=== PATIENT | male | born 1955 | race Caucasian/White ===

== ENCOUNTER 2023-03-01 01:20 | Inpatient (IN) ==
[2023-03-01 01:50] LABS: Basophils # (auto) 0.04 K/uL (0-0.2); Basophils % (auto) 0.3 %; Eosinophils % (auto) 0.9 %; Hematocrit (blood only) 50.7 % (42.0-52.0); Hemoglobin 16.6 g/dl (14.0-18.0); Immature Granulocytes # (auto) 0.08 K/uL (0.01-0.20); Immature Granulocytes % (auto) 0.7 %; Lymphocytes # (auto) 0.86 K/uL (1.2-3.4); Lymphocytes % (auto) 7.4 %; Mean Corpuscular Hemoglobin 29.9 pg (25.0-34.0); Mean Corpuscular Hgb Conc 32.7 g/dL (32.0-36.0); Mean Corpuscular Volume 91.2 fL (80.0-100.0); Monocytes # (auto) 0.73 K/uL (0.11-0.59); Monocytes % (auto) 6.3 %; Neutrophils % (auto) 84.4 %; Platelet Count 236 K/uL (130-400); RDW Coefficient of Variation 14.5 % (11.5-14.5); RDW Standard Deviation 49.1 fL (36.4-46.3); Red Blood Count 5.56 M/uL (4.70-6.10); White Blood Count 11.61 K/ul (4.8-10.8)
--- NOTE | 2023-03-01 01:54 | Emergency Department Note ---
History of Present Illness General Chief complaint: Shortness of Breath/Dyspnea Stated complaint: SHORT OF BREATH History of Present Illness 67-year-old male presents from [facility] reportedly was transferred there after a stroke. Patient has dysarthria and a right-sided facial droop. According to the nursing staff this evening the patient had increased work of breathing and reportedly a low pulse ox in the upper 80s. Patient has had a cough with some congestion. Patient denies any current complaints of chest pain or shortness of breath. Patient denies smoking. Patient has no specific complaints. The [facility] transfer note states that he was short of breath with a low pulse ox he was placed on oxygen and had a pulse oximetry greater than 94% on 2 L of oxygen. Home Medications Medication Instructions Recorded Confirmed Type acetaminophen 325 mg tablet 650 mg PO Q4 PRN Pain 03/01/23 03/01/23 History (Tylenol) albuterol sulfate 90 mcg/actuation 1 inh inhalation Q4 PRN Wheezing 03/01/23 03/01/23 History aerosol inhaler amlodipine 10 mg tablet 10 mg PO DAILY 03/01/23 03/01/23 History apixaban 5 mg tablet 5 mg PO BID 03/01/23 03/01/23 History carbidopa 25 mg-levodopa 100 mg 1 tab PO Q8 03/01/23 03/01/23 History tablet diazepam 5 mg tablet 10 mg PO Q4 PRN .spasm 03/01/23 03/01/23 History docusate sodium 100 mg capsule 100 mg PO BID 03/01/23 03/01/23 History folic acid 1 mg tablet 1 mg PO DAILY 03/01/23 03/01/23 History guaifenesin 600 mg tablet, 600 mg PO BID 03/01/23 03/01/23 History extended release 12 hr (Mucinex) insulin regular human 100 unit/mL 0 unit subcut ACHS 03/01/23 03/01/23 History injection solution (Humulin R Regular U-100 Insulin) melatonin 3 mg tablet 3 mg PO HS PRN Sleep 03/01/23 03/01/23 History metoprolol tartrate 50 mg tablet 50 mg PO Q12H 03/01/23 03/01/23 History ondansetron HCl 4 mg tablet 4 mg PO Q4 PRN Nausea 03/01/23 03/01/23 History polyethylene glycol 3350 17 gram 17 g PO DAILY 03/01/23 03/01/23 History oral powder packet (Miralax) risperidone 0.25 mg tablet 0.5 mg PO Q12 03/01/23 03/01/23 History sennosides 8.6 mg-docusate sodium 1 tab-cap PO .QLUNCH PRN 03/01/23 03/01/23 History 50 mg tablet (Senokot-S) Constipation thiamine HCl (vitamin B1) 100 mg 100 mg PO DAILY 03/01/23 03/01/23 History tablet Allergies Allergy/AdvReac Type Severity Reaction Status Date / Time No Known Allergies Allergy Unverified 03/01/23 03:14 Past Med/Surg History Social History Smoking Status: Current some day smoker Tobacco Type: Cigarettes Feels Safe at Home: Yes Immunizations: Past medical history is CVA Review of Systems A total of 10 systems reviewed and were otherwise negative Cardiovascular: + dyspnea Physical Exam Vital Signs Vital Signs - 24 hr 03/01/23 01:25 03/01/23 01:25 03/01/23 01:25 Temperature 37.0 C Temperature Source Oral Pulse Rate 79 Pulse Rate from SpO2 Sensor Pulse Rhythm Regular Pulse Strength Normal Respiratory Rate 16 Respiratory Effort / Characteristics Non-Labored Spontaneous Non-Labored Respiratory Depth Normal Respiratory Pattern Regular Blood Pressure 169/89 H Blood Pressure Mean 115 Blood Pressure Position Lying Pulse Oximetry 92 Oxygen Delivery Method Room Air Room Air Room Air Sepsis Recent Fever Within 48 Hours Yes Sepsis New/Unexplained Change in Mental Status No Sepsis Action Taken by Nursing No Action Required 03/01/23 02:26 03/01/23 02:27 03/01/23 02:30 Temperature Temperature Source Pulse Rate 92 H 89 90 Pulse Rate from SpO2 Sensor 88 76 Pulse Rhythm Pulse Strength Respiratory Rate 18 18 Respiratory Effort / Characteristics Respiratory Depth Respiratory Pattern Blood Pressure 170/102 H Blood Pressure Mean 124 Blood Pressure Position Pulse Oximetry 92 92 Oxygen Delivery Method Room Air Room Air Sepsis Recent Fever Within 48 Hours Sepsis New/Unexplained Change in Mental Status Sepsis Action Taken by Nursing GENERAL: Patient is awake alert in no acute distress patient is resting comforta florin and showing no signs of anxiety EYES: The conjunctivae are clear. The pupils are round and reactive. EARS, NOSE, MOUTH AND THROAT: The nose is without any evidence of any deformity. Mucous membranes are moist. Tongue is midline. Right sided facial droop NECK: The neck is nontender and supple. RESPIRATORY: Crackles bilaterally CARDIOVASCULAR: Regular rate and rhythm noted there no murmurs rubs or gallops normal S1 normal S2. GASTROINTESTINAL: The abdomen is soft. Abdomen is nontender. PELVIS: The Pelvis is stable. No tenderness to palpation is noted. BACK: No midline tenderness or or step-off noted range of motion in flexion extension as well as rotation no signs of muscle spasm noted MUSCULOSKELETAL/EXTREMITIES: There is no evidence of gross deformity full range of motion is noted in the hips and shoulders. SKIN: There is no obvious evidence of any rash. There are no petechiae, pallor or cyanosis noted. NEUROLOGIC: Patient is awake alert and oriented; dysarthric speech right-sided facial droop Course Reevaluation(s) Reevaluation #1: Patient was started on oxygen, given empiric IV Zosyn, Lasix 40 mg IV. Patient's oxygen improved after 2 L of oxygen. Time: 02:52 Consultations Consultation #1: Case was discussed with the [facility] for admission Time: 04:00 Administered Medications Discontinued Medications Furosemide (Furosemide 40 Mg/4 Ml Vial) 40 mg IV ONE ONE Stop: 03/01/23 02:48 Last Admin: 03/01/23 03:15 Dose: 40 mg Documented By: RAINE Piperacillin Sod/Tazobactam Sod (Zosyn) 4.5 gm in 120 mls @ 240 mls/hr IV NOW ONE Stop: 03/01/23 02:46 Last Infusion: 03/01/23 03:53 Dose: 0 mls/hr Documented By: Admin: 03/01/23 02:24 Dose: 240 mls/hr Documented By: RAINE Critical Care Time Critical Care Time: Yes Total Critical Care Time: 35 I have personally spent greater than 35 minutes of critical care time in the direct management of this patient. This includes bedside care, interpretation of diagnostic studies, and testing, discussion with consultants, patient, and family members, and other required patient management activities. These minutes are in excess of all separately billable procedures. Medical Decision Making Medical Records Attestation: I reviewed the patient's medical records. Home Medications Current Medication List: was personally reviewed by ut Laboratory Data Attestation: I reviewed the patient's lab results. 03/01/23 01:35 03/01/23 01:35 Lab Results 03/01/23 03/01/23 03/01/23 Range/Units 01:35 01:35 01:35 WBC 11.61 H (4.8-10.8) K/ul RBC 5.56 (4.70-6.10) M/uL Hgb 16.6 (14.0-18.0) g/dl Hct 50.7 (42.0-52.0) % MCV 91.2 (80.0-100.0) fL MCH 29.9 (25.0-34.0) pg MCHC 32.7 (32.0-36.0) g/dL RDW Std Deviation 49.1 H (36.4-46.3) fL RDW Coeff of Eduardo 14.5 (11.5-14.5) % Plt Count 236 (130-400) K/uL MPV 10.0 (9.4-12.4) fL Immature Gran % (Auto) 0.7 % Neut % (Auto) 84.4 % Lymph % (Auto) 7.4 % [place] % (Auto) 6.3 % Eos % (Auto) 0.9 % Baso % (Auto) 0.3 % Neut # (Auto) 9.80 H (1.40-6.50) K/uL Lymph # (Auto) 0.86 L (1.2-3.4) K/uL [place] # (Auto) 0.73 H (0.11-0.59) K/uL Eos # (Auto) 0.10 (0-0.50) K/uL Baso # (Auto) 0.04 (0-0.2) K/uL Immature Gran # (Auto) 0.08 (0.01-0.20) K/uL PT 13.3 H (9.0-12.0) Seconds INR 1.2 H (0.9-1.1) Sodium 141 (136-145) mmol/L Potassium 3.8 (3.5-5.1) mmol/L Chloride 104 (98-107) mmol/L Carbon Dioxide 28 (21-32) mmol/L Anion Gap 9 (3-11) BUN 37 H (6-23) mg/dl Creatinine 1.44 H (0.6-1.4) mg/dl Est Cr Clr Drug Dosing 61.6 ml/min Est GFR ( Amer) 57.0 ml/min Est GFR (Non-Af Amer) 49.2 ml/min BUN/Creatinine Ratio 25.7 H (10-20) Glucose 124 H (70-99(Fasting)) mg/dl Calcium 8.5 L (8.6-10.3) mg/dl Total Bilirubin 1.1 H (0.2-1.0) mg/dl AST 46 H (13-39) U/L ALT 60 H (7-52) U/L Alkaline Phosphatase 179 H (34-104) U/L Troponin I High Sens 49.2 H (0-20) pg/ml B-Natriuretic Peptide (0-100) pg/ml Total Protein 5.9 L (6.0-8.3) gm/dl Albumin 2.8 L (3.4-5.0) gm/dl Globulin 3.1 (2.5-4.0) gm/dl Albumin/Globulin Ratio 0.9 (0.9-2) Urine Color Urine Appearance (Clear) Urine pH (4.5-7.5) Ur Specific Chardon (1.000-1.030) Urine Protein (Negative) Urine Glucose (UA) (Negative) Urine Ketones (Negative) Urine Blood (Negative) Urine Nitrite (Negative) Urine Bilirubin (Negative) Urine Urobilinogen (Negative) Ur Leukocyte Esterase (Negative) SARS-CoV-2, RNA, NAAT (NEGATIVE) 03/01/23 03/01/23 03/01/23 Range/Units 01:35 01:53 01:54 WBC (4.8-10.8) K/ul RBC (4.70-6.10) M/uL Hgb (14.0-18.0) g/dl Hct (42.0-52.0) % MCV (80.0-100.0) fL MCH (25.0-34.0) pg MCHC (32.0-36.0) g/dL RDW Std Deviation (36.4-46.3) fL RDW Coeff of Eduardo (11.5-14.5) % Plt Count (130-400) K/uL MPV (9.4-12.4) fL Immature Gran % (Auto) % Neut % (Auto) % Lymph % (Auto) % [place] % (Auto) % Eos % (Auto) % Baso % (Auto) % Neut # (Auto) (1.40-6.50) K/uL Lymph # (Auto) (1.2-3.4) K/uL [place] # (Auto) (0.11-0.59) K/uL Eos # (Auto) (0-0.50) K/uL Baso # (Auto) (0-0.2) K/uL Immature Gran # (Auto) (0.01-0.20) K/uL PT (9.0-12.0) Seconds INR (0.9-1.1) Sodium (136-145) mmol/L Potassium (3.5-5.1) mmol/L Chloride (98-107) mmol/L Carbon Dioxide (21-32) mmol/L Anion Gap (3-11) BUN (6-23) mg/dl Creatinine (0.6-1.4) mg/dl Est Cr Clr Drug Dosing ml/min Est GFR ( Amer) ml/min Est GFR (Non-Af Amer) ml/min BUN/Creatinine Ratio (10-20) Glucose (70-99(Fasting)) mg/dl Calcium (8.6-10.3) mg/dl Total Bilirubin (0.2-1.0) mg/dl AST (13-39) U/L ALT (7-52) U/L Alkaline Phosphatase (34-104) U/L Troponin I High Sens (0-20) pg/ml B-Natriuretic Peptide 500 H (0-100) pg/ml Total Protein (6.0-8.3) gm/dl Albumin (3.4-5.0) gm/dl Globulin (2.5-4.0) gm/dl Albumin/Globulin Ratio (0.9-2) Urine Color Yellow Urine Appearance Clear (Clear) Urine pH 6.0 (4.5-7.5) Ur Specific Chardon 1.012 (1.000-1.030) Urine Protein Negative (Negative) Urine Glucose (UA) Negative (Negative) Urine Ketones Negative (Negative) Urine Blood Negative (Negative) Urine Nitrite Negative (Negative) Urine Bilirubin Negative (Negative) Urine Urobilinogen Negative (Negative) Ur Leukocyte Esterase Negative (Negative) SARS-CoV-2, RNA, NAAT NEGATIVE (NEGATIVE) Imaging Data Attestation: I personally reviewed and interpreted this imaging study as fo llows: My Impression: Chest x-ray interpreted by me atelectasis in the left lung and atelectasis in the right lower lobe questionable infiltrate in the right lower lobe ECG Data Attestation: I personally reviewed and interpreted this ECG as follows: Additional Comments: EKG interpreted by me atrial fibrillation rate of 75 incomplete right bundle branch block left anterior hemiblock nonspecific ST-T change no obvious ST segment elevation or depression, left axis deviation is present Telemetry was ordered by me, interpreted as atrial fibrillation rate of 72 MDM Narrative Medical decision making differential diagnosis includes CHF, bronchitis, pneumonia, anemia Plan is to check labs, EKG, chest x-ray, blood cultures External medical records were reviewed EMS medical report was reviewed by me Impression & Plan Congestive heart failure, Pneumonia, Hypoxia Discharge Plan Visit Data Chief Complaint: Shortness of Breath/Dyspnea Stated Complaint: SHORT OF BREATH ED Provider: Viet Hernandez Discharge Problem: Congestive heart failure, Pneumonia, Hypoxia Patient Disposition: Admitted As Inpatient Forms Stand Alone Forms: My [facility] Prescriptions Prescriptions: No Action acetaminophen [Tylenol] 325 mg Tablet 650 mg PO Q4 PRN (Reason: Pain) polyethylene glycol 3350 [Miralax] 17 gram Powder In Packet 17 g PO DAILY Rx Instructions: give at lunch ondansetron HCl 4 mg Tablet 4 mg PO Q4 PRN (Reason: Nausea) sennosides-docusate sodium [Senokot-S] 8.6-50 mg Tablet 1 tab-cap PO .QLUNCH PRN (Reason: Constipation) thiamine HCl (vitamin B1) 100 mg Tablet 100 mg PO DAILY risperidone [Risperdal] 0.25 mg Tablet 0.5 mg PO Q12 melatonin 3 mg Tablet 3 mg PO HS PRN (Reason: Sleep) amlodipine 10 mg Tablet 10 mg PO DAILY Humulin R Regular U-100 Insuln 100 unit/mL Solution 0 unit subcut ACHS Rx Instructions: 70-130=0units, 131-180=2units, 181-240=4 units, 241-300=6units, 301-350=8 units,351-400=10units , >400=12units metoprolol tartrate 50 mg Tablet 50 mg PO Q12H docusate sodium 100 mg Capsule 100 mg PO BID folic acid 1 mg Tablet 1 mg PO DAILY albuterol sulfate 90 mcg/actuation Hfa Aerosol Inhaler 1 inh INHALATION Q4 PRN (Reason: Wheezing) carbidopa-levodopa 25-100 mg Tablet 1 tab PO Q8 diazepam 5 mg Tablet 10 mg PO Q4 PRN (Reason: .spasm) apixaban 5 mg Tablet 5 mg PO BID guaifenesin [Mucinex] 600 mg Tablet Extended Release 12hr 600 mg PO BID Referrals Referrals: PCP,NO [Physician] -
[2023-03-01 02:14] LABS: Albumin Globulin Ratio 0.9 (0.9-2); Albumin Level 2.8 gm/dl (3.4-5.0); BUN Creatinine Ratio 25.7 (10-20); Bilirubin,Total 1.1 mg/dl (0.2-1.0); Calcium 8.5 mg/dl (8.6-10.3); Creatinine Clr Calc Pharmacy 61.6 ml/min; Est GFR (Non-African American) 49.2 ml/min; Globulin 3.1 gm/dl (2.5-4.0); Potassium 3.8 mmol/L (3.5-5.1); Total Protein 5.9 gm/dl (6.0-8.3)
[2023-03-01 02:17] LABS: INR 1.2 (0.9-1.1); Prothrombin Time 13.3 Seconds (9.0-12.0)
[2023-03-01] MEDS ORDERED: PIPERACILLIN/TAZOBACTAM 4.5 GM/120 ML BAG IV ONE (02:17)
[2023-03-01 02:19] LABS: Troponin I High Sensitivity 49.2 pg/ml (0-20)
[2023-03-01] MEDS ORDERED: FUROSEMIDE 40 MG/4 ML VIAL IV ONE (02:47)
[2023-03-01 03:48] LABS: Appearance Urine Clear (Clear); Bilirubin Urine Negative (Negative); Blood Urine Negative (Negative); Color Urine Yellow; Glucose Urine UA Negative (Negative); Ketones Urine Negative (Negative); Leukocyte Esterase Urine Negative (Negative); Nitrite Urine Negative (Negative); Protein Urine Negative (Negative); Specific Gravity Urine 1.012 (1.000-1.030); Urobilinogen Urine Negative (Negative)
[2023-03-01] MEDS ORDERED: HEPARIN SOD 5,000 UNIT/0.5 ML VIAL SQ STA (04:52)
--- NOTE | 2023-03-01 04:57 | History & Physical Report ---
Date of Service March 01, 2023 Assessment & Plan (1) Hypoxia: Plan: Patient is a 67-year-old male with a past medical history of recent acute CVA, alcohol abuse, nicotine dependence, hypertension, and atrial fibrillation who presents to the hospital for evaluation of hypoxia. Work-up in ED is suggestive of acute CHF exacerbation. He is status post IV Lasix therapy and is currently on supplemental oxygen. Patient is hemodynamically stable and being admitted for diuresis and supplemental oxygen. -Admit to [facility] with telemetry -Hypoxia likely secondary to pulmonary edema from CHF exacerbation, see plan below -Possibly a component of aspiration, see below -Do not feel chest x-ray is indicative of aspiration pneumonia -If patient were to show worsening white count or fever, consider adding broad- spectrum antibiotics for coverage -Status post IV Lasix -Supplemental oxygen as needed -Incentive spirometry, pulmonary toilet -Aspiration precautions Of note, insulin and hypoglycemia protocol is in patient's medications. This is not accurate. Patient had these ordered as part of a protocol at [facility]. His admission A1c at [facility] was 5.1 without any diabetic medications indicating that he does not have diabetes. (2) Congestive heart failure: Plan: - Likely secondary to chronic uncontrolled hypertension/atrial fibrillation -Evident on chest x-ray with cardiomegaly and pulmonary edema -Consult cardiology, appreciate recommendations and treatment -Complete echocardiogram in the morning -Low-sodium diet -Mclain catheter in for accurate I's and O's -Have patient sit upright for comfort (3) At risk for aspiration: Plan: - Secondary to recent CVA -Per rehab notes, patient was seen by speech pathology at [facility], however, we are unable to obtain the records for this at this time -For this reason, n.p.o. and will consult speech pathology for evaluation and recommendations, appreciate recs -Aspiration precautions (4) Elevated LFTs: Plan: - Likely patient has liver disease secondary to chronic alcohol abuse -Unable to find any record of abdominal imaging in transfer record -Evidence of ascites on physical exam with abdominal distention with what feels like a positive fluid wave -Ultrasound of liver ordered to evaluate for alcoholic liver disease (5) Elevated troponin: Plan: - Likely secondary to demand ischemia given acute CHF exacerbation and hypertension -Mildly elevated at 49.2, trend to peak -No chest pain (6) CKD (chronic kidney disease): Plan: -Newly diagnosed problem -Per records received from [facility], multiple measurements of creatinine above 1.4 -Suspect CKD 3 in the setting of chronic uncontrolled hypertension -Renally dose medications as needed (7) Atrial fibrillation: Plan: - Currently rate controlled, unsure if permanent or paroxysmal -On Eliquis for anticoagulation, however, unsure of last dose. -We will give DVT prophylaxis dose of heparin, I believe this should be enough to get him seen by speech evaluation to be cleared to take his Eliquis -Continue beta-blockade when NPO, if patient goes into RVR, transfer to telemetry will be required with Lopressor IV pushes (8) Hx of arterial ischemic stroke: Plan: -Noted -PT and OT consulted for continued treatment, appreciate recommendations -Otherwise as above (9) Alcohol abuse: Plan: - Per chart review from [facility], patient having multiple drinks daily for years -Assuming he has not had alcohol since his admission to [facility] on 02/22/2023. -To be sure, will put on AWSS at risk protocol - (10) Hypertension: Plan: - Chronic, uncontrolled -Continue amlodipine and metoprolol as able after speech consult -We will hold off from as needed antihypertensives for now -If consistently over 180/100, may need to add as needed hydralazine Plan Diet: N.p.o., holding off fluids given diuresis DVT prophylaxis: Typically on Eliquis, given 1 injection of heparin 5000 units subcutaneously Disposition: Admit to [facility] with telemetry for diuresis and initial cardiology consult for new onset CHF -CODE STATUS: Full code History of Present Illness Chief Complaint: Hypoxia Primary Care Provider: Bryant Trent Patient is a 67-year-old male with a past medical history of recent acute CVA, alcohol abuse, nicotine dependence, hypertension, and atrial fibrillation who presents to the hospital for evaluation of hypoxia. Patient was admitted at [facility] on 02/22/2023 after presenting to the ED with jerking in the left arm and leg that had lasted for about 2 weeks. While he was there, was found that the patient had a stroke in the subthalamic/midbrain on the right side. Neurology was consulted due to choreoathetoid movements and they felt that this was due to the stroke and recommended Risperdal twice a day. Patient was then supposed to be placed on high intensity statin. Patient then went to [facility] for inpatient rehab for which she was admitted on 02/27/2023. Apparently in the afternoon of 02/28/2023, patient was wearing a pulse oximeter and the staff had noted that the patient's oxygen saturation had been consistently going below 90% and would recover with 2 L nasal cannula but the patient was unable to go without nasal cannula without becoming hypoxic. For this reason, [facility] called EMS to take patient here for further evaluation and treatment. At the time of my evaluation, patient reports that he does not feel short of breath and feels comfortable overall. He is difficult to understand and has dysarthria. Otherwise denies chest pain, nausea, vomiting, or abdominal pain. Patient not having any complaints at this time. ED course: Patient was evaluated by one of our ED providers. Lab work was significant for a mild white blood cell count of 11.6, PT of 13.3, INR 1.2, creatinine of 1.44, glucose of 124, calcium 8.5, total bilirubin of 1.1, AST and ALT elevated at 46 and 60 respectively, alk phos of 179, high-sensitivity troponin of 49.2, BNP at 500, and negative urine analysis. Patient had chest x- ray which did show evidence of cardiomegaly and pulmonary edema. Patient was placed on oxygen supplementation and given 40 mg of Lasix via IV. A Mclain catheter was also placed. It was at this time that the hospitalist service was consulted for admission and treatment. Allergies Allergy/AdvReac Type Severity Reaction Status Date / Time No Known Allergies Allergy Unverified 03/01/23 03:14 Home Medications Medication Instructions Recorded Confirmed Type acetaminophen 325 mg tablet 650 mg PO Q4 PRN Pain 03/01/23 03/01/23 History (Tylenol) albuterol sulfate 90 mcg/actuation 1 inh inhalation Q4 PRN Wheezing 03/01/23 03/01/23 History aerosol inhaler amlodipine 10 mg tablet 10 mg PO DAILY 03/01/23 03/01/23 History apixaban 5 mg tablet 5 mg PO BID 03/01/23 03/01/23 History carbidopa 25 mg-levodopa 100 mg 1 tab PO Q8 03/01/23 03/01/23 History tablet diazepam 5 mg tablet 10 mg PO Q4 PRN .spasm 03/01/23 03/01/23 History docusate sodium 100 mg capsule 100 mg PO BID 03/01/23 03/01/23 History folic acid 1 mg tablet 1 mg PO DAILY 03/01/23 03/01/23 History guaifenesin 600 mg tablet, 600 mg PO BID 03/01/23 03/01/23 History extended release 12 hr (Mucinex) insulin regular human 100 unit/mL 0 unit subcut ACHS 03/01/23 03/01/23 History injection solution (Humulin R Regular U-100 Insulin) melatonin 3 mg tablet 3 mg PO HS PRN Sleep 03/01/23 03/01/23 History metoprolol tartrate 50 mg tablet 50 mg PO Q12H 03/01/23 03/01/23 History ondansetron HCl 4 mg tablet 4 mg PO Q4 PRN Nausea 03/01/23 03/01/23 History polyethylene glycol 3350 17 gram 17 g PO DAILY 03/01/23 03/01/23 History oral powder packet (Miralax) risperidone 0.25 mg tablet 0.5 mg PO Q12 03/01/23 03/01/23 History sennosides 8.6 mg-docusate sodium 1 tab-cap PO .QLUNCH PRN 03/01/23 03/01/23 History 50 mg tablet (Senokot-S) Constipation thiamine HCl (vitamin B1) 100 mg 100 mg PO DAILY 03/01/23 03/01/23 History tablet Past Med/Surg History Medical History (Updated 03/01/23 @ 21:14 by Jasson Foster MD) Atrial fibrillation Endotracheally intubated Perforated abdominal viscus Sepsis Stroke Ventilator dependence Surgical History (Updated 03/01/23 @ 17:00 by Lexx Anderson MD) History of colon resection (03/01/23) Exploratory Laparotomy, Desending Colon Resection, Partial omentectomy, creation of end colostomy(Not Applicable) - Avinash Dennison, Status post exploratory laparotomy Social History Smoking Status: Current some day smoker Tobacco Type: Cigarettes Do You Dip or Chew Tobacco: No; Hx Alcohol Use: Yes Alcohol type: beer Hx Substance Use: No Preferred Language: Amharic Communication Ability: Effective Turret Punch Operator Required: No Beliefs That Will Affect Care: None Current Living Situation: Spouse Current Living Situation Comment: at [facility] for rehab then dc back home Other Information That Helps Us Care for You: Yes (new stroke 7 days ago) Feels Safe at Home: Yes Safety Concerns: Feels Safe At This Time Assistive Devices: Oxygen - Continuous Review of Systems Review of Systems: All systems reviewed & are unremarkable except as noted in HPI & below Physical Exam Constitutional: WD/WN, vitals as above Eyes: + scleral abnormality and + anicteric sclerae Neck: trachea midline, no thyromegaly Respiratory: normal respiratory effort and able to speak in complete sentences; no respiratory distress Auscultation: + crackles Cardiovascular: Rate/Rhythm: regular rate and + irregularly irregular Extremities: no edema Gastrointestinal (Abdomen): Inspection/Auscultation: + abdomen distended Percussion/Palpation: abdomen soft; abdomen nontender Musculoskeletal: Head/Neck/Chest: normocephalic and head atraumatic Profound weakness in the left upper and lower extremity. Skin: no rashes, warm and dry Neurologic: awake Speech / Cognition: + abnormal speech Psychiatric: A+Ox3, euthymic affect Results & Data Results & Data Vital Signs (Past 12 Hours) Vital Signs Temp Pulse Resp BP Pulse Ox O2 Del Method O2 Flow Rate 03/01/23 04:00 98 H 20 154/95 H 93 Nasal Cannula 1 03/01/23 03:30 88 20 151/80 H 95 Nasal Cannula 1 03/01/23 03:01 90 20 166/101 H 97 Nasal Cannula 1 03/01/23 02:30 92 H 22 153/96 H 96 Nasal Cannula 1 03/01/23 02:30 90 03/01/23 02:27 89 18 170/102 H 92 Room Air 03/01/23 02:26 92 H 18 92 Room Air 03/01/23 01:25 Room Air 03/01/23 01:25 Room Air 03/01/23 01:25 37.0 C 79 16 169/89 H 92 Room Air Supervising Physician Co-Signing Physician Notes Attending addendum: I have physically seen this patient, have supervised the medical residents activities, and agree with the H&P unless as otherwise noted. Assessment and Plan: Acute on chronic respiratory failure with hypoxia- Likely combination of CHF and aspiration pneumonia Admit to monitored bed CHF exacerbation/atrial fibrillation/elevated troponin Given Lasix 40 mg IV in ED, will continue IV every morning The patient will be admitted to telemetry for serial cardiac enzymes, serial EKG's, cardiac rhythm monitoring and a 2-D echocardiogram with Dopplers. Hold amlodipine and oral metoprolol tartrate Troponin 49.2 on admission, follow serially Add Lopressor IV if needed Serial laboratories, CBC with differential, chemistry profile and magnesium l liuel Probable aspiration pneumonia- N.p.o. Speech therapy consult Symptoms reportedly noted since recent CVA Zosyn 4.5 g IV every 8 hours Abnormal LFTs- AST 46, ALT 60- Question secondary to passive congestion from CHF follow serially Remaining orders and notations as noted
[2023-03-01] MEDS ORDERED: LORazepam 2 MG/1 ML VIAL IV PRN (06:07)
[2023-03-01] MEDS ORDERED: MELATONIN 3 MG TAB PO PRN (06:07)
[2023-03-01] MEDS ORDERED: ALBUTEROL HFA 8 GM INHALER INH PRN (06:07)
[2023-03-01] MEDS ORDERED: ONDANSETRON INJ 2 MG/ML 2 ML VIAL IV PRN (06:07)
[2023-03-01] MEDS ORDERED: METOPROLOL TARTRATE 50 MG TAB PO SCH (07:00)
--- NOTE | 2023-03-01 08:05 | XRay Report ---
SINGLE VIEW CHEST CLINICAL HISTORY: Atypical chest pain. FINDINGS: An AP, portable, upright chest radiograph is compared obtained. No prior studies are availa ble for comparison at the time of dictation. The examination is degraded by portable technique and ap ical lordotic positioning. The heart is enlarged. There is pulmonary vascular congestion. There is bi basilar scarring/atelectasis. No large pleural effusion or pneumothorax is seen. The skeletal structu res are osteopenic. The bony thorax is grossly intact. Intraperitoneal free air is seen below the rig ht hemidiaphragm. IMPRESSION: 1. Intraperitoneal free air is seen below the right hemidiaphragm. Perforated abdominal viscus is the diagnosis of exclusion. 2. Cardiomegaly with pulmonary vascular congestion. ACT 112: Negative or not required by law. Electronically signed by: Alexis Regan M.D. 03/01/2023 8:02 AM
--- NOTE | 2023-03-01 08:17 | Hospitalist Progress Note ---
Date of Service March 01, 2023 Assessment & Plan (1) Diverticulitis of intestine with perforation and abscess: (2) Hypoxia: (3) Congestive heart failure: (4) At risk for aspiration: (5) Elevated LFTs: (6) Elevated troponin: (7) Atrial fibrillation: (8) Hx of arterial ischemic stroke: (9) Alcohol abuse: (10) CKD (chronic kidney disease): Radha Mejia is a 67 y/o M with PMHx of recent acute CVA, hypertension, AFIB, alcohol misuse and nicotine dependence who presents from [facility] with hypoxia secondary to suspected CHF exacerbation. #Diverticulitis of descending colon with perforation and abscess -Gen surg consult appreciated. Given Kcentra prior to exploratory laparotomy. -CT abd/pelvis: acute diverticulitis descending colon with perforation. Large pneumoperitoneum, with pericolonic abscess measuring 20cm. -CXR showed free air under hemidiaphragm -Pip/Tazo empiric tx. Antihypertensives and Eliquis held #Hypoxia -Was noted to be SOB/hypoxic at [facility] -SpO2 >90% on nasal cannula -Suspected etiology: heart failure and/or abdominal distention -Suspicion for infectious etiology lowered based on CXR, WBC #Congestive heart failure -Likely 2/2 HTN and AFIB. BNP 500. Given Lasix 40mg IV x1. -CXR showing cardiomegaly, pulmonary edema -Echocardiogram 03/01/23: LVEF 55-60%, no wall motional abnormalities, severe concentric LV hypertrophy. Small pericardial effusion along RV. -Track I/Os, weights. Low sodium diet -Cardio consult appreciated #History of arterial ischemic stroke #Aspiration risk -Admitted to [facility] on 02/22/23 with left arm/leg jerking for ~2 weeks. Per record review: left-sided choreoathetoid movements 2/2 right subthalamic infarction. Recommended d/c Sinemet, starting Eliquis, high intensity stain, BP control and Risperdal 0.25mg BID -Per rehab notes, patient was seen by speech pathology at [facility], however, we are unable to obtain the records for this at this time -Speech language pathology consult appreciated -Aspiration precautions #Alcohol misuse, chronic #Elevated LFTs -Last drink 02/22/23. Baseline is at least several beers/day every day for decades -AWSS protocol -AST 46, ALT 60, T-bili 1.1, INR1.2 -Thiamine + folic acid supplementation #CKD -Newly diagnosed with several creatinine >1.4 at [facility]. -eGFR in CKD3a range -Renally dosed medications #Atrial fibrillation -Newly diagnosed on 02/22/23 at [facility] -In AFIB on admission -On Eliquis for anticoagulation, unsure of last dose. Holding for now. -Continue beta-blockers when NPO #Elevated troponin -Mild elevation at 49.2 on admission up. Trending. -Suspect demand ischemia #Hypertension, chronic and uncontrolled -Continue amlodipine and metoprolol as able after speech consult -Consider hydralazine if consistently over 180/100 FENGI: NPO DVT ppx: holding Eliquis Dispo: PCU, will likely return to rehab upon discharge Full code Admission and Anticipated Discharge Date Admission Date: March 01, 2023 Supervising Physician Co-Signing Physician Notes I personally examined the patient and verified all lal points of history and exam, discussed case, and agree with decision making with Michelle Sutton MS4 and Dr Martinez no belly pain but free air noted on CXR abd mod distention nontender no guarding no rebound no rigidity CT ordered, case d/w surgery (both pre and post op) and d/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 otherwise as above resume anticoagulation as soon as is safe Kamran Mejia does not have acute concerns although it is a bit difficult for me to gather a history. He is passing stool, no abdominal pain. He believes his abdominal distention is stable from his baseline. No chest pain, palpitations, or shortness of breath. He is urinating with a Mclain catheter. No numbness, tingling, or weakness. His uncoordinated left-sided movements persist from his recent CVA. 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 Review of Systems Review of Systems: All systems reviewed & are unremarkable except as noted in HPI & below Physical Exam Eyes: no scleral icterus Cardiovascular: irregular rhythm Normal S1, S2, no cyanosis Extremities warm Gastrointestinal (Abdomen): abdomen is distended, but soft no pain/rebound/guarding to palpation Neurologic: Oriented to person, place, time. +Dysarthria Spontaneous movements of the left arm noted while patient lying on right side during bedding change Uncoordinated left-arm movement with outstretched hands. No asterixis. CN 2-12 intact Strength 5/5 bilaterally for handgrip, foot dorsiflexion/plantar flexion Genitourinary: +Mclain catheter with red-tinged output, with sediment Lymphatic: mucous membranes appear dry LE symmetrical without pitting edema, erythema Results & Data Results & Data Vital Signs (Past 12 Hours) Vital Signs Temp Pulse Pulse Resp BP BP Pulse Ox 03/01/23 06:07 03/01/23 05:40 37.4 C 89 18 179/93 H 94 03/01/23 05:00 100 H 22 157/104 H 94 03/01/23 04:30 92 H 20 180/111 H 94 03/01/23 04:00 98 H 20 154/95 H 93 03/01/23 03:30 88 20 151/80 H 95 03/01/23 03:01 90 20 166/101 H 97 03/01/23 02:30 92 H 22 153/96 H 96 03/01/23 02:30 90 03/01/23 02:27 89 18 170/102 H 92 03/01/23 02:26 92 H 18 92 03/01/23 01:25 03/01/23 01:25 03/01/23 01:25 37.0 C 79 16 169/89 H 92 Pulse Ox O2 Del Method O2 Flow Rate 03/01/23 06:07 95 03/01/23 05:40 Nasal Cannula 1 03/01/23 05:00 Nasal Cannula 1 03/01/23 04:30 Nasal Cannula 1 03/01/23 04:00 Nasal Cannula 1 03/01/23 03:30 Nasal Cannula 1 03/01/23 03:01 Nasal Cannula 1 03/01/23 02:30 Nasal Cannula 1 03/01/23 02:30 03/01/23 02:27 Room Air 03/01/23 02:26 Room Air 03/01/23 01:25 Room Air 03/01/23 01:25 Room Air 03/01/23 01:25 Room Air
[2023-03-01] MEDS ORDERED: risperiDONE 0.5 MG TABLET PO SCH (09:00)
[2023-03-01] MEDS ORDERED: APIXABAN 5 MG TABLET PO SCH (09:00)
[2023-03-01] MEDS ORDERED: FOLIC ACID 1 MG TAB PO SCH (09:00)
[2023-03-01] MEDS ORDERED: guaiFENesin 600 MG TABCR PO SCH (09:00)
[2023-03-01] MEDS ORDERED: amLODIPine BESYLATE 5 MG TAB PO SCH (09:00)
[2023-03-01] MEDS ORDERED: THIAMINE HCL 100 MG TAB PO SCH (09:00)
[2023-03-01] MEDS ORDERED: DOCUSATE SODIUM 100 MG CAP PO SCH (09:00)
[2023-03-01] MEDS ORDERED: POLYETHYLENE (MIRALAX) 17 GM PACK PO SCH (09:00)
--- NOTE | 2023-03-01 09:02 | Surgery Consultation ---
Date of Consultation March 01, 2023 Assessment & Plan (1) Intra-abdominal free air of unknown etiology: This is a 67y M with a PMH of recent CVA dx'd at [facility] earlier this month, alcohol abuse, afib on eliquis, CKD, HTN, elevated LFTs who presents to the [facility] ED on 03/01/[facility] with shortness of breath and concern for CHF exacerbation. A CXR was obtained in workup and read this AM as + free air seen under the R hemidiaphragm concerning for perforated abdominal viscus. On my interview he currently denies any abdominal complaints- no pain/nausea/vomiting. Vitals are currently stable outside of requiring some supplemental O2. Labs reveal WBC 11.6, Hbg 16, K 3.8, INR 1.2, albumin 2.8, BNP 500, Cr: 1.4, elevated LFTs of Tb 1.1, AST 46, ALT 60, Alkp 179. On exam patient's abdomen appears somewhat distended, but soft, and not overly tender. He denies any discomfort upon palpation throughout abdomen. Right now a CT a/p has been ordered as STAT for further workup/investigation of free air seen on CXR. We will follow up on results as soon as they return and make further recommendations at that time. Currently eliquis is being held, may need kcentra if surgical intervention is deemed warranted today. Supervising Physician Co-Signing Physician Notes I personally saw and evaluated the patient with Ania El PA-C and agree with the assessment and plan. 67-year-old male with intra-abdominal free air from likely perforated diverticulitis Physical exam: Abdomen: Soft, diffusely tender to palpation with guarding worse in the left abdomen, positive rebound His CT images and results were personally viewed by myself, consistent with a large amount of pneumoperitoneum from a likely perforated descending/sigmoid diverticulitis I discussed at length with the patient the nature of his CT findings and that surgery would be indicated and he would like to proceed We will plan on exploratory laparotomy, possible bowel resection, possible ostomy, possible wound VAC Consent was obtained, risks discussed including bleeding, infection, injury to surrounding structures, need for further surgery, CVA, We will give him Kcentra just prior to the operating room due to him being on Eliquis I did discuss with the patient that he is at high risk for vascular complications due to his recent CVA as well as surgical complications due to his EtOH use and liver disease I did ask him if there was any family or friends he would like me to discuss his case with and he declined this History of Present Illness Reason for Consultation: Intra-abdominal free air Attending Physician: Nickolas Nation DO History of Present Illness This is a 67y M with a PMH of recent CVA dx'd at [facility] earlier this month, alcohol abuse, afib on eliquis, CKD, HTN, elevated LFTs who presents to the [facility] ED on 03/01/[facility] with shortness of breath and concern for CHF exacerbation. A CXR was obtained in workup and read this AM as + free air seen under the R hemidiaphragm concerning for perforated abdominal viscus. Some HPI obtained from chart review. Upon my interview patient is groggy, but appears to accurately answer my questions. He currently denies any abdominal pain, nausea/vomiting, change in bowel habits, fevers/chills, CP/SOB. He denies any prior abdominal surgical history. He tells me he regularly drinks a few beers a day. He also tells me he lives home alone but has friends/family nearby. He is oriented to person and year and tells me he is in a hospital at [facility]. Allergies Allergy/AdvReac Type Severity Reaction Status Date / Time No Known Allergies Allergy Unverified 03/01/23 03:14 Home Medications Medication Instructions Recorded Confirmed Type acetaminophen 325 mg tablet 650 mg PO Q4 PRN Pain 03/01/23 03/01/23 History (Tylenol) albuterol sulfate 90 mcg/actuation 1 inh inhalation Q4 PRN Wheezing 03/01/23 03/01/23 History aerosol inhaler amlodipine 10 mg tablet 10 mg PO DAILY 03/01/23 03/01/23 History apixaban 5 mg tablet 5 mg PO BID 03/01/23 03/01/23 History carbidopa 25 mg-levodopa 100 mg 1 tab PO Q8 03/01/23 03/01/23 History tablet diazepam 5 mg tablet 10 mg PO Q4 PRN .spasm 03/01/23 03/01/23 History docusate sodium 100 mg capsule 100 mg PO BID 03/01/23 03/01/23 History folic acid 1 mg tablet 1 mg PO DAILY 03/01/23 03/01/23 History guaifenesin 600 mg tablet, 600 mg PO BID 03/01/23 03/01/23 History extended release 12 hr (Mucinex) insulin regular human 100 unit/mL 0 unit subcut ACHS 03/01/23 03/01/23 History injection solution (Humulin R Regular U-100 Insulin) melatonin 3 mg tablet 3 mg PO HS PRN Sleep 03/01/23 03/01/23 History metoprolol tartrate 50 mg tablet 50 mg PO Q12H 03/01/23 03/01/23 History ondansetron HCl 4 mg tablet 4 mg PO Q4 PRN Nausea 03/01/23 03/01/23 History polyethylene glycol 3350 17 gram 17 g PO DAILY 03/01/23 03/01/23 History oral powder packet (Miralax) risperidone 0.25 mg tablet 0.5 mg PO Q12 03/01/23 03/01/23 History sennosides 8.6 mg-docusate sodium 1 tab-cap PO .QLUNCH PRN 03/01/23 03/01/23 History 50 mg tablet (Senokot-S) Constipation thiamine HCl (vitamin B1) 100 mg 100 mg PO DAILY 03/01/23 03/01/23 History tablet Patient History Social History Smoking Status: Current some day smoker Tobacco Type: Cigarettes Do You Dip or Chew Tobacco: No; Hx Alcohol Use: Yes Alcohol type: beer Hx Substance Use: No Preferred Language: Mexican Communication Ability: Effective 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 Beliefs That Will Affect Care: None Current Living Situation: Spouse Current Living Situation Comment: at [facility] for rehab then dc back home Other Information That Helps Us Care for You: Yes (new stroke 7 days ago) Feels Safe at Home: Yes Safety Concerns: Feels Safe At This Time Assistive Devices: Oxygen - Continuous Review of Systems 2 Constitutional: no fever and no chills Respiratory: no dyspnea Cardiovascular: no chest pain Gastrointestinal: no abdominal pain, no nausea, no vomiting and no change in bowel habits Physical Exam Physical Exam: groggy but able to answer questions bit of slurred speech Constitutional: no acute distress Respiratory: normal respiratory effort on 2 L supplemental O2 Gastrointestinal (Abdomen): Inspection/Auscultation: + abdomen distended Percussion/Palpation: abdomen soft; abdomen nontender (not overly tender, non peritonitic ) and abdomen not rigid Results & Data Vital Signs (Past 12 Hours) Vital Signs Temp Pulse Pulse Resp BP BP Pulse Ox 03/01/23 08:09 36.7 C 85 32 H 125/86 91 03/01/23 06:07 03/01/23 05:40 37.4 C 89 18 179/93 H 94 03/01/23 05:00 100 H 22 157/104 H 94 03/01/23 04:30 92 H 20 180/111 H 94 03/01/23 04:00 98 H 20 154/95 H 93 03/01/23 03:30 88 20 151/80 H 95 03/01/23 03:01 90 20 166/101 H 97 03/01/23 02:30 92 H 22 153/96 H 96 03/01/23 02:30 90 03/01/23 02:27 89 18 170/102 H 92 03/01/23 02:26 92 H 18 92 03/01/23 01:25 03/01/23 01:25 03/01/23 01:25 37.0 C 79 16 169/89 H 92 Pulse Ox O2 Del Method O2 Flow Rate 03/01/23 08:09 Nasal Cannula 2 03/01/23 06:07 95 03/01/23 05:40 Nasal Cannula 1 03/01/23 05:00 Nasal Cannula 1 03/01/23 04:30 Nasal Cannula 1 03/01/23 04:00 Nasal Cannula 1 03/01/23 03:30 Nasal Cannula 1 03/01/23 03:01 Nasal Cannula 1 03/01/23 02:30 Nasal Cannula 1 03/01/23 02:30 03/01/23 02:27 Room Air 03/01/23 02:26 Room Air 03/01/23 01:25 Room Air 03/01/23 01:25 Room Air 03/01/23 01:25 Room Air Diagnostic Findings SINGLE VIEW CHEST CLINICAL HISTORY: Atypical chest pain. FINDINGS: An AP, portable, upright chest radiograph is compared obtained. No prior studies are available for comparison at the time of dictation. The examination is degraded by portable technique and apical lordotic positioning. The heart is enlarged. There is pulmonary vascular congestion. There is bibasilar scarring/atelectasis. No large pleural effusion or pneumothorax is seen. The skeletal structures are osteopenic. The bony thorax is grossly intact. Intraperitoneal free air is seen below the right hemidiaphragm. IMPRESSION: 1. Intraperitoneal free air is seen below the right hemidiaphragm. Perforated abdominal viscus is the diagnosis of exclusion. 2. Cardiomegaly with pulmonary vascular congestion. ACT 112: Negative or not required by law Electronically signed by: Alexis Regan M.D. 03/01/2023 8:02 AM PG Care Time/CCT Total # of Minutes Spent Total Time Spent with Patient: Total time spent is greater than 50% in coordination of care (as documented) at patient's floor/unit and/or counseling patient: Coding Level of Care Code 26378 INT INP/OBS CARE 3/75MIN Diagnoses Intra-abdominal free air of unknown etiology K66.8
[2023-03-01] MEDS ORDERED: OPTIRAY 320 100ml IV ONE (09:45)
--- NOTE | 2023-03-01 10:43 | CT Scan Report ---
ABDOMEN AND PELVIS CT WITH IV CONTRAST CT DOSE: 1652.49 mGy.cm HISTORY: Acute has abdominal pain with pneumoperitoneum free air in abd TECHNIQUE: Multiaxial CT images of the abdomen and pelvis were performed following the IV administrat ion of 93 cc of Optiray, A dose lowering technique was utilized adhering to the principles of ALARA. COMPARISON STUDY: Chest radiograph of same day FINDINGS: Trace left pleural effusion. Mild bibasilar atelectasis with mucus plugging. Unremarkable s pleen, mildly atrophic pancreas, gallbladder and adrenal glands. The liver is within normal limits. P atent portal vein. While nonspecific bilateral perinephric stranding. 4 mm calcification of the super ior pole left kidney. No ureteral calculi or hydronephrosis. Decompressed urinary bladder with Mclain catheter in place. Moderate bladder wall thickening. Prostatomegaly. Small right and moderate left fa cet inguinal hernias. Fluid is also noted within the left hernia sac. Atherosclerosis of the aorta wi thout aneurysm. No lymphadenopathy. Fluid-filled distal esophagus. No small bowel obstruction. There are several loops of small bowel wit hin the central abdomen which demonstrates circumferential wall thickening with hyperemia. Colonic di verticulosis. There is irregularity of the distal descending colonic wall on image 268 series 3 with a large amount of extraluminal air extending into the adjacent mesentery. Colonic diverticulosis. Ginger ngated and tubular air and fluid filled collections are noted adjacent to the site of perforation ext ending adjacent to the aforementioned inflamed small bowel loops into the sigmoid mesocolon measuring up to 20 cm in length. Small amount of abdominal pelvic ascites. Unremarkable soft tissues. No acute fracture. Degenerative changes of the spine, pelvis and hips. IMPRESSION: 1. Acute diverticulitis of the descending colon with perforation. Large amount of associated pneumope ritoneum with tubular multiloculated pericolonic abscess measuring up to approximately 20 cm in lengt h. Surgical consultation is needed. 2. Mid abdominal small bowel inflammation is likely reactive. No bowel obstruction. 3. Additional findings as above. ACT 112: Negative or not required by law. The above report was generated using voice recognition software. It may contain grammatical, syntax o r spelling errors. Electronically signed by: Gamal Wetzel M.D. 03/01/2023 10:41 AM
[2023-03-01] MEDS: PIPERACILLIN/TAZOBACTAM 4.5 GM in DEXTROSE 5% 100 ML IV SCH ×2 (11:02→17:24)
--- NOTE | 2023-03-01 11:55 | XCELERA ---
[id number]
[2023-03-01] MEDS ORDERED: PROTHROMBIN COMP CONC- KCENTRA 2,000 UNITS in SYRINGE 0 ML IV SCH (12:30)
--- NOTE | 2023-03-01 12:35 | Anesthesiology Consultation ---
Date of Service March 01, 2023 Assessment & Plan Consults Requested none ASA [id number] Proposed Anesthesia Anesthesia Type: General Anesthesia Line Insertion: Arterial line Risk / Benefits Reviewed With: PT / POA / Parent / Guardian, Accepts Plan and Informed Consent Obtained Additional Notes pt with recent CVA, alcoholism, CKD, smoking, positive troponin, and acute pulm edema with possibly ischemic EKG. Very high risk, but requires life saving surgery. Discussed possible CVP, and ICU admission, postoperative ventilation. Pt understands and agrees. He declines me contacting any family. History Surgery Operation Date: 03/01/23 10:40 Proposed Procedures p Exploratory Laparotomy, Possible Bowel Resection, Possible Ostomy, Possible Abthera Wound Sravanthi - Avinash Dennison, Height/Weight Height: 6 ft 1 in Weight: 105 kg Allergies Allergy/AdvReac Type Severity Reaction Status Date / Time No Known Allergies Allergy Unverified 03/01/23 03:14 Medications Home Medications Medication Instructions Recorded Confirmed Last Taken acetaminophen 325 mg tablet 650 mg PO Q4 PRN Pain 03/01/23 03/01/23 Unknown (Tylenol) albuterol sulfate 90 mcg/actuation 1 inh inhalation Q4 PRN Wheezing 03/01/23 03/01/23 02/28/23 23:25 aerosol inhaler amlodipine 10 mg tablet 10 mg PO DAILY 03/01/23 03/01/23 02/28/23 apixaban 5 mg tablet 5 mg PO BID 03/01/23 03/01/23 02/28/23 16:45 carbidopa 25 mg-levodopa 100 mg 1 tab PO Q8 03/01/23 03/01/23 Unknown tablet diazepam 5 mg tablet 10 mg PO Q4 PRN .spasm 03/01/23 03/01/23 02/28/23 22:15 docusate sodium 100 mg capsule 100 mg PO BID 03/01/23 03/01/23 Unknown folic acid 1 mg tablet 1 mg PO DAILY 03/01/23 03/01/23 02/28/23 guaifenesin 600 mg tablet, 600 mg PO BID 03/01/23 03/01/23 02/28/23 23:25 extended release 12 hr (Mucinex) insulin regular human 100 unit/mL 0 unit subcut ACHS 03/01/23 03/01/23 02/28/23 21:00 injection solution (Humulin R Regular U-100 Insulin) melatonin 3 mg tablet 3 mg PO HS PRN Sleep 03/01/23 03/01/23 Unknown metoprolol tartrate 50 mg tablet 50 mg PO Q12H 03/01/23 03/01/23 02/28/23 20:25 ondansetron HCl 4 mg tablet 4 mg PO Q4 PRN Nausea 03/01/23 03/01/23 Unknown polyethylene glycol 3350 17 gram 17 g PO DAILY 03/01/23 03/01/23 Unknown oral powder packet (Miralax) risperidone 0.25 mg tablet 0.5 mg PO Q12 03/01/23 03/01/23 02/28/23 20:25 sennosides 8.6 mg-docusate sodium 1 tab-cap PO .QLUNCH PRN 03/01/23 03/01/23 Unknown 50 mg tablet (Senokot-S) Constipation thiamine HCl (vitamin B1) 100 mg 100 mg PO DAILY 03/01/23 03/01/23 02/28/23 tablet Active Medications Generic Name Dose Route Start Last Admin Trade Name Dania PRN Reason Stop Dose Admin Docusate Sodium 100 mg 03/01/23 09:00 03/01/23 11:56 Docusate Sodium 100 Mg Cap PO 03/31/23 08:59 Not Given BID [facility] Folic Acid 1 mg 03/01/23 09:00 03/01/23 11:56 Folic Acid 1 Mg Tab PO 03/31/23 08:59 Not Given DAILY [facility] Guaifenesin 600 mg 03/01/23 09:00 03/01/23 11:56 Guaifenesin 600 Mg Tabcr PO 03/31/23 08:59 Not Given BID [facility] Piperacillin Sod/Tazobactam 120 mls @ 30 mls/hr 03/01/23 08:30 03/01/23 11:02 Sod 4.5 gm/ Dextrose IV 03/11/23 08:29 30 mls/hr Q8H [facility] Administration Protocol Polyethylene Glycol 17 gm 03/01/23 09:00 03/01/23 11:56 Polyethylene (Miralax) 17 Gm Pack PO 03/31/23 08:59 Not Given DAILY [facility] Risperidone 0.5 mg 03/01/23 09:00 03/01/23 11:56 Risperidone 0.5 Mg Tablet PO 03/31/23 08:59 Not Given Q12 [facility] Thiamine HCl 100 mg 03/01/23 09:00 03/01/23 11:56 Thiamine Hcl 100 Mg Tab PO 03/31/23 08:59 Not Given DAILY [facility] NPO Date Last Intake of Fluids: 02/28/23 Last Intake of Fluids Comment: t-1 Exercise / Class Metabolic Activity II 4-5 Yardwork/Stairs/Walk up hill Past Anesthesia History No Hx of Anesthesia Complications History of PONV No Hx of PONV Social History Smoking Status: Current some day smoker tobacco type: cigarettes Do You Dip or Chew Tobacco: No Hx Alcohol Use: Yes Alcohol type: beer alcohol intake frequency: a few times a month Hx Substance Use: No Review of Systems ROS Unobtainable: All systems reviewed & are unremarkable except as noted in HPI & below Physical Exam Vital Signs Last Vital Signs Temp 36.6 C 03/01/23 12:22 Pulse 86 03/01/23 12:22 Resp 20 03/01/23 12:22 BP 142/75 H 03/01/23 12:22 Pulse Ox 96 03/01/23 12:22 O2 Del Method Nasal Cannula 03/01/23 12:22 O2 Flow Rate 2 03/01/23 12:22 ENMT Thyromental Distance: > or= 3.5 Finger Breadths Mallampati Class: II Respiratory normal respiratory effort Auscultation: lungs clear to auscultation bilaterally and + breath sounds absent Cardiovascular Rate/Rhythm: regular rate and regular rhythm Neurologic moves all extremities Psychiatric Orientation: alert and oriented x 3 Testing Laboratory Results 03/01/23 01:35 03/01/23 01:35 PT 13.3 Seconds (9.0-12.0) H 03/01/23 01:35 INR 1.2 (0.9-1.1) H 03/01/23 01:35 Urine Color Yellow 03/01/23 01:54 Urine Appearance Clear (Clear) 03/01/23 01:54 Urine pH 6.0 (4.5-7.5) 03/01/23 01:54 Ur Specific Bradner 1.012 (1.000-1.030) 03/01/23 01:54 Urine Protein Negative (Negative) 03/01/23 01:54 Urine Glucose (UA) Negative (Negative) 03/01/23 01:54 Urine Ketones Negative (Negative) 03/01/23 01:54 Urine Nitrite Negative (Negative) 03/01/23 01:54 Ur Leukocyte Esterase Negative (Negative) 03/01/23 01:54 03/01/23 06:31 POC Glucose 138 H Electrocardiogram Date: 03/01/23 ekg afib with Q's in the septal leads and st changes laterally, small troponin bump. demand ischemia vs NSTEMI due to stress Chest X-Ray Date: 03/01/23 Findings: + cardiomegaly and + pulmonary vascular congestion free air under diaphragm Echocardiogram LVH, EF normal, likely diastolic dysfunction
[2023-03-01] MEDS ORDERED: ONDANSETRON INJ 2 MG/ML 2 ML VIAL ONE (12:42)
[2023-03-01] MEDS ORDERED: ROCURONIUM BROMIDE 10 MG/ML 5 ML VIAL IV ONE ×3 (12:42→15:31)
[2023-03-01] MEDS ORDERED: fentaNYL citrate PF 100 MCG/2 ML VIAL ONE (12:42)
[2023-03-01] MEDS ORDERED: DEXAMETHASONE SOD INJ 4 MG/ML VIAL ONE (12:42)
[2023-03-01] MEDS ORDERED: SUCCINYLCHOLINE CHLORIDE 20 MG/ML 10 ML VIAL IV ONE (12:42)
[2023-03-01] MEDS ORDERED: LIDOCAINE 2% 2 ML VIAL/AMP(20MG/ML) INFIL ONE (12:42)
[2023-03-01] MEDS ORDERED: PROPOFOL IV EMULSION 10 MG/ML 20 ML VIAL IV ONE (12:42)
[2023-03-01] MEDS ORDERED: KETAMINE 50 MG/5 ML SYRINGE ONE (13:48)
[2023-03-01] MEDS ORDERED: MIDAZOLAM HCL 1 MG/ML 2ML VIAL ONE ×2 (13:50→15:22)
[2023-03-01] MEDS ORDERED: PHENYLEPHRINE HCL 10 MG/ML VIAL ONE (14:36)
[2023-03-01] MEDS ORDERED: ALBUMIN HUMAN 5% 12.5 GM/250 ML VIAL IV ONE ×3 (14:36→15:47)
--- NOTE | 2023-03-01 16:02 | Cardiac Catheterization ---
ACC Data: Insole And Outsole Splitter Cardiac Status Clinical evaluation leading to the procedure Diagnostic Physicians Name: Jasson Foster MD Cardiac Cath Procedure Full Procedure Date March 01, 2023 Pre-Procedure Diagnosis Pre-Procedure Diagnosis: Angina AUC Score AUC Score: 8 Post-Procedure Diagnosis Post-Procedure Diagnosis: Severe CAD Passenger Brakeman Jasson Foster MD I attest to the content of the Intraoperative Record and any orders documented therein. Any exceptions are noted below. PG Care Time/CCT Total # of Minutes Spent Total Time Spent with Patient: Total time spent is greater than 50% in coordination of care (as documented) at patient's floor/unit and/or counseling patient:
--- NOTE | 2023-03-01 16:06 | Critical Care Consultation ---
Date of Consultation March 01, 2023 Assessment & Plan (1) Diverticulitis of intestine with perforation and abscess: (2) Alcohol abuse: (3) CKD (chronic kidney disease): (4) Endotracheally intubated: (5) Status post exploratory laparotomy: (6) Perforated abdominal viscus: (7) Sepsis: Plan 67-year-old male with a history of alcoholism, tobacco abuse, A-fib, diastolic heart failure and prior CVA who is presenting to the ICU status ex lap for perforated diverticulum now with descending colectomy with end ostomy. Neurologic: History of alcohol abuse. Currently intubated. Pain control with continuous IV fentanyl. Consider the addition of propofol if further sedation is required. Goal RASS of -1. Pulmonary: Minimal vent settings at this time. Continue lung protective ventilation strategy. Likely SBT and extubate tomorrow. Cardiovascular: Hypertensive likely secondary to pain and possible alcohol withdrawal. Patient with history of diastolic CHF. Currently appears fairly euvolemic. Gastrointestinal: Status post ex lap for perforated diverticulum and now with an ostomy. OG tube in place. Continue low intermittent wall suction. Renal: Patient with history of CKD stage III. Monitor urine output closely. Avoid excessive hydration due to history of CHF. Infectious disease: Continue Zosyn due to intra-abdominal sepsis. Follow-up blood cultures and cultures from ex lap. Hematologic: Patient received Kcentra earlier today as he is chronically anticoagulated with Eliquis for A-fib. Hold anticoagulation at this time. SCDs for DVT prophylaxis. Endocrine: Maintain glucose under 180. Lines and tubes: Peripheral IVs and left radial arterial line in place. Continue Mclain catheter. VTE prophylaxis: SCDs CODE STATUS: Full Family at bedside: None available at bedside Disposition: ICU overnight I have personally spent 48 minutes of critical care time in the direct management of this patient. This is a life/limb threatening event. This includes time spent evaluating patient, direct bedside care, chart review, placing orders, interpretation of diagnostic studies, discussion with consultants, patient, and family members, as well as other required patient management activities. This time is exclusive of all separately billable procedures, and teaching time and separate from and in addition to any other critical care service time. Thank you for allowing us to participate in the care of this patient. History of Present Illness Reason for Consultation: Postoperative ICU monitoring Attending Physician: Nickolas R Rios, DO History of Present Illness 67-year-old male with history of alcohol abuse, A-fib on Eliquis, recent CVA, tobacco abuse, atrial fibrillation, CKD, hypertension and possible cirrhosis who presented overnight due to shortness of breath. Chest x-ray was obtained which revealed free air in the abdomen. CT abdomen was ultimately obtained which revealed a perforated diverticulum with abscess formation. Patient was taken to the OR for exploratory laparotomy. He was also found to have a troponin elevation which was thought to be possible demand ischemia. Due to the patient's history of anticoagulation, he was reversed with Kcentra. Echo obtained today revealed an LVEF of 55 to 60%. Small pericardial effusion. Normal right ventricular systolic pressures. History unobtainable from the patient as he is currently intubated and sedated. History obtained from chart review, nursing discussion and discussion with the on-call anesthesiologist who was involved in the case. Again, the patient underwent ex lap with descending colon resection. Partial omentectomy, mobilization of splenic flexure and creation of end colostomy. Currently he is hypertensive with a left radial arterial line in place monitoring hemodynamics closely. Size 8 oh endotracheal tube in place. OG tube in place as well. Allergies Allergy/AdvReac Type Severity Reaction Status Date / Time No Known Allergies Allergy Unverified 03/01/23 03:14 Home Medications Medication Instructions Recorded Confirmed Type acetaminophen 325 mg tablet 650 mg PO Q4 PRN Pain 03/01/23 03/01/23 History (Tylenol) albuterol sulfate 90 mcg/actuation 1 inh inhalation Q4 PRN Wheezing 03/01/23 03/01/23 History aerosol inhaler amlodipine 10 mg tablet 10 mg PO DAILY 03/01/23 03/01/23 History apixaban 5 mg tablet 5 mg PO BID 03/01/23 03/01/23 History carbidopa 25 mg-levodopa 100 mg 1 tab PO Q8 03/01/23 03/01/23 History tablet diazepam 5 mg tablet 10 mg PO Q4 PRN .spasm 03/01/23 03/01/23 History docusate sodium 100 mg capsule 100 mg PO BID 03/01/23 03/01/23 History folic acid 1 mg tablet 1 mg PO DAILY 03/01/23 03/01/23 History guaifenesin 600 mg tablet, 600 mg PO BID 03/01/23 03/01/23 History extended release 12 hr (Mucinex) insulin regular human 100 unit/mL 0 unit subcut ACHS 03/01/23 03/01/23 History injection solution (Humulin R Regular U-100 Insulin) melatonin 3 mg tablet 3 mg PO HS PRN Sleep 03/01/23 03/01/23 History metoprolol tartrate 50 mg tablet 50 mg PO Q12H 03/01/23 03/01/23 History ondansetron HCl 4 mg tablet 4 mg PO Q4 PRN Nausea 03/01/23 03/01/23 History polyethylene glycol 3350 17 gram 17 g PO DAILY 03/01/23 03/01/23 History oral powder packet (Miralax) risperidone 0.25 mg tablet 0.5 mg PO Q12 03/01/23 03/01/23 History sennosides 8.6 mg-docusate sodium 1 tab-cap PO .QLUNCH PRN 03/01/23 03/01/23 History 50 mg tablet (Senokot-S) Constipation thiamine HCl (vitamin B1) 100 mg 100 mg PO DAILY 03/01/23 03/01/23 History tablet Patient History Medical History (Updated 03/01/23 @ 17:01 by Lexx Anderson MD) Endotracheally intubated Perforated abdominal viscus Sepsis Ventilator dependence Surgical History (Updated 03/01/23 @ 17:00 by Lexx Anderson MD) History of colon resection (03/01/23) Exploratory Laparotomy, Desending Colon Resection, Partial omentectomy, creation of end colostomy(Not Applicable) - Avinash Dennison, DO Status post exploratory laparotomy Social History Smoking Status: Current some day smoker Tobacco Type: Cigarettes Do You Dip or Chew Tobacco: No; Hx Alcohol Use: Yes Alcohol type: beer Hx Substance Use: No Preferred Language: Frisian Communication Ability: Effective Trial Judge Required: No Beliefs That Will Affect Care: None Current Living Situation: Spouse Current Living Situation Comment: at [facility]hab then dc back home Other Information That Helps Us Care for You: Yes (new stroke 7 days ago) Feels Safe at Home: Yes Safety Concerns: Feels Safe At This Time Assistive Devices: Oxygen - Continuous Review of Systems Review of Systems: Unobtainable due to endotracheal tube and Unobtainable due to reduced consciousness Physical Exam Physical Exam: Constitutional: Obese appearing male lying in bed. Currently intubated and sedated. Eyes: Pupils are equal round and reactive to light. Conjunctivae are normal. Anicteric sclera. Ears nose, mouth and throat: Size [address] with OG tube Neck: Trachea is midline. Visual inspection is normal. Respiratory: Clear to auscultation bilaterally. No use of accessory muscles. No significant clubbing noted. Cardiovascular: Regular rate and rhythm. No murmurs. No edema. Gastrointestinal: Bandaging noted. Ostomy noted. No bleeding. Musculoskeletal: Extremities intact. Skin: No rashes, warm dry and intact. Neurologic: Unable to assess due to sedation and onboard paralytic. Psychiatric: Unable to assess. Results & Data Results & Data Vital Signs (Past 12 Hours) Vital Signs Temp Pulse Pulse Pulse Resp BP BP 03/01/23 12:22 36.6 C 86 20 142/75 H 03/01/23 12:05 84 03/01/23 11:48 03/01/23 11:29 36.8 C 90 26 H 143/89 H 03/01/23 09:00 03/01/23 07:00 97 H 03/01/23 08:09 36.7 C 85 32 H 125/86 03/01/23 06:07 03/01/23 05:40 37.4 C 89 18 179/93 H 03/01/23 05:00 100 H 22 157/104 H 03/01/23 04:30 92 H 20 180/111 H Pulse Ox Pulse Ox O2 Del Method O2 Flow Rate 03/01/23 12:22 96 Nasal Cannula 2 03/01/23 12:05 03/01/23 11:48 Nasal Cannula 2 03/01/23 11:29 95 Nasal Cannula 2 03/01/23 09:00 Nasal Cannula 1 03/01/23 07:00 03/01/23 08:09 91 Nasal Cannula 2 03/01/23 06:07 95 03/01/23 05:40 94 Nasal Cannula 1 03/01/23 05:00 94 Nasal Cannula 1 03/01/23 04:30 94 Nasal Cannula 1 Coding Level of Care Code 66385 CRITICAL CARE 1ST 30-74M Diagnoses Diverticulitis of intestine with perforation and abscess K57.80 Alcohol abuse F10.10 CKD (chronic kidney disease) N18.9 Endotracheally intubated Z97.8 Status post exploratory laparotomy Z98.890 Perforated abdominal viscus R19.8 Sepsis A41.9
--- NOTE | 2023-03-01 16:28 | Post Operative Brief Note ---
PG Immediate Post Op with CF Date of Surgery March 01, 2023 Pre & Post Diagnosis Operation Date: 03/01/23 10:40 Pre-Op Diagnosis: Intra-Abdominal Free Air Post-Op Diagnosis: colon perforation I identified the patient and participated in the time-out.: Yes Procedure Operation Date: 03/01/23 10:40 Actual Procedures p Exploratory Laparotomy, Desending Colon Resection, Partial omentectomy, creation of end colostomy(Not Applicable) - Avinash Dennison DO Surgeon Avinash Dennison DO Agency Manager Ania El PA-C Estimated Blood Loss 500 Findings See Below Intra-abdominal abscess Descending colon ischemia with perforation into the mesentery Specimens Specimen Description: Culture #1--Peritoneal Fluid for routine aerobic, anaerobic and gram stain cultures A. Portion of Omentum B. Desending Colon Drains Rodman Drain (1/4 inch) Anesthesia Type General Complications none Disposition Disposition: Surgical ICU
[2023-03-01] MEDS ORDERED: fentaNYL BOLUS from BAG IV PRN (16:35)
[2023-03-01] MEDS ORDERED: STAT IV Infusion **Titration per Protocol STA ×2 (16:35→17:01)
[2023-03-01] MEDS ORDERED: MoRPHine SULFATE 2 MG/ML CARP IV PRN (16:40)
[2023-03-01] MEDS ORDERED: MoRPHine SULFATE 4 MG/ML 1 ML CARP\\VIAL IV PRN (16:40)
--- NOTE | 2023-03-01 16:43 | Operative Report ---
PG Post Operative Report Pre & Post Diagnosis Operation Date: 03/01/23 10:40 Pre-Op Diagnosis: Intra-Abdominal Free Air Post-Op Diagnosis: colon perforation I identified the patient and participated in the time-out.: Yes Procedure Operation Date: 03/01/23 10:40 Actual Procedures p Exploratory Laparotomy, Desending Colon Resection, Partial omentectomy, mob ilization of splenic flexure creation of end colostomy(Not Applicable) - Avinash Dennison DO Surgeon Avinash Dennison DO Health Services Administrator Ania El PA-C Estimated Blood Loss 500 Findings See Below Intra-abdominal abscess Descending colon ischemia with perforation into the mesentery Specimens Omentum and descending colon to pathology Drains None Anesthesia Type General Complications none Disposition Disposition: Surgical ICU Indications 67-year-old male with intraperitoneal free air and concern for colon perforation Description of Procedure The patient was brought to the OR and placed in the supine position with both arms abducted. At this time he underwent general endotracheal anesthesia without any problems. He was given appropriate pre-operative antibiotics. His abdomen was prepped and draped in the usual sterile fashion. Timeout was called. The procedure was verified as Exploratory laparotomy, possible bowel resection, possible ostomy possible wound vac. Surgical, anesthesia and nursing teams agreed and the procedure was begun. A standard midline incision was made using a #10 blade scalpel. This was carried down to the fascia using electrocautery. The midline fascia was then incised with electrocautery. The peritoneum was then entered bluntly. A little of air was encountered entering the peritoneum. The incision was then opened up through its entirety. At this time we eviscerated the small bowel and ran it retrograde from the cecum to the ligament of Treitz. In the left upper quadrant the small bowel was adhesed to the descending colon and this was broken up bluntly using finger fraction. The entire small bowel was viable and the area that was attached to the colon was hyperemic without signs of ischemia. At this time the omentum was released bluntly from the left colon and left paracolic gutter. The left colon was then visualized and as this was being medialized a large abscess was entered along the entire length of the descending colon. This was sent for culture. At this time identified a healthy portion of proximal sigmoid colon and transected this using a LA 80 mm bowel load stapler. At this point the descending colon was then medialized along the white line of Toldt starting inferiorly and working superiorly to the splenic flexure. The splenic flexure was then mobilized carefully using sharp dissection. We then found a healthy portion of descending colon proximally and transected this using a LA 80 mm bowel load stapler. The mesentery of the colon was then ligated using a LigaSure device. The specimen was passed off as descending colon. A portion of the omentum was then removed using the LigaSure device as well in order to prevent an internal hernia. A spot in the left abdomen was chosen for ostomy site and this area was grasped with a Ketty and elevated and incised using a 10 blade scalpel. We then used electrocautery to reach the fascia which was incised in a cruciate fashion at both the anterior and posterior fascial levels. The ostomy opening was able to tolerate 2 of the surgeon's fingers. At this time the proximal portion of the colon was grasped with a Ragini clamp and brought up through the incision without issue. At this point the abdomen was then irrigated until clear. Hemostasis was achieved using electrocautery. Hemostasis was complete. The fascia was then closed in a running fashion using 2 #1 looped PDS suture starting superiorly and inferiorly and meeting in the middle. Skin was closed with kg over 1/4 inch Rajesh drain which was attached with 3-0 silk to the skin. We then turned our attention to maturing the ostomy. This was done using 3-0 Vicryl grabbing full-thickness bites and attached to the dermis. Ostomy applia nce and sterile dressing was applied. All needle and sponge counts were correct x 2. At this point the patient was awakened from anesthesia, and transported to PACU in stable condition. The physician's orthotics assistant was present and scrubbed for the entirety of the case. He was critical in positioning the patient, prepping and draping, retraction and exposure, closure of the incision and placement of the dressings. I attest to the content of the Intraoperative Record and any orders documented therein. Any exceptions are noted below.
[2023-03-01] MEDS ORDERED: fentaNYL citrate 2,500 MCG/250 ML BAG IV SCH (16:45)
[2023-03-01] MEDS ORDERED: fentaNYL citrate 2,500 MCG/250 ML BAG IV ONE (16:51)
--- NOTE | 2023-03-01 17:07 | XRay Report ---
XR chest 1V portable CLINICAL HISTORY: intubated TECHNIQUE: Single frontal radiograph of the chest was obtained. Comparison: Comparison is made to chest radiograph 03/01/2023 FINDINGS: There is an endotracheal tube which terminates 51 mm from the annmarie. Enteric tube side-port lies abo ve the diaphragm. Cardiomegaly is noted. Lungs are underinflated but clear. No evidence of pleural ef fusion or pneumothorax. IMPRESSION: The enteric tube side-port lies above the diaphragm and the tube could be advanced approximately 12 m for improved positioning. Endotracheal tube is in satisfactory position. ACT 112: Negative or not required by law. Electronically signed by: Dimitris Fernandez M.D. 03/01/2023 5:05 PM
[2023-03-01] MEDS: propofoL 1,000 MG/100 ML VIAL IV SCH ×2 (17:24→21:41)
[2023-03-01] MEDS: LACTATED RINGER'S 1,000 ML IV SCH (17:24)
[2023-03-01 18:00] LABS: BUN Creatinine Ratio 28.4 (10-20); Calcium 7.7 mg/dl (8.6-10.3); Creatinine Clr Calc Pharmacy 57.2 ml/min; Est GFR (African American) 52.2 ml/min; Potassium 4.1 mmol/L (3.5-5.1)
[2023-03-01 18:06] LABS: iSTAT Arterial Blood Gas HCO3 24 meg/L (19-24); iSTAT Arterial Blood Gas pCO2 48 mmHg (35-46); iSTAT Arterial Blood Gas pH 7.31 (7.35-7.45); iSTAT Arterial Blood Gas pO2 73 mmHg (80-95); iSTAT Carbon Dioxide 25 mmol/L (24-31); iSTAT FiO2 40 %; iSTAT Site Art Line
[2023-03-01 18:09] LABS: Troponin I High Sensitivity 54.9 pg/ml (0-20)
--- NOTE | 2023-03-01 18:22 | Anesthesiology Progress Note ---
Date of Service March 01, 2023 Anesthesia Post Procedure Vital Signs Vital Signs: Temp Pulse Pulse Pulse Resp BP BP 03/01/23 17:45 95 H 17 03/01/23 17:30 99 H 16 03/01/23 17:28 106 H 24 03/01/23 17:28 187/121 H 03/01/23 17:59 21 03/01/23 16:40 79 16 03/01/23 17:15 104 H 21 03/01/23 17:10 102 H 19 03/01/23 17:05 95 H 17 03/01/23 17:00 105 H 19 03/01/23 16:55 96 H 16 03/01/23 16:50 93 H 16 03/01/23 16:45 16 03/01/23 16:40 86 16 03/01/23 16:35 82 14 03/01/23 16:30 89 14 03/01/23 16:28 82 13 03/01/23 16:28 140/79 03/01/23 16:27 84 11 L 03/01/23 12:22 36.6 C 86 20 142/75 H 03/01/23 12:05 84 03/01/23 11:48 03/01/23 11:29 36.8 C 90 26 H 143/89 H 03/01/23 09:00 03/01/23 07:00 97 H 03/01/23 08:09 36.7 C 85 32 H 125/86 03/01/23 06:07 03/01/23 05:40 37.4 C 89 18 179/93 H 03/01/23 05:00 100 H 22 157/104 H 03/01/23 04:30 92 H 20 180/111 H 03/01/23 04:00 98 H 20 154/95 H 03/01/23 03:30 88 20 151/80 H 03/01/23 03:01 90 20 166/101 H 03/01/23 02:30 92 H 22 153/96 H 03/01/23 02:30 90 03/01/23 02:27 89 18 170/102 H 03/01/23 02:26 92 H 18 03/01/23 01:25 03/01/23 01:25 03/01/23 01:25 37.0 C 79 16 169/89 H Pulse Ox Pulse Ox O2 Del Method O2 Flow Rate FiO2 03/01/23 17:45 95 03/01/23 17:30 93 03/01/23 17:28 93 03/01/23 17:28 03/01/23 17:59 96 40 03/01/23 16:40 96 40 03/01/23 17:15 94 03/01/23 17:10 95 03/01/23 17:05 94 03/01/23 17:00 93 03/01/23 16:55 94 03/01/23 16:50 95 03/01/23 16:45 03/01/23 16:40 96 03/01/23 16:35 97 03/01/23 16:30 98 03/01/23 16:28 99 03/01/23 16:28 03/01/23 16:27 100 03/01/23 12:22 96 Nasal Cannula 2 03/01/23 12:05 03/01/23 11:48 Nasal Cannula 2 03/01/23 11:29 95 Nasal Cannula 2 03/01/23 09:00 Nasal Cannula 1 03/01/23 07:00 03/01/23 08:09 91 Nasal Cannula 2 03/01/23 06:07 95 03/01/23 05:40 94 Nasal Cannula 1 03/01/23 05:00 94 Nasal Cannula 1 03/01/23 04:30 94 Nasal Cannula 1 03/01/23 04:00 93 Nasal Cannula 1 03/01/23 03:30 95 Nasal Cannula 1 03/01/23 03:01 97 Nasal Cannula 1 03/01/23 02:30 96 Nasal Cannula 1 03/01/23 02:30 03/01/23 02:27 92 Room Air 03/01/23 02:26 92 Room Air 03/01/23 01:25 Room Air 03/01/23 01:25 Room Air 03/01/23 01:25 92 Room Air Transfer of Care Handoff Completed per policy Notes Mental Status: see notes below Patient Amnestic to Procedure: Yes Nausea / Vomiting: adequately controlled Pain: adequately controlled Airway Patency, RR, SpO2: stable & adequate BP & HR: stable & adequate Hydration State: stable & adequate Anesthetic Complications: no major complications apparent Notes: Pt not reversed at end. Sedated, placed on vent in SICU. For supportive care, mechanical ventilation, wean as tolerated.
[2023-03-01] MEDS: PROPOFOL BOLUS FROM BAG IV PRN ×3 (19:08→20:00)
--- NOTE | 2023-03-01 21:09 | Cardiology Consultation ---
Date of Consultation March 01, 2023 Assessment & Plan (1) Atrial fibrillation: (2) Perforated abdominal viscus: (3) Pericardial effusion: (4) Elevated troponin: (5) Hypoxia: Plan ASSESSMENT/PLAN: 1. Atrial fibrillation: Seems persistent. History of his A-fib is not well known at this time. Heart rate is reasonably controlled, especially given his acute illness and postoperative state. Anticoagulation therapy when safe from a bleeding standpoint. Resume home dose of metoprolol when able. 2. Hypoxia: Hypoxia on presentation concerning for CHF. He does not appear significantly hypervolemic at this time and he is quite positive from a net fluid balance given his surgical emergency. Aggressive diuresis not necessary at this time. Monitor I's and O's and after significant fluid administration today, will likely need some degree of diuresis if he does not auto diurese. Will defer to critical care team for volume management at this time. 3. Elevated troponin: High-sensitivity troponin likely due to demand ischemia given his acute illness with diverticulitis, perforated bowel, and abscess. Ischemic evaluation not necessary at this time. 4. Pericardial effusion: Small. No hemodynamic significance. Get a repeat limited echo prior to discharge or if concern for hemodynamic compromise. No specific treatment necessary at this time. 5. Perforated abdominal viscus: As per surgical team. 6. Disposition: Cardiology will sign off. Please call on-call echocardiologist for any questions or concerns that may arise during the hospital stay. Patient care discussed with Kwame Kang MCDONNELL, of the critical care team. Thank you for allowing me to participate in the care of your patient. Please call for any other questions or concerns. Sincerely, Dennis Foster M.D. History of Present Illness Reason for Consultation: "CHF" Requesting Physician: Yrn Renteria Attending Physician: Nickolas Nation DO History of Present Illness Mr. Perez is a 67-year-old gentleman with a history significant for stroke, alcohol abuse, hypertension, and atrial fibrillation. He was admitted on 03/01/2023 with hypoxia and according to admitting note, concern for CHF. He received Lasix 40 mg IV x1 on 03/01/2023 at 3:15 AM. His initial chest x-ray reported intraperitoneal free air below the right hemidiaphragm as well as pulmonary vascular congestion. CT of the abdomen and pelvis was later performed and demonstrated acute diverticulitis of the descending colon with perforation and a large amount of associated pneumoperitoneum with tubular multiloculated pericolonic abscess measuring up to approximately 20 cm in length. He was seen by surgery and taken to the operating room by Dr. Dennison. He performed exploratory laparotomy with descending colon resection, partial omentectomy, and ostomy. He was then transferred to the ICU and remains on a mechanical ventilator. Unable to obtain history from the patient as he is currently sedated and intubated on mechanical ventilator. History was obtained by reviewing records/studies. According to the admitting note, he was recently diagnosed with stroke and was admitted at [facility] on 03-15 where he presented with 2-week history of left arm and leg jerking motions. He was diagnosed with subthalamic/midbrain right-sided stroke. He was then sent to [facility] for inpatient rehab on 02/27/2023. On 02/28/2023, he was found to be hypoxic, requiring supplemental oxygen. He was then sent to the emergency department for evaluation. For concern of heart failure, he was given intravenous Lasix 40 mg IV x1. There was concern for liver disease given elevated transaminase levels in the setting of alcohol use. Review of systems: Cannot obtain due to patient's current sedated and intubated status. Family history: Unobtainable from patient as above. Social history: Unobtainable from patient but according to admitting note, current smoker and consumes alcohol. He was alone in his hospital room. Allergies Allergy/AdvReac Type Severity Reaction Status Date / Time No Known Allergies Allergy Unverified 03/01/23 03:14 Home Medications Medication Instructions Recorded Confirmed Type acetaminophen 325 mg tablet 650 mg PO Q4 PRN Pain 03/01/23 03/01/23 History (Tylenol) albuterol sulfate 90 mcg/actuation 1 inh inhalation Q4 PRN Wheezing 03/01/23 03/01/23 History aerosol inhaler amlodipine 10 mg tablet 10 mg PO DAILY 03/01/23 03/01/23 History apixaban 5 mg tablet 5 mg PO BID 03/01/23 03/01/23 History carbidopa 25 mg-levodopa 100 mg 1 tab PO Q8 03/01/23 03/01/23 History tablet diazepam 5 mg tablet 10 mg PO Q4 PRN .spasm 03/01/23 03/01/23 History docusate sodium 100 mg capsule 100 mg PO BID 03/01/23 03/01/23 History folic acid 1 mg tablet 1 mg PO DAILY 03/01/23 03/01/23 History guaifenesin 600 mg tablet, 600 mg PO BID 03/01/23 03/01/23 History extended release 12 hr (Mucinex) insulin regular human 100 unit/mL 0 unit subcut ACHS 03/01/23 03/01/23 History injection solution (Humulin R Regular U-100 Insulin) melatonin 3 mg tablet 3 mg PO HS PRN Sleep 03/01/23 03/01/23 History metoprolol tartrate 50 mg tablet 50 mg PO Q12H 03/01/23 03/01/23 History ondansetron HCl 4 mg tablet 4 mg PO Q4 PRN Nausea 03/01/23 03/01/23 History polyethylene glycol 3350 17 gram 17 g PO DAILY 03/01/23 03/01/23 History oral powder packet (Miralax) risperidone 0.25 mg tablet 0.5 mg PO Q12 03/01/23 03/01/23 History sennosides 8.6 mg-docusate sodium 1 tab-cap PO .QLUNCH PRN 03/01/23 03/01/23 History 50 mg tablet (Senokot-S) Constipation thiamine HCl (vitamin B1) 100 mg 100 mg PO DAILY 03/01/23 03/01/23 History tablet Patient History Medical History (Updated 03/01/23 @ 21:14 by Jasson Foster MD) Atrial fibrillation Endotracheally intubated Perforated abdominal viscus Sepsis Stroke Ventilator dependence Surgical History (Updated 03/01/23 @ 17:00 by Lexx Anderson MD) History of colon resection (03/01/23) Exploratory Laparotomy, Desending Colon Resection, Partial omentectomy, creation of end colostomy(Not Applicable) - Avinash Dennison DO Status post exploratory laparotomy Social History Smoking Status: Current some day smoker Tobacco Type: Cigarettes Do You Dip or Chew Tobacco: No; Hx Alcohol Use: Yes Alcohol type: beer Hx Substance Use: No Preferred Language: Guyanese Communication Ability: Effective Corner Block Cutter Required: No Beliefs That Will Affect Care: None Current Living Situation: Spouse Current Living Situation Comment: at [facility] for rehab then dc back home Other Information That Helps Us Care for You: Yes (new stroke 7 days ago) Feels Safe at Home: Yes Safety Concerns: Feels Safe At This Time Assistive Devices: Oxygen - Continuous Physical Exam Physical Exam: Gen.: Sedated and on mechanical ventilator. Neck: No JVD. No bruits. Normal carotid upstrokes bilaterally. Cardiac: PMI was nondisplaced. No ventricular heave. Irregularly irregular with normal rate. Normal S1-S2. No murmurs, rubs, or gallops. Pulmonary: Clear to auscultation bilaterally without wheezes, rales, or rhonchi. Abdomen: Soft and quiet. Ostomy noted. Surgical dressing in place. 1 treks as he did signals Extremities: 2+ right radial pulse. Left radial arterial line in place. 2+ dorsalis pedis pulses bilaterally. No edema or cyanosis. Results & Data Vital Signs (Past 12 Hours) Vital Signs Temp Pulse Pulse Pulse Resp BP BP 03/01/23 20:04 21 03/01/23 19:38 03/01/23 19:38 03/01/23 19:38 37.1 C 03/01/23 18:30 95 H 23 03/01/23 18:28 126/75 03/01/23 18:28 93 H 22 03/01/23 18:00 96 H 19 03/01/23 18:00 03/01/23 17:45 95 H 17 03/01/23 17:30 99 H 16 03/01/23 17:28 106 H 24 03/01/23 17:28 187/121 H 03/01/23 17:59 21 03/01/23 16:40 79 16 03/01/23 16:45 03/01/23 17:15 104 H 21 03/01/23 17:10 102 H 19 03/01/23 17:05 95 H 17 03/01/23 17:00 105 H 19 03/01/23 16:55 96 H 16 03/01/23 16:50 93 H 16 03/01/23 16:45 16 03/01/23 16:40 86 16 03/01/23 16:35 82 14 03/01/23 16:30 89 14 03/01/23 16:28 82 13 03/01/23 16:28 140/79 03/01/23 16:27 84 11 L 03/01/23 12:22 36.6 C 86 20 142/75 H 03/01/23 12:05 84 03/01/23 11:48 03/01/23 11:29 36.8 C 90 26 H 143/89 H Pulse Ox O2 Del Method O2 Flow Rate FiO2 03/01/23 20:04 40 03/01/23 19:38 40 03/01/23 19:38 Mechanical Vent 40 03/01/23 19:38 03/01/23 18:30 96 03/01/23 18:28 03/01/23 18:28 96 03/01/23 18:00 96 Mechanical Vent 40 03/01/23 18:00 40 03/01/23 17:45 95 03/01/23 17:30 93 03/01/23 17:28 93 03/01/23 17:28 03/01/23 17:59 96 40 03/01/23 16:40 96 40 03/01/23 16:45 Mechanical Vent 40 03/01/23 17:15 94 03/01/23 17:10 95 03/01/23 17:05 94 03/01/23 17:00 93 03/01/23 16:55 94 03/01/23 16:50 95 03/01/23 16:45 03/01/23 16:40 96 03/01/23 16:35 97 03/01/23 16:30 98 03/01/23 16:28 99 03/01/23 16:28 03/01/23 16:27 100 03/01/23 12:22 96 Nasal Cannula 2 03/01/23 12:05 03/01/23 11:48 Nasal Cannula 2 03/01/23 11:29 95 Nasal Cannula 2 Laboratory Results Laboratory Results - last 24 hr 03/01/23 03/01/23 03/01/23 01:35 01:35 01:35 WBC 11.61 H RBC 5.56 Hgb 16.6 Hct 50.7 MCV 91.2 MCH 29.9 MCHC 32.7 RDW Std Deviation 49.1 H RDW Coeff of Eduardo 14.5 Plt Count 236 MPV 10.0 Immature Gran % (Auto) 0.7 Neut % (Auto) 84.4 Lymph % (Auto) 7.4 Ralls % (Auto) 6.3 Eos % (Auto) 0.9 Baso % (Auto) 0.3 Neut # (Auto) 9.80 H Lymph # (Auto) 0.86 L Ralls # (Auto) 0.73 H Eos # (Auto) 0.10 Baso # (Auto) 0.04 Immature Gran # (Auto) 0.08 PT 13.3 H INR 1.2 H Sample Site POC pH POC pCO2 POC pO2 POC HCO3 POC Total CO2 POC Base Excess POC ABG O2 Sat Gustavo Test O2 Delivery Device POC O2 Rate POC FiO2 Tidal Volume PEEP Sodium 141 Potassium 3.8 Chloride 104 Carbon Dioxide 28 Anion Gap 9 BUN 37 H Creatinine 1.44 H Est Cr Clr Drug Dosing 61.6 Est GFR ( Amer) 57.0 Est GFR (Non-Af Amer) 49.2 BUN/Creatinine Ratio 25.7 H Glucose 124 H POC Glucose Calcium 8.5 L Total Bilirubin 1.1 H AST 46 H ALT 60 H Alkaline Phosphatase 179 H Troponin I High Sens 49.2 H B-Natriuretic Peptide Total Protein 5.9 L Albumin 2.8 L Globulin 3.1 Albumin/Globulin Ratio 0.9 Urine Color Urine Appearance Urine pH Ur Specific Marrero Urine Protein Urine Glucose (UA) Urine Ketones Urine Blood Urine Nitrite Urine Bilirubin Urine Urobilinogen Ur Leukocyte Esterase Nasal Screen MRSA (PCR) SARS-CoV-2, RNA, NAAT Blood Type Blood Type Recheck Antibody Screen Crossmatch 03/01/23 03/01/23 03/01/23 01:35 01:53 01:54 WBC RBC Hgb Hct MCV MCH MCHC RDW Std Deviation RDW Coeff of Eduardo Plt Count MPV Immature Gran % (Auto) Neut % (Auto) Lymph % (Auto) Ralls % (Auto) Eos % (Auto) Baso % (Auto) Neut # (Auto) Lymph # (Auto) Ralls # (Auto) Eos # (Auto) Baso # (Auto) Immature Gran # (Auto) PT INR Sample Site POC pH POC pCO2 POC pO2 POC HCO3 POC Total CO2 POC Base Excess POC ABG O2 Sat Gustavo Test O2 Delivery Device POC O2 Rate POC FiO2 Tidal Volume PEEP Sodium Potassium Chloride Carbon Dioxide Anion Gap BUN Creatinine Est Cr Clr Drug Dosing Est GFR ( Amer) Est GFR (Non-Af Amer) BUN/Creatinine Ratio Glucose POC Glucose Calcium Total Bilirubin AST ALT Alkaline Phosphatase Troponin I High Sens B-Natriuretic Peptide 500 H Total Protein Albumin Globulin Albumin/Globulin Ratio Urine Color Yellow Urine Appearance Clear Urine pH 6.0 Ur Specific Marrero 1.012 Urine Protein Negative Urine Glucose (UA) Negative Urine Ketones Negative Urine Blood Negative Urine Nitrite Negative Urine Bilirubin Negative Urine Urobilinogen Negative Ur Leukocyte Esterase Negative Nasal Screen MRSA (PCR) SARS-CoV-2, RNA, NAAT NEGATIVE Blood Type Blood Type Recheck Antibody Screen Crossmatch 03/01/23 03/01/23 03/01/23 06:31 08:58 08:59 WBC RBC Hgb Hct MCV MCH MCHC RDW Std Deviation RDW Coeff of Eduardo Plt Count MPV Immature Gran % (Auto) Neut % (Auto) Lymph % (Auto) Ralls % (Auto) Eos % (Auto) Baso % (Auto) Neut # (Auto) Lymph # (Auto) Ralls # (Auto) Eos # (Auto) Baso # (Auto) Immature Gran # (Auto) PT INR Sample Site POC pH POC pCO2 POC pO2 POC HCO3 POC Total CO2 POC Base Excess POC ABG O2 Sat Gustavo Test O2 Delivery Device POC O2 Rate POC FiO2 Tidal Volume PEEP Sodium Potassium Chloride Carbon Dioxide Anion Gap BUN Creatinine Est Cr Clr Drug Dosing Est GFR ( Amer) Est GFR (Non-Af Amer) BUN/Creatinine Ratio Glucose POC Glucose 138 H Calcium Total Bilirubin AST ALT Alkaline Phosphatase Troponin I High Sens 53.7 H* B-Natriuretic Peptide Total Protein Albumin Globulin Albumin/Globulin Ratio Urine Color Urine Appearance Urine pH Ur Specific Marrero Urine Protein Urine Glucose (UA) Urine Ketones Urine Blood Urine Nitrite Urine Bilirubin Urine Urobilinogen Ur Leukocyte Esterase Nasal Screen MRSA (PCR) SARS-CoV-2, RNA, NAAT Blood Type Blood Type Recheck AB Positive Antibody Screen Crossmatch 03/01/23 03/01/23 03/01/23 11:41 12:35 16:54 WBC RBC Hgb Hct MCV MCH MCHC RDW Std Deviation RDW Coeff of Eduardo Plt Count MPV Immature Gran % (Auto) Neut % (Auto) Lymph % (Auto) Ralls % (Auto) Eos % (Auto) Baso % (Auto) Neut # (Auto) Lymph # (Auto) Ralls # (Auto) Eos # (Auto) Baso # (Auto) Immature Gran # (Auto) PT INR Sample Site POC pH POC pCO2 POC pO2 POC HCO3 POC Total CO2 POC Base Excess POC ABG O2 Sat Gustavo Test O2 Delivery Device POC O2 Rate POC FiO2 Tidal Volume PEEP Sodium 141 Potassium 4.1 Chloride 109 H Carbon Dioxide 25 Anion Gap 7 BUN 44 H Creatinine 1.55 H Est Cr Clr Drug Dosing 57.2 Est GFR ( Amer) 52.2 Est GFR (Non-Af Amer) 45.0 BUN/Creatinine Ratio 28.4 H Glucose 156 H POC Glucose Calcium 7.7 L Total Bilirubin AST ALT Alkaline Phosphatase Troponin I High Sens 54.9 H* B-Natriuretic Peptide Total Protein Albumin Globulin Albumin/Globulin Ratio Urine Color Urine Appearance Urine pH Ur Specific Marrero Urine Protein Urine Glucose (UA) Urine Ketones Urine Blood Urine Nitrite Urine Bilirubin Urine Urobilinogen Ur Leukocyte Esterase Nasal Screen MRSA (PCR) Negative SARS-CoV-2, RNA, NAAT Blood Type AB Positive Blood Type Recheck Antibody Screen NEGATIVE Crossmatch See Detail 03/01/23 03/01/23 03/01/23 17:48 18:15 20:35 WBC RBC Hgb Hct MCV MCH MCHC RDW Std Deviation RDW Coeff of Eduardo Plt Count MPV Immature Gran % (Auto) Neut % (Auto) Lymph % (Auto) Ralls % (Auto) Eos % (Auto) Baso % (Auto) Neut # (Auto) Lymph # (Auto) Ralls # (Auto) Eos # (Auto) Baso # (Auto) Immature Gran # (Auto) PT INR Sample Site Art Line POC pH 7.31 L POC pCO2 48 H POC pO2 73 L POC HCO3 24 POC Total CO2 25 POC Base Excess -2.0 POC ABG O2 Sat 93.0 Gustavo Test NA O2 Delivery Device Ventilator POC O2 Rate 16 POC FiO2 40 Tidal Volume 450 PEEP 5 Sodium Potassium Chloride Carbon Dioxide Anion Gap BUN Creatinine Est Cr Clr Drug Dosing Est GFR ( Amer) Est GFR (Non-Af Amer) BUN/Creatinine Ratio Glucose POC Glucose 140 H Calcium Total Bilirubin AST ALT Alkaline Phosphatase Troponin I High Sens B-Natriuretic Peptide Total Protein Albumin Globulin Albumin/Globulin Ratio Urine Color Urine Appearance Urine pH Ur Specific Marrero Urine Protein Urine Glucose (UA) Urine Ketones Urine Blood Urine Nitrite Urine Bilirubin Urine Urobilinogen Ur Leukocyte Esterase Nasal Screen MRSA (PCR) Negative SARS-CoV-2, RNA, NAAT Blood Type Blood Type Recheck Antibody Screen Crossmatch Diagnostic Findings Echo report 03/01/2023: Normal LV size, wall motion, systolic function. EF 55 to 60%. Severe concentric LVH. No significant valvular abnormalities. Small pericardial effusion along the RV without echocardiographic evidence of tamponade physiology. Normal RVSP. Critical care consultation reviewed. Surgical consultation, history and physical report, and operative note reviewed. CT imaging and chest x-ray report reviewed as noted above in HPI. Chest x-ray personally reviewed from 03/01/2023 at 1:59 AM: Free air below the right hemidiaphragm noted. No infiltrate on personal review. Telemetry personally reviewed: Atrial fibrillation with reasonable heart rate. ECG personally reviewed from 03/01/2023 at 1:31 AM: Atrial fibrillation 75 bpm. Septal infarct. Incomplete RBBB. Poor R wave progression. Lateral T wave inversion. Labs reviewed from 03/01/2023 and notable for normal hemoglobin, mild leukocytosis, mildly elevated transaminase levels, mild renal insufficiency, normal potassium, elevated BNP, elevated high-sensitivity troponin levels. Medications Administered Current Inpatient Medications Albuterol (Albuterol Hfa 8 Gm Inhaler) 1 puffs INH Q4H PRN PRN Reason: Wheezing Stop: 03/31/23 06:06 Diazepam (Diazepam 5 Mg Tablet) 10 mg PO Q4H PRN PRN Reason: .spasm Stop: 03/31/23 06:06 Fentanyl Citrate (Fentanyl Bolus From Bag) 50 mcg IV Q60M PRN PRN Reason: Pain or Agitation Stop: 03/15/23 16:34 Last Admin: 03/01/23 19:59 Dose: 50 mcg Piperacillin Sod/Tazobactam (Sod 4.5 gm/ Dextrose) 120 mls @ 30 mls/hr IV Q8H [facility]; Protocol Stop: 03/11/23 08:29 Last Admin: 03/01/23 17:24 Dose: 30 mls/hr Prothrombin Complex Concent ( (Human) 2,000 units/ Syringe) 80 mls @ 10 mls/min IV TODAY@1230 [facility]; Protocol Stop: 03/01/23 23:59 Last Admin: 03/01/23 16:47 Dose: 10 mls/min Fentanyl Citrate (Fentanyl Citrate) 2,500 mcg in 250 mls @ 5 mls/hr IV .Q50H [facility]; Protocol Stop: 03/15/23 16:44 Last Titration: 03/01/23 19:07 Dose: 50 mcg/hr, 5 mls/hr Lactated Ringer's (Lr) 1,000 mls @ 125 mls/hr IV .Q8H [place] Stop: 03/31/23 16:44 Last Admin: 03/01/23 17:24 Dose: 125 mls/hr Acetaminophen (Ofirmev) 1,000 mg in 100 mls @ 400 mls/hr IV Q8H PRN PRN Reason: mild pain Stop: 03/04/23 16:39 Propofol (Diprivan) 1,000 mg in 100 mls @ 18.9 mls/hr IV .Q5H18M [place]; Protocol Stop: 03/04/23 17:14 Last Titration: 03/01/23 19:35 Dose: 30 mcg/kg/min, 18.9 mls/hr Miscellaneous (Icu Protocol For Hyperglycemia) 1 each N/A ACHS [facility] Stop: 03/03/23 20:59 Morphine Sulfate (Morphine Sulfate 2 Mg/Ml Carp) 2 mg IV Q2H PRN PRN Reason: Moderate Pain (Scale 4, 5, 6) Stop: 03/15/23 16:39 Morphine Sulfate (Morphine Sulfate 4 Mg/Ml 1 Ml Carp\\Vial) 4 mg IV Q2H PRN PRN Reason: Severe Pain (Scale 7, 8, 9,10) Stop: 03/15/23 16:39 Ondansetron HCl (Ondansetron Inj 2 Mg/Ml 2 Ml Vial) 4 mg IV Q6H PRN PRN Reason: Nausea Stop: 03/31/23 06:06 Propofol (Propofol Bolus From Bag) 20 mg IV Q5M PRN PRN Reason: Sedation Stop: 03/04/23 17:00 Last Admin: 03/01/23 20:00 Dose: 20 mg PG Care Time/CCT Total # of Minutes Spent Total Time Spent with Patient: Total time spent is greater than 50% in coordination of care (as documented) at patient's floor/unit and/or counseling patient: Coding Level of Care Code 92310 INT INP/OBS CARE 3/75MIN Diagnoses Atrial fibrillation I48.91 Perforated abdominal viscus R19.8 Pericardial effusion I31.39 Elevated troponin R77.8 Hypoxia R09.02
[2023-03-01] MEDS: ICU Protocol for HYPERglycemia SCH (21:41)
--- NOTE | 2023-03-01 22:52 | Billing Data ---
Date of Service March 01, 2023 Coding Level of Care Code 49999 INT INP/OBS CARE
[2023-03-02] MEDS: PIPERACILLIN/TAZOBACTAM 4.5 GM in DEXTROSE 5% 100 ML IV SCH ×3 (00:37→16:49)
[2023-03-02] MEDS: PROPOFOL BOLUS FROM BAG IV PRN (01:05)
[2023-03-02] MEDS: LACTATED RINGER'S 1,000 ML IV SCH ×3 (01:32→16:49)
[2023-03-02] MEDS: propofoL 1,000 MG/100 ML VIAL IV SCH ×3 (02:54→09:32)
[2023-03-02 04:48] LABS: Albumin Globulin Ratio 1.1 (0.9-2); Albumin Level 2.3 gm/dl (3.4-5.0); BUN Creatinine Ratio 24.4 (10-20); Bilirubin,Total 1.9 mg/dl (0.2-1.0); Calcium 7.9 mg/dl (8.6-10.3); Creatinine Clr Calc Pharmacy 41.6 ml/min; Est GFR (African American) 35.5 ml/min; Est GFR (Non-African American) 30.6 ml/min; Globulin 2.1 gm/dl (2.5-4.0); Magnesium 1.8 mg/dl (1.7-2.4); Phosphorus 4.7 mg/dl (2.5-4.9); Potassium 4.4 mmol/L (3.5-5.1); Total Protein 4.4 gm/dl (6.0-8.3)
[2023-03-02 04:58] LABS: INR 1.2 (0.9-1.1); Prothrombin Time 13.2 Seconds (9.0-12.0)
[2023-03-02 07:08] LABS: Basophils # (auto) 0.03 K/uL (0-0.2); Basophils % (auto) 0.3 %; Eosinophils # (auto) 0.04 K/uL (0-0.50); Eosinophils % (auto) 0.4 %; Hematocrit (blood only) 37.3 % (42.0-52.0); Hemoglobin 12.1 g/dl (14.0-18.0); Immature Granulocytes # (auto) 0.07 K/uL (0.01-0.20); Immature Granulocytes % (auto) 0.8 %; Lymphocytes # (auto) 0.86 K/uL (1.2-3.4); Lymphocytes % (auto) 9.4 %; Mean Corpuscular Hemoglobin 29.2 pg (25.0-34.0); Mean Corpuscular Hgb Conc 32.4 g/dL (32.0-36.0); Mean Corpuscular Volume 89.9 fL (80.0-100.0); Monocytes # (auto) 0.84 K/uL (0.11-0.59); Monocytes % (auto) 9.2 %; Neutrophils # (auto) 7.29 K/uL (1.40-6.50); Neutrophils % (auto) 79.9 %; Platelet Count 217 K/uL (130-400); RDW Coefficient of Variation 14.7 % (11.5-14.5); Red Blood Count 4.15 M/uL (4.70-6.10); White Blood Count 9.13 K/ul (4.8-10.8)
--- NOTE | 2023-03-02 07:43 | Hospitalist Progress Note ---
Date of Service March 02, 2023 Assessment & Plan (1) Hypoxia: Plan: Pt is a 67 y/o Mwith PMHx of recent acute CVA, hypertension, AFIB, alcohol misuse and nicotine dependence who presents from [facility] with hypoxia secondary to suspected CHF exacerbation. Pt found to have diverticulitis with perforation and abscess; taken to the OR 03/01 for emergent exlap and descending colon resection with subsequent ostomy. Pt is currently intubated and sedated under ICU care. Plans for SBT and possible extubation today. Diverticulitis of descending colon with perforation and 20 cm abscess -s/p surgical intervention -blood cx neg; peritoneal fluid grew gram neg bacilli -continue zosyn Hypoxia -Was noted to be SOB/hypoxic at [facility] -SpO2 >90% on nasal cannula -Suspected etiology: heart failure and/or abdominal distention Congestive heart failure -Likely 2/2 HTN and afib. BNP 500 upon admission. Given Lasix 40mg IV x1. -CXR showing cardiomegaly and pulmonary edema -Echocardiogram 03/01/23: LVEF 55-60%, no wall motional abnormalities, severe concentric LV hypertrophy. Small pericardial effusion along RV. -per cardio; resume anticoagulation and metoprolol when able- may need diuresis considering admission hypoxia and volume load d/t emergent surgery -Track I/Os, daily weights; low sodium diet when able to eat History of recent arterial ischemic stroke -Admitted to [facility] on 02/22/23 with left arm/leg jerking for ~2 weeks Per record review: left-sided choreoathetoid movements 2/2 right subthalamic infarction. Recommended d/c Sinemet, startingEliquis, high intensity stain, BP control, and Risperdal 0.25mg BID -Per rehab notes, patient was seen by speech pathology at [facility], however, unable to obtain the records for this at this time -Speech will f/u with pt after extubation to determine readiness for swallowing eval Chronic alcohol abuse w/ associated elevated LFTs -Last drink 02/22/23. Baseline is at least several beers/day every day for decades -AWSS protocol -AST 46, ALT 60, T-bili 1.1, INR1.2 upon admission -Consider resumption of thiamine and folic acid supplementation when extubated CKD -Newly diagnosed with several creatinine >1.4 at [facility] -Cr increased to 2.13 today w/ a decrease in urine output -Renally dosed medications Atrial fibrillation -Newly diagnosed on 02/22/23 at [facility] -In afib on admission -On Eliquis for anticoagulation; holding for now s/p surgical intervention -Will resume metoprolol when able Elevated troponin -Mild elevation at 49.2 on admission; trend to peak -Suspect demand ischemia in the setting of diverticulitis, perforated bowel, and abscess -Per cardio, no ischemic work up recommended at this time Hypertension, chronic and uncontrolled -Plan to resume amlodipine and metoprolol when able -Current management per ICU FENGI: NPO, mechanically ventilated DVT ppx: holding Eliquis d/t recent surgery, SCDs in place Dispo: ICU s/p emergent bowel resection Code: Full (2) Congestive heart failure: (3) At risk for aspiration: (4) Elevated LFTs: (5) Elevated troponin: (6) CKD (chronic kidney disease): (7) Atrial fibrillation: (8) Hx of arterial ischemic stroke: (9) Alcohol abuse: (10) Hypertension: (11) Diverticulitis of intestine with perforation and abscess: (12) Status post exploratory laparotomy: Admission and Anticipated Discharge Date Admission Date: March 01, 2023 Supervising Physician Co-Signing Physician Notes I personally examined the patient and verified all lal points of history and exam, discussed case, and agree with decision making with Dr Jaquez no meaningful HPI or ROS but off ventilator. vitals noted appearling to have chorioform movements but nad. cardio reg lungs coarse but no focal findings no accessory muscles. abd mild distention incision c/d/i no surrounding bruising or erythema ischemic colon - perforation, peritonitis - stable post op. extubated. continue zosyn, supportive care holding anticoagulation, pharmacologic DVT proph per surgery recommendations Subjective Pt still intubated this morning. He appears uncomfortable/agitated as he is writhing/moving around in bed. Review of Systems Review of Systems: Unobtainable due to endotracheal tube Physical Exam Physical Exam: Constitutional: intubated, agitated HEENT: normocephalic CV: irregular rhythm, regular rate, no murmur Respiratory: mechanically ventilated. CTA bilaterally. No rhonchi, wheezes, or crackles. MSK: no gross deformities noted Skin: warm and dry Neuro: intubated. Spontaneous movements of his upper and lower extremities noted. Results & Data Results & Data Vital Signs (Past 12 Hours) Vital Signs Temp Pulse Resp BP Pulse Ox O2 Del Method FiO2 03/02/23 06:58 93 H 21 93 03/02/23 06:58 101/61 03/02/23 06:30 83 19 94 03/02/23 06:28 81 22 92 03/02/23 06:28 106/64 03/02/23 06:00 85 20 93 03/02/23 05:58 84 22 93 03/02/23 05:58 101/64 03/02/23 05:30 87 20 92 03/02/23 05:28 111/65 03/02/23 05:28 87 20 92 03/02/23 05:00 92 H 23 91 03/02/23 04:58 105/62 03/02/23 04:58 90 18 91 03/02/23 06:07 Mechanical Vent 03/02/23 04:30 92 H 23 89 L 03/02/23 04:28 84 20 89 L 03/02/23 04:28 111/65 03/02/23 04:00 88 21 95 03/02/23 03:58 85 20 95 03/02/23 03:58 105/66 03/02/23 03:30 86 18 95 03/02/23 03:28 108/68 03/02/23 03:28 93 H 19 95 03/02/23 04:31 50 03/02/23 03:00 91 H 20 95 03/02/23 02:58 86 20 95 03/02/23 02:58 98/66 L 03/02/23 02:30 92 H 19 95 03/02/23 02:28 94 H 20 95 03/02/23 02:28 106/74 03/02/23 02:00 94 H 21 95 03/02/23 01:58 105/64 03/02/23 01:58 88 19 95 03/02/23 01:30 86 20 95 03/02/23 01:28 94 H 21 95 03/02/23 01:28 105/64 03/02/23 01:00 95 H 18 95 03/02/23 00:58 99/63 L 03/02/23 00:58 98 H 21 95 03/02/23 00:30 87 21 95 03/02/23 00:28 95 H 22 95 03/02/23 00:28 106/71 03/02/23 00:00 94 H 21 95 03/01/23 23:58 96 H 21 95 03/01/23 23:58 114/76 03/01/23 23:30 89 22 94 03/01/23 23:28 96 H 20 94 03/01/23 23:28 105/69 03/02/23 02:45 20 40 03/02/23 03:04 37.3 C 03/02/23 00:17 95 H 03/01/23 23:00 89 22 95 03/01/23 22:58 95 H 21 95 03/01/23 22:58 102/64 03/01/23 22:30 97 H 19 96 03/01/23 22:28 87 21 97 03/01/23 22:28 118/79 03/01/23 23:19 37.6 C H 03/01/23 22:29 20 40 03/01/23 22:00 92 H 23 96 03/01/23 21:58 106/65 03/01/23 21:58 85 17 96 03/01/23 21:30 91 H 22 94 03/01/23 21:28 95/63 L 03/01/23 21:28 100 H 18 94 03/01/23 21:00 97 H 23 94 03/01/23 20:58 92 H 20 94 03/01/23 20:58 89/65 L 03/01/23 20:30 92 H 21 96 03/01/23 20:28 90 17 94 03/01/23 20:28 112/82 03/01/23 20:00 100 H 20 96 03/01/23 19:58 99 H 16 96 03/01/23 19:58 111/63 03/01/23 20:04 21 40 Resident Activity Tracking Resident Involvement: Resident Care Provided Care Provided: Adult Hospital Medicine
[2023-03-02] MEDS: ICU Protocol for HYPERglycemia SCH ×3 (07:49→18:31)
[2023-03-02 08:04] LABS: Estimated Average Glucose 105 mg/dl; Hemoglobin A1C 5.3 % (4.5-5.6)
[2023-03-02] MEDS ORDERED: STAT IV Infusion **Titration per Protocol STA (09:08)
[2023-03-02] MEDS ORDERED: LORazepam 2 MG/1 ML VIAL IV STA (09:10)
[2023-03-02] MEDS ORDERED: LORazepam 2 MG/1 ML VIAL ONE (09:12)
[2023-03-02] MEDS: niCARdipine 25 MG in SODIUM CHLORIDE 0.9% 240 ML IV SCH ×5 (09:31→22:50)
--- NOTE | 2023-03-02 09:59 | Surgery Progress Note ---
Date of Service March 02, 2023 Assessment & Plan (1) Sepsis: Plan: He is overall doing fairly well postoperative day 1 He is still on the ventilator, ICU team is working to extubate him Continue to hold his Eliquis and do not give any DVT prophylaxis Obviously we will keep him n.p.o. while ventilated We will continue to follow (2) Diverticulitis of intestine with perforation and abscess: (3) Status post exploratory laparotomy: Admission and Anticipated Discharge Date Admission Date: March 01, 2023 Subjective Patient seen and examined. Awake on the vent. No vasopressors. No ostomy output. His urine output did decrease little bit overnight but is picked up to 45 mL over the last 2 hours. Physical Exam Constitutional: Awake on ventilator, not following commands Gastrointestinal (Abdomen): Soft, appropriately tender, ostomy in left upper quadrant pink with bloody/serosanguineous Dressing clean dry and intact Results & Data Vital Signs (Past 12 Hours) Vital Signs Temp Pulse Pulse Resp BP BP Pulse Ox 03/02/23 08:00 82 20 94 03/02/23 07:46 36.7 C 85 18 119/63 94 03/02/23 06:58 93 H 21 93 03/02/23 06:58 101/61 03/02/23 06:30 83 19 94 03/02/23 06:28 81 22 92 03/02/23 06:28 106/64 03/02/23 06:00 85 20 93 03/02/23 05:58 84 22 93 03/02/23 05:58 101/64 03/02/23 05:30 87 20 92 03/02/23 05:28 111/65 03/02/23 05:28 87 20 92 03/02/23 05:00 92 H 23 91 03/02/23 04:58 105/62 03/02/23 04:58 90 18 91 03/02/23 06:07 03/02/23 04:30 92 H 23 89 L 03/02/23 04:28 84 20 89 L 03/02/23 04:28 111/65 03/02/23 04:00 88 21 95 03/02/23 03:58 85 20 95 03/02/23 03:58 105/66 03/02/23 03:30 86 18 95 03/02/23 03:28 108/68 03/02/23 03:28 93 H 19 95 03/02/23 04:31 03/02/23 03:00 91 H 20 95 03/02/23 02:58 86 20 95 03/02/23 02:58 98/66 L 03/02/23 02:30 92 H 19 95 03/02/23 02:28 94 H 20 95 03/02/23 02:28 106/74 03/02/23 02:00 94 H 21 95 03/02/23 01:58 105/64 03/02/23 01:58 88 19 95 03/02/23 01:30 86 20 95 03/02/23 01:28 94 H 21 95 03/02/23 01:28 105/64 03/02/23 01:00 95 H 18 95 03/02/23 00:58 99/63 L 03/02/23 00:58 98 H 21 95 03/02/23 00:30 87 21 95 03/02/23 00:28 95 H 22 95 03/02/23 00:28 106/71 03/02/23 00:00 94 H 21 95 03/01/23 23:58 96 H 21 95 03/01/23 23:58 114/76 03/01/23 23:30 89 22 94 03/01/23 23:28 96 H 20 94 03/01/23 23:28 105/69 03/02/23 02:45 20 03/02/23 03:04 37.3 C 03/02/23 00:17 95 H 03/01/23 23:00 89 22 95 03/01/23 22:58 95 H 21 95 03/01/23 22:58 102/64 03/01/23 22:30 97 H 19 96 03/01/23 22:28 87 21 97 03/01/23 22:28 118/79 03/01/23 23:19 37.6 C H 03/01/23 22:29 20 03/01/23 22:00 92 H 23 96 03/01/23 21:58 106/65 03/01/23 21:58 85 17 96 O2 Del Method O2 Del Method FiO2 03/02/23 08:00 40 03/02/23 07:46 Mechanical Vent 03/02/23 06:58 03/02/23 06:58 03/02/23 06:30 03/02/23 06:28 06/10/23 06:28 03/02/23 06:00 03/02/23 05:58 03/02/23 05:58 03/02/23 05:30 03/02/23 05:28 03/02/23 05:28 03/02/23 05:00 03/02/23 04:58 03/02/23 04:58 03/02/23 06:07 Mechanical Vent 03/02/23 04:30 03/02/23 04:28 03/02/23 04:28 03/02/23 04:00 03/02/23 03:58 03/02/23 03:58 03/02/23 03:30 03/02/23 03:28 03/02/23 03:28 03/02/23 04:31 50 03/02/23 03:00 03/02/23 02:58 03/02/23 02:58 03/02/23 02:30 03/02/23 02:28 03/02/23 02:28 03/02/23 02:00 03/02/23 01:58 03/02/23 01:58 03/02/23 01:30 03/02/23 01:28 03/02/23 01:28 03/02/23 01:00 03/02/23 00:58 03/02/23 00:58 03/02/23 00:30 03/02/23 00:28 03/02/23 00:28 03/02/23 00:00 03/01/23 23:58 03/01/23 23:58 03/01/23 23:30 03/01/23 23:28 03/01/23 23:28 03/02/23 02:45 40 03/02/23 03:04 03/02/23 00:17 03/01/23 23:00 03/01/23 22:58 03/01/23 22:58 03/01/23 22:30 03/01/23 22:28 03/01/23 22:28 03/01/23 23:19 03/01/23 22:29 40 03/01/23 22:00 03/01/23 21:58 03/01/23 21:58 PG Care Time/CCT Total # of Minutes Spent Total Time Spent with Patient: Total time spent is greater than 50% in coordination of care (as documented) at patient's floor/unit and/or counseling patient: Coding Level of Care Code 97360 Post Operative Follow-Up Diagnoses Sepsis A41.9 Diverticulitis of intestine with perforation and abscess K57.80 Status post exploratory laparotomy Z98.890
--- NOTE | 2023-03-02 10:09 | Critical Care Progress Note ---
Date of Service March 02, 2023 Assessment & Plan (1) Diverticulitis of intestine with perforation and abscess: (2) Alcohol abuse: (3) CKD (chronic kidney disease): (4) Endotracheally intubated: (5) Status post exploratory laparotomy: (6) Perforated abdominal viscus: (7) Sepsis: (8) Hypertension: Plan 67-year-old male with a history of alcoholism, tobacco abuse, A-fib, diastolic heart failure and prior CVA who is presenting to the ICU status ex lap for perforated diverticulum now with descending colectomy with end ostomy. Neurologic: Extubated. Avoid overly sedating agents. Continue pain control per surgery recommendations. Pulmonary: Extubated to nasal cannula. Cardiovascular: Patient profoundly hypertensive this morning and on nicardipine infusion. We will have low threshold to consider IV diuresis. Gastrointestinal: Status post ex lap for perforated diverticulum and now with an ostomy. Defer management to general surgery. Appreciate general surgery input. Renal: HALEY on CKD stage III. We will consider diuretics. Consult nephrology given ongoing renal failure. Infectious disease: Continue Zosyn due to intra-abdominal sepsis. Follow-up blood cultures and cultures from ex lap. Hematologic: Patient received Kcentra earlier today as he is chronically anticoagulated with Eliquis for A-fib. Hold anticoagulation at this time. SCDs for DVT prophylaxis. Hemodilution noted on CBC. Platelets within normal range. No signs of overt bleeding. Endocrine: Maintain glucose under 180. Lines and tubes: Peripheral IVs and left radial arterial line in place. Continue Mclain catheter. VTE prophylaxis: SCDs CODE STATUS: Full Family at bedside: None available at bedside Disposition: Possible downgrade later today if able to get the patient off nicardipine. I have personally spent 36 minutes of critical care time in the direct management of this patient. This is a life/limb threatening event. This includes time spent evaluating patient, direct bedside care, chart review, placing orders, interpretation of diagnostic studies, discussion with consultants, patient, and family members, as well as other required patient management activities. This time is exclusive of all separately billable procedures, and teaching time and separate from and in addition to any other critical care service time. Thank you for allowing us to participate in the care of this patient. Admission and Anticipated Discharge Date Admission Date: March 01, 2023 Subjective Patient seen and examined. He did well with spontaneous breathing trial was able to follow commands off sedation. He did become profoundly hypertensive with systolics in the 220s. He is currently on a nicardipine infusion with systolics in the 150s. He is now following commands after extubation and saturating in the low 90s on supplemental oxygen. He denies any pain or shortness of breath at present. Review of Systems Review of Systems: All systems reviewed & are unremarkable except as noted in HPI & below Physical Exam Physical Exam: Constitutional: Obese appearing male lying in bed. Mildly anxious. Eyes: Pupils are equal round and reactive to light. Conjunctivae are normal. Anicteric sclera. Ears nose, mouth and throat: Extubated. Mild ulceration noted on the lower right lip from ET tube. Neck: Trachea is midline. Visual inspection is normal. Respiratory: Clear to auscultation bilaterally. No use of accessory muscles. No significant clubbing noted. Cardiovascular: Regular rate and rhythm. No murmurs. No edema. Gastrointestinal: Bandaging noted. Ostomy noted. No bleeding. Musculoskeletal: Extremities intact. Skin: No rashes, warm dry and intact. Neurologic: No obvious focal deficits at this time. Psychiatric: Alert and oriented x3. Mildly anxious. Results & Data Results & Data Vital Signs (Past 12 Hours) Vital Signs Temp Pulse Pulse Resp BP BP Pulse Ox 03/02/23 08:00 03/02/23 09:00 37.6 C 03/02/23 08:00 82 20 94 03/02/23 07:46 36.7 C 85 18 119/63 94 03/02/23 06:58 93 H 21 93 03/02/23 06:58 101/61 03/02/23 06:30 83 19 94 03/02/23 06:28 81 22 92 03/02/23 06:28 106/64 03/02/23 06:00 85 20 93 03/02/23 05:58 84 22 93 03/02/23 05:58 101/64 03/02/23 05:30 87 20 92 03/02/23 05:28 111/65 03/02/23 05:28 87 20 92 03/02/23 05:00 92 H 23 91 03/02/23 04:58 105/62 03/02/23 04:58 90 18 91 03/02/23 06:07 03/02/23 04:30 92 H 23 89 L 03/02/23 04:28 84 20 89 L 03/02/23 04:28 111/65 03/02/23 04:00 88 21 95 03/02/23 03:58 85 20 95 03/02/23 03:58 105/66 03/02/23 03:30 86 18 95 03/02/23 03:28 108/68 03/02/23 03:28 93 H 19 95 03/02/23 04:31 03/02/23 03:00 91 H 20 95 03/02/23 02:58 86 20 95 03/02/23 02:58 98/66 L 03/02/23 02:30 92 H 19 95 03/02/23 02:28 94 H 20 95 03/02/23 02:28 106/74 03/02/23 02:00 94 H 21 95 03/02/23 01:58 105/64 03/02/23 01:58 88 19 95 03/02/23 01:30 86 20 95 03/02/23 01:28 94 H 21 95 03/02/23 01:28 105/64 03/02/23 01:00 95 H 18 95 03/02/23 00:58 99/63 L 03/02/23 00:58 98 H 21 95 03/02/23 00:30 87 21 95 03/02/23 00:28 95 H 22 95 03/02/23 00:28 106/71 03/02/23 00:00 94 H 21 95 03/01/23 23:58 96 H 21 95 03/01/23 23:58 114/76 03/01/23 23:30 89 22 94 03/01/23 23:28 96 H 20 94 03/01/23 23:28 105/69 03/02/23 02:45 20 03/02/23 03:04 37.3 C 03/02/23 00:17 95 H 03/01/23 23:00 89 22 95 03/01/23 22:58 95 H 21 95 03/01/23 22:58 102/64 03/01/23 22:30 97 H 19 96 03/01/23 22:28 87 21 97 03/01/23 22:28 118/79 03/01/23 23:19 37.6 C H 03/01/23 22:29 20 O2 Del Method O2 Del Method FiO2 03/02/23 08:00 40 03/02/23 09:00 03/02/23 08:00 40 03/02/23 07:46 Mechanical Vent 03/02/23 06:58 03/02/23 06:58 03/02/23 06:30 03/02/23 06:28 03/02/23 06:28 03/02/23 06:00 03/02/23 05:58 03/02/23 05:58 03/02/23 05:30 03/02/23 05:28 03/02/23 05:28 03/02/23 05:00 03/02/23 04:58 03/02/23 04:58 03/02/23 06:07 Mechanical Vent 03/02/23 04:30 03/02/23 04:28 03/02/23 04:28 03/02/23 04:00 03/02/23 03:58 03/02/23 03:58 03/02/23 03:30 03/02/23 03:28 03/02/23 03:28 03/02/23 04:31 50 03/02/23 03:00 03/02/23 02:58 03/02/23 02:58 03/02/23 02:30 03/02/23 02:28 03/02/23 02:28 03/02/23 02:00 03/02/23 01:58 03/02/23 01:58 03/02/23 01:30 03/02/23 01:28 03/02/23 01:28 03/02/23 01:00 03/02/23 00:58 03/02/23 00:58 03/02/23 00:30 03/02/23 00:28 03/02/23 00:28 03/02/23 00:00 03/01/23 23:58 03/01/23 23:58 03/01/23 23:30 03/01/23 23:28 03/01/23 23:28 03/02/23 02:45 40 03/02/23 03:04 03/02/23 00:17 03/01/23 23:00 03/01/23 22:58 03/01/23 22:58 03/01/23 22:30 03/01/23 22:28 03/01/23 22:28 03/01/23 23:19 03/01/23 22:29 40 Coding Level of Care Code 35230 CRITICAL CARE 1ST 30-74M Diagnoses Diverticulitis of intestine with perforation and abscess K57.80 Alcohol abuse F10.10 CKD (chronic kidney disease) N18.9 Endotracheally intubated Z97.8 Status post exploratory laparotomy Z98.890 Perforated abdominal viscus R19.8 Sepsis A41.9 Hypertension I10
--- NOTE | 2023-03-02 12:01 | Nephrology Consultation ---
Date of Consultation March 02, 2023 Assessment & Plan (1) Acute kidney injury: * Oliguric HALEY/CKD likely due to SON, relative hypotension prior to surgery * 03/01/23 urinalysis negative for blood, protein. Urine sediment negative for granular casts * 03/01/[address] negative for hydronephrosis * Volume status and electrolyte balance are currently acceptable * Patient appears euvolemic. CXR this am is negative for pulmonary edema/pleural effusion. Hold IVF and monitor PRP, UO * Avoid NSAIDS, exposure to potential nephrotoxins (2) CKD (chronic kidney disease): * Baseline Cr 1.44 (3) Hypertension: * Continue Nicardipine gtt as per ICU team * Had been on Metoprolol, Amlodipine as outpatient * Has not been on EVA/ARB (4) Diverticulitis of intestine with perforation and abscess: * s/p exploratory laparotomy w/ descending colon resection, partial omentectomy and end colostomy by Dr. Dennison 03/01/23 * On empiric IV Zosyn History of Present Illness Reason for Consultation: HALEY/CKD Attending Physician: Nickolas Nation DO History of Present Illness Mr. Perez is a 67 year old white male who is seen at the request of [facility] Critical Care for evaluation of HALEY/CKD. Patient was evaluated in the ICU and POC was reviewed w/ Dr. Anderson this morning. Mr. Perez was extubated this morning and can speak his name but cannot provide details of his medical history. Information for the HPI is obtained from the EMR and is summarized as follows: Mr. Perez has a h/o of alcoholism, tobacco abuse, A-fib, diastolic heart failure and prior CVA. He presented to the hospital EMD 03/01/23 as a transfer from [facility] for evaluation of hypoxia. Evaluation revealed free air beneath the diaphragm. Abdominal CT w/ contrast revealed a perforated diverticulum. Mr. Perez underwent exploratory laparotomy w/ descending colon resection, partial omentectomy and end colostomy by Dr. Dennison 03/01/23. Post-op he has been admitted to the ICU and extubated from the ventilator. Mclain catheter is in place w/ 400 cc dark yellow urine. Cr has risen from 1.44 to 2.13. Nicardipine gtt has been started for management of hypertension. Allergies Allergy/AdvReac Type Severity Reaction Status Date / Time No Known Allergies Allergy Unverified 03/01/23 03:14 Home Medications Medication Instructions Recorded Confirmed Type acetaminophen 325 mg tablet 650 mg PO Q4 PRN Pain 03/01/23 03/01/23 History (Tylenol) albuterol sulfate 90 mcg/actuation 1 inh inhalation Q4 PRN Wheezing 03/01/23 03/01/23 History aerosol inhaler amlodipine 10 mg tablet 10 mg PO DAILY 03/01/23 03/01/23 History apixaban 5 mg tablet 5 mg PO BID 03/01/23 03/01/23 History carbidopa 25 mg-levodopa 100 mg 1 tab PO Q8 03/01/23 03/01/23 History tablet diazepam 5 mg tablet 10 mg PO Q4 PRN .spasm 03/01/23 03/01/23 History docusate sodium 100 mg capsule 100 mg PO BID 03/01/23 03/01/23 History folic acid 1 mg tablet 1 mg PO DAILY 03/01/23 03/01/23 History guaifenesin 600 mg tablet, 600 mg PO BID 03/01/23 03/01/23 History extended release 12 hr (Mucinex) insulin regular human 100 unit/mL 0 unit subcut ACHS 03/01/23 03/01/23 History injection solution (Humulin R Regular U-100 Insulin) melatonin 3 mg tablet 3 mg PO HS PRN Sleep 03/01/23 03/01/23 History metoprolol tartrate 50 mg tablet 50 mg PO Q12H 03/01/23 03/01/23 History ondansetron HCl 4 mg tablet 4 mg PO Q4 PRN Nausea 03/01/23 03/01/23 History polyethylene glycol 3350 17 gram 17 g PO DAILY 03/01/23 03/01/23 History oral powder packet (Miralax) risperidone 0.25 mg tablet 0.5 mg PO Q12 03/01/23 03/01/23 History sennosides 8.6 mg-docusate sodium 1 tab-cap PO .QLUNCH PRN 03/01/23 03/01/23 History 50 mg tablet (Senokot-S) Constipation thiamine HCl (vitamin B1) 100 mg 100 mg PO DAILY 03/01/23 03/01/23 History tablet Patient History Medical History Atrial fibrillation Endotracheally intubated Perforated abdominal viscus Sepsis Stroke Ventilator dependence Surgical History History of colon resection (03/01/23) Exploratory Laparotomy, Desending Colon Resection, Partial omentectomy, creation of end colostomy(Not Applicable) - Avinash Dennison, DO Status post exploratory laparotomy Social History Smoking Status: Current some day smoker Tobacco Type: Cigarettes Do You Dip or Chew Tobacco: No; Hx Alcohol Use: Yes Alcohol type: beer Hx Substance Use: No Preferred Language: Qatari Communication Ability: Effective Stripper Color Required: No Beliefs That Will Affect Care: None Current Living Situation: Spouse Current Living Situation Comment: at [facility] for rehab then dc back home Other Information That Helps Us Care for You: Yes (new stroke 7 days ago) Feels Safe at Home: Yes Safety Concerns: Feels Safe At This Time Assistive Devices: Oxygen - Continuous Review of Systems Review of Systems: Unobtainable due to cognitive status Physical Exam Constitutional: + ill appearing Eyes: PERRL, conjunctivae normal, anicteric sclerae ENMT: external ear and nose normal, oropharynx normal Neck: trachea midline, no thyromegaly Respiratory: Auscultation: lungs clear to auscultation bilaterally Cardiovascular: Rate/Rhythm: + tachycardic Extremities: no edema Gastrointestinal (Abdomen): Inspection/Auscultation: + abdomen distended (no bowel sounds) surgical dressings are clean and dry. LLQ ostomy noted Skin: no rashes, warm and dry Neurologic: awake Results & Data Vital Signs (Past 12 Hours) Vital Signs Temp Pulse Pulse Resp BP BP Pulse Ox 03/02/23 11:15 113 H 29 H 90 03/02/23 11:00 104 H 39 H 91 03/02/23 10:58 145/86 H 03/02/23 10:58 98 H 22 92 03/02/23 10:45 99 H 29 H 92 03/02/23 08:00 03/02/23 10:30 95 H 34 H 91 03/02/23 10:28 155/81 H 03/02/23 10:28 98 H 25 H 91 03/02/23 10:00 85 28 H 90 03/02/23 09:58 122/72 03/02/23 09:58 96 H 31 H 89 L 03/02/23 09:30 93 H 31 H 94 03/02/23 09:28 100 H 44 H 95 03/02/23 09:28 175/116 H 03/02/23 09:00 85 25 H 95 03/02/23 08:58 81 29 H 95 03/02/23 08:58 139/74 03/02/23 08:30 86 19 94 03/02/23 08:28 89 24 94 03/02/23 08:28 131/70 03/02/23 08:00 89 20 94 03/02/23 07:58 90 19 94 03/02/23 07:58 113/64 03/02/23 07:30 79 19 94 03/02/23 07:28 119/73 03/02/23 07:28 81 22 94 03/02/23 07:00 87 21 93 03/02/23 08:00 03/02/23 09:00 37.6 C 03/02/23 08:00 82 20 94 03/02/23 07:46 36.7 C 85 18 119/63 94 03/02/23 06:58 93 H 21 93 03/02/23 06:58 101/61 03/02/23 06:30 83 19 94 03/02/23 06:28 81 22 92 03/02/23 06:28 106/64 03/02/23 06:00 85 20 93 03/02/23 05:58 84 22 93 03/02/23 05:58 101/64 03/02/23 05:30 87 20 92 03/02/23 05:28 111/65 03/02/23 05:28 87 20 92 03/02/23 05:00 92 H 23 91 03/02/23 04:58 105/62 03/02/23 04:58 90 18 91 03/02/23 06:07 03/02/23 04:30 92 H 23 89 L 03/02/23 04:28 84 20 89 L 03/02/23 04:28 111/65 03/02/23 04:00 88 21 95 03/02/23 03:58 85 20 95 03/02/23 03:58 105/66 03/02/23 03:30 86 18 95 03/02/23 03:28 108/68 03/02/23 03:28 93 H 19 95 03/02/23 04:31 03/02/23 03:00 91 H 20 95 03/02/23 02:58 86 20 95 03/02/23 02:58 98/66 L 03/02/23 02:30 92 H 19 95 03/02/23 02:28 94 H 20 95 03/02/23 02:28 106/74 03/02/23 02:00 94 H 21 95 03/02/23 01:58 105/64 03/02/23 01:58 88 19 95 03/02/23 01:30 86 20 95 03/02/23 01:28 94 H 21 95 03/02/23 01:28 105/64 03/02/23 01:00 95 H 18 95 03/02/23 00:58 99/63 L 03/02/23 00:58 98 H 21 95 03/02/23 00:30 87 21 95 03/02/23 00:28 95 H 22 95 03/02/23 00:28 106/71 03/02/23 00:00 94 H 21 95 03/02/23 02:45 20 03/02/23 03:04 37.3 C 03/02/23 00:17 95 H O2 Del Method O2 Del Method O2 Flow Rate FiO2 03/02/23 11:15 Nasal Cannula 5 03/02/23 11:00 Mechanical Vent 40 03/02/23 10:58 03/02/23 10:58 03/02/23 10:45 03/02/23 08:00 Mechanical Vent 40 03/02/23 10:30 03/02/23 10:28 03/02/23 10:28 03/02/23 10:00 03/02/23 09:58 03/02/23 09:58 03/02/23 09:30 03/02/23 09:28 03/02/23 09:28 03/02/23 09:00 03/02/23 08:58 03/02/23 08:58 03/02/23 08:30 03/02/23 08:28 03/02/23 08:28 03/02/23 08:00 03/02/23 07:58 03/02/23 07:58 03/02/23 07:30 03/02/23 07:28 03/02/23 07:28 03/02/23 07:00 03/02/23 08:00 40 03/02/23 09:00 03/02/23 08:00 40 03/02/23 07:46 Mechanical Vent 03/02/23 06:58 03/02/23 06:58 03/02/23 06:30 03/02/23 06:28 03/02/23 06:28 03/02/23 06:00 03/02/23 05:58 03/02/23 05:58 03/02/23 05:30 03/02/23 05:28 03/02/23 05:28 03/02/23 05:00 03/02/23 04:58 03/02/23 04:58 03/02/23 06:07 Mechanical Vent 03/02/23 04:30 03/02/23 04:28 03/02/23 04:28 03/02/23 04:00 03/02/23 03:58 03/02/23 03:58 03/02/23 03:30 03/02/23 03:28 03/02/23 03:28 03/02/23 04:31 50 03/02/23 03:00 03/02/23 02:58 03/02/23 02:58 03/02/23 02:30 03/02/23 02:28 03/02/23 02:28 03/02/23 02:00 03/02/23 01:58 03/02/23 01:58 03/02/23 01:30 03/02/23 01:28 03/02/23 01:28 03/02/23 01:00 03/02/23 00:58 03/02/23 00:58 03/02/23 00:30 03/02/23 00:28 03/02/23 00:28 03/02/23 00:00 03/02/23 02:45 40 03/02/23 03:04 03/02/23 00:17 Laboratory Results Laboratory Tests 03/01/23 03/01/23 03/01/23 01:35 01:54 16:54 WBC Hgb Hct Plt Count Sodium Potassium Chloride Carbon Dioxide BUN Creatinine 1.44 H 1.55 H Glucose Calcium Phosphorus Magnesium Ammonia Albumin Urine Appearance Clear Urine Protein Negative Urine Glucose (UA) Negative Urine Blood Negative 03/02/23 03/02/23 03/02/23 03:55 03:55 09:19 WBC 9.13 Hgb 12.1 L D Hct 37.3 L Plt Count 217 Sodium 141 Potassium 4.4 Chloride 108 H Carbon Dioxide 24 BUN 52 H Creatinine 2.13 H D Glucose 150 H Calcium 7.9 L Phosphorus 4.7 Magnesium 1.8 Ammonia 23.0 Albumin 2.3 L Urine Appearance Urine Protein Urine Glucose (UA) Urine Blood Diagnostic Findings 03/01/[address]: Trace left pleural effusion. Mild bibasilar atelectasis with mucus plugging. Unremarkable spleen, mildly atrophic pancreas, gallbladder and adrenal glands. The liver is within normal limits. Patent portal vein. While nonspecific bilateral perinephric stranding. 4 mm calcification of the superior pole left kidney. No ureteral calculi or hydronephrosis. Decompressed urinary bladder with Mclain catheter in place. Moderate bladder wall thickening. Prostatomegaly. Small right and moderate left facet inguinal hernias. Fluid is also noted within the left hernia sac. Atherosclerosis of the aorta without aneurysm. No lymphadenopathy. Fluid-filled distal esophagus. No small bowel obstruction. There are several loops of small bowel within the central abdomen which demonstrates circumferential wall thickening with hyperemia. Colonic diverticulosis. There is irregularity of the distal descending colonic wall on image 268 series 3 with a large amount of extraluminal air extending into the adjacent mesentery. Colonic diverticulosis. Elongated and tubular air and fluid filled collections are noted adjacent to the site of perforation extending adjacent to the aforementioned inflamed small bowel loops into the sigmoid mesocolon measuring up to 20 cm in length. Small amount of abdominal pelvic ascites. PG Care Time/CCT Total # of Minutes Spent Total Time Spent with Patient: Total time spent is greater than 50% in coordination of care (as documented) at patient's floor/unit and/or counseling patient: Coding Level of Care Code 27864 IN/OBS CONSULT LVL 5,80M Diagnoses Acute kidney injury N17.9 CKD (chronic kidney disease) N18.9 Hypertension I10 Diverticulitis of intestine with perforation and abscess K57.80
[2023-03-02] MEDS: METOPROLOL TARTRATE 1 MG/ML VIAL IV SCH ×2 (15:10→19:37)
[2023-03-02] MEDS: ACETAMINOPHEN 1,000 MG/100 ML VIAL IV PRN (16:57)
--- NOTE | 2023-03-02 17:28 | Billing Data ---
Date of Service March 02, 2023 Coding Level of Care Code 11797 SUB INP/OBS CARE
[2023-03-02 18:11] LABS: Appearance Urine Turbid (Clear); Bacteria Urine Automated Negative (Negative); Bilirubin Urine Negative (Negative); Blood Urine 3+ (Negative); Color Urine Dark Yellow; Epithelial Cell Urine Auto >30 /lpf (0-5); Glucose Urine UA Negative (Negative); Ketones Urine Negative (Negative); Leukocyte Esterase Urine Negative (Negative); Nitrite Urine Negative (Negative); Protein Urine 1+ (Negative); RBC Urine Automated >30 /hpf (0-4); Specific Gravity Urine 1.023 (1.000-1.030); Urobilinogen Urine Negative (Negative)
[2023-03-02 18:27] LABS: Uric Acid Crystals Urine Present (None Prsent)
[2023-03-02 18:28] LABS: Cast Urine Automated 0 /lpf (0-5); Renal Epithelial Cells Urine 0-5 /lpf (0-5)
[2023-03-02 18:39] LABS: Total Protein Urine Random 84.6 mg/dl (0-11.9)
[2023-03-02 18:44] LABS: Creatinine Urine Random 89.5 mg/dl; Protein Creatinine Ratio Urine 0.9 (0-0.2)
[2023-03-02] MEDS: HYDROmorphone INJ 0.5 MG/0.5 ML SYR IV PRN (20:43)
[2023-03-03] MEDS: METOPROLOL TARTRATE 1 MG/ML VIAL IV SCH ×3 (00:11→08:12)
[2023-03-03] MEDS: ICU Protocol for HYPERglycemia SCH ×3 (00:12→14:18)
[2023-03-03] MEDS: PIPERACILLIN/TAZOBACTAM 4.5 GM in DEXTROSE 5% 100 ML IV SCH ×4 (00:12→23:49)
[2023-03-03] MEDS: niCARdipine 25 MG in SODIUM CHLORIDE 0.9% 240 ML IV SCH ×3 (01:21→10:09)
[2023-03-03] MEDS: ACETAMINOPHEN 1,000 MG/100 ML VIAL IV PRN ×2 (02:09→17:09)
[2023-03-03 04:41] LABS: Basophils # (auto) 0.04 K/uL (0-0.2); Basophils % (auto) 0.4 %; Eosinophils % (auto) 2.2 %; Hematocrit (blood only) 31.9 % (42.0-52.0); Hemoglobin 10.4 g/dl (14.0-18.0); Immature Granulocytes # (auto) 0.07 K/uL (0.01-0.20); Immature Granulocytes % (auto) 0.8 %; Lymphocytes # (auto) 0.53 K/uL (1.2-3.4); Lymphocytes % (auto) 5.9 %; Mean Corpuscular Hgb Conc 32.6 g/dL (32.0-36.0); Mean Corpuscular Volume 91.9 fL (80.0-100.0); Mean Platelet Volume 10.8 fL (9.4-12.4); Monocytes # (auto) 0.58 K/uL (0.11-0.59); Monocytes % (auto) 6.4 %; Neutrophils # (auto) 7.62 K/uL (1.40-6.50); Neutrophils % (auto) 84.3 %; Platelet Count 212 K/uL (130-400); RDW Coefficient of Variation 14.6 % (11.5-14.5); RDW Standard Deviation 49.1 fL (36.4-46.3); Red Blood Count 3.47 M/uL (4.70-6.10); White Blood Count 9.04 K/ul (4.8-10.8)
[2023-03-03 05:23] LABS: BUN Creatinine Ratio 22.2 (10-20); Calcium 7.8 mg/dl (8.6-10.3); Creatinine Clr Calc Pharmacy 43.4 ml/min; Est GFR (African American) 37.6 ml/min; Est GFR (Non-African American) 32.5 ml/min; Magnesium 1.9 mg/dl (1.7-2.4); Potassium 3.5 mmol/L (3.5-5.1)
--- NOTE | 2023-03-03 05:48 | Electrocardiogram Report ---
Test Reason : Blood Pressure : / mmHG Vent. Rate : 075 BPM Atrial Rate : 000 BPM P-R Int : 000 ms QRS Dur : 098 ms QT Int : 362 ms P-R-T Axes : 000 -54 180 degrees QTc Int : 404 ms Atrial fibrillation Incomplete right bundle branch block Left anterior fascicular block Septal infarct , age undetermined Poor R wave progression, consider anterior CA vs. lead placement vs. LVH Abnormal ECG No previous ECGs available Confirmed by Jasson Foster ([id number]) on 03/03/2023 5:47:31 AM Referred By: [facility] Confirmed By:Jasson Foster
--- NOTE | 2023-03-03 07:17 | Hospitalist Progress Note ---
Date of Service March 03, 2023 Assessment & Plan (1) Hypoxia: Plan: Pt is a 67 y/o Mwith PMHx of recent acute CVA, hypertension, AFIB, alcohol misuse and nicotine dependence who presents from [facility] with hypoxia secondary to suspected CHF exacerbation. Pt found to have diverticulitis with perforation and abscess; taken to the OR 03/01 for emergent exlap and descending colon resection with subsequent ostomy. Pt intubated 03/01 and extubated 03/02. Downgraded from ICU to PCU 03/03. Diverticulitis of descending colon with perforation and 20 cm abscess -s/p surgical intervention; surgery following -blood cx neg; peritoneal fluid grew gram neg bacilli -tylenol, dilaudid 0.5 mg q6hr PRN for pain -continue zosyn (started 03/01) Hypoxia -Was noted to be SOB/hypoxic at [facility] -SpO2 >90% on nasal cannula -Suspected etiology: heart failure and/or abdominal distention Congestive heart failure -Likely 2/2 HTN and afib. BNP 500 upon admission. Given Lasix 40mg IV x1. -CXR showing cardiomegaly and pulmonary edema -Echocardiogram 03/01/23: LVEF 55-60%, no wall motional abnormalities, severe concentric LV hypertrophy. Small pericardial effusion along RV. -per cardio; resume anticoagulation and metoprolol when able -Track I/Os, daily weights; low sodium diet when able to eat History of recent arterial ischemic stroke -Admitted to [facility] on 02/22/23 with left arm/leg jerking for ~2 weeks Per record review: left-sided choreoathetoid movements 2/2 right subthalamic infarction. Recommended d/c sinemet, startingEliquis, high intensity stain, BP control, and Risperdal 0.25mg BID -Per rehab notes, patient was seen by speech pathology at [facility], however, unable to obtain the records for this at this time -Speech reevaluated pt today; unable to advance diet d/t aspiration; speech will re evaluate tomorrow Chronic alcohol abuse w/ associated elevated LFTs -Last drink 02/22/23. Baseline is at least several beers/day every day for decades -AWSS protocol- last score 03/01 was 3 -AST 46, ALT 60, T-bili 1.1, INR1.2 upon admission -Consider resumption of thiamine and folic acid supplementation when extubated CKD -Newly diagnosed with several creatinine >1.4 at [facility] -Cr stable/slightly improved to 2.03 today -Renally dosed medications - nephro consulted Atrial fibrillation -Newly diagnosed on 02/22/23 at [facility] -In afib on admission -On Eliquis for anticoagulation; holding for now s/p surgical intervention; per surgery, should restart anticoagulation tomorrow -Will resume metoprolol when able Elevated troponin -Mild elevation at 49.2 on admission -Suspect demand ischemia in the setting of diverticulitis, perforated bowel, and abscess -Per cardio, no ischemic work up recommended at this time Hypertension, chronic and uncontrolled -BP stable; may use labetolol IV 5 mg PRN for SBP >160, DBP >90 -Plan to resume amlodipine and metoprolol when able FENGI: per speech, keep on ice chips and sips only DVT ppx: holding Eliquis d/t recent surgery (can start tomorrow per surg), SCDs in place Dispo: downgraded to PCU today Code: Full (2) Congestive heart failure: (3) At risk for aspiration: (4) Elevated LFTs: (5) Elevated troponin: (6) CKD (chronic kidney disease): (7) Atrial fibrillation: (8) Hx of arterial ischemic stroke: (9) Alcohol abuse: (10) Hypertension: (11) Diverticulitis of intestine with perforation and abscess: (12) Status post exploratory laparotomy: Admission and Anticipated Discharge Date Admission Date: March 01, 2023 Supervising Physician Co-Signing Physician Notes I personally examined the patient and verified all lal points of history and exam, discussed case, and agree with decision making with Dr Jaquez Surprisingly awake and alert. Denies complaints. Denies shortness of breath. Does seem to be a bit confused. Vitals noted, in general he is awake and alert pleasant no distress. HEENT normocephalic atraumatic mucous membranes moist. Cardio is regular without rubs murmurs or gallops, lungs clear to auscultation bilaterally no rales rhonchi or wheeze with good effort. Abdomen is mildly distended no bruising, no stool in ostomy, mild serosanguineous output in ostomy. ischemic colon - perforation, peritonitis - stable post op. continue zosyn, supportive care, showing surprising degrees of improvement holding anticoagulation, pharmacologic DVT proph per surgery recommendationscan probably start pharmacologic DVT prophylaxis tomorrow. Anticipate need to return to rehab Subjective Pt seen at bedside this afternoon. Overall, doing ok. He still has pain in his abdomen which is his biggest complaint. Review of Systems Review of Systems: As per HPI Physical Exam Physical Exam: Constitutional: well appearing, no acute distress HEENT: normocephalic, no conjunctival injection CV: RRR, no murmur, no LE edema Respiratory: Course breath sounds throughout. No wheezes or crackles. No increased work of breathing GI: soft, nondistended, tender w/ gauze over exlap incision. Ostomy site beefy red w/o surrounding erythema. Red/brown liquid noted in ostomy bag- does not appear to be any stool. MSK: no gross deformities noted Skin: warm, dry, no rashes Neuro: alert, oriented, left choreiform movements noted Psych: mood and affect congruent Results & Data Results & Data Vital Signs (Past 12 Hours) Vital Signs Temp Pulse Resp BP Pulse Ox O2 Del Method 03/03/23 06:30 75 21 96 03/03/23 06:28 131/66 03/03/23 06:28 71 25 H 95 03/03/23 06:15 75 23 95 03/03/23 06:01 120/62 03/03/23 06:01 75 22 96 03/03/23 06:00 72 22 96 03/03/23 05:58 134/72 03/03/23 05:58 72 20 96 03/03/23 05:45 71 22 95 03/03/23 05:30 81 21 94 03/03/23 05:28 138/67 03/03/23 05:28 74 20 93 03/03/23 04:45 66 23 93 03/03/23 04:30 63 24 94 03/03/23 04:28 118/61 03/03/23 04:28 66 21 93 03/03/23 04:15 63 22 94 03/03/23 04:05 65 21 93 03/03/23 04:00 62 21 94 03/03/23 03:58 128/70 03/03/23 03:58 71 19 92 03/03/23 03:56 77 137/63 03/03/23 03:30 72 20 92 03/03/23 03:28 123/61 03/03/23 03:28 68 21 92 03/03/23 03:00 70 21 91 03/03/23 02:58 123/65 03/03/23 02:58 74 21 91 03/03/23 03:37 36.7 C 03/03/23 02:30 73 19 88 L 03/03/23 02:28 138/70 03/03/23 02:28 75 23 88 L 03/03/23 02:00 78 20 90 03/03/23 01:58 154/66 H 03/03/23 01:58 78 25 H 88 L Nasal Cannula 03/03/23 01:30 76 24 91 03/03/23 01:28 138/73 03/03/23 01:28 81 22 92 03/03/23 01:00 69 25 H 93 03/03/23 00:58 72 20 93 03/03/23 00:58 144/66 H 03/03/23 00:30 70 34 H 84 L 03/03/23 00:28 114/80 03/03/23 00:28 73 23 03/03/23 00:00 77 21 89 L 03/02/23 23:58 152/70 H 03/02/23 23:58 81 26 H 90 03/02/23 23:30 87 24 90 03/02/23 23:28 79 20 90 03/02/23 23:28 148/89 H 03/02/23 23:17 150/71 H 03/02/23 23:17 85 26 H 87 L 03/02/23 23:00 79 30 H 90 03/02/23 22:58 138/65 03/02/23 22:58 75 22 93 03/03/23 00:59 81 03/02/23 22:30 76 22 93 03/02/23 22:28 132/67 03/02/23 22:28 74 20 93 03/02/23 22:00 75 21 92 03/02/23 21:58 77 24 93 03/02/23 21:58 123/59 L 03/02/23 22:52 36.8 C 03/03/23 00:11 78 161/82 H 03/02/23 21:30 73 23 93 03/02/23 21:28 78 23 94 03/02/23 21:28 121/61 03/02/23 21:00 75 22 95 03/02/23 20:58 78 21 94 03/02/23 20:58 120/63 03/02/23 20:30 75 30 H 89 L 03/02/23 20:28 139/73 03/02/23 20:28 80 29 H 90 03/02/23 20:00 76 30 H 92 03/02/23 19:58 79 32 H 92 03/02/23 19:58 139/71 03/02/23 19:30 84 29 H 93 03/02/23 19:28 141/70 H 03/02/23 19:28 85 32 H 93 03/02/23 20:36 36.7 C 03/02/23 19:37 84 151/77 H Resident Activity Tracking Resident Involvement: Resident Care Provided Care Provided: Adult Hospital Medicine
--- NOTE | 2023-03-03 08:12 | Nephrology Progress Note ---
Date of Service March 03, 2023 Assessment & Plan (1) Acute kidney injury: Plan: * HALEY/CKD likely due to SON, relative hypotension prior to surgery. * 03/01/23 urinalysis negative for blood, protein. Urine sediment negative for granular casts * 03/01/[address] negative for hydronephrosis * Kidney function is stable. Volume status and electrolyte balance remain acceptable. Urine output has improved last shift * Continue to hold IVF. Monitor UO, PRP * Avoid NSAIDS, exposure to potential nephrotoxins (2) CKD (chronic kidney disease): Plan: * Baseline Cr 1.44 (3) Hypertension: Plan: * BP is acceptable this morning * Nicardipine gtt has been weaned to off * Now on IV Metoprolol * Had been on Metoprolol, Amlodipine as outpatient * Has not been on EVA/ARB (4) Diverticulitis of intestine with perforation and abscess: Plan: * s/p exploratory laparotomy w/ descending colon resection, partial omentectomy and end colostomy by Dr. Dennison 03/01/23 * On empiric IV Zosyn Admission and Anticipated Discharge Date Admission Date: March 01, 2023 Subjective Mr. Perez was evaluated in the ICU this morning. He was alert and c/o abdominal discomfort. He was oriented to self only. Mclain catheter remains in place draining yellow urine. UO improved to 1900 cc last shift Review of Systems 2 Constitutional: no problem reported Eyes: no problem reported Ear, Nose, Mouth, Throat: no problem reported Respiratory: no problem reported Cardiovascular: no problem reported Gastrointestinal: + abdominal pain Physical Exam Constitutional: + ill appearing Eyes: PERRL, conjunctivae normal, anicteric sclerae ENMT: external ear and nose normal, oropharynx normal Neck: trachea midline, no thyromegaly Respiratory: Auscultation: lungs clear to auscultation bilaterally Cardiovascular: Rate/Rhythm: regular rate Extremities: no edema Gastrointestinal (Abdomen): Inspection/Auscultation: + abdomen distended (no bowel sounds) Colostomy w/ bloody mucous, no stool Skin: no rashes, warm and dry Neurologic: awake Results & Data Vital Signs (Past 12 Hours) Vital Signs Temp Pulse Resp BP Pulse Ox O2 Del Method 03/03/23 07:28 75 23 92 03/03/23 07:28 137/67 03/03/23 07:15 73 26 H 94 03/03/23 07:00 73 20 95 03/03/23 06:58 138/59 L 03/03/23 06:58 76 22 95 03/03/23 06:45 76 22 95 03/03/23 06:40 128/64 03/03/23 06:40 74 23 95 03/03/23 06:30 75 21 96 03/03/23 06:28 131/66 03/03/23 06:28 71 25 H 95 03/03/23 06:15 75 23 95 03/03/23 06:01 120/62 03/03/23 06:01 75 22 96 03/03/23 06:00 72 22 96 03/03/23 05:58 134/72 03/03/23 05:58 72 20 96 03/03/23 05:45 71 22 95 03/03/23 05:30 81 21 94 03/03/23 05:28 138/67 03/03/23 05:28 74 20 93 03/03/23 04:45 66 23 93 03/03/23 04:30 63 24 94 03/03/23 04:28 118/61 03/03/23 04:28 66 21 93 03/03/23 04:15 63 22 94 03/03/23 04:05 65 21 93 03/03/23 04:00 62 21 94 03/03/23 03:58 128/70 03/03/23 03:58 71 19 92 03/03/23 03:56 77 137/63 03/03/23 03:30 72 20 92 03/03/23 03:28 123/61 03/03/23 03:28 68 21 92 03/03/23 03:00 70 21 91 03/03/23 02:58 123/65 03/03/23 02:58 74 21 91 03/03/23 03:37 36.7 C 03/03/23 02:30 73 19 88 L 03/03/23 02:28 138/70 03/03/23 02:28 75 23 88 L 03/03/23 02:00 78 20 90 03/03/23 01:58 154/66 H 03/03/23 01:58 78 25 H 88 L Nasal Cannula 03/03/23 01:30 76 24 91 03/03/23 01:28 138/73 03/03/23 01:28 81 22 92 03/03/23 01:00 69 25 H 93 03/03/23 00:58 72 20 93 03/03/23 00:58 144/66 H 03/03/23 00:30 70 34 H 84 L 03/03/23 00:28 114/80 03/03/23 00:28 73 23 03/03/23 00:00 77 21 89 L 03/02/23 23:58 152/70 H 03/02/23 23:58 81 26 H 90 03/02/23 23:30 87 24 90 03/02/23 23:28 79 20 90 03/02/23 23:28 148/89 H 03/02/23 23:17 150/71 H 03/02/23 23:17 85 26 H 87 L 03/02/23 23:00 79 30 H 90 03/02/23 22:58 138/65 03/02/23 22:58 75 22 93 03/03/23 00:59 81 03/02/23 22:30 76 22 93 03/02/23 22:28 132/67 03/02/23 22:28 74 20 93 03/02/23 22:00 75 21 92 03/02/23 21:58 77 24 93 03/02/23 21:58 123/59 L 03/02/23 22:52 36.8 C 03/03/23 00:11 78 161/82 H 03/02/23 21:30 73 23 93 03/02/23 21:28 78 23 94 03/02/23 21:28 121/61 03/02/23 21:00 75 22 95 03/02/23 20:58 78 21 94 03/02/23 20:58 120/63 03/02/23 20:30 75 30 H 89 L 03/02/23 20:28 139/73 03/02/23 20:28 80 29 H 90 03/02/23 20:36 36.7 C Laboratory Results Laboratory Tests 03/01/23 03/01/23 03/02/23 01:35 16:54 03:55 WBC Hgb Hct Plt Count Sodium Potassium Chloride Carbon Dioxide BUN Creatinine 1.44 H 1.55 H 2.13 H D Glucose Calcium Phosphorus Magnesium Urine Appearance Ur Specific [place] Urine Protein Urine Blood Urine RBC (Auto) Protein/Creatinin Ratio 03/02/23 03/02/23 03/03/23 17:00 17:00 04:13 WBC 9.04 Hgb 10.4 L Hct 31.9 L Plt Count 212 Sodium Potassium Chloride Carbon Dioxide BUN Creatinine Glucose Calcium Phosphorus Magnesium Urine Appearance Turbid A Ur Specific [place] 1.023 Urine Protein 1+ H Urine Blood 3+ H Urine RBC (Auto) >30 H Protein/Creatinin Ratio 0.9 H 03/03/23 04:13 WBC Hgb Hct Plt Count Sodium 142 Potassium 3.5 D Chloride 110 H Carbon Dioxide 24 BUN 45 H Creatinine 2.03 H Glucose 115 H Calcium 7.8 L Phosphorus 4.0 Magnesium 1.9 Urine Appearance Ur Specific [place] Urine Protein Urine Blood Urine RBC (Auto) Protein/Creatinin Ratio PG Care Time/CCT Total # of Minutes Spent Total Time Spent with Patient: Total time spent is greater than 50% in coordination of care (as documented) at patient's floor/unit and/or counseling patient: Coding Level of Care Code 41156 SUB INP/OBS CARE 3/50MIN Diagnoses Acute kidney injury N17.9 CKD (chronic kidney disease) N18.9 Hypertension I10 Diverticulitis of intestine with perforation and abscess K57.80
[2023-03-03] MEDS: HYDROmorphone INJ 0.5 MG/0.5 ML SYR IV PRN ×3 (08:45→23:06)
--- NOTE | 2023-03-03 09:23 | Surgery Progress Note ---
Date of Service March 03, 2023 Assessment & Plan (1) Sepsis: Plan: He looks good status post extubation Still no ostomy output, speech pathology is going to come by and reassess his swallowing function, can have clear liquids from a surgical standpoint if okay with speech Await more meaningful ostomy output Continue Zosyn for now, peritoneal culture showing gram-negative bacilli Would still hold his Eliquis for now, can likely start DVT prophylaxis tomorrow, his hemoglobin has slowly dropped since the OR but is hemodynamically stable We will get PT and OT on board with him with his recent stroke and major surgery he will likely need rehab once discharged (2) Diverticulitis of intestine with perforation and abscess: (3) Status post exploratory laparotomy: Admission and Anticipated Discharge Date Admission Date: March 01, 2023 Subjective Patient seen and examined. Was extubated yesterday afternoon. Pain controlled and states it is at a 3 out of 10. No ostomy output. Afebrile. Hemodynamically stable. Physical Exam Constitutional: Awake on ventilator, not following commands Gastrointestinal (Abdomen): Soft, appropriately tender, ostomy in left upper quadrant pink with bloo dy/serosanguineous Dressing clean dry and intact Results & Data Vital Signs (Past 12 Hours) Vital Signs Temp Pulse Resp BP Pulse Ox O2 Del Method 03/03/23 07:28 75 23 92 03/03/23 07:28 137/67 03/03/23 07:15 73 26 H 94 03/03/23 07:00 73 20 95 03/03/23 06:58 138/59 L 03/03/23 06:58 76 22 95 03/03/23 06:45 76 22 95 03/03/23 06:40 128/64 03/03/23 06:40 74 23 95 03/03/23 06:30 75 21 96 03/03/23 06:28 131/66 03/03/23 06:28 71 25 H 95 03/03/23 06:15 75 23 95 03/03/23 06:01 120/62 03/03/23 06:01 75 22 96 03/03/23 06:00 72 22 96 03/03/23 05:58 134/72 03/03/23 05:58 72 20 96 03/03/23 05:45 71 22 95 03/03/23 05:30 81 21 94 03/03/23 05:28 138/67 03/03/23 05:28 74 20 93 03/03/23 04:45 66 23 93 03/03/23 04:30 63 24 94 03/03/23 04:28 118/61 03/03/23 04:28 66 21 93 03/03/23 04:15 63 22 94 03/03/23 04:05 65 21 93 03/03/23 04:00 62 21 94 03/03/23 03:58 128/70 03/03/23 03:58 71 19 92 03/03/23 03:56 77 137/63 03/03/23 03:30 72 20 92 03/03/23 03:28 123/61 03/03/23 03:28 68 21 92 03/03/23 03:00 70 21 91 03/03/23 02:58 123/65 03/03/23 02:58 74 21 91 03/03/23 03:37 36.7 C 03/03/23 02:30 73 19 88 L 03/03/23 02:28 138/70 03/03/23 02:28 75 23 88 L 03/03/23 02:00 78 20 90 03/03/23 01:58 154/66 H 03/03/23 01:58 78 25 H 88 L Nasal Cannula 03/03/23 01:30 76 24 91 03/03/23 01:28 138/73 03/03/23 01:28 81 22 92 03/03/23 01:00 69 25 H 93 03/03/23 00:58 72 20 93 03/03/23 00:58 144/66 H 03/03/23 00:30 70 34 H 84 L 03/03/23 00:28 114/80 03/03/23 00:28 73 23 03/03/23 00:00 77 21 89 L 03/02/23 23:58 152/70 H 03/02/23 23:58 81 26 H 90 03/02/23 23:30 87 24 90 03/02/23 23:28 79 20 90 03/02/23 23:28 148/89 H 03/02/23 23:17 150/71 H 03/02/23 23:17 85 26 H 87 L 03/02/23 23:00 79 30 H 90 03/02/23 22:58 138/65 03/02/23 22:58 75 22 93 03/03/23 00:59 81 03/02/23 22:30 76 22 93 03/02/23 22:28 132/67 03/02/23 22:28 74 20 93 03/02/23 22:00 75 21 92 03/02/23 21:58 77 24 93 03/02/23 21:58 123/59 L 03/02/23 22:52 36.8 C 03/03/23 00:11 78 161/82 H 03/02/23 21:30 73 23 93 03/02/23 21:28 78 23 94 03/02/23 21:28 121/61 PG Care Time/CCT Total # of Minutes Spent Total Time Spent with Patient: Total time spent is greater than 50% in coordination of care (as documented) at patient's floor/unit and/or counseling patient: Coding Level of Care Code 23684 Post Operative Follow-Up Diagnoses Sepsis A41.9 Diverticulitis of intestine with perforation and abscess K57.80 Status post exploratory laparotomy Z98.890
--- NOTE | 2023-03-03 14:14 | Critical Care Progress Note ---
Date of Service March 03, 2023 Assessment & Plan (1) Diverticulitis of intestine with perforation and abscess: (2) Alcohol abuse: (3) CKD (chronic kidney disease): (4) Endotracheally intubated: (5) Status post exploratory laparotomy: (6) Perforated abdominal viscus: (7) Sepsis: (8) Hypertension: Plan 67-year-old male with a history of alcoholism, tobacco abuse, A-fib, diastolic heart failure and prior CVA who is presenting to the ICU status ex lap for perforated diverticulum now with descending colectomy with end ostomy. Neurologic: Extubated. Avoid overly sedating agents. Continue pain control per surgery recommendations. Pulmonary: Extubated to nasal cannula. Cardiovascular: Hypertension appears to be pain mediated. Holding p.o. agents at this time due to recent ex lap. Nicardipine and arterial line discontinued. Gastrointestinal: Status post ex lap for perforated diverticulum and now with an ostomy. Defer management to general surgery. Appreciate general surgery input. Renal: HALEY on CKD stage III. We will consider diuretics. Consult nephrology given ongoing renal failure. Appreciate nephrology input. Creatinine improving. Maintain euvolemia. Infectious disease: Continue Zosyn due to intra-abdominal sepsis. Follow-up blood cultures and c ultures from ex lap which are growing gram-negative rods. Hematologic: Patient received Kcentra earlier today as he is chronically anticoagulated with Eliquis for A-fib. Hold anticoagulation at this time. SCDs for DVT prophylaxis. Hemodilution noted on CBC. Platelets within normal range. No signs of overt bleeding. Initiate DVT prophylaxis based on surgery recommendations. Endocrine: Maintain glucose under 180. Lines and tubes: Peripheral IVs and left radial arterial line in place. Continue Mclain catheter. Arterial line discontinue 03/03/2023 VTE prophylaxis: SCDs CODE STATUS: Full Family at bedside: None available at bedside Disposition: Downgrade to PCU today. Communicated with resident service. Admission and Anticipated Discharge Date Admission Date: March 01, 2023 Subjective Patient continues to do so improvement. Currently on 5 L of oxygen saturating in the mid 90s. More alert and awake today. Urine output has improved. Creatinine improved as well. No significant fevers overnight. Patient off nicardipine. IV metoprolol had to be held due to bradycardia. Pain controlled with IV medications. Review of Systems Review of Systems: All systems reviewed & are unremarkable except as noted in HPI & below Physical Exam Physical Exam: Constitutional: Obese appearing male lying in bed. Mildly anxious. Eyes: Pupils are equal round and reactive to light. Conjunctivae are normal. Anicteric sclera. Ears nose, mouth and throat: Extubated. Mild ulceration noted on the lower right lip from ET tube. Neck: Trachea is midline. Visual inspection is normal. Respiratory: Clear to auscultation bilaterally. No use of accessory muscles. No significant clubbing noted. Cardiovascular: Regular rate and rhythm. No murmurs. No edema. Gastrointestinal: Bandaging noted. Ostomy noted. No bleeding. Musculoskeletal: Extremities intact. Skin: No rashes, warm dry and intact. Neurologic: No obvious focal deficits at this time. Psychiatric: Alert and oriented x3. Mildly anxious. Results & Data Results & Data Vital Signs (Past 12 Hours) Vital Signs Temp Pulse Resp BP Pulse Ox O2 Del Method O2 Flow Rate 03/03/23 13:28 136/66 03/03/23 13:28 88 93 03/03/23 13:15 84 91 03/03/23 12:30 81 23 91 03/03/23 12:28 145/64 H 03/03/23 12:28 84 23 90 03/03/23 12:15 78 26 H 91 03/03/23 12:00 82 26 H 90 03/03/23 11:58 76 25 H 90 03/03/23 11:58 143/61 H 03/03/23 11:28 80 24 93 03/03/23 11:28 134/63 03/03/23 11:15 86 20 92 03/03/23 10:58 88 27 H 159/72 H 92 Nasal Cannula 5 03/03/23 10:28 146/65 H 03/03/23 10:15 87 30 H 90 03/03/23 10:00 104 H 33 H 88 L 03/03/23 09:45 82 26 H 94 03/03/23 09:30 81 25 H 92 03/03/23 09:28 136/62 03/03/23 09:28 77 22 92 03/03/23 09:15 76 22 96 03/03/23 09:00 77 23 91 03/03/23 08:58 133/72 03/03/23 08:58 76 23 90 03/03/23 08:45 78 23 92 03/03/23 08:30 70 24 93 03/03/23 08:28 73 25 H 90 03/03/23 08:28 139/69 03/03/23 08:15 76 25 H 89 L 03/03/23 08:00 77 24 92 Nasal Cannula 5 03/03/23 07:58 135/66 03/03/23 07:58 74 25 H 91 03/03/23 07:45 71 29 H 92 03/03/23 08:00 Nasal Cannula 5 03/03/23 07:30 36.8 C 03/03/23 07:28 75 23 92 03/03/23 07:28 137/67 03/03/23 07:15 73 26 H 94 03/03/23 07:00 73 20 95 03/03/23 06:58 138/59 L 03/03/23 06:58 76 22 95 03/03/23 06:45 76 22 95 03/03/23 06:40 128/64 03/03/23 06:40 74 23 95 03/03/23 06:30 75 21 96 03/03/23 06:28 131/66 03/03/23 06:28 71 25 H 95 03/03/23 06:15 75 23 95 03/03/23 06:01 120/62 03/03/23 06:01 75 22 96 03/03/23 06:00 72 22 96 03/03/23 05:58 134/72 03/03/23 05:58 72 20 96 03/03/23 05:45 71 22 95 03/03/23 05:30 81 21 94 03/03/23 05:28 138/67 03/03/23 05:28 74 20 93 03/03/23 04:45 66 23 93 03/03/23 04:30 63 24 94 03/03/23 04:28 118/61 03/03/23 04:28 66 21 93 03/03/23 04:15 63 22 94 03/03/23 04:05 65 21 93 03/03/23 04:00 62 21 94 03/03/23 03:58 128/70 03/03/23 03:58 71 19 92 03/03/23 03:56 77 137/63 03/03/23 03:30 72 20 92 03/03/23 03:28 123/61 03/03/23 03:28 68 21 92 03/03/23 03:00 70 21 91 03/03/23 02:58 123/65 03/03/23 02:58 74 21 91 03/03/23 03:37 36.7 C 03/03/23 02:30 73 19 88 L 03/03/23 02:28 138/70 03/03/23 02:28 75 23 88 L Coding Level of Care Code 04812 SUB INP/OBS CARE 350MIN Diagnoses Diverticulitis of intestine with perforation and abscess K57.80 Alcohol abuse F10.10 CKD (chronic kidney disease) N18.9 Endotracheally intubated Z97.8 Status post exploratory laparotomy Z98.890 Perforated abdominal viscus R19.8 Sepsis A41.9 Hypertension I10
--- NOTE | 2023-03-03 17:07 | Billing Data ---
Date of Service March 03, 2023 Coding Level of Care Code 91206 SUB INP/OBS CARE
[2023-03-04] MEDS: MELATONIN 3 MG TAB PO PRN ×2 (05:16→20:15)
[2023-03-04 07:18] LABS: Basophils # (auto) 0.06 K/uL (0-0.2); Basophils % (auto) 0.6 %; Eosinophils # (auto) 0.24 K/uL (0-0.50); Eosinophils % (auto) 2.5 %; Hematocrit (blood only) 33.3 % (42.0-52.0); Hemoglobin 10.8 g/dl (14.0-18.0); Lymphocytes # (auto) 0.65 K/uL (1.2-3.4); Lymphocytes % (auto) 6.7 %; Mean Corpuscular Hemoglobin 29.5 pg (25.0-34.0); Mean Corpuscular Hgb Conc 32.4 g/dL (32.0-36.0); Mean Platelet Volume 10.5 fL (9.4-12.4); Monocytes # (auto) 0.43 K/uL (0.11-0.59); Monocytes % (auto) 4.4 %; Neutrophils # (auto) 8.19 K/uL (1.40-6.50); Neutrophils % (auto) 84.8 %; Platelet Count 290 K/uL (130-400); RDW Coefficient of Variation 14.6 % (11.5-14.5); RDW Standard Deviation 49.1 fL (36.4-46.3); Red Blood Count 3.66 M/uL (4.70-6.10); White Blood Count 9.67 K/ul (4.8-10.8)
[2023-03-04 07:54] LABS: BUN Creatinine Ratio 19.8 (10-20); Calcium 8.1 mg/dl (8.6-10.3); Creatinine Clr Calc Pharmacy 49.8 ml/min; Est GFR (African American) 44.4 ml/min; Est GFR (Non-African American) 38.3 ml/min; Magnesium 2.1 mg/dl (1.7-2.4); Potassium 3.7 mmol/L (3.5-5.1)
--- NOTE | 2023-03-04 08:13 | Hospitalist Progress Note ---
Date of Service March 04, 2023 Assessment & Plan (1) Diverticulitis of intestine with perforation and abscess: (2) Hypoxia: (3) Congestive heart failure: (4) At risk for aspiration: (5) Elevated LFTs: (6) Elevated troponin: (7) Atrial fibrillation: (8) Hx of arterial ischemic stroke: (9) Alcohol abuse: (10) CKD (chronic kidney disease): Plan Roberto is a 67 y/o Mwith PMHx of recent acute CVA, hypertension, AFIB, alcohol misuse and nicotine dependence who presents from [facility] with hypoxia secondary to suspected CHF exacerbation. Pt found to have diverticulitis with perforation and abscess; taken to the OR 03/01 for emergent exlap and descending colon resection with subsequent ostomy. Pt intubated 03/01 and extubated 03/02. Downgraded from ICU to PCU 03/03. #Diverticulitis of descending colon with perforation and 20cm abscess -S/p exploratory laparotomy, bowel resection and ostomy. Required Kcentra prior to surgery as he was on Eliquis. -Cleared for clear liquids based on surgery/speech consults. Will not advance diet until there is ostomy output. If persistent distention can obtain KUB. Hold off on CT imaging unless fever, sustained tachycardia or hypotension develop. -Continue Zosyn (started 03/01/23). Peritoneal fluid grew gram negative bacilli. Blood cultures negative. -Analgesia: PRN Tylenol, morphine, Dilaudid #History of arterial ischemic stroke #Aspiration risk -Admitted to [facility] on 02/22/23 with right subthalamic infarction. -Persistent left-sided chorea with no new deficits #Congestive heart failure with preserved ejection fraction -Likely 2/2 HTN and AFIB. BNP 500 on admission -CXR 03/01/23 showing cardiomegaly, pulmonary edema -Holding IV fluids per nephro -Track I/Os, weights #CKD, stage 3a -Baseline Cr 1.44, peaked at 2.13, improving. -Nephro consult appreciated: CKD/HALEY likely 2/2 contrast nephropathy and/or hypotension before surgery. Holding IV fluids due to positive volume fluid status. -Renally dosed medications, avoid nephrotoxins #Alcohol misuse, chronic -Last drink 02/22/23 -Has not required treatment during this admission based on AW protocol. -Thiamine + folic acid supplementation #Atrial fibrillation -Newly diagnosed on 02/22/23 at [facility] -IV Labetalol PRN -Will discuss risks/benefits of anticoagulation. HAS-BLED = 4. #Elevated troponin -Mildly elevated. No anginal symptoms. -Suspect demand ischemia #Hypertension, chronic and uncontrolled -Outpatient regimen: amlodipine and metoprolol -IV Labetalol PRN FENGI: NPO DVT ppx: Lovenox Dispo: PCU, will likely return to rehab upon discharge DNI Admission and Anticipated Discharge Date Admission Date: March 01, 2023 Supervising Physician Co-Signing Physician Notes Attending attestation Pt seen and examined in concert with Dr. Burgess, St. Dr. Sutton. In agreement with the documented findings as noted in the resident documentation with any exceptions or additions as noted here. Resting at bedside without acute complaint at time of examination. History is unfocused but appropriate. On examination, S1/S2 nl RRR no MCG. CTAB. Abd BS+ve, diffusely TTP worse perioperative site and with visible distention. Diverticulitis, descending colon w/ abscess and perforation s/p ex lap - gen surg consult - awaiting improved ostomy output to advance diet, consider KUB in PM/tomorrow if not improving. Pain control w/ IV morphine/dilaudid. Continue pip/ulysses Atrial fibrillation, h/o ischemic stroke - per surgical note will restart ASA, DVT PPx as noted. Would recommend d/w patient re: risks/benefits of AC w/ HAS- BLED of 4 (incl' etOH use) and high risk for CVA and likely restart of apixaban. Else see resident documentation as noted. Subjective Roberto has no new concerns. He wonders if the ostomy bag will be permanent. He has not had output yet from his ostomy bag, otherwise no abdominal pain. His diet was advanced to clear liquids today 03/04/23. No concerns with the Mclain catheter. He is looking forward to discharge. He has no subjective fevers, chills, SOB, lower extremity edema or chest pain. Review of Systems Review of Systems: All systems reviewed & are unremarkable except as noted in HPI & below Physical Exam Physical Exam: Lying supine in bed, no acute distress Respiratory: Room air No conversational dyspnea Lungs clear to ausculation without crackles or wheezes Cardiovascular: Regular rate, rhythm Normal S1, S2, no appreciable murmurs Radial pulse 2+ Extremities warm No cyanosis Gastrointestinal (Abdomen): Active bowel sounds. Mild distention. No pain/rebound/guarding to palpation Surgical incision site is bandaged, dry. No surround discharge, erythema. Ostomy output is minimal. No solid stool. Neurologic: Alert, answering questions +spontaneous chorea-like movements of left upper extremity CN 2-12 intact Strength of UE/LE is 5/5 bilaterally ROM of UE/LE intact bilaterally Lymphatic: lower extremities are symmetrical in size without erythema or edema. No calf pain to palpation. Results & Data Results & Data Vital Signs (Past 12 Hours) Vital Signs Temp Pulse Pulse Resp BP Pulse Ox O2 Del Method 03/04/23 07:13 91 H 03/04/23 07:11 36.9 C 78 19 163/81 H 96 Nasal Cannula 03/04/23 03:39 37.1 C 92 H 20 167/76 H 91 Nasal Cannula 03/03/23 23:18 79 03/03/23 23:02 36.9 C 88 16 158/78 H 96 Nasal Cannula O2 Flow Rate 03/04/23 07:13 03/04/23 07:11 2 03/04/23 03:39 3 03/03/23 23:18 03/03/23 23:02 3
[2023-03-04] MEDS: PIPERACILLIN/TAZOBACTAM 4.5 GM in DEXTROSE 5% 100 ML IV SCH ×2 (08:24→15:59)
[2023-03-04] MEDS: ACETAMINOPHEN 1,000 MG/100 ML VIAL IV PRN (08:29)
--- NOTE | 2023-03-04 09:03 | Nephrology Progress Note ---
Date of Service March 04, 2023 Assessment & Plan (1) Acute kidney injury: Plan: * HALEY/CKD likely due to SON, relative hypotension prior to surgery * 03/01/23 urinalysis negative for blood, protein. Urine sediment negative for granular casts * 03/01/[address] negative for hydronephrosis * Kidney function continues to gradually improve. Volume status and electrolyte balance remain acceptable. Urine output was 1900 cc last 24 hours * Patient remains net 4.7 L volume positive. Continue to hold IVF. Monitor UO, PRP * Avoid NSAIDS, avoid exposure to potential nephrotoxins (2) CKD (chronic kidney disease): Plan: * Baseline Cr 1.44 (3) Hypertension: Plan: * BP is mildly elevated * Has PRN IV Labetalol ordered * Had been on Metoprolol, Amlodipine as outpatient * Has not been on EVA/ARB (4) Diverticulitis of intestine with perforation and abscess: Plan: * s/p exploratory laparotomy w/ descending colon resection, partial omentectomy and end colostomy by Dr. Dennison 03/01/23 * Remains on empiric IV Zosyn Admission and Anticipated Discharge Date Admission Date: March 01, 2023 Subjective Mr. Perez was evaluated in his hospital room this morning. He was alert and requested a diet. He questioned whether his ostomy could ever be reversed. Review of Systems Constitutional: no problem reported Eyes: no problem reported Ear, Nose, Mouth, Throat: no problem reported Respiratory: no problem reported Cardiovascular: no problem reported Gastrointestinal: + abdominal pain Physical Exam Constitutional: + ill appearing Eyes: PERRL, conjunctivae normal, anicteric sclerae ENMT: external ear and nose normal, oropharynx normal Neck: trachea midline, no thyromegaly Respiratory: Auscultation: lungs clear to auscultation bilaterally Cardiovascular: Rate/Rhythm: regular rate and regular rhythm Extremities: no edema Gastrointestinal (Abdomen): Inspection/Auscultation: + abdomen distended (no bowel sounds, ostomy with bloody drainage, no stool in ostomy) Skin: no rashes, warm and dry Neurologic: awake Results & Data Vital Signs (Past 12 Hours) Vital Signs Temp Pulse Pulse Resp BP Pulse Ox O2 Del Method 03/04/23 08:22 18 96 Room Air 03/04/23 07:13 91 H 03/04/23 07:11 36.9 C 78 19 163/81 H 96 Nasal Cannula 03/04/23 03:39 37.1 C 92 H 20 167/76 H 91 Nasal Cannula 03/03/23 23:18 79 03/03/23 23:02 36.9 C 88 16 158/78 H 96 Nasal Cannula O2 Flow Rate 03/04/23 08:22 03/04/23 07:13 03/04/23 07:11 2 03/04/23 03:39 3 03/03/23 23:18 03/03/23 23:02 3 Laboratory Results Laboratory Tests 03/04/23 03/04/23 06:44 06:44 WBC 9.67 Hgb 10.8 L Hct 33.3 L Plt Count 290 Sodium 143 Potassium 3.7 Chloride 109 H Carbon Dioxide 26 BUN 35 H Creatinine 1.77 H Glucose 92 Calcium 8.1 L Phosphorus 3.0 D Magnesium 2.1 PG Care Time/CCT Total # of Minutes Spent Total Time Spent with Patient: Total time spent is greater than 50% in coordination of care (as documented) at patient's floor/unit and/or counseling patient: Coding Level of Care Code 58939 SUB INP/OBS CARE 3/50MIN Diagnoses Acute kidney injury N17.9 CKD (chronic kidney disease) N18.9 Hypertension I10 Diverticulitis of intestine with perforation and abscess K57.80
--- NOTE | 2023-03-04 10:16 | Surgery Progress Note ---
Date of Service March 04, 2023 Assessment & Plan (1) Perforated abdominal viscus: Plan: His labs reviewed, hemoglobin has been stable over the last 24 hours Can start DVT prophylaxis with Lovenox or restart his Eliquis, what ever is deemed appropriate per primary team Continue his IV antibiotics, peritoneal cultures revealed E. coli He still does not have any ostomy function, this is completely normal 2-1/2 days after his surgery There is no need for any repeat imaging at this time Can check a KUB if he has persistent distention, but would hold off on any CT imaging unless he develops a fever, sustained tachycardia or hypotension Speech pathology note reviewed, he may need a video swallow study, he can have clear liquids from a surgical standpoint but would not advance the diet any further than this until he has meaningful ostomy output (2) Status post exploratory laparotomy: (3) Diverticulitis of intestine with perforation and abscess: Admission and Anticipated Discharge Date Admission Date: March 01, 2023 Subjective Patient seen and examined. Awake and alert. Answers questions appropriately. No ostomy output. Afebrile. Physical Exam Constitutional: WD/WN, vitals as above Gastrointestinal (Abdomen): Soft, appropriately tender, ostomy in left upper quadrant pink with bloody/serosanguineous Dressing clean dry and intact Results & Data Vital Signs (Past 12 Hours) Vital Signs Temp Pulse Pulse Resp BP Pulse Ox O2 Del Method 03/04/23 09:41 Room Air 03/04/23 08:22 18 96 Room Air 03/04/23 07:13 91 H 03/04/23 07:11 36.9 C 78 19 163/81 H 96 Nasal Cannula 03/04/23 03:39 37.1 C 92 H 20 167/76 H 91 Nasal Cannula 03/03/23 23:18 79 03/03/23 23:02 36.9 C 88 16 158/78 H 96 Nasal Cannula O2 Flow Rate 03/04/23 09:41 03/04/23 08:22 03/04/23 07:13 03/04/23 07:11 2 03/04/23 03:39 3 03/03/23 23:18 03/03/23 23:02 3 PG Care Time/CCT Total # of Minutes Spent Total Time Spent with Patient: Total time spent is greater than 50% in coordination of care (as documented) at patient's floor/unit and/or counseling patient: Coding Level of Care Code 03492 Post Operative Follow-Up Diagnoses Perforated abdominal viscus R19.8 Status post exploratory laparotomy Z98.890 Diverticulitis of intestine with perforation and abscess K57.80
[2023-03-04 10:54] LABS: Troponin I High Sensitivity 58.4 pg/ml (0-20)
[2023-03-04] MEDS: ENOXAPARIN INJ 40 MG/0.4 ML SYR SQ SCH (15:59)
[2023-03-04] MEDS: HYDROmorphone INJ 0.5 MG/0.5 ML SYR IV PRN (20:16)
[2023-03-05] MEDS: PIPERACILLIN/TAZOBACTAM 4.5 GM in DEXTROSE 5% 100 ML IV SCH ×3 (00:10→16:25)
[2023-03-05 07:30] LABS: BUN Creatinine Ratio 18.3 (10-20); Calcium 8.1 mg/dl (8.6-10.3); Creatinine Clr Calc Pharmacy 54.3 ml/min; Est GFR (African American) 48.7 ml/min; Potassium 3.5 mmol/L (3.5-5.1)
--- NOTE | 2023-03-05 08:02 | Hospitalist Progress Note ---
Date of Service March 05, 2023 Assessment & Plan (1) Diverticulitis of intestine with perforation and abscess: (2) Hypoxia: (3) Congestive heart failure: (4) At risk for aspiration: (5) Elevated LFTs: (6) Elevated troponin: (7) Atrial fibrillation: (8) Hx of arterial ischemic stroke: (9) Alcohol abuse: (10) CKD (chronic kidney disease): Radha Mejia is a 67 y/o Mwith PMHx of recent acute CVA, hypertension, AFIB, alcohol misuse and nicotine dependence who presents from [facility] with hypoxia secondary to suspected CHF exacerbation. Pt found to have diverticulitis with perforation and abscess; taken to the OR 03/01 for emergent exlap and descending colon resection with subsequent ostomy. Pt intubated 03/01 and extubated 03/02. Downgraded from ICU to PCU 03/03. #Diverticulitis of descending colon with perforation and 20cm abscess -S/p exploratory laparotomy, descending bowel resection, partial omentectomy and ostomy. Required Kcentra prior to surgery as he was on Eliquis. -Tolerating clear liquids, no solid ostomy output. If distention develops can obtain KUB. Hold off on CT imaging unless fever, sustained tachycardia or hypotension develop. -Continue Zosyn (started 03/01/23). Peritoneal fluid grew gram negative bacilli. Blood cultures negative. -Analgesia: PRN Tylenol, morphine, Dilaudid #History of arterial ischemic stroke #Aspiration risk -Admitted to [facility] on 02/22/23 with right subthalamic infarction. -Per speech/surgery he is able to get a barium swallow study if needed -Persistent left-sided chorea with no new deficits #Congestive heart failure with preserved ejection fraction -Likely 2/2 HTN and AFIB. BNP 500 on admission -CXR 03/01/23 showing cardiomegaly, pulmonary edema -Holding IV fluids per nephro as he is at a net positive fluid status -Track I/Os, weights #CKD, stage 3a -Baseline Cr 1.44, peaked at 2.13, improving. -Nephro consult appreciated: CKD/HALEY likely 2/2 contrast nephropathy and/or hypotension before surgery. Holding IV fluids due to positive volume fluid status. -Renally dosed medications, avoid nephrotoxins #Alcohol misuse, chronic -Last drink 02/22/23 -Has not required treatment during this admission based on [facility] protocol. -Thiamine + folic acid supplementation #Atrial fibrillation -Newly diagnosed on 02/22/23 at [facility] -Currently in AFIB -IV Labetalol PRN -Will discuss risks/benefits of anticoagulation. HAS-BLED = 4. #Elevated troponin -Mildly elevated. No anginal symptoms. -Suspect demand ischemia #Hypertension, chronic and uncontrolled -IV Labetalol PRN -Outpatient regimen: amlodipine and metoprolol #Cough, chronic -At baseline, incentive spirometry ordered -CXR 03/01/23 showed under-inflated lungs but not consolidation FENGI: Clears DVT ppx: Lovenox Dispo: PCU, referral for rehab placed Code status: DNI Admission and Anticipated Discharge Date Admission Date: March 01, 2023 Supervising Physician Co-Signing Physician Notes ATTESTATION I also saw the patient and confirmed lal portions of the history and exam. I agree with the impression and plan in the student documentation, and as summarized below. Sleeping but awakens to voice. No new complaints today. EXAM 149/87, 75, 18, 36.8, 94% room air Heart irregularly irregular Lungs clear with nonlabored respirations Abdomen slightly distended but nontender Red liquid in the ostomy DATA Labs (03/04/2023) hemoglobin stable at 10.8, white blood cell count normal at 9.67. Platelet count 290 (03/05/2023) sodium 141, potassium 3.5, BUN 30, creatinine 1.64 IMPRESSION & PLAN Diverticulitis, descending colon with abscess and perforation, status post colectomy and end ostomy Appreciate surgical consultation Hopefully more meaningful bowel function in ensuing couple of days Atrial fibrillation with history of ischemic stroke On aspirin and DVT prophylaxis at this point Anticipate resuming therapeutic anticoagulation in the near future We will discuss her/benefits with patient Acute kidney injury secondary to SON CKD Baseline creatinine is about 1.4 Appreciate nephrology consultation Additional per medical student/resident documentation Kamran Mejia is stable and slept fairly well. He has not had solid output from his ostomy bag, but he is passing gas. No concerns about the ostomy bag. He is tolerating his clear liquid diet. The Mclain catheter is not bothersome and he clemens s no dysuria. He does not believe his abdomen has increased in size. No new abdominal pain. The surgical incision on his abdomen is painful with coughing. No weeping or bleeding. He has a chronic cough that he attributes to his smoking history (less than 1 pack per day for an uncertain number of years). He occasionally has brown sputum production that is at his baseline. He wonders if he can get Valium for his left-sided chorea-like movements. No fevers or chills. Review of Systems Review of Systems: All systems reviewed & are unremarkable except as noted in HPI & below Physical Exam Physical Exam: Appearance: lying supine in hospital bed, no acute distress Respiratory: Breathing room air No conversational dyspnea Normal respiratory effort Coughing during exam Lungs clear to auscultation bilaterally without crackles or wheeze Cardiovascular: Normal S1, S2, no appreciable murmurs Extremities well perfused, warm No cyanosis Gastrointestinal (Abdomen): Some tenderness to palpation, no rebound/guarding Ostomy bag - output is liquid, serosanguineous, no solid output Surgical dressing is dry without surrounding purulence/weeping Neurologic: Alert, answering questions appropriately +spontaneous chorea-like movements in the left upper extremity Lymphatic: Lower extremities without erythema, edema No calf pain to palpation Results & Data Results & Data Vital Signs (Past 12 Hours) Vital Signs Temp Pulse Pulse Resp BP Pulse Ox O2 Del Method 03/05/23 07:27 79 03/05/23 04:09 37.4 C 85 17 161/91 H 92 Room Air 03/04/23 23:33 36.8 C 86 20 161/94 H 94 Room Air 03/04/23 23:24 Room Air
--- NOTE | 2023-03-05 08:29 | Nephrology Progress Note ---
Date of Service March 05, 2023 Assessment & Plan (1) Acute kidney injury: Plan: * HALEY/CKD likely due to SON, relative hypotension prior to surgery * 03/01/23 urinalysis negative for blood, protein. Urine sediment negative for granular casts * 03/01/[address] negative for hydronephrosis * Kidney function continues to gradually improve. Volume status and electrolyte balance remain acceptable. Urine output was 1400 cc last 24 hours * Patient remains net 4 L volume positive. Continue to hold IVF. Monitor UO, PRP * Avoid NSAIDS, avoid exposure to potential nephrotoxins (2) CKD (chronic kidney disease): Plan: * Baseline Cr 1.44 (3) Hypertension: Plan: * BP is mildly elevated * Has PRN IV Labetalol ordered * Had been on Metoprolol, Amlodipine as outpatient * Has not been on EVA/ARB (4) Diverticulitis of intestine with perforation and abscess: Plan: * s/p exploratory laparotomy w/ descending colon resection, partial omentectomy and end colostomy by Dr. Dennison 03/01/23 * Remains on empiric IV Zosyn Admission and Anticipated Discharge Date Admission Date: March 01, 2023 Subjective Mr. Perez was evaluated in his hospital room this morning. He was alert and reported that his abdominal pain has improved. He has not yet had a bowel movement. Review of Systems Constitutional: no problem reported Eyes: no problem reported Ear, Nose, Mouth, Throat: no problem reported Respiratory: no problem reported Cardiovascular: no problem reported Gastrointestinal: no abdominal pain Physical Exam Constitutional: not in distress Eyes: PERRL, conjunctivae normal, anicteric sclerae ENMT: external ear and nose normal, oropharynx normal Neck: trachea midline, no thyromegaly Respiratory: Auscultation: lungs clear to auscultation bilaterally Cardiovascular: Rate/Rhythm: regular rate, regular rhythm and + tachycardic Extremities: no edema Gastrointestinal (Abdomen): Inspection/Auscultation: + abdomen distended (no bowel sounds, ostomy with bloody drainage, no stool in ostomy) Skin: no rashes, warm and dry Neurologic: awake Results & Data Vital Signs (Past 12 Hours) Vital Signs Temp Pulse Pulse Resp BP Pulse Ox O2 Del Method 03/05/23 07:27 79 03/05/23 04:09 37.4 C 85 17 161/91 H 92 Room Air 06/12/23 23:33 36.8 C 86 20 161/94 H 94 Room Air 03/04/23 23:24 Room Air Laboratory Results Laboratory Tests 03/05/23 06:30 Sodium 141 Potassium 3.5 Chloride 108 H Carbon Dioxide 27 BUN 30 H Creatinine 1.64 H Est GFR (Non-Af Amer) 42.0 Glucose 117 H PG Care Time/CCT Total # of Minutes Spent Total Time Spent with Patient: Total time spent is greater than 50% in coordination of care (as documented) at patient's floor/unit and/or counseling patient: Coding Level of Care Code 05840 SUB INP/OBS CARE 3/50MIN Diagnoses Acute kidney injury N17.9 CKD (chronic kidney disease) N18.9 Hypertension I10 Diverticulitis of intestine with perforation and abscess K57.80
[2023-03-05] MEDS: ENOXAPARIN INJ 40 MG/0.4 ML SYR SQ SCH (08:42)
[2023-03-05] MEDS: HYDROmorphone INJ 0.5 MG/0.5 ML SYR IV PRN ×3 (08:45→21:14)
--- NOTE | 2023-03-05 08:54 | Surgery Progress Note ---
Date of Service March 05, 2023 Assessment & Plan (1) Perforated abdominal viscus: Plan: Await return of more meaningful ostomy function, does have some flatus but no stool Continue clear liquid diet DVT prophylaxis Continue his IV antibiotics, E. coli growing from his peritoneal cultures PT OT and getting him mobilized will certainly help the return of function of his bowels Ostomy nurses are following along (2) Status post exploratory laparotomy: (3) Diverticulitis of intestine with perforation and abscess: Admission and Anticipated Discharge Date Admission Date: March 01, 2023 Subjective Patient seen and examined. His abdominal pain is controlled. He was set up out of bed yesterday but not to chair. Afebrile. His ostomy is passing some flatus. No stool output. He started clear liquids with no nausea or vomiting. Physical Exam Constitutional: WD/WN, vitals as above Gastrointestinal (Abdomen): Soft, appropriately tender, ostomy in left upper quadrant pink with bloody/serosanguineous, small amount of gas in the bag Dressing clean and intact with small amount of drainage inferior pole Results & Data Vital Signs (Past 12 Hours) Vital Signs Temp Pulse Pulse Resp BP Pulse Ox O2 Del Method 03/05/23 07:20 36.7 C 89 19 168/80 H 94 Room Air 03/05/23 07:27 79 03/05/23 04:09 37.4 C 85 17 161/91 H 92 Room Air 03/04/23 23:33 36.8 C 86 20 161/94 H 94 Room Air 03/04/23 23:24 Room Air PG Care Time/CCT Total # of Minutes Spent Total Time Spent with Patient: Total time spent is greater than 50% in coordination of care (as documented) at patient's floor/unit and/or counseling patient: Coding Level of Care Code None Diagnoses Perforated abdominal viscus R19.8 Status post exploratory laparotomy Z98.890 Diverticulitis of intestine with perforation and abscess K57.80
[2023-03-05] MEDS ORDERED: HYDROmorphone INJ 0.5 MG/0.5 ML SYR IV STA (16:11)
[2023-03-05] MEDS: LABETALOL HCL IV 5 MG/ML 20ML IV PRN ×2 (17:37→20:28)
[2023-03-05] MEDS: MELATONIN 3 MG TAB PO PRN (20:28)
[2023-03-06] MEDS: PIPERACILLIN/TAZOBACTAM 4.5 GM in DEXTROSE 5% 100 ML IV SCH ×3 (00:49→17:00)
[2023-03-06] MEDS ORDERED: diazePAM 5 MG TABLET PO ONE ×2 (01:03→01:11)
[2023-03-06] MEDS: LABETALOL HCL IV 5 MG/ML 20ML IV PRN (03:44)
[2023-03-06 06:32] LABS: Hematocrit (blood only) 33.6 % (42.0-52.0); Hemoglobin 10.9 g/dl (14.0-18.0); Mean Corpuscular Hemoglobin 29.9 pg (25.0-34.0); Mean Corpuscular Hgb Conc 32.4 g/dL (32.0-36.0); Mean Corpuscular Volume 92.3 fL (80.0-100.0); Mean Platelet Volume 9.7 fL (9.4-12.4); Platelet Count 294 K/uL (130-400); RDW Coefficient of Variation 14.1 % (11.5-14.5); RDW Standard Deviation 48.2 fL (36.4-46.3); Red Blood Count 3.64 M/uL (4.70-6.10); White Blood Count 8.07 K/ul (4.8-10.8)
[2023-03-06 06:57] LABS: BUN Creatinine Ratio 16.2 (10-20); Creatinine Clr Calc Pharmacy 57.8 ml/min; Est GFR (African American) 52.6 ml/min; Est GFR (Non-African American) 45.4 ml/min; Potassium 3.6 mmol/L (3.5-5.1)
--- NOTE | 2023-03-06 08:16 | Hospitalist Progress Note ---
Date of Service March 06, 2023 Assessment & Plan (1) Diverticulitis of intestine with perforation and abscess: (2) Hypoxia: (3) Congestive heart failure: (4) At risk for aspiration: (5) Elevated LFTs: (6) Elevated troponin: (7) Atrial fibrillation: (8) Hx of arterial ischemic stroke: (9) Alcohol abuse: (10) CKD (chronic kidney disease): Radha Mejia is a 67 y/o Mwith PMHx of recent acute CVA, hypertension, AFIB, alcohol misuse and nicotine dependence who presents from [facility] with hypoxia secondary to suspected CHF exacerbation. Pt found to have diverticulitis with perforation and abscess; taken to the OR 03/01 for emergent exlap and descending colon resection with subsequent ostomy. Pt intubated 03/01 and extubated 03/02. Downgraded from ICU to PCU 03/03. #Diverticulitis of descending colon with perforation and 20cm abscess -S/p exploratory laparotomy, descending bowel resection, partial omentectomy and ostomy on 03/01/23. Required Kcentra prior to surgery as he was on Eliquis. -Diet advanced now that he has adequate ostomy output -Zosyn started 03/01, continue through 03/06. On 03/07 transition to PO Augmentin. -Peritoneal fluid culture: E. coli/Bacteroides species -Blood cx neg. -Analgesia: PRN morphine, Dilaudid #History of arterial ischemic stroke #Aspiration risk -Admitted to [facility] on 02/22/23 with right subthalamic infarction -Persistent left-sided chorea with no new deficits. Continue his prior regimen of risperidone and Valium PRN. -Per swallow study results, advance diet as tolerated -Risk mitigation with HTN control and atorvastatin 20mg -Avoiding high-intensity dosing as his LDL is low at 50, which could be 2/2 critical illness -Recommend repeat lipid panel in 6 weeks #Congestive heart failure with preserved ejection fraction -Likely 2/2 HTN and AFIB. BNP 500 on admission -CXR 03/01/23 showing cardiomegaly, pulmonary edema -Holding IV fluids per nephro as he is at a net positive fluid status -Track I/Os, weights #CKD, stage 3a -Baseline Cr 1.44, peaked at 2.13, improving. -Nephro consult appreciated: CKD/HALEY likely 2/2 contrast nephropathy and/or hypotension before surgery. Holding IV fluids due to positive volume fluid status. -Renally dosed medications, avoid nephrotoxins #Alcohol misuse, chronic -Last drink 02/22/23 -Has not required treatment during this admission based on [facility] protocol. -Thiamine + folic acid supplementation #Atrial fibrillation -Newly diagnosed on 02/22/23 at [facility] -Currently in AFIB -Will discuss risks/benefits of anticoagulation. HAS-BLED = 4. -IV Labetalol PRN #Elevated troponin -Mild elevation to peak of 58.4, downtrending. No anginal symptoms. -Suspect demand ischemia #Hypertension, chronic and uncontrolled -Continue home regimen of amlodipine and metoprolol -IV Labetalol PRN #Cough, chronic -At baseline, using incentive spirometry -CXR 03/01/23 showed under-inflated lungs but not consolidation FENGI: Advance diet as tolerated DVT ppx: Lovenox Dispo: PCU, referral for rehab placed Code status: DNI Admission and Anticipated Discharge Date Admission Date: March 01, 2023 Supervising Physician Co-Signing Physician Notes ATTESTATION I also saw the patient and confirmed lal portions of the history and exam. I agree with the impression and plan in the student documentation, and as summarized below. Patient awake during our afternoon exam; no new complaints today. He notes that he is feeling better overall. EXAM 163/90, 87, 16, 36.9, 94% on room air Heart irregularly irregular Lungs clear with nonlabored respirations Abdomen slightly distended but nontender Brown liquid stool in the ostomy DATA Labs Hemoglobin 10.9, platelet count 294 Sodium 142, potassium 3.6, BUN 25, creatinine 1.54 Cholesterol 104, LDL 50, HDL 13 IMPRESSION & PLAN Diverticulitis, descending colon with abscess and perforation, status post colectomy and end ostomy Appreciate surgical consultation Pending swallow study, can advance diet Continue IV antibiotics today, transition to p.o. antibiotics tomorrow Atrial fibrillation with history of ischemic stroke On aspirin and DVT prophylaxis at this point Anticipate resuming therapeutic anticoagulation in the near future Acute on chronic diastolic congestive heart failure Resolved Appears euvolemic today Continue to monitor Acute kidney injury, resolved CKD Hypertension Monitor BMP Appreciate nephrology consultation Suspect blood pressure improved with resumption of home medications Additional per medical student/resident documentation Kamran Mejia does not have acute concerns. He now has output from his ostomy bag. The surgical dressing has some pain with coughing but otherwise no bleeding, weeping, or purulence. He wonders if the ostomy bag will be permanent and when he can go to rehab. He continues to have chorea of his left upper extremity. No new deficits. His chronic cough is stable and unchanged. He has an incentive spirometer. No fevers, chills, chest pain, palpitations, or SOB. Review of Systems Review of Systems: All systems reviewed & are unremarkable except as noted in HPI & below Physical Exam Physical Exam: Appearance: NAD, lying supine in bed, brushing his teeth Respiratory: Room air No conversational dyspnea. Normal respiratory effort Lungs clear to auscultation bilaterally Cardiovascular: Normal rate Rhythm is irregularly irregular Extremities well perfused, warm, without erythema or edema No cyanosis Gastrointestinal (Abdomen): Ostomy bag has solid output Surgical dressing is dry without surrounding erythema or purulence Mild abdominal distention, unchanged from prior exam No pain, rebound or guarding to palpation Neurologic: Alert, answering questions Intermittent, spontaneous chorea-like movements of the left upper extremity CN 2-12 intact Lymphatic: +SCDs bilaterally LE bilaterally are symmetrical without erythema or edema Results & Data Results & Data Vital Signs (Past 12 Hours) Vital Signs Temp Pulse Pulse Resp BP Pulse Ox O2 Del Method 03/06/23 07:49 36.7 C 79 16 98/79 L 95 Room Air 03/06/23 06:47 160/76 H 03/06/23 03:15 36.7 C 87 16 172/98 H 92 Room Air 03/05/23 23:40 78 03/05/23 23:01 36.9 C 90 22 161/89 H 92 Room Air 03/05/23 21:18 87 159/85 H 03/05/23 20:21 37.4 C 89 20 173/85 H 92 Room Air
--- NOTE | 2023-03-06 08:39 | Nephrology Progress Note ---
Date of Service March 06, 2023 Assessment & Plan (1) Acute kidney injury: Plan: * HALEY/CKD resolved. No further Nephrology evaluation needed at this time. Will sign off. Outpatient monitoring/management can be provided by PCP (2) CKD (chronic kidney disease): Plan: * Baseline Cr 1.44 (3) Hypertension: Plan: * BP is mildly elevated * Has PRN IV Labetalol ordered * Recommend restarting Metoprolol, Amlodipine (had been on as outpatient) * Has not been on EVA/ARB (4) Diverticulitis of intestine with perforation and abscess: Plan: * s/p exploratory laparotomy w/ descending colon resection, partial omentectomy and end colostomy by Dr. Dennison 03/01/23 * Remains on empiric IV Zosyn Admission and Anticipated Discharge Date Admission Date: March 01, 2023 Subjective Mr. Perez was evaluated in his hospital room this morning. He was alert and reported that he is now passing stool through his ostomy. Mr. Perez voiced no new medical concerns Review of Systems Constitutional: no problem reported Eyes: no problem reported Ear, Nose, Mouth, Throat: no problem reported Respiratory: no problem reported Cardiovascular: no problem reported Gastrointestinal: no abdominal pain Physical Exam Constitutional: not in distress Eyes: PERRL, conjunctivae normal, anicteric sclerae ENMT: external ear and nose normal, oropharynx normal Neck: trachea midline, no thyromegaly Respiratory: Auscultation: lungs clear to auscultation bilaterally Cardiovascular: Rate/Rhythm: regular rate, regular rhythm and + tachycardic Extremities: no edema Gastrointestinal (Abdomen): Inspection/Auscultation: + abdomen distended (ostomy draining liquid stool) and + hypoactive bowel sounds Skin: no rashes, warm and dry Neurologic: awake Results & Data Vital Signs (Past 12 Hours) Vital Signs Temp Pulse Pulse Resp BP Pulse Ox O2 Del Method 03/06/23 07:49 36.7 C 79 16 98/79 L 95 Room Air 03/06/23 06:47 160/76 H 03/06/23 03:15 36.7 C 87 16 172/98 H 92 Room Air 03/05/23 23:40 78 03/05/23 23:01 36.9 C 90 22 161/89 H 92 Room Air 03/05/23 21:18 87 159/85 H Laboratory Results Laboratory Tests 03/06/23 03/06/23 06:00 06:00 WBC 8.07 Hgb 10.9 L Hct 33.6 L Plt Count 294 Sodium 142 Potassium 3.6 Chloride 108 H Carbon Dioxide 28 BUN 25 H Creatinine 1.54 H Glucose 127 H PG Care Time/CCT Total # of Minutes Spent Total Time Spent with Patient: Total time spent is greater than 50% in coordination of care (as documented) at patient's floor/unit and/or counseling patient: Coding Level of Care Code 49231 SUB INP/OBS CARE 3/50MIN Diagnoses Acute kidney injury N17.9 CKD (chronic kidney disease) N18.9 Hypertension I10 Diverticulitis of intestine with perforation and abscess K57.80
[2023-03-06] MEDS: ENOXAPARIN INJ 40 MG/0.4 ML SYR SQ SCH (09:05)
[2023-03-06] MEDS: diazePAM 5 MG TABLET PO PRN (09:09)
[2023-03-06] MEDS ORDERED: METOPROLOL TARTRATE 50 MG TAB PO STA (11:14)
[2023-03-06] MEDS ORDERED: amLODIPine BESYLATE 5 MG TAB PO ONE (11:14)
[2023-03-06] MEDS ORDERED: risperiDONE 0.5 MG TABLET PO SCH ×2 (11:30→21:00)
--- NOTE | 2023-03-06 11:47 | Surgery Progress Note ---
Date of Service March 06, 2023 Assessment & Plan (1) Status post exploratory laparotomy: Plan: He overall looks well and is remained afebrile without leukocytosis at this point He is tolerating clear liquids and now has some meaningful ostomy output, once his video swallow study is read by radiology and diet is suggested can advance as tolerated We will continue IV antibiotics for today, he can then be transitioned to p.o. antibiotics We will continue to follow (2) Diverticulitis of intestine with perforation and abscess: Admission and Anticipated Discharge Date Admission Date: March 01, 2023 Subjective Patient seen and examined. He just returned from his video swallow study. He had no nausea or vomiting with clear liquids. His abdominal pain is manageable. He is afebrile. He has some ostomy output. Physical Exam Constitutional: WD/WN, vitals as above Gastrointestinal (Abdomen): Soft, midline incision without erythema, Rajesh in place with serosanguineous drainage Ostomy left upper quadrant pink with stool output Results & Data Vital Signs (Past 12 Hours) Vital Signs Temp Pulse Pulse Resp BP Pulse Ox O2 Del Method 03/06/23 10:32 79 03/06/23 10:32 Room Air 03/06/23 09:06 198/76 H 03/06/23 07:49 36.7 C 79 16 98/79 L 95 Room Air 03/06/23 06:47 160/76 H 03/06/23 03:15 36.7 C 87 16 172/98 H 92 Room Air PG Care Time/CCT Total # of Minutes Spent Total Time Spent with Patient: Total time spent is greater than 50% in coordination of care (as documented) at patient's floor/unit and/or counseling patient: Coding Level of Care Code 37391 Post Operative Follow-Up Diagnoses Status post exploratory laparotomy Z98.890 Diverticulitis of intestine with perforation and abscess K57.80
[2023-03-06] MEDS ORDERED: risperiDONE 0.5 MG TABLET PO ONE (12:15)
[2023-03-06] MEDS ORDERED: CARBIDOPA/LEVODOPA 25/100MG TAB PO SCH (14:00)
[2023-03-06] MEDS: METOPROLOL TARTRATE 50 MG TAB PO SCH (20:36)
[2023-03-06] MEDS: risperiDONE 0.5 MG TABLET PO SCH (20:36)
[2023-03-07] MEDS: LABETALOL HCL IV 5 MG/ML 20ML IV PRN (03:37)
[2023-03-07] MEDS: diazePAM 5 MG TABLET PO PRN ×3 (05:40→22:58)
[2023-03-07 06:15] LABS: Albumin Globulin Ratio 0.8 (0.9-2); Albumin Level 2.4 gm/dl (3.4-5.0); BUN Creatinine Ratio 12.5 (10-20); Bilirubin,Total 1.1 mg/dl (0.2-1.0); Creatinine Clr Calc Pharmacy 57.7 ml/min; Est GFR (African American) 53.4 ml/min; Est GFR (Non-African American) 46.1 ml/min; Globulin 2.9 gm/dl (2.5-4.0); Magnesium 1.9 mg/dl (1.7-2.4); Phosphorus 2.6 mg/dl (2.5-4.9); Potassium 3.5 mmol/L (3.5-5.1); Total Protein 5.3 gm/dl (6.0-8.3)
[2023-03-07 06:25] LABS: Basophils # (auto) 0.05 K/uL (0-0.2); Basophils % (auto) 0.6 %; Eosinophils # (auto) 0.14 K/uL (0-0.50); Eosinophils % (auto) 1.6 %; Hematocrit (blood only) 31.3 % (42.0-52.0); Hemoglobin 10.1 g/dl (14.0-18.0); Immature Granulocytes # (auto) 0.12 K/uL (0.01-0.20); Immature Granulocytes % (auto) 1.4 %; Lymphocytes # (auto) 0.85 K/uL (1.2-3.4); Lymphocytes % (auto) 9.7 %; Mean Corpuscular Hemoglobin 29.7 pg (25.0-34.0); Mean Corpuscular Hgb Conc 32.3 g/dL (32.0-36.0); Mean Corpuscular Volume 92.1 fL (80.0-100.0); Mean Platelet Volume 9.8 fL (9.4-12.4); Monocytes % (auto) 5.7 %; Neutrophils # (auto) 7.14 K/uL (1.40-6.50); Platelet Count 295 K/uL (130-400); RDW Coefficient of Variation 14.2 % (11.5-14.5); RDW Standard Deviation 47.8 fL (36.4-46.3)
--- NOTE | 2023-03-07 09:01 | Fluoroscopy Report ---
FL video swallow CLINICAL HISTORY: assess for aspiration TECHNIQUE: Video fluoroscopy of the pharyngeal region was performed as barium mixtures of varying con sistencies were administered to the patient by the speech pathologist. A formal esophagram was not pe rformed. Comparison: None available at the time of this dictation. FINDINGS: Total fluoroscopy time: 1.08 minutes. Radiation dose: 9.07 mGy. The patient swallowed the different barium consistencies without difficulty. There was no laryngeal v estibular penetration or ellie tracheal aspiration. Pooling of barium was noted in the bilateral piri form sinuses and valleculae. IMPRESSION: No evidence of aspiration. Please see the speech pathology report for further details. ACT 112: Negative or not required by law. Electronically signed by: Dimitris Fernandez M.D. 03/07/2023 9:00 AM
--- NOTE | 2023-03-07 09:04 | Surgery Progress Note ---
Date of Service March 07, 2023 Assessment & Plan (1) Status post exploratory laparotomy: Plan: s/p exploratory laparotomy, descending colon resection and creation of ostomy wbc 8. vitals are stable patient appears to be doing well post surgery. ostomy is functioning and he is advancing diet transitioning to po abx today he is anticipating [facility]po [facility] possibly tomorrow. we will remove millie drain prior to discharge Admission and Anticipated Discharge Date Admission Date: March 01, 2023 Subjective Patient seen at bedside. offers no abdominal complaints. Tolerating diet, no n/v. ostomy functioning. pain controlled. Physical Exam Physical Exam: awake Respiratory: normal respiratory effort Gastrointestinal (Abdomen): Inspection/Auscultation: + abdomen distended and + abdominal surgical incision (c/d/i with midline kg and millie drain in place, scant drainage) Percussion/Palpation: abdomen nontender + ostomy noted with stool in the bag Results & Data Vital Signs (Past 12 Hours) Vital Signs Temp Pulse Pulse Resp BP Pulse Ox O2 Del Method 03/07/23 08:06 37 C 87 20 148/86 H 92 Room Air 03/07/23 04:30 157/86 H 03/07/23 03:23 36.7 C 83 18 178/91 H 93 Room Air 03/07/23 02:31 74 03/06/23 21:30 Room Air 03/06/23 22:45 37.7 C H 68 20 149/88 H 94 Room Air PG Care Time/CCT Total # of Minutes Spent Total Time Spent with Patient: Total time spent is greater than 50% in coordination of care (as documented) at patient's floor/unit and/or counseling patient: Coding Level of Care Code 71619 Post Operative Follow-Up Diagnoses Status post exploratory laparotomy Z98.890
--- NOTE | 2023-03-07 09:29 | Hospitalist Progress Note ---
Date of Service March 07, 2023 Assessment & Plan (1) Diverticulitis of intestine with perforation and abscess: (2) Hypoxia: (3) Congestive heart failure: (4) At risk for aspiration: (5) Elevated LFTs: (6) Elevated troponin: (7) Atrial fibrillation: (8) Hx of arterial ischemic stroke: (9) Alcohol abuse: (10) CKD (chronic kidney disease): Radha Mejia is a 67 y/o Mwith PMHx of recent acute CVA, hypertension, AFIB, alcohol misuse and nicotine dependence who presents from [facility] with hypoxia secondary to suspected CHF exacerbation. Pt found to have diverticulitis with perforation and abscess; taken to the OR 03/01 for emergent exlap and descending colon resection with subsequent ostomy. Pt intubated 03/01 and extubated 03/02. Downgraded from ICU to PCU 03/03. #Diverticulitis of descending colon with perforation and 20cm abscess -S/p exploratory laparotomy, descending bowel resection, partial omentectomy and ostomy on 03/01/23. -Zosyn started 03/01, continued through 03/06. On 03/07 transition to PO Augmentin 875 mg PO TID until 03/13. -Peritoneal fluid culture: E. coli/Bacteroides species. -Blood cultures negative -Analgesia: PRN morphine, Dilaudid #History of arterial ischemic stroke -Admitted to [facility] on 02/22/23 with right subthalamic infarction -Persistent left-sided chorea with no new deficits. Continue his prior regimen of risperidone and Valium PRN. -Risk mitigation with HTN control, atorvastatin 20mg, and Eliquis (in setting of AFIB) -Avoiding high-intensity dosing as his LDL is low at 50, which could be 2/2 critical illness -Recommend repeat lipid panel in 6 weeks #Congestive heart failure with preserved ejection fraction -Likely 2/2 HTN and AFIB. BNP 500 on admission -CXR 03/01/23 showing cardiomegaly, pulmonary edema -Continue metoprolol #Atrial fibrillation -Newly diagnosed on 02/22/[address] [facility] -Continue Eliquis -Continue metoprolol #CKD, stage 3a -Nephro consult appreciated: CKD/HALEY likely 2/2 contrast nephropathy and/or hypotension before surgery. -Baseline Cr 1.44, peaked at 2.13, improving. -Renally dosed medications, avoid nephrotoxins #Alcohol misuse, chronic -Last drink 02/22/23 -Has not required treatment during admission based on [facility] protocol. -Thiamine + folic acid supplementation #Elevated troponin -Peaked at 58.4. No anginal symptoms. -Suspect etiology was demand ischemia. #Hypertension, chronic and uncontrolled -Continue home regimen of amlodipine and metoprolol FENGI: Advance diet as tolerated DVT ppx: Eliquis 5mg PO BID Dispo: PCU, referral for rehab placed Code status: Conditional code Admission and Anticipated Discharge Date Admission Date: March 01, 2023 Supervising Physician Co-Signing Physician Notes ATTESTATION I also saw the patient and confirmed lal portions of the history and exam. I ag ree with the impression and plan in the student documentation, and as summarized below. Patient is eating lunch at the time of our exam; no new complaints today. He notes that he is feeling better overall, but realizes he is quite weak. He tells us that he would be unable to ambulate to the bathroom if he had needed. He is looking forward to rehabilitation. EXAM 165/90, 72, 20, 37, 92% on room air Heart irregularly irregular Lungs clear with nonlabored respirations Abdomen soft and nontender Brown liquid stool in the ostomy DATA Labs Hemoglobin 10.1, platelet count 295 Sodium 143, potassium 3.5, BUN 19, creatinine 1.52 Cholesterol 104, LDL 50, HDL 13 AST 22, ALT 26, alkaline phosphatase 148 IMPRESSION & PLAN Diverticulitis, descending colon with abscess and perforation, status post colectomy and end ostomy Appreciate surgical consultation Diet advanced without difficulty Transition to p.o. antibiotics Inpatient rehabilitation, bed likely to be available tomorrow Atrial fibrillation with history of ischemic stroke Resume apixaban 5 mg p.o. twice daily Aspirin has been discontinued Acute on chronic diastolic congestive heart failure Appears euvolemic today Continue to monitor Acute kidney injury, resolved CKD Hypertension Monitor BMP Appreciate nephrology consultation Suspect blood pressure improved with resumption of home medications Additional per medical student/resident documentation Subjective Roberto's concerns are his ability to change his ostomy bag independently and whether he can expect to see improvement in the spontaneous left arm movements that resulted from his stroke. He feels weak after being in the hospital for quite some time. He ate his breakfast without concerns. The ostomy bag and surgical incision are not bothering him. Otherwise he has no chest pain, palpitations, fevers, chills, abdominal distention, or dysuria. Review of Systems Review of Systems: All systems reviewed & are unremarkable except as noted in HPI & below Physical Exam Physical Exam: Appearance: lying supine in bed, no acute distress Respiratory: room air, no cyanosis, no conversational dyspnea, lungs clear to auscultation bilaterally Cardiovascular: normal S1, S2, regular rate and rhythm, extremities well perfused without lower extremity edema Abdomen: active bowel sounds, ostomy bag with solid output, surgical incision looks dry with kg and drains in place. No drainage. No pain/rebound/guarding to palpation Neurologic: Alert, answering questions appropriately. +left upper extremity with spontaneous chorea-like movements. Lymphatic: lower extremities symmetrical without edema or erythema Results & Data Results & Data Vital Signs (Past 12 Hours) Vital Signs Temp Pulse Pulse Resp BP Pulse Ox O2 Del Method 03/07/23 08:06 37 C 87 20 148/86 H 92 Room Air 03/07/23 04:30 157/86 H 03/07/23 03:23 36.7 C 83 18 178/91 H 93 Room Air 03/07/23 02:31 74 03/06/23 21:30 Room Air 03/06/23 22:45 37.7 C H 68 20 149/88 H 94 Room Air
[2023-03-07] MEDS: THIAMINE HCL 100 MG TAB PO SCH (09:50)
[2023-03-07] MEDS: amLODIPine BESYLATE 5 MG TAB PO SCH (09:50)
[2023-03-07] MEDS: METOPROLOL TARTRATE 50 MG TAB PO SCH ×2 (09:50→20:27)
[2023-03-07] MEDS: ENOXAPARIN INJ 40 MG/0.4 ML SYR SQ SCH (09:50)
[2023-03-07] MEDS: risperiDONE 0.5 MG TABLET PO SCH ×2 (09:51→20:27)
[2023-03-07] MEDS: AMOXICILLIN/CLAVULANATE 875 MG TAB PO SCH ×3 (09:51→20:27)
[2023-03-07] MEDS: ATORVASTATIN 20 MG TAB PO SCH (12:02)
[2023-03-07] MEDS: APIXABAN 5 MG TABLET PO SCH (20:27)
[2023-03-08] MEDS: LABETALOL HCL IV 5 MG/ML 20ML IV PRN (05:01)
[2023-03-08 07:04] LABS: Basophils # (auto) 0.05 K/uL (0-0.2); Basophils % (auto) 0.5 %; Eosinophils # (auto) 0.14 K/uL (0-0.50); Eosinophils % (auto) 1.5 %; Hematocrit (blood only) 31.8 % (42.0-52.0); Hemoglobin 10.2 g/dl (14.0-18.0); Immature Granulocytes # (auto) 0.13 K/uL (0.01-0.20); Immature Granulocytes % (auto) 1.4 %; Lymphocytes # (auto) 1.03 K/uL (1.2-3.4); Mean Corpuscular Hemoglobin 29.8 pg (25.0-34.0); Mean Corpuscular Hgb Conc 32.1 g/dL (32.0-36.0); Mean Platelet Volume 9.6 fL (9.4-12.4); Monocytes # (auto) 0.51 K/uL (0.11-0.59); Monocytes % (auto) 5.5 %; Neutrophils # (auto) 7.49 K/uL (1.40-6.50); Neutrophils % (auto) 80.1 %; Platelet Count 293 K/uL (130-400); RDW Coefficient of Variation 14.2 % (11.5-14.5); RDW Standard Deviation 47.9 fL (36.4-46.3); Red Blood Count 3.42 M/uL (4.70-6.10); White Blood Count 9.35 K/ul (4.8-10.8)
[2023-03-08 07:26] LABS: BUN Creatinine Ratio 13.3 (10-20); Calcium 7.9 mg/dl (8.6-10.3); Creatinine Clr Calc Pharmacy 68.2 ml/min; Est GFR (African American) 65.7 ml/min; Est GFR (Non-African American) 56.7 ml/min; Potassium 3.5 mmol/L (3.5-5.1)
[2023-03-08] MEDS: METOPROLOL TARTRATE 50 MG TAB PO SCH (07:27)
[2023-03-08] MEDS: amLODIPine BESYLATE 5 MG TAB PO SCH (07:28)
[2023-03-08] MEDS: AMOXICILLIN/CLAVULANATE 875 MG TAB PO SCH ×2 (09:02→15:41)
[2023-03-08] MEDS: THIAMINE HCL 100 MG TAB PO SCH (09:02)
[2023-03-08] MEDS: risperiDONE 0.5 MG TABLET PO SCH (09:02)
[2023-03-08] MEDS: ATORVASTATIN 20 MG TAB PO SCH (09:02)
--- NOTE | 2023-03-08 09:45 | Surgery Progress Note ---
Date of Service March 08, 2023 Assessment & Plan (1) Status post exploratory laparotomy: Plan: s/p exploratory laparotomy, descending colon resection and creation of ostomy wbc 9. vitals are stable patient appears to be doing well post surgery. ostomy is functioning and he is advancing diet on po augmentin he is anticipating dispo [facility] F/u in clinic late next week for staple removal with Dr. Dennison Admission and Anticipated Discharge Date Admission Date: March 01, 2023 Supervising Physician Co-Signing Physician Notes I personally saw and evaluate the patient with Ania El PA-C and agree with the assessment and plan. 67-year-old male postoperative day 7 ex lap, descending colectomy with end ostom y His colostomy is functioning well and he is tolerating regular diet He has already been transition to Augmentin, would give a 2-week course postoperatively once he is discharged He is okay to be discharged to rehab from a surgical standpoint He will follow-up with me in the office or Saturday next week for staple removal Subjective Patient doing well from abdominal standpoint. Denies any complaints. Tolerating diet. No n/v. ostomy functioning. Physical Exam Physical Exam: awake Constitutional: no acute distress Respiratory: normal respiratory effort Gastrointestinal (Abdomen): Inspection/Auscultation: + abdomen distended and + abdominal surgical incision (c/d/i with midline kg, small amount of serosang drainage) Percussion/Palpation: abdomen soft; abdomen nontender and abdomen not rigid Results & Data Vital Signs (Past 12 Hours) Vital Signs Temp Pulse Pulse Resp BP Pulse Ox O2 Del Method 03/08/23 09:00 66 149/69 H 03/08/23 07:09 36.6 C 87 20 177/89 H 95 Room Air 03/08/23 05:01 81 177/90 H 03/08/23 03:38 36.7 C 77 22 170/67 H 92 Room Air 03/07/23 22:54 37.1 C 76 24 169/67 H 94 Room Air PG Care Time/CCT Total # of Minutes Spent Total Time Spent with Patient: Total time spent is greater than 50% in coordination of care (as documented) at patient's floor/unit and/or counseling patient: Coding Level of Care Code 91653 Post Operative Follow-Up Diagnoses Status post exploratory laparotomy Z98.890
[2023-03-08] MEDS: APIXABAN 5 MG TABLET PO SCH (09:46)
[2023-03-08] MEDS: diazePAM 5 MG TABLET PO PRN (09:46)
[2023-03-08 11:26] LABS: Appearance Urine Cloudy (Clear); Bilirubin Urine 1+ (Negative); Blood Urine 3+ (Negative); Color Urine Brown; Glucose Urine UA Negative (Negative); Ketones Urine Negative (Negative); Leukocyte Esterase Urine Negative (Negative); Nitrite Urine Negative (Negative); Protein Urine 2+ (Negative); Urobilinogen Urine Negative (Negative); pH Urine 5.5 (4.5-7.5)
[2023-03-08 11:27] LABS: Specific Gravity Urine 1.025 (1.000-1.030)
[2023-03-08 11:29] LABS: Bacteria Urine 3+ (Negative); Epithelial Cell Urine >30 /lpf (0-5); RBC Urine >30 /hpf (0-4); WBC Urine >30 /hpf (0-5)
--- NOTE | 2023-03-08 13:21 | Discharge Summary ---
Date of Service March 08, 2023 Admission HPI Per Admitting Provider Patient is a 67-year-old male with a past medical history of recent acute CVA, alcohol abuse, nicotine dependence, hypertension, and atrial fibrillation who presents to the hospital for evaluation of hypoxia. Patient was admitted at [facility] on 02/22/2023 after presenting to the ED with jerking in the left arm and leg that had lasted for about 2 weeks. While he was there, was found that the patient had a stroke in the subthalamic/midbrain on the right side. Neurology was consulted due to choreoathetoid movements and they felt that this was due to the stroke and recommended Risperdal twice a day. Patient was then supposed to be placed on high intensity statin. Patient then went to [facility] for inpatient rehab for which she was admitted on 02/27/2023. Apparently in the afternoon of 02/28/2023, patient was wearing a pulse oximeter and the staff had noted that the patient's oxygen saturation had been consistently going below 90% and would recover with 2 L nasal cannula but the patient was unable to go without nasal cannula without becoming hypoxic. For this reason, [facility] called EMS to take patient here for further evaluation and treatment. At the time of my evaluation, patient reports that he does not feel short of breath and feels comfortable overall. He is difficult to understand and has dysarthria. Otherwise denies chest pain, nausea, vomiting, or abdominal pain. Patient not having any complaints at this time. ED course: Patient was evaluated by one of our ED providers. Lab work was significant for a mild white blood cell count of 11.6, PT of 13.3, INR 1.2, creatinine of 1.44, glucose of 124, calcium 8.5, total bilirubin of 1.1, AST and ALT elevated at 46 and 60 respectively, alk phos of 179, high-sensitivity troponin of 49.2, BNP at 500, and negative urine analysis. Patient had chest x- ray which did show evidence of cardiomegaly and pulmonary edema. Patient was placed on oxygen supplementation and given 40 mg of Lasix via IV. A Mclain catheter was also placed. It was at this time that the hospitalist service was consulted for admission and treatment. Admission Exam Per Admitting Provider Physical Exam Constitutional: WD/WN, vitals as above Eyes: + scleral abnormality and + anicteric sclerae Neck: trachea midline, no thyromegaly Respiratory: normal respiratory effort and able to speak in complete sentences; no respiratory distress Auscultation: + crackles Cardiovascular: Rate/Rhythm: regular rate and + irregularly irregular Extremities: no edema Gastrointestinal (Abdomen): Inspection/Auscultation: + abdomen distended Percussion/Palpation: abdomen soft; abdomen nontender Musculoskeletal: Head/Neck/Chest: normocephalic and head atraumatic Profound weakness in the left upper and lower extremity. Skin: no rashes, warm and dry Neurologic: awake Speech / Cognition: + abnormal speech Psychiatric: A+Ox3, euthymic affect Principal Diagnosis Diverticulitis of descending colon with perforation and 20cm abscess Discharge Exam Appearance: lying supine in bed, no acute distress Respiratory: room air, no cyanosis, no conversational dyspnea, lungs clear to auscultation bilaterally Cardiovascular: normal S1, S2, regular rate and rhythm, extremities well perfused without lower extremity edema Abdomen: active bowel sounds, ostomy bag with solid output, surgical incision and kg are dry. Rajesh drains removed, no drainage. No pain/rebound/guarding to palpation Neurologic: Alert, answering questions appropriately. +left upper extremity with spontaneous chorea-like movements Genitourinary: +Mclain catheter with red/brown output Lymphatic: lower extremities symmetrical without edema or erythema. Partial ampu tation of right second toe. Discharge Data Allergies Allergy/AdvReac Type Severity Reaction Status Date / Time No Known Allergies Allergy Unverified 03/01/23 03:14 Consultations 03/01/23 03:40 ED Decision to Admit Stat 03/01/23 06:07 Consult Cardiology Routine 03/01/23 08:17 Consult General Surgery Routine 03/01/23 16:40 Consult Senior Insight Manager Routine 03/02/23 11:24 Consult Nephrology Routine Procedures Performed Operation Date: 03/01/23 10:40 Actual Procedures p Exploratory Laparotomy, Desending Colon Resection, Partial omentectomy, creation of end colostomy(Not Applicable) - Avinash Dennison DO Ordered Studies 03/01/23 08:24 CT Abd and Pelvis [CT abd pelvis IV con only] Stat 03/06/23 11:00 FL video swallow Routine Laboratory Results WBC 9.35 K/ul (4.8-10.8) 03/08/23 06:45 RBC 3.42 M/uL (4.70-6.10) L 03/08/23 06:45 Hgb 10.2 g/dl (14.0-18.0) L 03/08/23 06:45 Hct 31.8 % (42.0-52.0) L 03/08/23 06:45 MCV 93.0 fL (80.0-100.0) 03/08/23 06:45 MCH 29.8 pg (25.0-34.0) 03/08/23 06:45 MCHC 32.1 g/dL (32.0-36.0) 03/08/23 06:45 RDW Std Deviation 47.9 fL (36.4-46.3) H 03/08/23 06:45 RDW Coeff of Eduardo 14.2 % (11.5-14.5) 03/08/23 06:45 Plt Count 293 K/uL (130-400) 03/08/23 06:45 MPV 9.6 fL (9.4-12.4) 03/08/23 06:45 Immature Gran % (Auto) 1.4 % 03/08/23 06:45 Neut % (Auto) 80.1 % 03/08/23 06:45 Lymph % (Auto) 11.0 % 03/08/23 06:45 Ray % (Auto) 5.5 % 03/08/23 06:45 Eos % (Auto) 1.5 % 03/08/23 06:45 Baso % (Auto) 0.5 % 03/08/23 06:45 Neut # (Auto) 7.49 K/uL (1.40-6.50) H 03/08/23 06:45 Lymph # (Auto) 1.03 K/uL (1.2-3.4) L 03/08/23 06:45 Ray # (Auto) 0.51 K/uL (0.11-0.59) 03/08/23 06:45 Eos # (Auto) 0.14 K/uL (0-0.50) 03/08/23 06:45 Baso # (Auto) 0.05 K/uL (0-0.2) 03/08/23 06:45 Immature Gran # (Auto) 0.13 K/uL (0.01-0.20) 03/08/23 06:45 PT 13.2 Seconds (9.0-12.0) H 03/02/23 03:55 INR 1.2 (0.9-1.1) H 03/02/23 03:55 Sample Site Art Line 03/01/23 17:48 POC pH 7.31 (7.35-7.45) L 03/01/23 17:48 POC pCO2 48 mmHg (35-46) H 03/01/23 17:48 POC pO2 73 mmHg (80-95) L 03/01/23 17:48 POC HCO3 24 yuri/L (19-24) 03/01/23 17:48 POC Total CO2 25 mmol/L (24-31) 03/01/23 17:48 POC Base Excess -2.0 yuri/L (-9-1.8) 03/01/23 17:48 POC ABG O2 Sat 93.0 % (90-95) 03/01/23 17:48 Gustavo Test NA 03/01/23 17:48 O2 Delivery Device Ventilator 03/01/23 17:48 POC O2 Rate 16 03/01/23 17:48 POC FiO2 40 % 03/01/23 17:48 Tidal Volume 450 03/01/23 17:48 PEEP 5 03/01/23 17:48 Sodium 143 mmol/L (136-145) 03/08/23 06:45 Potassium 3.5 mmol/L (3.5-5.1) 03/08/23 06:45 Chloride 109 mmol/L (98-107) H 03/08/23 06:45 Carbon Dioxide 29 mmol/L (21-32) 03/08/23 06:45 Anion Gap 5 (3-11) 03/08/23 06:45 BUN 17 mg/dl (6-23) 03/08/23 06:45 Creatinine 1.28 mg/dl (0.6-1.4) 03/08/23 06:45 Est Cr Clr Drug Dosing 68.2 ml/min 03/08/23 06:45 Est GFR ( Amer) 65.7 ml/min 03/08/23 06:45 Est GFR (Non-Af Amer) 56.7 ml/min 03/08/23 06:45 BUN/Creatinine Ratio 13.3 (10-20) 03/08/23 06:45 Glucose 96 mg/dl (70-99(Fasting)) 03/08/23 06:45 POC Glucose 113 mg/dl (70-99) H 03/03/23 05:37 Estimat Average Glucose 105 mg/dl 03/02/23 03:55 Hemoglobin A1c 5.3 % (4.5-5.6) 03/02/23 03:55 Calcium 7.9 mg/dl (8.6-10.3) L 03/08/23 06:45 Phosphorus 2.6 mg/dl (2.5-4.9) 03/07/23 05:21 Magnesium 1.9 mg/dl (1.7-2.4) 03/07/23 05:21 Total Bilirubin 1.1 mg/dl (0.2-1.0) H 03/07/23 05:21 AST 22 U/L (13-39) 03/07/23 05:21 ALT 26 U/L (7-52) 03/07/23 05:21 Alkaline Phosphatase 148 U/L (34-104) H 03/07/23 05:21 Ammonia 23.0 umol/L (18-72) 03/02/23 09:19 Troponin I High Sens 47.5 pg/ml (0-20) H D 03/05/23 15:52 B-Natriuretic Peptide 500 pg/ml (0-100) H 03/01/23 01:35 Total Protein 5.3 gm/dl (6.0-8.3) L 03/07/23 05:21 Albumin 2.4 gm/dl (3.4-5.0) L 03/07/23 05:21 Globulin 2.9 gm/dl (2.5-4.0) 03/07/23 05:21 Albumin/Globulin Ratio 0.8 (0.9-2) L 03/07/23 05:21 Triglycerides 207 mg/dl (0-150) H 03/06/23 06:00 Cholesterol 104 mg/dl (0-200) 03/06/23 06:00 LDL Cholesterol, Calc 50 mg/dl 03/06/23 06:00 VLDL Cholesterol, Calc 41 mg/dl (0-30) H 03/06/23 06:00 HDL Cholesterol 13 mg/dl 03/06/23 06:00 Cholesterol/HDL Ratio 8.0 (0-5) H 03/06/23 06:00 Urine Color Brown 03/08/23 11:00 Urine Appearance Cloudy (Clear) A 03/08/23 11:00 Urine pH 5.5 (4.5-7.5) 03/08/23 11:00 Ur Specific Meraux 1.025 (1.000-1.030) 03/08/23 11:00 Urine Protein 2+ (Negative) H 03/08/23 11:00 Urine Glucose (UA) Negative (Negative) 03/08/23 11:00 Urine Ketones Negative (Negative) 03/08/23 11:00 Urine Blood 3+ (Negative) H 03/08/23 11:00 Urine Nitrite Negative (Negative) 03/08/23 11:00 Urine Bilirubin 1+ (Negative) H 03/08/23 11:00 Urine Urobilinogen Negative (Negative) 03/08/23 11:00 Ur Leukocyte Esterase Negative (Negative) 03/08/23 11:00 Urine WBC (Auto) 5-10 /hpf (0-5) H 03/02/23 17:00 Urine RBC (Auto) >30 /hpf (0-4) H 03/02/23 17:00 U Hyaline Cast (Auto) 0 /lpf (0-5) 03/02/23 17:00 U Epithel Cells (Auto) >30 /lpf (0-5) H 03/02/23 17:00 Urine Bacteria (Auto) Negative (Negative) 03/02/23 17:00 Urine RBC >30 /hpf (0-4) H 03/08/23 11:00 Urine WBC >30 /hpf (0-5) H 03/08/23 11:00 Ur Epithelial Cells >30 /lpf (0-5) H 03/08/23 11:00 Ur Renal Epithelial Cell 0-5 /lpf (0-5) 03/02/23 17:00 Uric Acid Crystals Present (None Prsent) A 03/02/23 17:00 Urine Bacteria 3+ (Negative) H 03/08/23 11:00 Ur Random Creatinine 89.5 mg/dl 03/02/23 17:00 U Random Total Protein 84.6 mg/dl (0-11.9) H 03/02/23 17:00 Protein/Creatinin Ratio 0.9 (0-0.2) H 03/02/23 17:00 Nasal Screen MRSA (PCR) Negative (Negative) 03/01/23 18:15 SARS-CoV-2, RNA, NAAT NEGATIVE (NEGATIVE) 03/01/23 01:53 Blood Type AB Positive 03/01/23 12:35 Blood Type Recheck AB Positive 03/01/23 08:59 Antibody Screen NEGATIVE 03/01/23 12:35 Crossmatch See Detail 03/01/23 12:35 Impressions Abdomen/Pelvis CT 03/01/23 08:[address] WITH IV CONTRAST CT DOSE: 1652.49 mGy.cm HISTORY: Acute has abdominal pain with pneumoperitoneum free air in abd TECHNIQUE: Multiaxial CT images of the abdomen and pelvis were performed following the IV administration of 93 cc of Optiray, A dose lowering technique was utilized adhering to the principles of ALARA. COMPARISON STUDY: Chest radiograph of same day FINDINGS: Trace left pleural effusion. Mild bibasilar atelectasis with mucus plugging. Unremarkable spleen, mildly atrophic pancreas, gallbladder and adrenal glands. The liver is within normal limits. Patent portal vein. While nonspecific bilateral perinephric stranding. 4 mm calcification of the superior pole left kidney. No ureteral calculi or hydronephrosis. Decompressed urinary bladder with Mclain catheter in place. Moderate bladder wall thickening. Prostatomegaly. Small right and moderate left facet inguinal hernias. Fluid is also noted within the left hernia sac. Atherosclerosis of the aorta without aneurysm. No lymphadenopathy. Fluid-filled distal esophagus. No small bowel obstruction. There are several loops of small bowel within the central abdomen which demonstrates circumferential wall thickening with hyperemia. Colonic diverticulosis. There is irregularity of the distal descending colonic wall on image 268 series 3 with a large amount of extraluminal air extending into the adjacent mesentery. Colonic diverticulosis. Elongated and tubular air and fluid filled collections are noted adjacent to the site of perforation extending adjacent to the aforementioned inflamed small bowel loops into the sigmoid mesocolon measuring up to 20 cm in length. Small amount of abdominal pelvic ascites. Unremarkable soft tissues. No acute fracture. Degenerative changes of the spine, pelvis and hips. IMPRESSION: 1. Acute diverticulitis of the descending colon with perforation. Large amount of associated pneumoperitoneum with tubular multiloculated pericolonic abscess measuring up to approximately 20 cm in length. Surgical consultation is needed. 2. Mid abdominal small bowel inflammation is likely reactive. No bowel obstruction. 3. Additional findings as above. ACT 112: Negative or not required by law. The above report was generated using voice recognition software. It may contain grammatical, syntax or spelling errors. Electronically signed by: Gamal Wetzel M.D. 03/01/2023 10:41 AM Chest X-Ray 03/01/23 16:37 XR chest 1V portable CLINICAL HISTORY: intubated TECHNIQUE: Single frontal radiograph of the chest was obtained. Comparison: Comparison is made to chest radiograph 03/01/2023 FINDINGS: There is an endotracheal tube which terminates 51 mm from the annmarie. Enteric tube side-port lies above the diaphragm. Cardiomegaly is noted. Lungs are underinflated but clear. No evidence of pleural effusion or pneumothorax. IMPRESSION: The enteric tube side-port lies above the diaphragm and the tube could be advanced approximately 12 m for improved positioning. Endotracheal tube is in satisfactory position. ACT 112: Negative or not required by law. Electronically signed by: Dimitris Fernandez M.D. 03/01/2023 5:05 PM Videofluoroscopic Swallow 03/06/23 11:00 FL video swallow CLINICAL HISTORY: assess for aspiration TECHNIQUE: Video fluoroscopy of the pharyngeal region was performed as barium mixtures of varying consistencies were administered to the patient by the speech pathologist. A formal esophagram was not performed. Comparison: None available at the time of this dictation. FINDINGS: Total fluoroscopy time: 1.08 minutes. Radiation dose: 9.07 mGy. The patient swallowed the different barium consistencies without difficulty. There was no laryngeal vestibular penetration or ellie tracheal aspiration. Pooling of barium was noted in the bilateral piriform sinuses and valleculae. IMPRESSION: No evidence of aspiration. Please see the speech pathology report for further details. ACT 112: Negative or not required by law. Electronically signed by: Dimitris Fernandez M.D. 03/07/2023 9:00 AM Hospital Course (1) Diverticulitis of intestine with perforation and abscess: (2) Hypoxia: (3) Congestive heart failure: (4) At risk for aspiration: (5) Elevated LFTs: (6) Elevated troponin: (7) Atrial fibrillation: (8) Hx of arterial ischemic stroke: (9) Alcohol abuse: (10) CKD (chronic kidney disease): (11) Hematuria: Radha Mejia is a 67 y/o Mwith PMHx of recent acute CVA, hypertension, AFIB, alcohol misuse and nicotine dependence who presents from [facility] with hypoxia secondary to suspected CHF exacerbation. Pt found to have diverticulitis with perforation and abscess; taken to the OR 03/01 for emergent exlap and descending colon resection with subsequent ostomy. Pt intubated 03/01 and extubated 03/02. Downgraded from ICU to PCU 03/03. #Diverticulitis of descending colon with perforation and 20cm abscess -S/p exploratory laparotomy, descending bowel resection, partial omentectomy and ostomy on 03/01/23. -Continue PO Augmentin 875 mg PO TID until 03/13 -Received Zosyn 03/01-03/06 -Peritoneal fluid culture: E. coli/Bacteroides species. -Blood cultures negative -Analgesia: PRN morphine, Dilaudid #Hematuria with Mclain catheter -Noted on 03/08, urinalysis showing 3+ blood, 2+ protein, and 3+ bacteria. -Patient is not having any urinary symptoms. Blood culture pending on discharge -We will need voiding trial at inpatient rehab -Okay to continue Eliquis at this time unless symptoms worsen. #History of arterial ischemic stroke -Admitted to [facility] on 02/22/23 with right subthalamic infarction -Persistent left-sided chorea with no new deficits -Continue symptomatic treatment of risperidone and Valium PRN -Risk mitigation with HTN control, atorvastatin 20mg, and Eliquis (in setting of AFIB) -Avoiding high-intensity dosing as his LDL is low at 50, which could be 2/2 critical illness -Recommend repeat lipid panel in 6 weeks #Congestive heart failure with preserved ejection fraction -Likely 2/2 HTN and AFIB. BNP 500 on admission -CXR 03/01/23 showing cardiomegaly, pulmonary edema -Continue metoprolol #Atrial fibrillation -Newly diagnosed on 02/22/23 at [facility] -Continue Eliquis -Continue metoprolol #CKD, stage 3a -Nephro consult appreciated: CKD/HALEY likely 2/2 contrast nephropathy and/or hypotension before surgery. -Baseline Cr 1.44, peaked at 2.13, improving. -Renally dosed medications, avoid nephrotoxins #Alcohol misuse, chronic -Last drink 6/2/23 -Has not required treatment during admission based on AWSS protocol. -Thiamine + folic acid supplementation #Elevated troponin -Peaked at 58.4. No anginal symptoms. -Suspect etiology was demand ischemia. #Hypertension, chronic and uncontrolled -Continue home regimen of amlodipine and metoprolol FENGI: Advance diet as tolerated DVT ppx: Eliquis 5mg PO BID Dispo: inpatient rehab Code status: Conditional code Total Time Total Time Spent Total Time Spent (In Minutes): See attending attestation Discharge Plan Discharge Items Patient Disposition: Transfer Inpatient Rehab Fac Reason For Visit: HYPOXIA Discharge Diagnosis: Diverticulitis of the descending colon with perforation and abscess Activity: Per Instructions section Non-emergency contact: Primary Care Provider Call non-emergency contact if: you have any medication questions, your temperature is above 101.5, your wound has increased redness, your wound has increased drainage and your wound pain has increased Follow-up/Referrals: Avinash Dennison DO [Physician] - 03/15/23 9:15 am (Please follow up in the office late next week for staple removal) Bryant Trent M.D. [Primary Care Provider] - Diet: Heart Healthy and Other - See Diet Comment Diet Comment: Heart healthy, easy to chew Addtl Attending Provider Instructions: You have surgical kg in place that will be removed at your follow up appointment. You may keep a dry dressing over the incision if needed for comfort or to collect any drainage with dry gauze and medical tape Addtl Oil Recovery Unit Operator Provider Instructions: Roberto is a 67 y/o Mwith PMHx of recent acute CVA, hypertension, AFIB, alcohol misuse and nicotine dependence who presents from [facility] with hypoxia secondary to suspected CHF exacerbation. Pt found to have diverticulitis with perforation and abscess; taken to the OR 03/01 for emergent exlap and descending colon resection with subsequent ostomy. Pt intubated 03/01 and extubated 03/02. Downgraded from ICU to PCU 03/03. #Diverticulitis of descending colon with perforation and 20cm abscess -S/p exploratory laparotomy, descending bowel resection, partial omentectomy and ostomy on 03/01/23. Required Kcentra prior to surgery as he was on Eliquis. -Diet advanced now that he has adequate ostomy output -Zosyn started 03/01, continue through 03/06. On 03/07 transition to PO Augmentin. -Peritoneal fluid culture: E. coli/Bacteroides species -Blood cx neg. -Should continue 7-day course of Augmentin 875 3 times a day. #History of arterial ischemic stroke #Aspiration risk -Admitted to [facility] on 02/22/23 with right subthalamic infarction -Persistent left-sided chorea with no new deficits. Continue his prior regimen of risperidone and Valium PRN. -Per swallow study results, advance diet as tolerated -Risk mitigation with HTN control and atorvastatin 20mg -Avoiding high-intensity dosing as his LDL is low at 50, which could be 2/2 critical illness -Recommend repeat lipid panel in 6 weeks #Congestive heart failure with preserved ejection fraction -Likely 2/2 HTN and AFIB. BNP 500 on admission -CXR 03/01/23 showing cardiomegaly, pulmonary edema. #Atrial fibrillation -Newly diagnosed on 02/22/23 at [facility] -In AFIB during admission, resumed Eliquis 5mg PO BID on 03/07 -Rate controlled with Lopressor 50 mg twice daily. #CKD, stage 3a -Baseline Cr 1.44, peaked at 2.13, improving -Nephro consult appreciated: CKD/HALEY likely 2/2 contrast nephropathy and/or hypotension before surgery. Holding IV fluids due to positive volume fluid status. -Renally dosed medications, avoid nephrotoxins #Alcohol misuse, chronic -Last drink 02/22/23 -Thiamine + folic acid supplementation #Elevated troponin -Mild elevation to peak of 58.4, downtrending. No anginal symptoms. -Suspect demand ischemia #Hypertension, chronic -Restarted home regimen of amlodipine and metoprolol on 03/06. #Mclain catheter in place -We will need voiding trial at inpatient rehab -some blood in the urine on 03/08. UA showed 3+ blood, 2+ protein, and 3+ bacteria. Patient is not having any urinary symptoms. Cultures are pending and should f/u on at [facility]. CBC in 3 days. Okay to continue Eliquis at this time unless significant worsen. Pending Studies at Discharge: Yes Studies:: urine culture Stand-Alone Forms: My [facility] Skilled Items Patient informed of condition?: Yes DNR: No Discharge Level of Care: Skilled Communicable Disease: No Discharge Prognosis: Improving Lines: None Urinary Catheter: Yes Medications and DC Order Prescriptions: New atorvastatin 20 mg Tablet 20 mg PO QAM 30 Days Qty: 30 0RF risperidone 0.5 mg Tablet 0.5 mg PO BID 30 Days Qty: 60 0RF amoxicillin-pot clavulanate 875-125 mg Tablet 1 tab PO TID 7 Days Qty: 21 0RF Continued acetaminophen [Tylenol] 325 mg Tablet 650 mg PO Q4 PRN (Reason: Pain) polyethylene glycol 3350 [Miralax] 17 gram Powder In Packet 17 g PO DAILY Rx Instructions: give at lunch ondansetron HCl 4 mg Tablet 4 mg PO Q4 PRN (Reason: Nausea) sennosides-docusate sodium [Senokot-S] 8.6-50 mg Tablet 1 tab-cap PO .QLUNCH PRN (Reason: Constipation) thiamine HCl (vitamin B1) 100 mg Tablet 100 mg PO DAILY melatonin 3 mg Tablet 3 mg PO HS PRN (Reason: Sleep) amlodipine 10 mg Tablet 10 mg PO DAILY Humulin R Regular U-100 Insuln 100 unit/mL Solution 0 unit subcut ACHS Rx Instructions: 70-130=0units, 131-180=2units, 181-240=4 units, 241-300=6units, 301-350=8 units,351-400=10units , >400=12units metoprolol tartrate 50 mg Tablet 50 mg PO Q12H docusate sodium 100 mg Capsule 100 mg PO BID folic acid 1 mg Tablet 1 mg PO DAILY albuterol sulfate 90 mcg/actuation Hfa Aerosol Inhaler 1 inh INHALATION Q4 PRN (Reason: Wheezing) apixaban 5 mg Tablet 5 mg PO BID guaifenesin [Mucinex] 600 mg Tablet Extended Release 12hr 600 mg PO BID Discontinued risperidone [Risperdal] 0.25 mg Tablet 0.5 mg PO Q12 carbidopa-levodopa 25-100 mg Tablet 1 tab PO Q8 diazepam 5 mg Tablet 10 mg PO Q4 PRN (Reason: .spasm) Discharge Orders: Discharge Order (Routine); Ordered 03/08/23 Ordered By: Alexis Miles/Other Patient Handouts: Colostomy: Managing Your Nutrition Admission Data Admit Date/Time: 03/01/23 04:15 Attending Provider: Shawn Braun Admit Provider: Yrn Renteria Primary Care Provider: Bryant Trent Other Providers: [facility] ; Maxi Cardoso ; Jasson Foster ; Avinash Dennison ; Lexx Andersno ; Edward Brown ; rBina Darnell ; Johnathon Olivera ; Marylou Cummins Other Interventions: Discharge Summary Assessment (RN) Last Done: 03/08/23 13:14 Supervising Physician Co-Signing Physician Notes Attending attestation Pt seen and examined in concert with [facility]. Dr. Herman Jesus. In agreement with the documented findings as noted in the resident documentation with any exceptions or additions as noted here. No acute complaints on evaluation. On examination, S1/S2 nl RRR no MCG. CTAB. Abd NT/ND BS+ve, ongoing choreoform Hematuria in the setting of anticoagulation - asymptomatic and labs as noted today, likely traumatic w/ catheter vs. AC impact. UCx sent but no empiric abx per symptoms but will necessitate follow up and labs. Diverticulitis w/ perforation s/p ex lap - complete course of PO Augmentin Unwitnessed fall in healthcare setting w/ h/o arterial ischemic stroke - no symptoms at time of event, CT head WNL. ongoing left sided chorea without new symptoms or complaints. Else see resident documentation as noted. Total attending physician time spent with this patient's care on the day of discharge: 45 minutes.
--- NOTE | 2023-03-08 15:12 | Communication Note ---
Date of Service: March 08, 2023 Code purple and code lift team called due to patient falling out of bed onto his left side. Patient's nurse states that patient "wiggled" out of bed and fell on his left side. Heart rate of 89, oxygenation status 95% on room air, elevated blood pressure of 186/84. Patient denies any pain or discomfort but states that he he hit the back of his head when he hit the floor. Mental status normal. No neurological complaints or issues. No point tenderness on cervical or lumbar spine. Able to move lower extremities, no point tenderness on bilateral hips. No point tenderness on upper extremity exam, though chloroform of the left arm persist. No open wound on the posterior aspect of scalp, though mild tenderness. Ostomy remains in place without any change. Abdominal distended the unchanged from this morning. -We will obtain CT head and cervical spine CT due to patient hitting the back of his head, no other intervention needed at this time. Will reevaluate after CT scan. -May consider abdominal imaging if changes occur with patient's ostomy, though none needed at this time. Attending attestation Pt case reviewed w/ with Dr. Burgess . In agreement with the documented findings as noted in the resident documentation with any exceptions or additions as noted here. See attestation on note from this day for full attending plan.
--- NOTE | 2023-03-08 15:27 | CT Scan Report ---
CT head/brain wo con CLINICAL HISTORY: 67 years-old Male with fall w head trauma. Acute head injury status post trauma TECHNIQUE: Multiple axial CT images of the head were obtained without contrast. A dose lowering tech nique was utilized adhering to the principles of ALARA. COMPARISON: None. FINDINGS: No acute intracranial hemorrhage, midline shift, intracranial mass, hydrocephalus, territorial ischem ia or abnormal extra-axial collection. Motion degraded exam. Involutional changes with chronic microv ascular ischemic disease. Age-indeterminate left anterior limb internal capsule and right thalamic la cunar infarcts. The calvarium is intact. The mastoid air cells are clear. Minimal mucosal thickening of the maxillar y and ethmoid sinuses. IMPRESSION: No acute intracranial abnormality or calvarial fracture identified. ACT 112: Negative or not required by law. The above report was generated using voice recognition software. It may contain grammatical, syntax o r spelling errors. Electronically signed by: Gamal Wetzel M.D. 03/08/2023 3:26 PM
--- NOTE | 2023-03-08 15:53 | CT Scan Report ---
CT cervical spine wo con CT DOSE: 2862.54 mGy.cm CLINICAL HISTORY: 67 years-old Male with fall w head trauma. Acute head and neck injury status post fall COMPARISON: Head CT of same day TECHNIQUE: Multiple axial CT images of the cervical spine were obtained without contrast. A dose low ering technique was utilized adhering to the principles of ALARA. FINDINGS: Study is very motion degraded therefore limited. Multilevel changes are present without def inite acute fracture or subluxation. The cervical soft tissues appear unremarkable. The visualized lung apices appear clear. IMPRESSION: Motion degraded exam. No acute cervical spine fracture identified considering the limita tions of the study. ACT 112: Negative or not required by law. The above report was generated using voice recognition software. It may contain grammatical, syntax o r spelling errors. Electronically signed by: Gamal Wetzel M.D. 03/08/2023 3:51 PM
--- NOTE | 2023-03-10 10:44 | Coding Query ---
CODING QUERY To promote full compliance with coding requirements relating to patient care, provider participation is requested in all cases of product management manager uncertainty. Please assist us with the question(s) below: Coding Question(s): Pt admitted with sepsis due to perforated /abscess diverticulitis .Excision sigmoid / colostomy performed. 03/05 Surgical progress note stated E. Coli in peritoneal fluid. Please document, if applicable, a diagnosis pertaining to positive bacteria in peritoneal fluid. Thanks for your help! Mason Almeida [facility] Physician's Response(s): Principal Diagnosis: "that condition established after study, to be chiefly responsible for occasioning the admission of the patient to the hospital for care." Co-Existing Principal Diagnosis: "when two or more diagnoses equally meet the criteria for principal diagnosis as determined by the circumstances of admission, diagnostic work up, and/or therapy provided, and the Alphabetic Index, Tabular List, or another coding guideline does not provide sequencing direction, any one of the diagnoses may be sequenced first." "When the physician has documented what appears to be a current diagnosis in the body of the record, but has not included the diagnosis in the final diagnostic statement, the physician should be asked whether the diagnosis should be added." (Source [facility]oding [facility] 2 QTR90. p3-4) MANOJ
== END 2023-03-08 17:46 | DRG 853 ==
LOC: ED 01:20 → 2W 04:15 → SUATTDRO 04:15 → 2W 05:04 → 2S 10:49 → 1E 16:50 → 2S 03-03 18:12

== ENCOUNTER 2023-03-10 21:05 | Inpatient (IN) ==
[2023-03-10] MEDS ORDERED: PIPERACILLIN/TAZOBACTAM 4.5 GM/120 ML BAG IV STA (21:13)
[2023-03-10] MEDS ORDERED: ACETAMINOPHEN 1,000 MG/100 ML VIAL IV STA (21:15)
--- NOTE | 2023-03-10 21:17 | Emergency Department Note ---
Impression & Plan Fever, Sepsis, Intra-abdominal infection, Non-ST elevation LA (NSTEMI) ED Provider Note HISTORY OF PRESENT ILLNESS: Patient is a 67-year-old male presenting with abnormal vital signs. Patient is a currently at [facility] rehab after a prolonged stay in the hospital. I saw the patient last night for presumed wound dehiscence. He was found to have some postop findings in his abdomen that surgery felt comfortable discharging back. However, at [facility] today he developed a fever and has been tachycardic. Patient denies any abdominal pain. He reports normal output from his ostomy. Denies any chest pain or shortness of breath ROS: as above PHYSICAL EXAM: Constitutional: Patient appears in no acute distress. HENT: Head: Normocephalic and atraumatic. Eyes: EOMI, PERRL Mouth/Throat: Mucous membranes moist. Neck: Trachea midline. Neck supple. Cardiovascular: Tachycardic with regular rhythm. No murmurs, rubs or gallops. Intact distal pulses. Pulmonary/Chest: No respiratory distress. Breath sounds clear and equal bilaterally. No wheezes or rales Abdominal: BS +. Abdomen soft, no tenderness, rebound or guarding. Ostomy in place in left upper quadrant with output in the bag. Patient again has a midline surgical abdominal incision with kg in place. Slight skin opening at the very superior portion of the abdominal incision. Musculoskeletal: No edema, tenderness or deformity noted. Skin: Warm and dry. No rash, erythema, pallor or cyanosis Psychiatric: Appropriate mood and affect for situation. Neurological: Alert and keenly responsive. CN II-XII grossly intact. MDM: - Vitals signs showed tachycardia, fever and hypertension. - History obtained via patient and EMS. Patient presents with abnormal vital signs. Patient was sent from [facility] for fever and hypertension. Reportedly febrile to 102 tonight. He is on Augmentin for a known intra- abdominal pathology. He was recently admitted to the hospital for perforated viscus and subsequent ostomy placement - Chronic conditions affecting care: Afib; perforated abdominal viscus; stroke - Differential diagnoses include, but are not limited to: pneumonia; intra- abdominal abscess; UTI; electrolyte abnormality - Order placed for continuous cardiac monitoring. At this time, monitor showed rate of 100 bpm with irregular rhythm, per my interpretation. - External medical records reviewed. - EKG reviewed by myself showed atrial fibrillation. Rate rapid at 107 bpm. QTc 445. No acute ischemic changes. - Laboratory workup interpreted by myself showed leukocytosis (WBC 11.44 - increased from 7 yesterday); stable electrolytes; normal lactate; normal creatinine; elevated troponin (50.7); normal procalcitonin - CXR showed cardiomegaly with pulmonary vascular congestion, per my interpretation. - Blood cultures obtained. - NSTEMI likely type II secondary to infection. - UA showed WBC and leukocyte esterase. No bacteria present. - CT abdomen/pelvis was obtained last night. Given pathology and patient's fever and return today, will empirically start on IV zosyn. - Discussion was had with social scientist about patient's case and need for admission - Hospitalist, Dr. Grant, consulted for admission. - [facility] ASSESSMENT AND PLAN: Diagnosis: fever; leukocytosis; NSTEMI; intra-abdominal abscess Plan: admit Past Med/Surg History Medical History Atrial fibrillation Endotracheally intubated Perforated abdominal viscus Sepsis Stroke Ventilator dependence Surgical History History of colon resection (03/01/23) Exploratory Laparotomy, Desending Colon Resection, Partial omentectomy, creation of end colostomy(Not Applicable) - Avinash Dennison, DO Status post exploratory laparotomy Social History Smoking Status: Current some day smoker Tobacco Type: Cigarettes Do You Dip or Chew Tobacco: No; Hx Alcohol Use: Yes Alcohol type: beer Hx Substance Use: No Preferred Language: Urdu Communication Ability: Effective Acid Blower Required: No Beliefs That Will Affect Care: None Current Living Situation: Spouse Current Living Situation Comment: at [facility] for rehab then dc back home Feels Safe at Home: Yes Assistive Devices: Oxygen - Continuous and Walker Allergies Allergies Allergy/AdvReac Type Severity Reaction Status Date / Time No Known Allergies Allergy Verified 03/10/23 21:30 Home Meds Home Medications Medication Instructions Recorded Confirmed acetaminophen 325 mg tablet 650 mg PO Q4 PRN Pain 03/01/23 03/10/23 (Tylenol) albuterol sulfate 90 mcg/actuation 1 inh inhalation Q4 PRN Wheezing 03/01/23 03/10/23 aerosol inhaler amlodipine 10 mg tablet 10 mg PO DAILY 03/01/23 03/10/23 apixaban 5 mg tablet 5 mg PO BID 03/01/23 03/10/23 docusate sodium 100 mg capsule 100 mg PO BID 03/01/23 03/10/23 melatonin 3 mg tablet 3 mg PO HS PRN Sleep 03/01/23 03/10/23 metoprolol tartrate 50 mg tablet 50 mg PO Q12H 03/01/23 03/10/23 ondansetron HCl 4 mg tablet 4 mg PO Q4 PRN Nausea 03/01/23 03/10/23 polyethylene glycol 3350 17 gram 17 g PO QDL PRN Constipation 03/01/23 03/10/23 oral powder packet (Miralax) sennosides 8.6 mg-docusate sodium 1 tab-cap PO QDL PRN Constipation 03/01/23 03/10/23 50 mg tablet (Senokot-S) thiamine HCl (vitamin B1) 100 mg 100 mg PO DAILY 03/01/23 03/10/23 tablet amoxicillin 875 mg-potassium 1 tab PO Q8H 03/09/23 03/10/23 clavulanate 125 mg tablet bisacodyl 10 mg rectal suppository 10 mg [place] DAILY PRN Constipation 03/09/23 03/10/23 diazepam 2 mg tablet 2 mg PO Q4H PRN NEEDED 03/09/23 03/10/23 Previous Rx's Medication Instructions Recorded atorvastatin 20 mg tablet 20 mg PO QAM 30 days #30 tabs 03/07/23 risperidone 0.5 mg tablet 0.5 mg PO BID 30 days #60 tabs 03/07/23 Results & Data (ED) Vital Signs Vital Signs - 24 hr 03/10/23 21:14 03/10/23 21:14 03/10/23 21:17 Temperature 39.5 C H Temperature Source Oral Oral Pulse Rate 108 H Pulse Rate from SpO2 Sensor Respiratory Rate 18 Blood Pressure 176/89 H Blood Pressure Mean 118 Pulse Oximetry 93 Oxygen Delivery Method Room Air Room Air Sepsis Recent Fever Within 48 Hours Yes Sepsis New/Unexplained Change in Mental Status No Sepsis Action Taken by Nursing Physician Notified 03/10/23 21:17 03/10/23 21:13 03/10/23 21:14 Temperature Temperature Source Oral Pulse Rate 107 H 107 H Pulse Rate from SpO2 Sensor 108 H Respiratory Rate 20 Blood Pressure Blood Pressure Mean Pulse Oximetry 93 Oxygen Delivery Method Sepsis Recent Fever Within 48 Hours Sepsis New/Unexplained Change in Mental Status Sepsis Action Taken by Nursing 03/10/23 21:20 03/10/23 21:30 03/10/23 21:40 Temperature Temperature Source Pulse Rate 105 H 104 H 102 H Pulse Rate from SpO2 Sensor 110 H 104 H 103 H Respiratory Rate 20 22 22 Blood Pressure Blood Pressure Mean Pulse Oximetry 93 94 90 Oxygen Delivery Method Sepsis Recent Fever Within 48 Hours Sepsis New/Unexplained Change in Mental Status Sepsis Action Taken by Nursing 03/10/23 21:47 03/10/23 21:47 03/10/23 21:50 Temperature Temperature Source Pulse Rate 105 H 107 H Pulse Rate from SpO2 Sensor 110 H 106 H Respiratory Rate 23 23 Blood Pressure 159/94 H Blood Pressure Mean 120 Pulse Oximetry 93 93 Oxygen Delivery Method Sepsis Recent Fever Within 48 Hours Sepsis New/Unexplained Change in Mental Status Sepsis Action Taken by Nursing 03/10/23 22:00 Temperature Temperature Source Pulse Rate 103 H Pulse Rate from SpO2 Sensor 107 H Respiratory Rate 22 Blood Pressure Blood Pressure Mean Pulse Oximetry 92 Oxygen Delivery Method Sepsis Recent Fever Within 48 Hours Sepsis New/Unexplained Change in Mental Status Sepsis Action Taken by Nursing Laboratory Data 03/10/23 21:37 03/10/23 21:37 Lab Results 03/10/23 03/10/23 03/10/23 Range/Units 21:37 21:37 21:37 WBC 11.44 H (4.8-10.8) K/ul RBC 3.51 L (4.70-6.10) M/uL Hgb 10.5 L (14.0-18.0) g/dl Hct 31.6 L (42.0-52.0) % MCV 90.0 (80.0-100.0) fL MCH 29.9 (25.0-34.0) pg MCHC 33.2 (32.0-36.0) g/dL RDW Std Deviation 45.4 (36.4-46.3) fL RDW Coeff of Eduardo 14.0 (11.5-14.5) % Plt Count 369 (130-400) K/uL MPV 10.1 (9.4-12.4) fL Immature Gran % (Auto) 0.6 % Neut % (Auto) 86.1 % Lymph % (Auto) 7.3 % [place] % (Auto) 5.1 % Eos % (Auto) 0.5 % Baso % (Auto) 0.4 % Neut # (Auto) 9.85 H (1.40-6.50) K/uL Lymph # (Auto) 0.83 L (1.2-3.4) K/uL [place] # (Auto) 0.58 (0.11-0.59) K/uL Eos # (Auto) 0.06 (0-0.50) K/uL Baso # (Auto) 0.05 (0-0.2) K/uL Immature Gran # (Auto) 0.07 (0.01-0.20) K/uL VBG pH (7.36-7.41) VBG pCO2 (38-50) mmHg VBG pO2 mmHg VBG HCO3 mmol/L VBG O2 Saturation % VBG Base Excess mEq/L Sodium 139 (136-145) mmol/L Potassium 3.6 (3.5-5.1) mmol/L Chloride 106 (98-107) mmol/L Carbon Dioxide 26 (21-32) mmol/L Anion Gap 7 (3-11) BUN 21 (6-23) mg/dl Creatinine 1.22 (0.6-1.4) mg/dl Est Cr Clr Drug Dosing Not Reportable Est GFR ( Amer) 69.7 ml/min Est GFR (Non-Af Amer) 60.1 ml/min BUN/Creatinine Ratio 17.2 (10-20) Glucose 126 H (70-99(Fasting)) mg/dl Lactate 1.0 (0.4-2.0) mmol/L Calcium 8.1 L (8.6-10.3) mg/dl Magnesium 1.6 L (1.7-2.4) mg/dl Total Bilirubin 0.8 (0.2-1.0) mg/dl Direct Bilirubin 0.5 H (0-0.2) mg/dl AST 58 H (13-39) U/L ALT 46 (7-52) U/L Alkaline Phosphatase 241 H (34-104) U/L Troponin I High Sens 50.7 H* (0-20) pg/ml Total Protein 6.2 (6.0-8.3) gm/dl Albumin 2.7 L (3.4-5.0) gm/dl Procalcitonin (0-0.5) ng/ml Urine Color Urine Appearance (Clear) Urine pH (4.5-7.5) Ur Specific [place] (1.000-1.030) Urine Protein (Negative) Urine Glucose (UA) (Negative) Urine Ketones (Negative) Urine Blood (Negative) Urine Nitrite (Negative) Urine Bilirubin (Negative) Urine Urobilinogen (Negative) Ur Leukocyte Esterase (Negative) Urine WBC (Auto) (0-5) /hpf Urine RBC (Auto) (0-4) /hpf U Hyaline Cast (Auto) (0-5) /lpf U Epithel Cells (Auto) (0-5) /lpf Urine Bacteria (Auto) (Negative) Granular Casts (0) /lpf Urine Yeast (None Prsent) 03/10/23 03/10/23 03/10/23 Range/Units 21:37 21:37 22:39 WBC (4.8-10.8) K/ul RBC (4.70-6.10) M/uL Hgb (14.0-18.0) g/dl Hct (42.0-52.0) % MCV (80.0-100.0) fL MCH (25.0-34.0) pg MCHC (32.0-36.0) g/dL RDW Std Deviation (36.4-46.3) fL RDW Coeff of Eduardo (11.5-14.5) % Plt Count (130-400) K/uL MPV (9.4-12.4) fL Immature Gran % (Auto) % Neut % (Auto) % Lymph % (Auto) % [place] % (Auto) % Eos % (Auto) % Baso % (Auto) % Neut # (Auto) (1.40-6.50) K/uL Lymph # (Auto) (1.2-3.4) K/uL [place] # (Auto) (0.11-0.59) K/uL Eos # (Auto) (0-0.50) K/uL Baso # (Auto) (0-0.2) K/uL Immature Gran # (Auto) (0.01-0.20) K/uL VBG pH 7.51 H (7.36-7.41) VBG pCO2 35 L (38-50) mmHg VBG pO2 53 mmHg VBG HCO3 28 mmol/L VBG O2 Saturation 88.6 % VBG Base Excess 4.9 mEq/L Sodium (136-145) mmol/L Potassium (3.5-5.1) mmol/L Chloride (98-107) mmol/L Carbon Dioxide (21-32) mmol/L Anion Gap (3-11) BUN (6-23) mg/dl Creatinine (0.6-1.4) mg/dl Est Cr Clr Drug Dosing Est GFR ( Amer) ml/min Est GFR (Non-Af Amer) ml/min BUN/Creatinine Ratio (10-20) Glucose (70-99(Fasting)) mg/dl Lactate (0.4-2.0) mmol/L Calcium (8.6-10.3) mg/dl Magnesium (1.7-2.4) mg/dl Total Bilirubin (0.2-1.0) mg/dl Direct Bilirubin (0-0.2) mg/dl AST (13-39) U/L ALT (7-52) U/L Alkaline Phosphatase (34-104) U/L Troponin I High Sens (0-20) pg/ml Total Protein (6.0-8.3) gm/dl Albumin (3.4-5.0) gm/dl Procalcitonin 0.50 (0-0.5) ng/ml Urine Color Dark Yellow Urine Appearance Turbid A (Clear) Urine pH 5.0 (4.5-7.5) Ur Specific [place] 1.025 (1.000-1.030) Urine Protein 2+ H (Negative) Urine Glucose (UA) Negative (Negative) Urine Ketones Trace H (Negative) Urine Blood 3+ H (Negative) Urine Nitrite Negative (Negative) Urine Bilirubin 1+ H (Negative) Urine Urobilinogen Negative (Negative) Ur Leukocyte Esterase 2+ H (Negative) Urine WBC (Auto) >30 H (0-5) /hpf Urine RBC (Auto) >30 H (0-4) /hpf U Hyaline Cast (Auto) 5-10 H (0-5) /lpf U Epithel Cells (Auto) >30 H (0-5) /lpf Urine Bacteria (Auto) Negative (Negative) Granular Casts 1-5 H (0) /lpf Urine Yeast Present A (None Prsent) Administered Medications Discontinued Medications Piperacillin Sod/Tazobactam Sod (Zosyn) 4.5 gm in 120 mls @ 240 mls/hr IV NOW STA Stop: 03/10/23 21:42 Last Infusion: 03/10/23 22:12 Dose: 0 mls/hr Documented By: Admin: 03/10/23 21:42 Dose: 240 mls/hr Documented By: CORI Acetaminophen (Ofirmev) 1,000 mg in 100 mls @ 400 mls/hr IV NOW STA Stop: 03/10/23 21:29 Last Infusion: 03/10/23 22:01 Dose: 0 mls/hr Documented By: Admin: 03/10/23 21:43 Dose: 400 mls/hr Documented By: CORI Imaging Data Radiologist's Impression: Chest X-Ray 03/10/23 21:13 SINGLE VIEW CHEST CLINICAL HISTORY: Sepsis. FINDINGS: An AP upright chest radiograph is compared to study dated 03/09/2023. Correlation is made with abdominal CT dated 03/09/2023. The examination is d egraded by portable technique and apical lordotic positioning. The heart is enlarged. There is pulmonary vascular congestion. There are trace pleural effusions. Linear bibasilar opacities likely represent foci of subsegmental/segmental atelectasis. No pneumothorax is seen. The skeletal structures are osteopenic. The bony thorax is grossly intact. IMPRESSION: 1. Cardiomegaly with pulmonary vascular congestion. 2. Small pleural effusions. 3. Linear bilateral airspace opacities likely represent foci of atelectasis. This is unchanged from previous. ACT 112: Negative or not required by law. Electronically signed by: Alexis Regan M.D. 03/10/2023 10:33 PM Discharge Plan Visit Data Chief Complaint: Illness Stated Complaint: Hypertension, Fever ED Provider: Carolyn Trinidad Discharge Problem: Fever, Sepsis, Intra-abdominal infection, Non-ST elevation LA (NSTEMI) Forms Stand Alone Forms: [facility] Prescriptions Prescriptions: No Action acetaminophen [Tylenol] 325 mg Tablet 650 mg PO Q4 PRN (Reason: Pain) polyethylene glycol 3350 [Miralax] 17 gram Powder In Packet 17 g PO QDL PRN (Reason: Constipation) ondansetron HCl 4 mg Tablet 4 mg PO Q4 PRN (Reason: Nausea) sennosides-docusate sodium [Senokot-S] 8.6-50 mg Tablet 1 tab-cap PO QDL PRN (Reason: Constipation) thiamine HCl (vitamin B1) 100 mg Tablet 100 mg PO DAILY melatonin 3 mg Tablet 3 mg PO HS PRN (Reason: Sleep) amlodipine 10 mg Tablet 10 mg PO DAILY metoprolol tartrate 50 mg Tablet 50 mg PO Q12H docusate sodium 100 mg Capsule 100 mg PO BID albuterol sulfate 90 mcg/actuation Hfa Aerosol Inhaler 1 inh INHALATION Q4 PRN (Reason: Wheezing) apixaban 5 mg Tablet 5 mg PO BID atorvastatin 20 mg Tablet 20 mg PO QAM 30 Days Qty: 30 0RF risperidone 0.5 mg Tablet 0.5 mg PO BID 30 Days Qty: 60 0RF diazepam 2 mg Tablet 2 mg PO Q4H PRN (Reason: NEEDED) bisacodyl 10 mg Suppository 10 mg [place] DAILY PRN (Reason: Constipation) amoxicillin-pot clavulanate 875-125 mg tablet 1 tab PO Q8H Rx Instructions: STARTED 03/08/23. Referrals Referrals: Bryant Trent M.D. [Primary Care Provider] -
[2023-03-10 21:57] LABS: Appearance Urine Turbid (Clear); Bacteria Urine Automated Negative (Negative); Bilirubin Urine 1+ (Negative); Blood Urine 3+ (Negative); Color Urine Dark Yellow; Epithelial Cell Urine Auto >30 /lpf (0-5); Glucose Urine UA Negative (Negative); Ketones Urine Trace (Negative); Leukocyte Esterase Urine 2+ (Negative); Nitrite Urine Negative (Negative); Protein Urine 2+ (Negative); Specific Gravity Urine 1.025 (1.000-1.030); Urobilinogen Urine Negative (Negative); WBC Urine Automated >30 /hpf (0-5)
[2023-03-10 22:06] LABS: RBC Urine Automated >30 /hpf (0-4)
[2023-03-10 22:09] LABS: Basophils # (auto) 0.05 K/uL (0-0.2); Basophils % (auto) 0.4 %; Eosinophils # (auto) 0.06 K/uL (0-0.50); Eosinophils % (auto) 0.5 %; Hematocrit (blood only) 31.6 % (42.0-52.0); Hemoglobin 10.5 g/dl (14.0-18.0); Immature Granulocytes # (auto) 0.07 K/uL (0.01-0.20); Immature Granulocytes % (auto) 0.6 %; Lymphocytes # (auto) 0.83 K/uL (1.2-3.4); Lymphocytes % (auto) 7.3 %; Mean Corpuscular Hemoglobin 29.9 pg (25.0-34.0); Mean Corpuscular Hgb Conc 33.2 g/dL (32.0-36.0); Mean Platelet Volume 10.1 fL (9.4-12.4); Monocytes # (auto) 0.58 K/uL (0.11-0.59); Monocytes % (auto) 5.1 %; Neutrophils # (auto) 9.85 K/uL (1.40-6.50); Neutrophils % (auto) 86.1 %; Platelet Count 369 K/uL (130-400); RDW Standard Deviation 45.4 fL (36.4-46.3); Red Blood Count 3.51 M/uL (4.70-6.10); White Blood Count 11.44 K/ul (4.8-10.8)
[2023-03-10 22:22] LABS: Alanine Aminotransferase 46 U/L (7-52); Albumin Level 2.7 gm/dl (3.4-5.0); Alkaline Phosphatase 241 U/L (34-104); Anion Gap 7 (3-11); Aspartate Aminotransferase 58 U/L (13-39); BUN Creatinine Ratio 17.2 (10-20); Bilirubin Direct 0.5 mg/dl (0-0.2); Bilirubin,Total 0.8 mg/dl (0.2-1.0); Blood Urea Nitrogen 21 mg/dl (6-23); Calcium 8.1 mg/dl (8.6-10.3); Carbon Dioxide 26 mmol/L (21-32); Chloride 106 mmol/L (98-107); Est GFR (African American) 69.7 ml/min; Est GFR (Non-African American) 60.1 ml/min; Glucose 126 mg/dl (70-99(Fasting)); Magnesium 1.6 mg/dl (1.7-2.4); Potassium 3.6 mmol/L (3.5-5.1); Sodium 139 mmol/L (136-145); Total Protein 6.2 gm/dl (6.0-8.3)
--- NOTE | 2023-03-10 22:35 | XRay Report ---
SINGLE VIEW CHEST CLINICAL HISTORY: Sepsis. FINDINGS: An AP upright chest radiograph is compared to study dated 03/09/2023. Correlation is made w ith abdominal CT dated 03/09/2023. The examination is degraded by portable technique and apical lordot ic positioning. The heart is enlarged. There is pulmonary vascular congestion. There are trace pleura l effusions. Linear bibasilar opacities likely represent foci of subsegmental/segmental atelectasis. No pneumothorax is seen. The skeletal structures are osteopenic. The bony thorax is grossly intact. IMPRESSION: 1. Cardiomegaly with pulmonary vascular congestion. 2. Small pleural effusions. 3. Linear bilateral airspace opacities likely represent foci of atelectasis. This is unchanged from p revious. ACT 112: Negative or not required by law. Electronically signed by: Alexis Regan M.D. 03/10/2023 10:33 PM
[2023-03-10 22:37] LABS: Troponin I High Sensitivity 50.7 pg/ml (0-20)
[2023-03-10 22:50] LABS: Base Excess VBG 4.9 mEq/L; HCO3 VBG 28 mmol/L; Oxygen Saturation VBG 88.6 %; PCO2 VBG 35 mmHg (38-50); PO2 VBG 53 mmHg; pH VBG 7.51 (7.36-7.41)
[2023-03-10] MEDS ORDERED: MAGNESIUM SULFATE / D5W 1 GM/100 ML BAG IV ONE (23:45)
--- NOTE | 2023-03-11 01:03 | History & Physical Report ---
Date of Service March 11, 2023 Assessment & Plan (1) Sepsis: Plan: 67 yo male with PMHx of recent acute CVA, recent diverticulitis with perforation (s/p exploratory laparotomy, descending colon resection, and creation of ostomy), CKD, alcohol abuse, nicotine dependence, HTN, afrib, and HFpEF presents with fever and tachycardia from [facility] (acute rehab). #Sepsis #Recent diverticulitis with perforation requiring surgical intervention -presented from acute rehab at [facility] due to abnormal vitals. Met 4/4 SIRS criteria. WBC 11.4. Lactate 1. -Patient recently s/p exploratory laparotomy, descending colon resection, and creation of ostomy for diverticulitis with perforation and abscess. He follows with [facility] gen surg. Has midline incision with kg intact. Incision clean and intact without drainage or signs of superficial infection. Ostomy bag intact w ith brown liquid stool. Suspect likely sepsis source to be intraabdominal infection/abscess. -CT A/P (03/09): Loculated fluid on the LEFT abdomen/pelvis, with small locules of air. When compared to CT abdomen pelvis March 01, 2023, this now contains more fluid and less air. -UA bacteria negative. Urine cx pend. -blood cx pend. -empiric zosyn x1 given in ED. Cont. Zosyn. -NPO in case for surgical intervention. NSS @ 125. -gen surg consulted #Elevated troponin -trop 50 on admission, trend -suspect due to demand ischemia from likely infection #H/o arterial ischemic stroke -Admitted to [facility] on 02/22/23 with right subthalamic infarction. -cont. home risperidone for persistent left-sided chorea -cont. home atorvastatin -Avoiding high-intensity dosing as his LDL is low at 50. Recommend repeat as outpatient. -patient will be sent back to [facility] upon discharge for continued rehab #HFpEF -CXR: cardiomegaly with pulmonary vascular congestion -since NPO will start IV Lopressor 5mg q6h to avoid rebound. Restart oral when able. #Afib -newly diagnosed on 02/22/23 at [facility] -Hold home eliquis in case of possible surgical intervention. SCDs ordered. -Metoprolol as above. #HTN -cont. home amlodipine. Metoprolol as above. #CKD stage 3a -Cr 1.2 on admission; baseline Cr 1.44 -Renally dosed medications, avoid nephrotoxins DVT ppx: SCDs; chemical held in case of surgical intervention FEN/GI: NPO, NSS @ 125 Code Status: DNI Dispo: PCU (2) Fever: (3) Atrial fibrillation: (4) Status post exploratory laparotomy: (5) Hypertension: (6) Hx of arterial ischemic stroke: (7) CKD (chronic kidney disease): (8) Elevated troponin: (9) Congestive heart failure: (10) Alcohol abuse: History of Present Illness Chief Complaint: fever, tachycardia Primary Care Provider: Bryant Trent 67 yo male with PMHx of recent acute CVA, recent diverticulitis with perforation and abscess (s/p exploratory laparotomy, descending colon resection, and creation of ostomy), CKD, alcohol abuse, nicotine dependence, HTN, afrib, and HFpEF presents with fever and tachycardia from [facility] (acute rehab). Upon entering room patient was heavily asleep. He was arousable and alert but quickly went back to sleep without answering many questions HPI is limited. Per previous notes and ED intake patient was sent here from [facility] due to abnormal vitals including fever, tachycardia, and tachypnea. Otherwise ROS unobtainable at this time. Patient has had an unfortunate month beginning with an ischemic stroke. Following this he was sent to [facility] for acute rehab and days later was found to be hypoxic. It was found that he had diverticulitis with perforation and abscess which required surgical intervention on March 01. He was discharged a few days ago and did return 2 nights ago due to serosanguineous drainage from the midline abdominal incision. At that time CT imaging was performed GI was consulted. Incision was deemed intact and patient was sent back to rehab. Unfortunately patient returned today as mentioned above. Allergies Allergy/AdvReac Type Severity Reaction Status Date / Time No Known Allergies Allergy Verified 03/10/23 21:30 Home Medications Medication Instructions Recorded Confirmed Type acetaminophen 325 mg tablet 650 mg PO Q4 PRN Pain 03/01/23 03/10/23 History (Tylenol) albuterol sulfate 90 mcg/actuation 1 inh inhalation Q4 PRN Wheezing 03/01/23 03/10/23 History aerosol inhaler amlodipine 10 mg tablet 10 mg PO DAILY 03/01/23 03/10/23 History apixaban 5 mg tablet 5 mg PO BID 03/01/23 03/10/23 History docusate sodium 100 mg capsule 100 mg PO BID 03/01/23 03/10/23 History melatonin 3 mg tablet 3 mg PO HS PRN Sleep 03/01/23 03/10/23 History metoprolol tartrate 50 mg tablet 50 mg PO Q12H 03/01/23 03/10/23 History ondansetron HCl 4 mg tablet 4 mg PO Q4 PRN Nausea 03/01/23 03/10/23 History polyethylene glycol 3350 17 gram 17 g PO QDL PRN Constipation 03/01/23 03/10/23 History oral powder packet (Miralax) sennosides 8.6 mg-docusate sodium 1 tab-cap PO QDL PRN Constipation 03/01/23 03/10/23 History 50 mg tablet (Senokot-S) thiamine HCl (vitamin B1) 100 mg 100 mg PO DAILY 03/01/23 03/10/23 History tablet atorvastatin 20 mg tablet 20 mg PO QAM 30 days #30 tabs 03/07/23 03/10/23 Rx risperidone 0.5 mg tablet 0.5 mg PO BID 30 days #60 tabs 03/07/23 03/10/23 Rx amoxicillin 875 mg-potassium 1 tab PO Q8H 03/09/23 03/10/23 History clavulanate 125 mg tablet bisacodyl 10 mg rectal suppository 10 mg AK DAILY PRN Constipation 03/09/23 03/10/23 History diazepam 2 mg tablet 2 mg PO Q4H PRN NEEDED 03/09/23 03/10/23 History Past Med/Surg History Medical History Atrial fibrillation Endotracheally intubated Perforated abdominal viscus Sepsis Stroke Ventilator dependence Surgical History History of colon resection (03/01/23) Exploratory Laparotomy, Desending Colon Resection, Partial omentectomy, creation of end colostomy(Not Applicable) - Avinash Dennison, DO Status post exploratory laparotomy Social History Smoking Status: Current some day smoker Tobacco Type: Cigarettes Do You Dip or Chew Tobacco: No; Hx Alcohol Use: Yes Alcohol type: beer Hx Substance Use: No Preferred Language: Urdu Communication Ability: Effective Card Tape Converter Operator Required: No Beliefs That Will Affect Care: None Current Living Situation: Spouse and Rehab Current Living Situation Comment: Patient lives at home with but is currently at [facility] Feels Safe at Home: Yes Assistive Devices: None Review of Systems Review of Systems: Unobtainable due to reduced consciousness Physical Exam Physical Exam: Constitutional: in no acute distress. Heavily sleeping but arousable. Vitals as above. HEENT: No scleral injection or discharge. Dry mucous membranes.Clear oropharynx. Tongue with bloody excoriations. Neck: Supple without lymphadenopathy. Trachea midline. Lungs: Tachypneic.Mild bibasilar rales. Cardiac: Tachycardic. Irregularly irregular rhythm.No murmurs.No extremity edema. 2+ distal peripheral pulses. Abdomen: Bowel sounds present. Soft and nondistended.No guarding. Midline abd incision c/d/i with kg intact. Ostomy bag in place with brown liquid consistency. MSK: No cyanosis or clubbing. Skin: warm, dry Neurologic: PERRL. Cranial nerves unable to be assessed. Results & Data Results & Data Vital Signs (Past 12 Hours) Vital Signs Temp Pulse Resp BP Pulse Ox O2 Del Method 03/10/23 23:40 98 H 30 H 99 03/10/23 23:30 91 H 37 H 92 03/10/23 23:30 141/73 H 03/10/23 23:20 97 H 35 H 100 03/10/23 23:10 95 H 35 H 93 03/10/23 23:00 104 H 29 H 99 03/10/23 23:00 154/83 H 03/10/23 22:50 97 H 30 H 96 03/10/23 22:40 103 H 26 H 91 03/10/23 22:30 104 H 39 H 93 03/10/23 22:30 159/85 H 03/10/23 22:20 101 H 31 H 93 03/10/23 22:10 101 H 36 H 93 03/10/23 22:00 160/77 H 03/10/23 22:00 103 H 22 92 03/10/23 21:50 107 H 23 93 03/10/23 21:47 105 H 23 93 0618/23 21:47 159/94 H 03/10/23 21:40 102 H 22 90 03/10/23 21:30 104 H 22 94 03/10/23 21:20 105 H 20 93 03/10/23 21:14 107 H 20 93 03/10/23 21:13 107 H 03/10/23 21:17 Room Air 03/10/23 21:14 39.5 C H 108 H 18 176/89 H 93 Room Air Laboratory Results Laboratory Results WBC 11.44 K/ul (4.8-10.8) H 03/10/23 21:37 RBC 3.51 M/uL (4.70-6.10) L 03/10/23 21:37 Hgb 10.5 g/dl (14.0-18.0) L 03/10/23 21:37 Hct 31.6 % (42.0-52.0) L 03/10/23 21:37 MCV 90.0 fL (80.0-100.0) 03/10/23 21:37 MCH 29.9 pg (25.0-34.0) 03/10/23 21:37 MCHC 33.2 g/dL (32.0-36.0) 03/10/23 21:37 RDW Std Deviation 45.4 fL (36.4-46.3) 03/10/23 21:37 RDW Coeff of Eduardo 14.0 % (11.5-14.5) 03/10/23 21:37 Plt Count 369 K/uL (130-400) 03/10/23 21:37 MPV 10.1 fL (9.4-12.4) 03/10/23 21:37 Immature Gran % (Auto) 0.6 % 03/10/23 21:37 Neut % (Auto) 86.1 % 03/10/23 21:37 Lymph % (Auto) 7.3 % 03/10/23 21:37 [place] % (Auto) 5.1 % 03/10/23 21:37 Eos % (Auto) 0.5 % 03/10/23 21:37 Baso % (Auto) 0.4 % 03/10/23 21:37 Neut # (Auto) 9.85 K/uL (1.40-6.50) H 03/10/23 21:37 Lymph # (Auto) 0.83 K/uL (1.2-3.4) L 03/10/23 21:37 [place] # (Auto) 0.58 K/uL (0.11-0.59) 03/10/23 21:37 Eos # (Auto) 0.06 K/uL (0-0.50) 03/10/23 21:37 Baso # (Auto) 0.05 K/uL (0-0.2) 03/10/23 21:37 Immature Gran # (Auto) 0.07 K/uL (0.01-0.20) 03/10/23 21:37 VBG pH 7.51 (7.36-7.41) H 03/10/23 22:39 VBG pCO2 35 mmHg (38-50) L 03/10/23 22:39 VBG pO2 53 mmHg 03/10/23 22:39 VBG HCO3 28 mmol/L 03/10/23 22:39 VBG O2 Saturation 88.6 % 03/10/23 22:39 VBG Base Excess 4.9 mEq/L 03/10/23 22:39 Sodium 139 mmol/L (136-145) 03/10/23 21:37 Potassium 3.6 mmol/L (3.5-5.1) 03/10/23 21:37 Chloride 106 mmol/L (98-107) 03/10/23 21:37 Carbon Dioxide 26 mmol/L (21-32) 03/10/23 21:37 Anion Gap 7 (3-11) 03/10/23 21:37 BUN 21 mg/dl (6-23) 03/10/23 21:37 Creatinine 1.22 mg/dl (0.6-1.4) 03/10/23 21:37 Est Cr Clr Drug Dosing Not Reportable 03/10/23 21:37 Est GFR ( Amer) 69.7 ml/min 03/10/23 21:37 Est GFR (Non-Af Amer) 60.1 ml/min 03/10/23 21:37 BUN/Creatinine Ratio 17.2 (10-20) 03/10/23 21:37 Glucose 126 mg/dl (70-99(Fasting)) H 03/10/23 21:37 Lactate 1.0 mmol/L (0.4-2.0) 03/10/23 21:37 Calcium 8.1 mg/dl (8.6-10.3) L 03/10/23 21:37 Magnesium 1.6 mg/dl (1.7-2.4) L 03/10/23 21:37 Total Bilirubin 0.8 mg/dl (0.2-1.0) 03/10/23 21:37 Direct Bilirubin 0.5 mg/dl (0-0.2) H 03/10/23 21:37 AST 58 U/L (13-39) H 03/10/23 21:37 ALT 46 U/L (7-52) 03/10/23 21:37 Alkaline Phosphatase 241 U/L (34-104) H 03/10/23 21:37 Troponin I High Sens 50.7 pg/ml (0-20) H* 03/10/23 21:37 Total Protein 6.2 gm/dl (6.0-8.3) 03/10/23 21:37 Albumin 2.7 gm/dl (3.4-5.0) L 03/10/23 21:37 Procalcitonin 0.50 ng/ml (0-0.5) 03/10/23 21:37 Urine Color Dark Yellow 03/10/23 21:37 Urine Appearance Turbid (Clear) A 03/10/23 21:37 Urine pH 5.0 (4.5-7.5) 03/10/23 21:37 Ur Specific Sterrett 1.025 (1.000-1.030) 03/10/23 21:37 Urine Protein 2+ (Negative) H 03/10/23 21:37 Urine Glucose (UA) Negative (Negative) 03/10/23 21:37 Urine Ketones Trace (Negative) H 03/10/23 21:37 Urine Blood 3+ (Negative) H 03/10/23 21:37 Urine Nitrite Negative (Negative) 03/10/23 21:37 Urine Bilirubin 1+ (Negative) H 03/10/23 21:37 Urine Urobilinogen Negative (Negative) 03/10/23 21:37 Ur Leukocyte Esterase 2+ (Negative) H 03/10/23 21:37 Urine WBC (Auto) >30 /hpf (0-5) H 03/10/23 21:37 Urine RBC (Auto) >30 /hpf (0-4) H 03/10/23 21:37 U Hyaline Cast (Auto) 5-10 /lpf (0-5) H 03/10/23 21:37 U Epithel Cells (Auto) >30 /lpf (0-5) H 03/10/23 21:37 Urine Bacteria (Auto) Negative (Negative) 03/10/23 21:37 Granular Casts 1-5 /lpf (0) H 03/10/23 21:37 Urine Yeast Present (None Prsent) A 03/10/23 21:37 SARS-CoV-2, RNA, NAAT NEGATIVE (NEGATIVE) 03/10/23 21:37 Impressions Chest X-Ray 03/10/23 21:13 SINGLE VIEW CHEST CLINICAL HISTORY: Sepsis. FINDINGS: An AP upright chest radiograph is compared to study dated 03/09/2023. Correlation is made with abdominal CT dated 03/09/2023. The examination is degraded by portable technique and apical lordotic positioning. The heart is enlarged. There is pulmonary vascular congestion. There are trace pleural effusions. Linear bibasilar opacities likely represent foci of subsegmental/segmental atelectasis. No pneumothorax is seen. The skeletal structures are osteopenic. The bony thorax is grossly intact. IMPRESSION: 1. Cardiomegaly with pulmonary vascular congestion. 2. Small pleural effusions. 3. Linear bilateral airspace opacities likely represent foci of atelectasis. This is unchanged from previous. ACT 112: Negative or not required by law. Electronically signed by: Alexis Regan M.D. 03/10/2023 10:33 PM Diagnostic Findings Laboratory Results WBC 11.44 K/ul (4.8-10.8) H 03/10/23 21:37 RBC 3.51 M/uL (4.70-6.10) L 03/10/23 21:37 Hgb 10.5 g/dl (14.0-18.0) L 03/10/23 21:37 Hct 31.6 % (42.0-52.0) L 03/10/23 21:37 MCV 90.0 fL (80.0-100.0) 03/10/23 21:37 MCH 29.9 pg (25.0-34.0) 03/10/23 21:37 MCHC 33.2 g/dL (32.0-36.0) 03/10/23 21:37 RDW Std Deviation 45.4 fL (36.4-46.3) 03/10/23 21:37 RDW Coeff of Eduardo 14.0 % (11.5-14.5) 03/10/23 21:37 Plt Count 369 K/uL (130-400) 03/10/23 21:37 MPV 10.1 fL (9.4-12.4) 03/10/23 21:37 Immature Gran % (Auto) 0.6 % 03/10/23 21:37 Neut % (Auto) 86.1 % 03/10/23 21:37 Lymph % (Auto) 7.3 % 03/10/23 21:37 [place] % (Auto) 5.1 % 03/10/23 21:37 Eos % (Auto) 0.5 % 03/10/23 21:37 Baso % (Auto) 0.4 % 03/10/23 21:37 Neut # (Auto) 9.85 K/uL (1.40-6.50) H 03/10/23 21:37 Lymph # (Auto) 0.83 K/uL (1.2-3.4) L 03/10/23 21:37 [place] # (Auto) 0.58 K/uL (0.11-0.59) 03/10/23 21:37 Eos # (Auto) 0.06 K/uL (0-0.50) 03/10/23 21:37 Baso # (Auto) 0.05 K/uL (0-0.2) 03/10/23 21:37 Immature Gran # (Auto) 0.07 K/uL (0.01-0.20) 03/10/23 21:37 VBG pH 7.51 (7.36-7.41) H 03/10/23 22:39 VBG pCO2 35 mmHg (38-50) L 03/10/23 22:39 VBG pO2 53 mmHg 03/10/23 22:39 VBG HCO3 28 mmol/L 03/10/23 22:39 VBG O2 Saturation 88.6 % 03/10/23 22:39 VBG Base Excess 4.9 mEq/L 03/10/23 22:39 Sodium 139 mmol/L (136-145) 03/10/23 21:37 Potassium 3.6 mmol/L (3.5-5.1) 03/10/23 21:37 Chloride 106 mmol/L (98-107) 03/10/23 21:37 Carbon Dioxide 26 mmol/L (21-32) 03/10/23 21:37 Anion Gap 7 (3-11) 03/10/23 21:37 BUN 21 mg/dl (6-23) 03/10/23 21:37 Creatinine 1.22 mg/dl (0.6-1.4) 03/10/23 21:37 Est Cr Clr Drug Dosing Not Reportable 03/10/23 21:37 Est GFR ( Amer) 69.7 ml/min 03/10/23 21:37 Est GFR (Non-Af Amer) 60.1 ml/min 03/10/23 21:37 BUN/Creatinine Ratio 17.2 (10-20) 03/10/23 21:37 Glucose 126 mg/dl (70-99(Fasting)) H 03/10/23 21:37 Lactate 1.0 mmol/L (0.4-2.0) 03/10/23 21:37 Calcium 8.1 mg/dl (8.6-10.3) L 03/10/23 21:37 Magnesium 1.6 mg/dl (1.7-2.4) L 03/10/23 21:37 Total Bilirubin 0.8 mg/dl (0.2-1.0) 03/10/23 21:37 Direct Bilirubin 0.5 mg/dl (0-0.2) H 03/10/23 21:37 AST 58 U/L (13-39) H 03/10/23 21:37 ALT 46 U/L (7-52) 03/10/23 21:37 Alkaline Phosphatase 241 U/L (34-104) H 03/10/23 21:37 Troponin I High Sens 50.7 pg/ml (0-20) H* 03/10/23 21:37 Total Protein 6.2 gm/dl (6.0-8.3) 03/10/23 21:37 Albumin 2.7 gm/dl (3.4-5.0) L 03/10/23 21:37 Procalcitonin 0.50 ng/ml (0-0.5) 03/10/23 21:37 Urine Color Dark Yellow 03/10/23 21:37 Urine Appearance Turbid (Clear) A 03/10/23 21:37 Urine pH 5.0 (4.5-7.5) 03/10/23 21:37 Ur Specific Sterrett 1.025 (1.000-1.030) 03/10/23 21:37 Urine Protein 2+ (Negative) H 03/10/23 21:37 Urine Glucose (UA) Negative (Negative) 03/10/23 21:37 Urine Ketones Trace (Negative) H 03/10/23 21:37 Urine Blood 3+ (Negative) H 03/10/23 21:37 Urine Nitrite Negative (Negative) 03/10/23 21:37 Urine Bilirubin 1+ (Negative) H 03/10/23 21:37 Urine Urobilinogen Negative (Negative) 03/10/23 21:37 Ur Leukocyte Esterase 2+ (Negative) H 03/10/23 21:37 Urine WBC (Auto) >30 /hpf (0-5) H 03/10/23 21:37 Urine RBC (Auto) >30 /hpf (0-4) H 03/10/23 21:37 U Hyaline Cast (Auto) 5-10 /lpf (0-5) H 03/10/23 21:37 U Epithel Cells (Auto) >30 /lpf (0-5) H 03/10/23 21:37 Urine Bacteria (Auto) Negative (Negative) 03/10/23 21:37 Granular Casts 1-5 /lpf (0) H 03/10/23 21:37 Urine Yeast Present (None Prsent) A 03/10/23 21:37 SARS-CoV-2, RNA, NAAT NEGATIVE (NEGATIVE) 03/10/23 21:37 Impressions Chest X-Ray 03/10/23 21:13 SINGLE VIEW CHEST CLINICAL HISTORY: Sepsis. FINDINGS: An AP upright chest radiograph is compared to study dated 03/09/2023. Correlation is made with abdominal CT dated 03/09/2023. The examination is degraded by portable technique and apical lordotic positioning. The heart is enlarged. There is pulmonary vascular congestion. There are trace pleural effusions. Linear bibasilar opacities likely represent foci of subsegmental/segmental atelectasis. No pneumothorax is seen. The skeletal structures are osteopenic. The bony thorax is grossly intact. IMPRESSION: 1. Cardiomegaly with pulmonary vascular congestion. 2. Small pleural effusions. 3. Linear bilateral airspace opacities likely represent foci of atelectasis. This is unchanged from previous. ACT 112: Negative or not required by law. Electronically signed by: Alexis Regan M.D. 03/10/2023 10:33 PM Code Status & VTE Plan VTE Prophylaxis Plan VTE Prophylaxis will be ordered: Yes Supervising Physician Co-Signing Physician Notes Patient seen and examined, chart reviewed, case discussed with Dr. Phelps at time of admission and I agree with the assessment and plan as documented above. In brief, patient is a 67yo male with recent laparotomy (03/01/23) with resection of descending colon and ostomy creation performed for perforated diverticuli with abscess. Patient presents from [facility] with fever and tachycardia. On exam patient is febrile, tachycardic, ill in appearance Dry mucus membranes +S1/S2, irregularly irregular, tachycardic, no m/r/g Lungs with bibasilar rales, tachypnea Abd soft, ND, ostomy in place Labs and images reviewed Assessment/Plan 68yo male s/p laparotomy with colon resection and ostomy performed 03/01/23 due to perforated diverticuli with abscess returns with sepsis. Concern for abdominal source -Admit to PCU -IVF, Antibiotic coverage with Zosyn -Monitor abdominal wound -General surgery consultation appreciated -Remainder of plan as above Resident Activity Tracking Resident Involvement: Resident Care Provided Care Provided: Adult [facility] Medicine
[2023-03-11] MEDS ORDERED: POLYETHYLENE (MIRALAX) 17 GM PACK PO PRN (02:55)
[2023-03-11] MEDS ORDERED: ONDANSETRON INJ 2 MG/ML 2 ML VIAL IV PRN (02:55)
[2023-03-11] MEDS ORDERED: ACETAMINOPHEN 1,000 MG/100 ML VIAL IV PRN (02:55)
[2023-03-11] MEDS: Patient's HEIGHT &/or WEIGHT Needed SCH ×2 (03:02)
[2023-03-11] MEDS: SODIUM CHLORIDE 0.9% 1000ML 1,000 ML IV SCH ×2 (03:18→10:34)
--- NOTE | 2023-03-11 03:31 | Billing Data ---
Date of Service March 11, 2023 Coding Level of Care Code 42711 INT INP/OBS CARE
[2023-03-11] MEDS: PIPERACILLIN/TAZOBACTAM 4.5 GM in DEXTROSE 5% 100 ML IV SCH ×3 (03:43→20:59)
[2023-03-11] MEDS: METOPROLOL TARTRATE 1 MG/ML VIAL IV SCH ×3 (08:00→21:41)
[2023-03-11 08:33] LABS: Basophils # (auto) 0.05 K/uL (0-0.2); Basophils % (auto) 0.5 %; Eosinophils % (auto) 0.9 %; Immature Granulocytes # (auto) 0.06 K/uL (0.01-0.20); Immature Granulocytes % (auto) 0.6 %; Lymphocytes # (auto) 0.83 K/uL (1.2-3.4); Lymphocytes % (auto) 7.8 %; Mean Corpuscular Hemoglobin 29.3 pg (25.0-34.0); Mean Corpuscular Hgb Conc 33.3 g/dL (32.0-36.0); Mean Platelet Volume 9.9 fL (9.4-12.4); Monocytes % (auto) 4.7 %; Neutrophils # (auto) 9.11 K/uL (1.40-6.50); Neutrophils % (auto) 85.5 %; Platelet Count 315 K/uL (130-400); RDW Coefficient of Variation 14.3 % (11.5-14.5); RDW Standard Deviation 45.5 fL (36.4-46.3); Red Blood Count 3.41 M/uL (4.70-6.10); White Blood Count 10.65 K/ul (4.8-10.8)
--- NOTE | 2023-03-11 08:43 | Surgery Consultation ---
Date of Consultation March 11, 2023 Assessment & Plan (1) Intra-abdominal infection: This is a 68y M with PMH of stroke, afib, CKD, who of significance recently underwent exploratory laparotomy, descending colon resection and creation of transverse colostomy who was sent to the [facility] ED on 03/10/23 with concern for tachycardia and fever. He underwent a recent CT a/p that revealed loculated fluid on the LEFT abdomen/pelvis, with small locules of air. Intraperitoneal abscess not excluded and the collection measures approximately 15.7 x 9.8 cm. WBC yesterday 11 and he was febrile to 39.5C. He was started on IV zosyn and kept NPO. Today patient's WBC 10 and he is with stable vital signs. He currently denies any abdominal complaints (pain/n/v) however appears mildly tender to exam with palpation of the left side of his abdomen. We have discussed patient's case with IR who is willing to drain fluid collection today. Eliquis has been on hold. Will send off for cultures. There is no concern currently for superficial wound infection. He has some slight serous drainage from superior aspect of incision where millie drain was removed, this will heal up with time. No plans for surgical intervention. Will follow. Supervising Physician Co-Signing Physician Notes I personally saw and evaluated the patient with Ania El PA-C and agree the assessment and plan. 68-year-old male status post ex lap descending colon resection with ostomy [address] images and results were reviewed by myself, we will plan on IR drainage of this collection His ostomy is functioning well without any signs of obstruction, can have a diet from surgery standpoint once IR has completed the procedure We will continue to follow History of Present Illness Attending Physician: Sun Schulz MD History of Present Illness This is a 68y M with PMH of stroke, afib, CKD, who of significance recently underwent exploratory laparotomy, descending colon resection and creation of transverse colostomy who was sent to the [facility] ED on 03/10/23 with concern for tachycardia and fever. Of note he was seen in the ED on Saturday from [facility] due to concern for wound dehiscence. He underwent a CT a/p that revealed loculated fluid on the LEFT abdomen/pelvis, with small locules of air. Intraperitoneal abscess not excluded and the collection measures approximately 15.7 x 9.8 cm. He was found to not have a wound dehiscence and was with WBC of 7 and stable vitals and thought it was related to post surgical changes ans was discharged back to [facility]. unfortunately while there the patient developed tachycardia and fevers and was sent back to the ER. He was admitted under the hospitalists service and gen surg was consulted. Started on IV abx due to concern of fluid collection. Patient reports he has been feeling well and that he was sent here by rehab and unsure why. He denies any abdominal pain, nausea/vomiting, fevers/chills, CP/SOB. He reports he is tolerating a diet. Ostomy is functioning. Allergies Allergy/AdvReac Type Severity Reaction Status Date / Time No Known Allergies Allergy Verified 03/10/23 21:30 Home Medications Medication Instructions Recorded Confirmed Type acetaminophen 325 mg tablet 650 mg PO Q4 PRN Pain 03/01/23 03/10/23 History (Tylenol) albuterol sulfate 90 mcg/actuation 1 inh inhalation Q4 PRN Wheezing 03/01/23 03/10/23 History aerosol inhaler amlodipine 10 mg tablet 10 mg PO DAILY 03/01/23 03/10/23 History apixaban 5 mg tablet 5 mg PO BID 03/01/23 03/10/23 History docusate sodium 100 mg capsule 100 mg PO BID 03/01/23 03/10/23 History melatonin 3 mg tablet 3 mg PO HS PRN Sleep 03/01/23 03/10/23 History metoprolol tartrate 50 mg tablet 50 mg PO Q12H 03/01/23 03/10/23 History ondansetron HCl 4 mg tablet 4 mg PO Q4 PRN Nausea 03/01/23 03/10/23 History polyethylene glycol 3350 17 gram 17 g PO QDL PRN Constipation 03/01/23 03/10/23 History oral powder packet (Miralax) sennosides 8.6 mg-docusate sodium 1 tab-cap PO QDL PRN Constipation 03/01/23 03/10/23 History 50 mg tablet (Senokot-S) thiamine HCl (vitamin B1) 100 mg 100 mg PO DAILY 03/01/23 03/10/23 History tablet atorvastatin 20 mg tablet 20 mg PO QAM 30 days #30 tabs 03/07/23 03/10/23 Rx risperidone 0.5 mg tablet 0.5 mg PO BID 30 days #60 tabs 03/07/23 03/10/23 Rx amoxicillin 875 mg-potassium 1 tab PO Q8H 03/09/23 03/10/23 History clavulanate 125 mg tablet bisacodyl 10 mg rectal suppository 10 mg MI DAILY PRN Constipation 03/09/23 03/10/23 History diazepam 2 mg tablet 2 mg PO Q4H PRN NEEDED 03/09/23 03/10/23 History Patient History Medical History Atrial fibrillation Endotracheally intubated Perforated abdominal viscus Sepsis Stroke Ventilator dependence Surgical History History of colon resection (03/01/23) Exploratory Laparotomy, Desending Colon Resection, Partial omentectomy, creation of end colostomy(Not Applicable) - Avinash Dennison, DO Status post exploratory laparotomy Social History Smoking Status: Current some day smoker Tobacco Type: Cigarettes Do You Dip or Chew Tobacco: No; Hx Alcohol Use: Yes Alcohol type: beer Hx Substance Use: No Preferred Language: Macedonian Communication Ability: Effective Ammonium Sulfate Operator Required: No Beliefs That Will Affect Care: None Current Living Situation: Spouse and Rehab Current Living Situation Comment: Patient lives at home with but is currently at [facility] Other Information That Helps Us Care for You: No Feels Safe at Home: Yes Safety Concerns: Feels Safe At This Time Assistive Devices: None Review of Systems Constitutional: no fever and no chills Respiratory: no dyspnea Cardiovascular: no chest pain Gastrointestinal: no abdominal pain, no nausea, no vomiting and no change in bowel habits Physical Exam Physical Exam: awake Constitutional: no acute distress Respiratory: normal respiratory effort Cardiovascular: Rate/Rhythm: regular rate Gastrointestinal (Abdomen): Inspection/Auscultation: + abdomen distended and + abdominal surgical incision (midline with kg, no signs of infection. scant serous fluid at superior) Percussion/Palpation: + abdomen tender (denies pain, however appears to grimace some to L sided palpation) and abdomen soft ostomy with + stool in bag Results & Data Vital Signs (Past 12 Hours) Vital Signs Temp Pulse Pulse Pulse Resp BP BP 03/11/23 08:17 90 147/73 H 03/11/23 08:00 89 178/73 H 03/11/23 07:34 36.8 C 89 18 178/73 H 03/11/23 03:22 03/11/23 03:22 87 03/11/23 02:56 36.3 C L 100 H 22 170/85 H 03/11/23 02:30 82 39 H 03/11/23 02:20 79 41 H 03/11/23 02:10 81 38 H 03/11/23 02:00 85 34 H 03/11/23 02:00 139/72 03/11/23 01:50 75 38 H 03/11/23 01:40 83 35 H 03/11/23 01:30 86 34 H 03/11/23 01:20 80 33 H 03/11/23 01:10 79 28 H 03/11/23 01:00 90 30 H 03/11/23 01:00 140/80 03/11/23 00:50 85 40 H 03/11/23 00:40 86 34 H 03/11/23 00:30 94 H 35 H 03/11/23 00:30 131/64 03/11/23 00:20 100 H 41 H 03/11/23 00:10 99 H 31 H 03/11/23 00:00 83 38 H 03/11/23 00:00 138/70 03/10/23 23:50 88 22 03/11/23 02:32 75 28 H 139/72 03/11/23 01:13 80 03/10/23 23:40 98 H 30 H 03/10/23 23:30 91 H 37 H 03/10/23 23:30 141/73 H 03/10/23 23:20 97 H 35 H 03/10/23 23:10 95 H 35 H 03/10/23 23:00 104 H 29 H 03/10/23 23:00 154/83 H 03/10/23 22:50 97 H 30 H 03/10/23 22:40 103 H 26 H 03/10/23 22:30 104 H 39 H 03/10/23 22:30 159/85 H 03/10/23 22:20 101 H 31 H 03/10/23 22:10 101 H 36 H 03/10/23 22:00 160/77 H 03/10/23 22:00 103 H 22 03/10/23 21:50 107 H 23 03/10/23 21:47 105 H 23 03/10/23 21:47 159/94 H 03/10/23 21:40 102 H 22 03/10/23 21:30 104 H 22 03/10/23 21:20 105 H 20 03/10/23 21:14 107 H 20 03/10/23 21:13 107 H 03/10/23 21:17 03/10/23 21:14 39.5 C H 108 H 18 176/89 H Pulse Ox O2 Del Method 03/11/23 08:17 03/11/23 08:00 03/11/23 07:34 94 Room Air 03/11/23 03:22 Room Air 03/11/23 03:22 03/11/23 02:56 92 Room Air 03/11/23 02:30 03/11/23 02:20 03/11/23 02:10 03/11/23 02:00 03/11/23 02:00 03/11/23 01:50 100 03/11/23 01:40 95 03/11/23 01:30 96 03/11/23 01:20 97 03/11/23 01:10 96 03/11/23 01:00 94 03/11/23 01:00 03/11/23 00:50 93 03/11/23 00:40 94 03/11/23 00:30 95 03/11/23 00:30 03/11/23 00:20 94 03/11/23 00:10 95 03/11/23 00:00 96 03/11/23 00:00 03/10/23 23:50 98 03/11/23 02:32 94 Room Air 03/11/23 01:13 03/10/23 23:40 99 03/10/23 23:30 92 03/10/23 23:30 03/10/23 23:20 100 03/10/23 23:10 93 03/10/23 23:00 99 03/10/23 23:00 03/10/23 22:50 96 03/10/23 22:40 91 03/10/23 22:30 93 03/10/23 22:30 03/10/23 22:20 93 03/10/23 22:10 93 03/10/23 22:00 03/10/23 22:00 92 03/10/23 21:50 93 03/10/23 21:47 93 03/10/23 21:47 03/10/23 21:40 90 03/10/23 21:30 94 03/10/23 21:20 93 03/10/23 21:14 93 03/10/23 21:13 03/10/23 21:17 Room Air 03/10/23 21:14 93 Room Air Diagnostic Findings am(s): CT ABDOMEN + PELVIS With Contrast IV Amt: 92ml EXAM: CT Abdomen and Pelvis With Intravenous Contrast CLINICAL HISTORY: Reason for exam: abdominal distension; midline wound dehisence. TECHNIQUE: Axial computed tomography images of the abdomen and pelvis with intravenous contrast. Automated exposure control was utilized for the study. A dose lowering technique was utilized adhering to the principles of ALARA. CONTRAST: Patient received 92ml of IV contrast COMPARISON: CT abdomen pelvis March 01, 2023. FINDINGS: Lung bases: Unremarkable. No mass. No consolidation. Pleural space: Small bilateral pleural effusions. Heart: Cardiomegaly. ABDOMEN: Liver: Unremarkable. No mass. Gallbladder and bile ducts: Unremarkable. No calcified stones. No ductal dilation. Pancreas: Atrophy of the pancreas. No ductal dilation. Spleen: Mild splenomegaly. Adrenals: Unremarkable. No mass. Kidneys and ureters: Unremarkable. No solid mass. No hydronephrosis. Stomach and bowel: Midline laparotomy kg. Diverticulosis, without acute diverticulitis. Partial clinically. LEFT lower quadrant diverting colostomy. Parastomal hernia measures approximately 5.2 x 3.5 cm. No obstruction. PELVIS: Appendix: No findings to suggest acute appendicitis. Bladder: Decompressed urinary bladder which contains a Mclain catheter. Large fat-containing and fluid containing LEFT inguinal hernia. Reproductive: Unremarkable as visualized. ABDOMEN and PELVIS: Intraperitoneal space: Loculated fluid on the LEFT abdomen/pelvis, with small locules of air. Intraperitoneal abscess not excluded. When compared to 6 922.3 this now contains more fluid and less air. The need for percutaneous drainage should be determined clinically. This collection measures approximately 15.7 x 9.8 cm. Mild abdominal ascites. Bones/joints: Degenerative changes of the spine. No acute fracture. No dislocation. Soft tissues: See above. Vasculature: Atherosclerotic changes of the aorta. No abdominal aortic aneurysm. Lymph nodes: Unremarkable. No enlarged lymph nodes. IMPRESSION: 1. Loculated fluid on the LEFT abdomen/pelvis, with small locules of air. Intraperitoneal abscess not excluded. When compared to CT abdomen pelvis March 01, 2023, this now contains more fluid and less air. The need for percutaneous drainage should be determined clinically. This collection measures approximately 15.7 x 9.8 cm. 2. Midline laparotomy kg. Diverticulosis, without acute diverticulitis. Partial clinically. LEFT lower quadrant diverting colostomy. Parastomal hernia measures approximately 5.2 x 3.5 cm. Electronically signed by: Dirk Walker MD 03/09/23 22:49 PM PG Care Time/CCT Total # of Minutes Spent Total Time Spent with Patient: Total time spent is greater than 50% in coordination of care (as documented) at patient's floor/unit and/or counseling patient: Coding Level of Care Code None Diagnoses Intra-abdominal infection B99.9
[2023-03-11 08:53] LABS: BUN Creatinine Ratio 14.4 (10-20); Calcium 8.2 mg/dl (8.6-10.3); Creatinine Clr Calc Pharmacy 63.9 ml/min; Est GFR (African American) 62.9 ml/min; Est GFR (Non-African American) 54.3 ml/min; Potassium 3.4 mmol/L (3.5-5.1)
[2023-03-11 08:59] LABS: INR 1.3 (0.9-1.1); Partial Thromboplastin Ratio 1.2; Partial Thromboplastin Time 33.6 Seconds (21.0-31.0); Prothrombin Time 13.8 Seconds (9.0-12.0)
[2023-03-11] MEDS: amLODIPine BESYLATE 5 MG TAB PO SCH (10:10)
[2023-03-11] MEDS: ATORVASTATIN 20 MG TAB PO SCH (10:10)
[2023-03-11] MEDS: DOCUSATE SODIUM 100 MG CAP PO SCH ×2 (10:11→21:36)
[2023-03-11] MEDS: risperiDONE 0.5 MG TABLET PO SCH ×2 (10:11→21:36)
[2023-03-11] MEDS ORDERED: fentaNYL citrate PF 100 MCG/2 ML VIAL ONE (11:16)
--- NOTE | 2023-03-11 13:22 | Electrocardiogram Report ---
Test Reason : Blood Pressure : / mmHG Vent. Rate : 107 BPM Atrial Rate : 000 BPM P-R Int : 000 ms QRS Dur : 086 ms QT Int : 334 ms P-R-T Axes : 000 -22 156 degrees QTc Int : 445 ms Atrial fibrillation with rapid ventricular response Septal infarct , age undetermined T wave abnormality, consider lateral ischemia Abnormal ECG When compared with ECG of 09-MAR-2023 20:46, Septal infarct is now Present Confirmed by Isra Kaufman ([id number]) on 03/11/2023 1:21:40 PM Referred By: REFERRED SELF Confirmed By:Isra Kaufman
--- NOTE | 2023-03-11 15:23 | CT Scan Report ---
CT-guided left abdominal abscess train placement INDICATION: Left lower quadrant abdominal abscess PROCEDURE: Procedure and risks were explained. Informed consent was obtained. A final timeout was com pleted. The patient was placed supine on the CT exam table. The left lower quadrant was prepped and d raped in sterile fashion. 1% buffered lidocaine was utilized for skin anesthesia. Utilizing CT guidance, a an 18-gauge Chiba needle was advanced into the left lower quadrant abscess c ollection. A 0.035 Amplatz wire was introduced through the Chiba needle and exchanged for an 8 Telugu locking pigtail catheter. Approximately 200 mL of purulent fluid was drained at the time of the proc edure with a small portion sent to lab for culture analysis. The catheter was sutured to the skin wit h 2-0 silk and placed to suction bag drainage. The patient tolerated the procedure well. Post CT imag ing demonstrated adequate catheter position with significant decrease of the abscess collection. Elise l signs will be monitored on the floor postprocedure. IMPRESSION: Left lower quadrant abscess drain placement as detailed above. Performed, dictated, and signed by Fernando Berger PA-C; to be co-signed by Dr. Virgilio Spaulding. Electronically signed by: Virgilio Spaulding M.D. 03/11/2023 6:07 PM
[2023-03-12] MEDS: PIPERACILLIN/TAZOBACTAM 4.5 GM in DEXTROSE 5% 100 ML IV SCH ×3 (04:17→20:47)
[2023-03-12] MEDS: METOPROLOL TARTRATE 1 MG/ML VIAL IV SCH ×4 (04:17→21:01)
[2023-03-12 07:01] LABS: Basophils # (auto) 0.04 K/uL (0-0.2); Basophils % (auto) 0.5 %; Eosinophils # (auto) 0.15 K/uL (0-0.50); Eosinophils % (auto) 1.8 %; Hemoglobin 9.1 g/dl (14.0-18.0); Immature Granulocytes # (auto) 0.05 K/uL (0.01-0.20); Immature Granulocytes % (auto) 0.6 %; Lymphocytes # (auto) 0.93 K/uL (1.2-3.4); Mean Corpuscular Hemoglobin 29.4 pg (25.0-34.0); Mean Corpuscular Hgb Conc 32.5 g/dL (32.0-36.0); Mean Corpuscular Volume 90.3 fL (80.0-100.0); Monocytes # (auto) 0.43 K/uL (0.11-0.59); Monocytes % (auto) 5.1 %; Neutrophils # (auto) 6.84 K/uL (1.40-6.50); Platelet Count 308 K/uL (130-400); RDW Coefficient of Variation 14.1 % (11.5-14.5); RDW Standard Deviation 46.2 fL (36.4-46.3); White Blood Count 8.44 K/ul (4.8-10.8)
[2023-03-12 07:20] LABS: Albumin Globulin Ratio 0.7 (0.9-2); Albumin Level 2.3 gm/dl (3.4-5.0); BUN Creatinine Ratio 12.6 (10-20); Bilirubin,Total 0.6 mg/dl (0.2-1.0); Calcium 8.1 mg/dl (8.6-10.3); Creatinine Clr Calc Pharmacy 62.5 ml/min; Est GFR (African American) 61.2 ml/min; Est GFR (Non-African American) 52.8 ml/min; Globulin 3.2 gm/dl (2.5-4.0); Magnesium 1.7 mg/dl (1.7-2.4); Potassium 3.3 mmol/L (3.5-5.1); Total Protein 5.5 gm/dl (6.0-8.3)
[2023-03-12] MEDS: DOCUSATE SODIUM 100 MG CAP PO SCH ×2 (08:35→20:48)
[2023-03-12] MEDS: ATORVASTATIN 20 MG TAB PO SCH (08:35)
[2023-03-12] MEDS: amLODIPine BESYLATE 5 MG TAB PO SCH (08:35)
[2023-03-12] MEDS: risperiDONE 0.5 MG TABLET PO SCH ×2 (08:35→20:48)
--- NOTE | 2023-03-12 09:24 | Surgery Progress Note ---
Date of Service March 12, 2023 Assessment & Plan (1) Status post exploratory laparotomy: Plan: He is overall doing well status post IR drain placement He does have Tanja in his urine, infectious disease consult has already been placed will defer to them whether this needs to be treated He is tolerating regular diet with ostomy function Dry dressing can be placed on the incision, superior pole only daily and as needed for drainage We will continue to follow Admission and Anticipated Discharge Date Admission Date: March 11, 2023 Subjective Patient seen and examined. Tolerating a diet. Has ostomy function. Feels better after his intra-abdominal drain. Afebrile. Physical Exam Constitutional: WD/WN, vitals as above Gastrointestinal (Abdomen): Midline incision with kg, superior pole still open with some serosanguineous drainage Ostomy in left upper quadrant pink with output Results & Data Vital Signs (Past 12 Hours) Vital Signs Temp Pulse Pulse Resp BP BP Pulse Ox 03/12/23 08:27 36.4 C L 86 19 145/88 H 94 03/12/23 07:53 80 03/12/23 04:17 90 03/12/23 03:28 36.9 C 90 18 162/83 H 93 03/11/23 23:00 92 H 03/11/23 22:48 36.9 C 87 22 150/67 H 93 03/11/23 21:41 99 H 168/92 H O2 Del Method 03/12/23 08:27 Room Air 03/12/23 07:53 03/12/23 04:17 03/12/23 03:28 Room Air 03/11/23 23:00 03/11/23 22:48 Room Air 03/11/23 21:41 PG Care Time/CCT Total # of Minutes Spent Total Time Spent with Patient: Total time spent is greater than 50% in coordination of care (as documented) at patient's floor/unit and/or counseling patient: Coding Level of Care Code 77936 Post Operative Follow-Up Diagnoses Status post exploratory laparotomy Z98.890
--- NOTE | 2023-03-12 12:14 | Hospitalist Progress Note ---
Date of Service March 12, 2023 Assessment & Plan (1) Sepsis: Plan: 67 yo male with PMHx of recent acute CVA, recent diverticulitis with perforation (s/p exploratory laparotomy, descending colon resection, and creation of ostomy), CKD, alcohol abuse, nicotine dependence, HTN, afrib, and HFpEF presents with fever and tachycardia from [facility] (acute rehab). #Sepsis secondary to intra abdominal infection, cultures growing gram negative bacilli, full characterization pending #Recent diverticulitis with perforation requiring surgical intervention -presented from acute rehab at [facility] due to abnormal vitals. Met 4/4 SIRS criteria. WBC 11.4. Lactate 1. -Patient recently s/p exploratory laparotomy, descending colon resection, and creation of ostomy for diverticulitis with perforation and abscess. He follows with [facility] gen surg. Has midline incision with kg intact. Incision clean and intact without drainage or signs of superficial infection. Ostomy bag intact with brown liquid stool. Suspect likely sepsis source to be intraabdominal infection/abscess. -CT A/P (03/09): Loculated fluid on the LEFT abdomen/pelvis, with small locules of air. When compared to CT abdomen pelvis March 01, 2023, this now contains more fluid and less air. -Patient is now s/p IR drainage of abscess and insertion of drain -Continue Zosyn -ID on consult (2) Atrial fibrillation: Plan: Newly diagnosed rate controlled with metoprolol Apixaban is on hold in view of recent surgery Will resume when ok by surgery (3) Hypertension: Plan: -BP is under good control -cont. home amlodipine. Metoprolol (4) Hx of arterial ischemic stroke: Plan: -Patient was Admitted to [facility] on 02/22/23 with right subthalamic infarction -Persistent left-sided chorea with no new deficits. Continue his prior regimen of risperidone and Valium PRN. -Avoiding high-intensity dosing as his LDL is low at 50, which could be 2/2 critical illness -Recommend repeat lipid panel in 6 weeks (5) Elevated troponin: Plan: #Elevated troponin -trop 50 on admission, trend -suspect due to demand ischemia from likely infection (6) Congestive heart failure: Plan: HFpEF -CXR: cardiomegaly with pulmonary vascular congestion -Moitor I/O, daily weight -Hold off on Lasix for now, patient appears compensated (7) CKD (chronic kidney disease): (8) Fever: (9) Status post exploratory laparotomy: (10) Alcohol abuse: Plan patient will be sent back to [facility] upon discharge for continued rehab Admission and Anticipated Discharge Date Admission Date: March 11, 2023 Subjective patient seen and examined, he feels better following IR drainage of intra abdominal abcsess Review of Systems Review of Systems: All systems reviewed are negative, apart from the ones contained in the history. Physical Exam Physical Exam: The patient is awake, alert and oriented 3, well developed and well nourished, abnormal movement, chorea HEENT--PERRL, EOMI, mucous membranes and oropharynx mildly dry Neck--supple. No JVD. No bruits. Thyroid normal, trachea midline, no adenopathy. Heart--normal S1 and S2. No murmurs, rubs or gallops. Lungs--clear bilaterally, no respiratory distress, no accessory muscle use. Abdomen--normal bowel sounds and soft. Mild epigastric and left sided abdominal pain Extremities--no cyanosis or clubbing. No edema. Dermatologic--normal skin turgor, normal color, no abnormal lymph nodes, no rash. Neurologic--cranial nerves II through XII grossly intact. choreiform movement Rheumatologic--normal range of motion. Psychiatric--normal affect. Results & Data Results & Data Vital Signs (Past 12 Hours) Vital Signs Temp Pulse Pulse Resp BP BP Pulse Ox 03/12/23 11:35 66 20 126/78 03/12/23 09:52 75 145/88 H 03/12/23 08:27 97.5 F L 86 19 145/88 H 94 03/12/23 07:53 80 03/12/23 04:17 90 03/12/23 03:28 98.4 F 90 18 162/83 H 93 O2 Del Method 03/12/23 11:35 Room Air 03/12/23 09:52 03/12/23 08:27 Room Air 03/12/23 07:53 03/12/23 04:17 03/12/23 03:28 Room Air PG Care Time/CCT Total # of Minutes Spent Total Time Spent with Patient: Total time spent is greater than 50% in coordination of care (as documented) at patient's floor/unit and/or counseling patient: Coding Level of Care Code 07193 SUB INP/OBS CARE 235MIN Diagnoses Sepsis A41.9 Atrial fibrillation I48.91 Hypertension I10 Hx of arterial ischemic stroke Z86.73 Elevated troponin R77.8 Congestive heart failure I50.9 CKD (chronic kidney disease) N18.9 Fever R50.9 Status post exploratory laparotomy Z98.890 Alcohol abuse F10.10 Time Spent (min) 35
--- NOTE | 2023-03-12 17:57 | Infectious Disease Consult ---
Date of Consultation March 12, 2023 Assessment & Plan (1) Fever: (2) Sepsis: (3) Intra-abdominal infection: Plan This is a 67 year old male with pmh of CVA ,atrial fibrillation recent diverticulitis with peroration and abscess sp ex lap, descending colon resection with ostomy creation, alcohol use disorder, CKD, HTN, HFpEF who presents from acute rehab with tachycardia and fever. He was admitted to [facility] with R sided ischemic stroke on 02/22 and was discharged 02/27 to rehab. He was readmitted to [facility] 02/28 with hypoxia. He was found to have diverticulitis with perforation and abscess. He underwent exploratory laparotomy, descending colon resection, partial omentectomy, mobilization of splenic flexure and creation of end colostomy on 03/01. Intraabdominal fluid was positive for E. coli and Bacteroides species ( Fragiles and thetaiotaomicron) . He received Zosyn 03/01-03/06 and was discharged on Augmentin until 03/13. He returned to the ED from rehab with serosanguineous drainage from the midline abdominal laparotomy incision on 03/09. He was noted to have slight dehiscence at the superior portion of the wound with just skin and intact fascia A CTAB showed loculated fluid on the L abdomen/pelvis, with small locules of air. There was c/f intraperitoneal abscess. His findings were reviewed with surgery cartoon designer. He was HDS and findings were thought to be postoperative in nature and he was discharged back to rehab. He returned the next day on 03/10 with fever and tachycardia. On admission : vitals 39.5, HR 108, RR 18, BP 176/89, o2 sat 93% RA. Labs noted for WBc 11.41, Lactate 1, UA with pyuria,wih yeast, Bun 21, cr 1.22. CXR diego wed vacular congestion. UC + for jethro sp. He was started on Zosyn. He was evaluated by General surgery who recommended IR drainage of intraabdominal collection. A drain was placed and intraabdominal cx are positive for GNR pending identification . ID consulted for intraabdominal infection He has dysarthria s/p CVA but denies nausea, vomiting , change in urine, chest pain. He endorses abdominal distention, slurred speech and left sided weakness Micro intraab fluid cx 03/11 GNR UC 03/10candida albicans/dub BC 03/10 NGTD ABx; Zosyn 03/10-ongoing 1. Sepsis with intra abdominal infection with abscess, cultures + GNR 2. Recent diverticulitis with perforation s/p surgical intervention 3. Asymptomatic pyuria, jethro 4. Recent CVA Continue zosyn for now pending ID/susceptibility of GNR in abdominal fluid FU intraabdominal fluid culture No treatment need for aysmptomatic candiduria Thank you for this consultation. ID will continue to follow. Maury Guerin MD, MPH Infectious Disease [facility] Call [phone] with questions Consultation Information Consultation was provided via telemedicine using two-way real-time interactive telecommunication between the patient and the telemedicine provider. For the duration of the visit, the provider was performing the assessment from a different facility than the patient. This includesuse of bluetooth stethoscope forauscultationperformed by the telepresenter that the telemedicine provider can hear if described in the physical exam. Railroad Police Officer contact information: Please call [facility] Call Center . (Phone Number For Physician Use Only) After establishing a telemedicine visit, patient was: Patient was verified with two unique identifiers and Gave permission to continue telehealth session Time Spent with Patient: Initial => 75 min History of Present Illness Reason for Consultation: Intraabdomnal infection Requesting Physician: Sun Schulz MD Attending Physician: Sun Schulz MD History of Present Illness This is a 67 year old male with pmh of CVA ,atrial fibrillation recent diverticulitis with peroration and abscess sp ex lap, descending colon resection with ostomy creation, alcohol use disorder, CKD, HTN, HFpEF who presents from acute rehab with tachycardia and fever. He was admitted to [facility] with R sided ischemic stroke on 02/22 and was discharged 02/27 to rehab. He was readmitted to [facility] 02/28 with hypoxia. He was found to have diverticulitis with perforation and abscess. He underwent exploratory laparotomy, descending colon resection, partial omentectomy, mobilization of splenic flexure and creation of end colostomy on 03/01. Intraabdominal fluid was positive for E. coli and Bacteroides species ( Fragiles and thetaiotaomicron) . He received Zosyn 03/01-03/06 and was discharged on Augmentin until 03/13. He returned to the ED from rehab with serosanguineous drainage from the midline abdominal laparotomy incision on 03/09. He was noted to have slight dehiscence at the superior portion of the wound with just skin and intact fascia A CTAB showed loculated fluid on the L abdomen/pelvis, with small locules of air. There was c/f intraperitoneal abscess. His findings were reviewed with surgery cartoon designer. He was HDS and findings were thought to be postoperative in nature and he was discharged back to rehab. He returned the next day on 03/10 with fever and tachycardia. On admission : vitals 39.5, HR 108, RR 18, BP 176/89, o2 sat 93% RA. Labs noted for WBc 11.41, Lactate 1, UA with pyuria,wih yeast, Bun 21, cr 1.22. CXR showed vacular congestion. UC + for jethro sp. He was started on Zosyn. He was evaluated by General surgery who recommended IR drainage of intraabdominal collection. A drain was placed and intraabdominal cx are positive for GNR pending identification . ID consulted for intraabdominal infection He has dysarthria s/p CVA but denies nausea, vomiting , change in urine, chest pain. He endorses abdominal distention, slurred speech and left sided weakness Allergies Allergy/AdvReac Type Severity Reaction Status Date / Time No Known Allergies Allergy Verified 03/10/23 21:30 Home Medications Medication Instructions Recorded Confirmed Type acetaminophen 325 mg tablet 650 mg PO Q4 PRN Pain 03/01/23 03/10/23 History (Tylenol) albuterol sulfate 90 mcg/actuation 1 inh inhalation Q4 PRN Wheezing 03/01/23 03/10/23 History aerosol inhaler amlodipine 10 mg tablet 10 mg PO DAILY 03/01/23 03/10/23 History apixaban 5 mg tablet 5 mg PO BID 03/01/23 03/10/23 History docusate sodium 100 mg capsule 100 mg PO BID 03/01/23 03/10/23 History melatonin 3 mg tablet 3 mg PO HS PRN Sleep 03/01/23 03/10/23 History metoprolol tartrate 50 mg tablet 50 mg PO Q12H 03/01/23 03/10/23 History ondansetron HCl 4 mg tablet 4 mg PO Q4 PRN Nausea 03/01/23 03/10/23 History polyethylene glycol 3350 17 gram 17 g PO QDL PRN Constipation 03/01/23 03/10/23 History oral powder packet (Miralax) sennosides 8.6 mg-docusate sodium 1 tab-cap PO QDL PRN Constipation 03/01/23 03/10/23 History 50 mg tablet (Senokot-S) thiamine HCl (vitamin B1) 100 mg 100 mg PO DAILY 03/01/23 03/10/23 History tablet atorvastatin 20 mg tablet 20 mg PO QAM 30 days #30 tabs 03/07/23 03/10/23 Rx risperidone 0.5 mg tablet 0.5 mg PO BID 30 days #60 tabs 03/07/23 03/10/23 Rx amoxicillin 875 mg-potassium 1 tab PO Q8H 03/09/23 03/10/23 History clavulanate 125 mg tablet bisacodyl 10 mg rectal suppository 10 mg LA DAILY PRN Constipation 03/09/23 03/10/23 History diazepam 2 mg tablet 2 mg PO Q4H PRN NEEDED 03/09/23 03/10/23 History Patient History Medical History Atrial fibrillation Endotracheally intubated Perforated abdominal viscus Sepsis Stroke Ventilator dependence Surgical History History of colon resection (03/01/23) Exploratory Laparotomy, Desending Colon Resection, Partial omentectomy, creation of end colostomy(Not Applicable) - Avinash Dennison, DO Status post exploratory laparotomy Social History Smoking Status: Current some day smoker Tobacco Type: Cigarettes Do You Dip or Chew Tobacco: No; Hx Alcohol Use: Yes Alcohol type: beer Hx Substance Use: No Preferred Language: Luxembourgish Communication Ability: Effective Fire Equipment Inspector Required: No Beliefs That Will Affect Care: None Current Living Situation: Spouse and Rehab Current Living Situation Comment: Patient lives at home with but is currently at [facility] Other Information That Helps Us Care for You: No Feels Safe at Home: Yes Safety Concerns: Feels Safe At This Time Assistive Devices: None Review of System A 10 point ROS obtained Pertinent positives as per HPI Physical Exam Constitutional: Awake, alert, dysarthric, chronically ill appearing Eyes: EOMI, anicteric sclera ENMT: Dry lips with dried blood Neck: Supple Respiratory: No increased Work of breathing Gastrointestinal (Abdomen): Soft , distendend, mild TTp. Midline incion with kg and no signs of infection. small superior opening .LUQ Ostomy- pink with drainae. L sided Drain in place draining fluid Musculoskeletal: No LE edema Neurologic: AAO*3, dtsarthric, L seded weakness Psychiatric: Cooperative Results & Data Vital Signs (Past 12 Hours) Vital Signs Temp Pulse Pulse Resp BP BP Pulse Ox 03/12/23 16:30 36.6 C 71 18 147/78 H 94 03/12/23 15:57 84 03/12/23 15:49 89 03/12/23 14:14 51 L 18 128/69 93 03/12/23 08:00 03/12/23 11:35 66 20 126/78 03/12/23 09:52 75 145/88 H 03/12/23 08:27 36.4 C L 86 19 145/88 H 94 03/12/23 07:53 80 O2 Del Method 03/12/23 16:30 Room Air 03/12/23 15:57 03/12/23 15:49 03/12/23 14:14 Room Air 03/12/23 08:00 Room Air 03/12/23 11:35 Room Air 03/12/23 09:52 03/12/23 08:27 Room Air 03/12/23 07:53 Laboratory Results Laboratory Results - last 48 hr 03/10/23 03/10/23 03/10/23 21:37 21:37 21:37 WBC 11.44 H RBC 3.51 L Hgb 10.5 L Hct 31.6 L MCV 90.0 MCH 29.9 MCHC 33.2 RDW Std Deviation 45.4 RDW Coeff of Eduardo 14.0 Plt Count 369 MPV 10.1 Immature Gran % (Auto) 0.6 Neut % (Auto) 86.1 Lymph % (Auto) 7.3 Wake % (Auto) 5.1 Eos % (Auto) 0.5 Baso % (Auto) 0.4 Neut # (Auto) 9.85 H Lymph # (Auto) 0.83 L Wake # (Auto) 0.58 Eos # (Auto) 0.06 Baso # (Auto) 0.05 Immature Gran # (Auto) 0.07 PT INR APTT PTT Ratio VBG pH VBG pCO2 VBG pO2 VBG HCO3 VBG O2 Saturation VBG Base Excess Sodium 139 Potassium 3.6 Chloride 106 Carbon Dioxide 26 Anion Gap 7 BUN 21 Creatinine 1.22 Est Cr Clr Drug Dosing Not Reportable Est GFR ( Amer) 69.7 Est GFR (Non-Af Amer) 60.1 BUN/Creatinine Ratio 17.2 Glucose 126 H Lactate 1.0 Calcium 8.1 L Magnesium 1.6 L Total Bilirubin 0.8 Direct Bilirubin 0.5 H AST 58 H ALT 46 Alkaline Phosphatase 241 H Troponin I High Sens 50.7 H* Total Protein 6.2 Albumin 2.7 L Globulin Albumin/Globulin Ratio Procalcitonin Urine Color Urine Appearance Urine pH Ur Specific [place] Urine Protein Urine Glucose (UA) Urine Ketones Urine Blood Urine Nitrite Urine Bilirubin Urine Urobilinogen Ur Leukocyte Esterase Urine WBC (Auto) Urine RBC (Auto) U Hyaline Cast (Auto) U Epithel Cells (Auto) Urine Bacteria (Auto) Granular Casts Urine Yeast Nasal Screen MRSA (PCR) SARS-CoV-2, RNA, NAAT 03/10/23 03/10/23 03/10/23 21:37 21:37 21:37 WBC RBC Hgb Hct MCV MCH MCHC RDW Std Deviation RDW Coeff of Eduardo Plt Count MPV Immature Gran % (Auto) Neut % (Auto) Lymph % (Auto) Wake % (Auto) Eos % (Auto) Baso % (Auto) Neut # (Auto) Lymph # (Auto) Wake # (Auto) Eos # (Auto) Baso # (Auto) Immature Gran # (Auto) PT INR APTT PTT Ratio VBG pH VBG pCO2 VBG pO2 VBG HCO3 VBG O2 Saturation VBG Base Excess Sodium Potassium Chloride Carbon Dioxide Anion Gap BUN Creatinine Est Cr Clr Drug Dosing Est GFR ( Amer) Est GFR (Non-Af Amer) BUN/Creatinine Ratio Glucose Lactate Calcium Magnesium Total Bilirubin Direct Bilirubin AST ALT Alkaline Phosphatase Troponin I High Sens Total Protein Albumin Globulin Albumin/Globulin Ratio Procalcitonin 0.50 Urine Color Dark Yellow Urine Appearance Turbid A Urine pH 5.0 Ur Specific [place] 1.025 Urine Protein 2+ H Urine Glucose (UA) Negative Urine Ketones Trace H Urine Blood 3+ H Urine Nitrite Negative Urine Bilirubin 1+ H Urine Urobilinogen Negative Ur Leukocyte Esterase 2+ H Urine WBC (Auto) >30 H Urine RBC (Auto) >30 H U Hyaline Cast (Auto) 5-10 H U Epithel Cells (Auto) >30 H Urine Bacteria (Auto) Negative Granular Casts 1-5 H Urine Yeast Present A Nasal Screen MRSA (PCR) SARS-CoV-2, RNA, NAAT NEGATIVE 03/10/23 03/11/23 03/11/23 22:39 06:40 08:12 WBC 10.65 RBC 3.41 L Hgb 10.0 L Hct 30.0 L MCV 88.0 MCH 29.3 MCHC 33.3 RDW Std Deviation 45.5 RDW Coeff of Eduardo 14.3 Plt Count 315 MPV 9.9 Immature Gran % (Auto) 0.6 Neut % (Auto) 85.5 Lymph % (Auto) 7.8 Wake % (Auto) 4.7 Eos % (Auto) 0.9 Baso % (Auto) 0.5 Neut # (Auto) 9.11 H Lymph # (Auto) 0.83 L Wake # (Auto) 0.50 Eos # (Auto) 0.10 Baso # (Auto) 0.05 Immature Gran # (Auto) 0.06 PT INR APTT PTT Ratio VBG pH 7.51 H VBG pCO2 35 L VBG pO2 53 VBG HCO3 28 VBG O2 Saturation 88.6 VBG Base Excess 4.9 Sodium Potassium Chloride Carbon Dioxide Anion Gap BUN Creatinine Est Cr Clr Drug Dosing Est GFR ( Amer) Est GFR (Non-Af Amer) BUN/Creatinine Ratio Glucose Lactate Calcium Magnesium Total Bilirubin Direct Bilirubin AST ALT Alkaline Phosphatase Troponin I High Sens 45.1 H Total Protein Albumin Globulin Albumin/Globulin Ratio Procalcitonin Urine Color Urine Appearance Urine pH Ur Specific [place] Urine Protein Urine Glucose (UA) Urine Ketones Urine Blood Urine Nitrite Urine Bilirubin Urine Urobilinogen Ur Leukocyte Esterase Urine WBC (Auto) Urine RBC (Auto) U Hyaline Cast (Auto) U Epithel Cells (Auto) Urine Bacteria (Auto) Granular Casts Urine Yeast Nasal Screen MRSA (PCR) SARS-CoV-2, RNA, NAAT 03/11/23 03/11/23 03/11/23 08:12 08:12 Unknown WBC RBC Hgb Hct MCV MCH MCHC RDW Std Deviation RDW Coeff of Eduardo Plt Count MPV Immature Gran % (Auto) Neut % (Auto) Lymph % (Auto) Wake % (Auto) Eos % (Auto) Baso % (Auto) Neut # (Auto) Lymph # (Auto) Wake # (Auto) Eos # (Auto) Baso # (Auto) Immature Gran # (Auto) PT 13.8 H INR 1.3 H APTT 33.6 H PTT Ratio 1.2 VBG pH VBG pCO2 VBG pO2 VBG HCO3 VBG O2 Saturation VBG Base Excess Sodium 141 Potassium 3.4 L Chloride 108 H Carbon Dioxide 27 Anion Gap 6 BUN 19 Creatinine 1.32 Est Cr Clr Drug Dosing 63.9 Est GFR ( Amer) 62.9 Est GFR (Non-Af Amer) 54.3 BUN/Creatinine Ratio 14.4 Glucose 102 H Lactate Calcium 8.2 L Magnesium Total Bilirubin Direct Bilirubin AST ALT Alkaline Phosphatase Troponin I High Sens Total Protein Albumin Globulin Albumin/Globulin Ratio Procalcitonin Urine Color Urine Appearance Urine pH Ur Specific [place] Urine Protein Urine Glucose (UA) Urine Ketones Urine Blood Urine Nitrite Urine Bilirubin Urine Urobilinogen Ur Leukocyte Esterase Urine WBC (Auto) Urine RBC (Auto) U Hyaline Cast (Auto) U Epithel Cells (Auto) Urine Bacteria (Auto) Granular Casts Urine Yeast Nasal Screen MRSA (PCR) Negative SARS-CoV-2, RNA, NAAT 03/12/23 03/12/23 06:34 06:34 WBC 8.44 RBC 3.10 L Hgb 9.1 L Hct 28.0 L MCV 90.3 MCH 29.4 MCHC 32.5 RDW Std Deviation 46.2 RDW Coeff of Eduardo 14.1 Plt Count 308 MPV 10.0 Immature Gran % (Auto) 0.6 Neut % (Auto) 81.0 Lymph % (Auto) 11.0 Wake % (Auto) 5.1 Eos % (Auto) 1.8 Baso % (Auto) 0.5 Neut # (Auto) 6.84 H Lymph # (Auto) 0.93 L Wake # (Auto) 0.43 Eos # (Auto) 0.15 Baso # (Auto) 0.04 Immature Gran # (Auto) 0.05 PT INR APTT PTT Ratio VBG pH VBG pCO2 VBG pO2 VBG HCO3 VBG O2 Saturation VBG Base Excess Sodium 139 Potassium 3.3 L Chloride 107 Carbon Dioxide 25 Anion Gap 7 BUN 17 Creatinine 1.35 Est Cr Clr Drug Dosing 62.5 Est GFR ( Amer) 61.2 Est GFR (Non-Af Amer) 52.8 BUN/Creatinine Ratio 12.6 Glucose 104 H Lactate Calcium 8.1 L Magnesium 1.7 Total Bilirubin 0.6 Direct Bilirubin AST 25 ALT 28 Alkaline Phosphatase 143 H Troponin I High Sens Total Protein 5.5 L Albumin 2.3 L Globulin 3.2 Albumin/Globulin Ratio 0.7 L Procalcitonin Urine Color Urine Appearance Urine pH Ur Specific [place] Urine Protein Urine Glucose (UA) Urine Ketones Urine Blood Urine Nitrite Urine Bilirubin Urine Urobilinogen Ur Leukocyte Esterase Urine WBC (Auto) Urine RBC (Auto) U Hyaline Cast (Auto) U Epithel Cells (Auto) Urine Bacteria (Auto) Granular Casts Urine Yeast Nasal Screen MRSA (PCR) SARS-CoV-2, RNA, NAAT Diagnostic Findings Microbiology 03/10/23 21:37 Urine,Clean Catch Urine Culture - Preliminary Jethro albicans/dubliniensis 03/11/23 12:20 Abdomen Gram Stain - Final 03/11/23 12:20 Abdomen Aerobic and Anaerobic Culture - Preliminary Gram negative bacilli 03/10/23 21:37 Blood Aerobic Blood Culture - Preliminary No growth in Aerobic bottle after 24 hours. 03/10/23 21:37 Blood Anaerobic Blood Culture - Preliminary No growth in Anaerobic bottle after 24 hours. 03/10/23 21:37 Blood Aerobic Blood Culture - Preliminary No growth in Aerobic bottle after 24 hours. 03/10/23 21:37 Blood Anaerobic Blood Culture - Preliminary No growth in Anaerobic bottle after 24 hours. Chest X-Ray 03/10/23 21:13 SINGLE VIEW CHEST CLINICAL HISTORY: Sepsis. FINDINGS: An AP upright chest radiograph is compared to study dated 03/09/2023. Correlation is made with abdominal CT dated 03/09/2023. The examination is degraded by portable technique and apical lordotic positioning. The heart is enlarged. There is pulmonary vascular congestion. There are trace pleural effusions. Linear bibasilar opacities likely represent foci of subsegmental/segmental atelectasis. No pneumothorax is seen. The skeletal structures are osteopenic. The bony thorax is grossly intact. IMPRESSION: 1. Cardiomegaly with pulmonary vascular congestion. 2. Small pleural effusions. 3. Linear bilateral airspace opacities likely represent foci of atelectasis. This is unchanged from previous. ACT 112: Negative or not required by law. Electronically signed by: Alexis Regan M.D. 03/10/2023 10:[address] 03/11/23 08:50 CT-guided left abdominal abscess train placement INDICATION: Left lower quadrant abdominal abscess PROCEDURE: Procedure and risks were explained. Informed consent was obtained. A final timeout was completed. The patient was placed supine on the CT exam table. The left lower quadrant was prepped and draped in sterile fashion. 1% buffered lidocaine was utilized for skin anesthesia. Utilizing CT guidance, a an 18-gauge Chiba needle was advanced into the left lower quadrant abscess collection. A 0.035 Amplatz wire was introduced through the Chiba needle and exchanged for an 8 Samoan locking pigtail catheter. Approximately 200 mL of purulent fluid was drained at the time of the procedure with a small portion sent to lab for culture analysis. The catheter was sutured to the skin with 2-0 silk and placed to suction bag drainage. The patient tolerated the procedure well. Post CT imaging demonstrated adequate catheter position with significant decrease of the abscess collection. Vital signs will be monitored on the floor postprocedure. IMPRESSION: Left lower quadrant abscess drain placement as detailed above. Performed, dictated, and signed by Fernando Berger PA-C; to be co-signed by Dr. Virgilio Spaulding. Electronically signed by: Virgilio Spaulding M.D. 03/11/2023 6:07 PM
[2023-03-13] MEDS: METOPROLOL TARTRATE 1 MG/ML VIAL IV SCH ×2 (02:09→08:48)
[2023-03-13] MEDS: PIPERACILLIN/TAZOBACTAM 4.5 GM in DEXTROSE 5% 100 ML IV SCH ×2 (04:11→12:47)
[2023-03-13 07:16] LABS: Hematocrit (blood only) 27.1 % (42.0-52.0); Mean Corpuscular Hemoglobin 29.2 pg (25.0-34.0); Mean Corpuscular Hgb Conc 33.2 g/dL (32.0-36.0); Platelet Count 349 K/uL (130-400); RDW Coefficient of Variation 13.9 % (11.5-14.5); RDW Standard Deviation 44.5 fL (36.4-46.3); Red Blood Count 3.08 M/uL (4.70-6.10); White Blood Count 7.47 K/ul (4.8-10.8)
[2023-03-13 07:19] LABS: BUN Creatinine Ratio 14.4 (10-20); Calcium 8.3 mg/dl (8.6-10.3); Creatinine Clr Calc Pharmacy 64.3 ml/min; Est GFR (African American) 62.9 ml/min; Est GFR (Non-African American) 54.3 ml/min; Potassium 3.3 mmol/L (3.5-5.1)
--- NOTE | 2023-03-13 07:47 | Surgery Progress Note ---
Date of Service March 13, 2023 Assessment & Plan (1) Intra-abdominal infection: Plan: He is overall doing well status post IR drain placement. WBC 7. vitals stable His abdominal cultures are dill sensitive. ID on board and rec'd no tx for jethro in urine He is tolerating regular diet with ostomy function Dry dressing can be placed on the incision, superior pole only daily and as needed for drainage. wound care evaluated yesterday as well Recommend returning to rehab with drain in place, we will ask him to follow up in clinic next week for possible removal and staple removal Send out on course of abx for infection Admission and Anticipated Discharge Date Admission Date: March 11, 2023 Subjective Patient denies any abdominal complaints. Tolerating diet. No n/v. Ostomy working. Physical Exam Physical Exam: awake Gastrointestinal (Abdomen): Inspection/Auscultation: + abdomen distended (mild) and + abdominal surgical incision (c/d/i with no signs of infection, midline kg, optifoam to top of wound) Percussion/Palpation: abdomen soft; abdomen nontender IR drain with purulent bloody drainage. Ostomy with + stool in bag Results & Data Vital Signs (Past 12 Hours) Vital Signs Temp Pulse Pulse Resp BP BP Pulse Ox 03/13/23 03:23 36.3 C L 72 22 138/77 96 03/13/23 02:09 77 161/87 H 03/12/23 23:15 36.8 C 82 18 150/71 H 93 03/12/23 19:44 37.3 C 77 22 149/71 H 95 03/12/23 21:25 03/12/23 21:01 77 147/78 H O2 Del Method 03/13/23 03:23 Room Air 03/13/23 02:09 03/12/23 23:15 Room Air 03/12/23 19:44 Room Air 03/12/23 21:25 Room Air 03/12/23 21:01 PG Care Time/CCT Total # of Minutes Spent Total Time Spent with Patient: Total time spent is greater than 50% in coordination of care (as documented) at patient's floor/unit and/or counseling patient: Coding Level of Care Code None Diagnoses Intra-abdominal infection B99.9
[2023-03-13] MEDS: DOCUSATE SODIUM 100 MG CAP PO SCH ×2 (08:48→20:32)
[2023-03-13] MEDS: risperiDONE 0.5 MG TABLET PO SCH ×2 (08:48→20:32)
[2023-03-13] MEDS: amLODIPine BESYLATE 5 MG TAB PO SCH (08:48)
[2023-03-13] MEDS: ATORVASTATIN 20 MG TAB PO SCH (08:48)
--- NOTE | 2023-03-13 12:00 | Infectious Disease Progress Nt ---
Date of Service March 13, 2023 Assessment & Plan (1) Fever: (2) Sepsis: (3) Intra-abdominal infection: Plan This is a 67 year old male with pmh of CVA ,atrial fibrillation recent diverticulitis with peroration and abscess sp ex lap, descending colon resection with ostomy creation, alcohol use disorder, CKD, HTN, HFpEF who presents from acute rehab with tachycardia and fever. He was admitted to [facility] with R sided ischemic stroke on 02/22 and was discharged 02/27 to rehab. He was readmitted to [facility] 02/28 with hypoxia. He was found to have diverticulitis with perforation and abscess. He underwent exploratory laparotomy, descending colon resection, partial omentectomy, mobilization of splenic flexure and creation of end colostomy on 03/01. Intraabdominal fluid was positive for E. coli and Bacteroides species ( Fragiles and thetaiotaomicron) . He received Zosyn 03/01-03/06 and was discharged on Augmentin until 03/13. He returned to the ED from rehab with serosanguineous drainage from the midline abdominal laparotomy incision on 03/09. He was noted to have slight dehiscence at the superior portion of the wound with just skin and intact fascia A CTAB showed loculated fluid on the L abdomen/pelvis, with small locules of air. There was c/f intraperitoneal abscess. His findings were reviewed with surgery simulation developer. He was HDS and findings were thought to be postoperative in nature and he was discharged back to rehab. He returned the next day on 03/10 with fever and tachycardia. On admission : vitals 39.5, HR 108, RR 18, BP 176/89, o2 sat 93% RA. Labs noted for WBc 11.41, Lactate 1, UA with pyuria,wih yeast, Bun 21, cr 1.22. CXR showe d vacular congestion. UC + for jethro sp. He was started on Zosyn. He was evaluated by General surgery who recommended IR drainage of intraabdominal collection. A drain was placed and intraabdominal cx are positive for GNR pending identification . ID consulted for intraabdominal infection He has dysarthria s/p CVA but denies nausea, vomiting , change in urine, chest pain. He endorses abdominal distention, slurred speech and left sided weakness Micro intraab fluid cx 03/11 Ecoli (Final) Gram Stain Final 03/11/23-3800 Gram Stain Result Many WBCs Seen Many Gram Positive Cocci Many Gram Negative Bacilli Rare Gram Positive Bacilli E coli RX M.I.C. --- --------- Amox/Clav S <=8/4 Ampicillin S <=8 Amp/Sul S <=8/4 Cefazolin S <=2 Cefepime S <=2 Ceftriaxone S <=1 Ciprofloxacin S <=0.25 Ertapenem S <=0.5 Gentamicin S <=4 Levofloxacin S <=0.5 Meropenem S <=1 Tobramycin S <=4 Trimeth/Sulfa S <=2/38 Pip/Tazo S <=16 UC 03/10 candid albicans/dublenienisis BC 03/10 NGTD ABx; Zosyn 03/10-ongoing 1. Sepsis with intra abdominal infection with abscess, cultures + Ecoli 2. Recent diverticulitis with perforation s/p surgical intervention 3. Asymptomatic pyuria, jethro - No treatment without symptoms 4. Recent CVA Recommendations He remains afebrile with normal WBC. Intrab fluid cx finalized pansensitive ecoli. No anerobes grew BUT he was started on zosyn prior to IR drainage and cx. -Will deescalate to Ancef 2 g iv q8 hrs and flagyl 500 mg Iv tid. This combination can be switched to amoxicillin-clavulanate 875/125 mg Oral q12hon discharge. -FU BC -No treatment warrnated for asymptomatic candiduria. Remove stringer if not needed. If confined indication , would replace if not done this admission. -Duration of treatment for intraabdominal collection is usually until resolution of abscess. He will likely need repeat imaging prior to discontinuation. I anticipate at least 2 weeks of therapy FROM 03/11 -date of drain placement ( TENTATIVE EOT 03/25/23, if resolution of abscess). Treatment may need to be extended based on clinical response and imaging results. Monitor LFt, BMP, WBc weekly on abx. ID will sign off. Please contact if he develops fever, leukocytosis or + BC while inpatient. Maury Guerin MD, MPH Infectious Disease ID [facility], ID Division Call [phone] with questions Admission and Anticipated Discharge Date Admission Date: March 11, 2023 Subjective This patient recommendation is based on a telemedicine consult request which was completed asynchronously through chart review and information provided by the primary physician. The patient was not seen or examined today. The evaluation is consultative in nature and all patient care and treatment decisions can either be accepted or rejected by the patient's primary hospital-based treating physician using their own independent medical judgment for their patient. Time Spent Reviewing Chart: 31+ minutes Afebrile. WBC stabe at 7.47, cr 1.32. intrab fluid drain cx + for pansensitive Ecoli. Results & Data Vital Signs (Past 12 Hours) Vital Signs Temp Pulse Pulse Resp BP BP Pulse Ox 03/13/23 08:48 84 142/76 H 03/13/23 07:47 36.7 C 84 16 142/76 H 95 03/13/23 03:23 36.3 C L 72 22 138/77 96 03/13/23 02:09 77 161/87 H O2 Del Method 03/13/23 08:48 03/13/23 07:47 Room Air 03/13/23 03:23 Room Air 03/13/23 02:09 Laboratory Results Laboratory Results - last 48 hr 03/12/23 03/12/23 03/13/23 06:34 06:34 06:35 WBC 8.44 7.47 RBC 3.10 L 3.08 L Hgb 9.1 L 9.0 L Hct 28.0 L 27.1 L MCV 90.3 88.0 MCH 29.4 29.2 MCHC 32.5 33.2 RDW Std Deviation 46.2 44.5 RDW Coeff of Eduardo 14.1 13.9 Plt Count 308 349 MPV 10.0 10.0 Immature Gran % (Auto) 0.6 Neut % (Auto) 81.0 Lymph % (Auto) 11.0 Doddridge % (Auto) 5.1 Eos % (Auto) 1.8 Baso % (Auto) 0.5 Neut # (Auto) 6.84 H Lymph # (Auto) 0.93 L Doddridge # (Auto) 0.43 Eos # (Auto) 0.15 Baso # (Auto) 0.04 Immature Gran # (Auto) 0.05 Sodium 139 Potassium 3.3 L Chloride 107 Carbon Dioxide 25 Anion Gap 7 BUN 17 Creatinine 1.35 Est Cr Clr Drug Dosing 62.5 Est GFR ( Amer) 61.2 Est GFR (Non-Af Amer) 52.8 BUN/Creatinine Ratio 12.6 Glucose 104 H Calcium 8.1 L Magnesium 1.7 Total Bilirubin 0.6 AST 25 ALT 28 Alkaline Phosphatase 143 H Total Protein 5.5 L Albumin 2.3 L Globulin 3.2 Albumin/Globulin Ratio 0.7 L 03/13/23 06:35 WBC RBC Hgb Hct MCV MCH MCHC RDW Std Deviation RDW Coeff of Eduardo Plt Count MPV Immature Gran % (Auto) Neut % (Auto) Lymph % (Auto) Doddridge % (Auto) Eos % (Auto) Baso % (Auto) Neut # (Auto) Lymph # (Auto) Doddridge # (Auto) Eos # (Auto) Baso # (Auto) Immature Gran # (Auto) Sodium 140 Potassium 3.3 L Chloride 108 H Carbon Dioxide 26 Anion Gap 6 BUN 19 Creatinine 1.32 Est Cr Clr Drug Dosing 64.3 Est GFR ( Amer) 62.9 Est GFR (Non-Af Amer) 54.3 BUN/Creatinine Ratio 14.4 Glucose 103 H Calcium 8.3 L Magnesium Total Bilirubin AST ALT Alkaline Phosphatase Total Protein Albumin Globulin Albumin/Globulin Ratio Diagnostic Findings Microbiology 03/10/23 21:37 Urine,Clean Catch Urine Culture - Final Jethro albicans/dubliniensis 03/11/23 12:20 Abdomen Gram Stain - Final 03/11/23 12:20 Abdomen Aerobic and Anaerobic Culture - Preliminary Escherichia coli 03/10/23 21:37 Blood Aerobic Blood Culture - Preliminary No growth in Aerobic bottle after 48 hours. 03/10/23 21:37 Blood Anaerobic Blood Culture - Preliminary No growth in Anaerobic bottle after 48 hours. 03/10/23 21:37 Blood Aerobic Blood Culture - Preliminary No growth in Aerobic bottle after 48 hours. 03/10/23 21:37 Blood Anaerobic Blood Culture - Preliminary No growth in Anaerobic bottle after 48 hours. Medications Administered Home Medications Medication Instructions Recorded Confirmed Last Taken acetaminophen 325 mg tablet 650 mg PO Q4 PRN Pain 03/01/23 03/10/23 Unknown (Tylenol) albuterol sulfate 90 mcg/actuation 1 inh inhalation Q4 PRN Wheezing 03/01/23 03/10/23 02/28/23 23:25 aerosol inhaler amlodipine 10 mg tablet 10 mg PO DAILY 03/01/23 03/10/23 03/09/23 apixaban 5 mg tablet 5 mg PO BID 03/01/23 03/10/23 03/09/23 09:00 docusate sodium 100 mg capsule 100 mg PO BID 03/01/23 03/10/23 03/09/23 09:00 melatonin 3 mg tablet 3 mg PO HS PRN Sleep 03/01/23 03/10/23 Unknown metoprolol tartrate 50 mg tablet 50 mg PO Q12H 03/01/23 03/10/23 03/09/23 09:00 ondansetron HCl 4 mg tablet 4 mg PO Q4 PRN Nausea 03/01/23 03/10/23 Unknown polyethylene glycol 3350 17 gram 17 g PO QDL PRN Constipation 03/01/23 03/10/23 Unknown oral powder packet (Miralax) sennosides 8.6 mg-docusate sodium 1 tab-cap PO QDL PRN Constipation 03/01/23 03/10/23 Unknown 50 mg tablet (Senokot-S) thiamine HCl (vitamin B1) 100 mg 100 mg PO DAILY 03/01/23 03/10/23 03/09/23 tablet atorvastatin 20 mg tablet 20 mg PO QAM 30 days #30 tabs 03/07/23 03/10/23 03/09/23 risperidone 0.5 mg tablet 0.5 mg PO BID 30 days #60 tabs 03/07/23 03/10/23 03/09/23 09:00 amoxicillin 875 mg-potassium 1 tab PO Q8H 03/09/23 03/10/23 03/09/23 clavulanate 125 mg tablet bisacodyl 10 mg rectal suppository 10 mg MT DAILY PRN Constipation 03/09/23 03/10/23 Unknown diazepam 2 mg tablet 2 mg PO Q4H PRN NEEDED 03/09/23 03/10/23 03/09/23 UNSURE WHAT TIME Active Medications Generic Name Dose Route Start Last Admin Trade Name Freq PRN Reason Stop Dose Admin Amlodipine Besylate 10 mg 03/11/23 09:00 03/13/23 08:48 Amlodipine Besylate 5 Mg Tab PO 04/10/23 08:59 10 mg DAILY PARISH Administration Atorvastatin Calcium 20 mg 03/11/23 09:00 03/13/23 08:48 Atorvastatin 20 Mg Tab PO 04/10/23 08:59 20 mg QAM PARISH Administration Docusate Sodium 100 mg 03/11/23 09:00 03/13/23 08:48 Docusate Sodium 100 Mg Cap PO 04/10/23 08:59 100 mg BID PARISH Administration Acetaminophen 1,000 mg in 100 mls @ 400 mls/hr 03/11/23 02:55 03/11/23 10:34 Ofirmev IV 03/14/23 02:54 Infused Q8H PRN Infusion Pain or Fever Piperacillin Sod/Tazobactam 120 mls @ 30 mls/hr 03/11/23 04:00 03/13/23 09:31 Sod 4.5 gm/ Dextrose IV 03/21/23 03:59 Infused Q8H PARISH Infusion Protocol Risperidone 0.5 mg 03/11/23 09:00 03/13/23 08:48 Risperidone 0.5 Mg Tablet PO 04/10/23 08:59 0.5 mg BID PARISH Administration
[2023-03-13] MEDS: ceFAZolin 2000MG 2,000 MG/15 ML SYR IV SCH ×2 (13:30→21:39)
[2023-03-13] MEDS: metroNIDAZOLE 500 MG/100 ML BAG IV SCH ×2 (13:31→20:32)
[2023-03-13] MEDS ORDERED: POTASSIUM CHLORIDE CRTAB 20 MEQ TABCR PO STA (16:10)
[2023-03-13] MEDS ORDERED: MELATONIN 3 MG TAB PO PRN (16:16)
[2023-03-13] MEDS ORDERED: ACETAMINOPHEN 325 MG TAB PO PRN (16:17)
--- NOTE | 2023-03-13 16:18 | Hospitalist Progress Note ---
Date of Service March 13, 2023 Assessment & Plan (1) Sepsis: Plan: 67 yo male with PMHx of recent acute CVA, recent diverticulitis with perforation (s/p exploratory laparotomy, descending colon resection, and creation of ostomy), CKD, alcohol abuse, nicotine dependence, HTN, afrib, and HFpEF presents with fever and tachycardia from [facility] (acute rehab). #Sepsis secondary to intra abdominal infection, cultures growing pansensitive E. coli from abscess drainage. Blood cultures no growth to date #Recent diverticulitis with perforation requiring surgical intervention -presented from acute rehab at [facility] due to abnormal vitals. Met 4/4 SIRS criteria. WBC 11.4. Lactate 1. -Patient recently s/p exploratory laparotomy, descending colon resection, and creation of ostomy for diverticulitis with perforation and abscess. He follows with [facility] gen surg. Has midline incision with kg intact. Incision clean and intact without drainage or signs of superficial infection. -CT A/P (03/09): Loculated fluid on the LEFT abdomen/pelvis, with small locules of air. When compared to CT abdomen pelvis March 01, 2023, this now contains more fluid and less air. -Patient is now s/p IR drainage of abscess and insertion of drain -Leukocytosis now resolved, afebrile, improving clinically -ID on rbfvboc-lazdhkuwge-eg-escalate antibiotics from Zosyn to cefazolin and metronidazole, then plan for p.o. Augmentin for at least 2 weeks -Repeat CT abdomen/pelvis prior to discontinuation of antibiotics -remove Mclain for TOV in AM (2) Diverticulitis of intestine with perforation and abscess: Plan: As above Follow-up with surgery for staple removal and to assess for removal of drain in 1 week (3) Atrial fibrillation: Plan: Newly diagnosed rate controlled with metoprolol Apixaban is on hold in view of recent drain placement, but will restart tonight (4) Hypertension: Plan: -BP is under good control -cont. home amlodipine. Metoprolol to be switched back to p.o. from IV (5) Hx of arterial ischemic stroke: Plan: -Patient was Admitted to [facility] on 02/22/23 with right subthalamic infarction -Persistent left-sided chorea with no new deficits. Continue his prior regimen of risperidone and restart his home Valium PRN which she has not taken in many days here. -Avoiding high-intensity dosing as his LDL is low at 50, which could be 2/2 critical illness -restart home po diazepam prn arm chorea (6) Elevated troponin: Plan: Demand ischemia secondary to sepsis -ECG initially with atrial fibrillation and incomplete right bundle branch block ST and T wave abnormality in leads mostly unchanged from previous, repeat ECG similar -trop 50 on admission, trended and went down to 45 -suspect due to demand ischemia from likely infection (7) Congestive heart failure: Plan: Chronic HFpEF -CXR: cardiomegaly with pulmonary vascular congestion -Moitor I/O, daily weight -Hold off on Lasix for now, patient appears compensated (8) CKD (chronic kidney disease): Plan: CKD stage III Creatinine stable at 1.3 Follow BMP, avoid nephrotoxins (9) Alcohol abuse: Plan: restart home thiamine No evidence of withdrawal (10) Anemia: Plan: Hemoglobin 9.0 but stable from previous Check iron studies, B12, folate, TSH in morning (11) Hypokalemia: Plan: Due to poor p.o. intake previously Replace with p.o. potassium chloride Follow BMP and magnesium in the morning Plan DVT prophylaxis-restarting Eliquis Disposition-continued stay on PCU, approaching discharge likely tomorrow- [facility] Discussed care with brother on the phone Admission and Anticipated Discharge Date Admission Date: March 11, 2023 Subjective Feeling better. Moving bowels, eating, no nausea. Telemetry with atrial fibrillation with rates in 70s Physical Exam Constitutional: WD/WN, vitals as above Neck: trachea midline, no thyromegaly Respiratory: normal respiratory effort, lungs clear to auscultation Musculoskeletal: Extremities: extremities normal to inspection; no cyanosis and no clubbing Skin: no rashes, warm and dry Neurologic: awake Motor/Sensory: + abnormal movement (Chorea left arm) Psychiatric: A+Ox3, euthymic affect Results & Data Results & Data Vital Signs (Past 12 Hours) Vital Signs Temp Pulse Pulse Resp BP BP Pulse Ox 03/13/23 16:16 36.9 C 82 16 144/74 H 93 03/13/23 15:30 83 03/13/23 08:00 03/13/23 08:00 81 03/13/23 12:28 36.5 C 67 18 136/81 94 03/13/23 08:48 84 142/76 H 03/13/23 07:47 36.7 C 84 16 142/76 H 95 O2 Del Method 03/13/23 16:16 Room Air 03/13/23 15:30 03/13/23 08:00 Room Air 03/13/23 08:00 03/13/23 12:28 Room Air 03/13/23 08:48 03/13/23 07:47 Room Air Laboratory Results CBC, BMP, troponin reviewed Wound culture with E. coli growing from intra-abdominal abscess fluid Blood cultures negative to date PG Care Time/CCT Total # of Minutes Spent Total Time Spent with Patient: Total time spent is greater than 50% in coordination of care (as documented) at patient's floor/unit and/or counseling patient: Coding Level of Care Code 38716 SUB INP/OBS CARE 3/50MIN Diagnoses Sepsis A41.9 Diverticulitis of intestine with perforation and abscess K57.80 Atrial fibrillation I48.91 Hypertension I10 Hx of arterial ischemic stroke Z86.73 Elevated troponin R77.8 Congestive heart failure I50.9 CKD (chronic kidney disease) N18.9 Alcohol abuse F10.10 Anemia D64.9 Hypokalemia E87.6
[2023-03-13] MEDS: diazePAM 2 MG TABLET PO PRN (16:33)
[2023-03-13] MEDS: METOPROLOL TARTRATE 50 MG TAB PO SCH (20:32)
[2023-03-13] MEDS: APIXABAN 5 MG TABLET PO SCH (20:32)
[2023-03-14] MEDS: diazePAM 2 MG TABLET PO PRN ×3 (00:04→21:28)
[2023-03-14] MEDS: metroNIDAZOLE 500 MG/100 ML BAG IV SCH ×3 (05:13→21:19)
[2023-03-14] MEDS: ceFAZolin 2000MG 2,000 MG/15 ML SYR IV SCH ×3 (05:18→21:19)
[2023-03-14 06:11] LABS: Basophils # (auto) 0.03 K/uL (0-0.2); Basophils % (auto) 0.5 %; Eosinophils # (auto) 0.17 K/uL (0-0.50); Eosinophils % (auto) 2.9 %; Hematocrit (blood only) 26.7 % (42.0-52.0); Hemoglobin 8.9 g/dl (14.0-18.0); Immature Granulocytes # (auto) 0.03 K/uL (0.01-0.20); Immature Granulocytes % (auto) 0.5 %; Lymphocytes # (auto) 1.07 K/uL (1.2-3.4); Mean Corpuscular Hemoglobin 29.5 pg (25.0-34.0); Mean Corpuscular Hgb Conc 33.3 g/dL (32.0-36.0); Mean Corpuscular Volume 88.4 fL (80.0-100.0); Monocytes # (auto) 0.39 K/uL (0.11-0.59); Monocytes % (auto) 6.5 %; Neutrophils # (auto) 4.27 K/uL (1.40-6.50); Neutrophils % (auto) 71.6 %; Platelet Count 372 K/uL (130-400); RDW Coefficient of Variation 13.8 % (11.5-14.5); RDW Standard Deviation 44.7 fL (36.4-46.3); Red Blood Count 3.02 M/uL (4.70-6.10); White Blood Count 5.96 K/ul (4.8-10.8)
[2023-03-14 06:25] LABS: Magnesium 1.7 mg/dl (1.7-2.4)
[2023-03-14 06:38] LABS: Thyroid Stimulating Hormone 6.347 uIu/ml (0.300-4.500)
[2023-03-14 06:44] LABS: Ferritin 502.6 ng/ml (8-388)
[2023-03-14 06:50] LABS: Folate (Folic Acid),Ser orPlas 8.72 ng/ml (>5.38)
[2023-03-14 07:12] LABS: T4 Free Thyroxine 0.84 ng/dl (0.61-1.60)
[2023-03-14] MEDS: THIAMINE HCL 100 MG TAB PO SCH (09:01)
[2023-03-14] MEDS: DOCUSATE SODIUM 100 MG CAP PO SCH ×2 (09:01→21:20)
[2023-03-14] MEDS: amLODIPine BESYLATE 5 MG TAB PO SCH (09:01)
[2023-03-14] MEDS: ATORVASTATIN 20 MG TAB PO SCH (09:02)
[2023-03-14] MEDS: risperiDONE 0.5 MG TABLET PO SCH ×2 (09:02→21:20)
[2023-03-14] MEDS: METOPROLOL TARTRATE 50 MG TAB PO SCH ×2 (09:02→21:20)
--- NOTE | 2023-03-14 10:14 | Surgery Progress Note ---
Date of Service March 14, 2023 Assessment & Plan (1) Status post exploratory laparotomy: Plan: He is doing very well after surgery and status post percutaneous drainage of intra-abdominal abscess He has been afebrile without leukocytosis for couple days now He is tolerating a diet with it with ostomy function He can be discharged from a surgical standpoint on 2 weeks of Augmentin per ID recommendations and his IR catheter in place I will see him middle of next week for follow-up to remove his kg and possibly remove his IR drain at that time Surgery will sign off at this time, please call with any questions or concerns Admission and Anticipated Discharge Date Admission Date: March 11, 2023 Subjective Patient seen and examined. He is tolerating a diet with ostomy function. Denies any nausea or vomiting. Minimal to no abdominal pain. Afebrile. Physical Exam Constitutional: WD/WN, vitals as above Gastrointestinal (Abdomen): Midline incision with kg in place, Optifoam dressing at superior and inferior poles clean dry and intact Ostomy in left upper quadrant with stool in the bag Results & Data Vital Signs (Past 12 Hours) Vital Signs Temp Pulse Pulse Resp BP Pulse Ox O2 Del Method 03/14/23 07:54 36.3 C L 74 18 159/79 H 96 Room Air 03/14/23 03:33 36.3 C L 71 18 136/80 94 Room Air 03/13/23 23:48 36.6 C 68 16 145/80 H 96 Room Air PG Care Time/CCT Total # of Minutes Spent Total Time Spent with Patient: Total time spent is greater than 50% in coordination of care (as documented) at patient's floor/unit and/or counseling patient: Coding Level of Care Code 87280 Post Operative Follow-Up Diagnoses Status post exploratory laparotomy Z98.890
[2023-03-14 10:21] LABS: BUN Creatinine Ratio 14.7 (10-20); Calcium 8.3 mg/dl (8.6-10.3); Creatinine Clr Calc Pharmacy 66.4 ml/min; Est GFR (African American) 64.7 ml/min; Est GFR (Non-African American) 55.8 ml/min; Potassium 3.5 mmol/L (3.5-5.1)
[2023-03-14] MEDS: MAGNESIUM SULFATE / D5W 1 GM/100 ML BAG IV SCH ×2 (10:42→12:48)
[2023-03-14] MEDS: APIXABAN 5 MG TABLET PO SCH ×2 (13:13→21:20)
--- NOTE | 2023-03-14 18:21 | Hospitalist Progress Note ---
Date of Service March 14, 2023 Assessment & Plan (1) Sepsis: Plan: 67 yo male with PMHx of recent acute CVA, recent diverticulitis with perforation (s/p exploratory laparotomy, descending colon resection, and creation of ostomy), CKD, alcohol abuse, nicotine dependence, HTN, afrib, and HFpEF presents with fever and tachycardia from [facility] (acute rehab). #Sepsis secondary to intra abdominal infection, cultures growing pansensitive E. coli from abscess drainage. Blood cultures no growth to date #Recent diverticulitis with perforation requiring surgical intervention -presented from acute rehab at [facility] due to abnormal vitals. Met 4/4 SIRS criteria. WBC 11.4. Lactate 1. -Patient recently s/p exploratory laparotomy, descending colon resection, and creation of ostomy for diverticulitis with perforation and abscess. He follows with [facility] gen surg. Has midline incision with kg intact. Incision clean and intact without drainage or signs of superficial infection. -CT A/P (03/09): Loculated fluid on the LEFT abdomen/pelvis, with small locules of air. When compared to CT abdomen pelvis March 01, 2023, this now contains more fluid and less air. -Patient is now s/p IR drainage of abscess and insertion of drain -Leukocytosis now resolved, afebrile, much improved -ID on wztelps-kpmhrlggpy-lo-escalated antibiotics from Zosyn to cefazolin and metronidazole, then plan for p.o. Augmentin for at least 2 weeks or until resolution of abscess -Repeat CT abdomen/pelvis prior to discontinuation of antibiotics is recommended by ID (2) Diverticulitis of intestine with perforation and abscess: Plan: As above Follow-up with surgery for staple removal and to assess for removal of drain in 1 week (3) Atrial fibrillation: Plan: Newly diagnosed rate controlled with metoprolol continue Apixaban for AC (4) Hypertension: Plan: -BP is under good control -cont. home amlodipine, metoprolol (5) Hx of arterial ischemic stroke: Plan: -Patient was Admitted to [facility] on 02/22/23 with right subthalamic infarction -Persistent left-sided chorea with no new deficits. Continue his prior regimen of risperidone and restart his home Valium PRN which she has not taken in many days here. -Avoiding high-intensity dosing as his LDL is low at 50, which could be 2/2 critical illness -continue home po diazepam prn arm chorea (6) Elevated troponin: Plan: Demand ischemia secondary to sepsis -ECG initially with atrial fibrillation and incomplete right bundle branch block ST and T wave abnormality in leads mostly unchanged from previous, repeat ECG similar -trop 50 on admission, trended and went down to 45 -suspect due to demand ischemia from likely infection (7) Congestive heart failure: Plan: Chronic HFpEF -CXR: cardiomegaly with pulmonary vascular congestion -Moitor I/O, daily weight -Hold off on Lasix for now, patient appears compensated (8) CKD (chronic kidney disease): Plan: CKD stage III Creatinine stable at 1.3 Follow BMP, avoid nephrotoxins (9) Alcohol abuse: Plan: cont home thiamine No evidence of withdrawal (10) Anemia: Plan: Hemoglobin 8.9 but stable from previous iron studies c/w chronic disease B12, folate normal TSH elevated at 6 but FT4 normal--> recommend repeating TSH when recovered in 4- 6 weeks (11) Hypokalemia: Plan: Due to poor p.o. intake previously Replace with p.o. potassium chloride Follow BMP and magnesium in the morning Plan DVT prophylaxis- Eliquis Disposition-continued stay on PCU,medically stable for discharge to [facility] acute rehab but no bed available today left VM fo rbrother on phone Admission and Anticipated Discharge Date Admission Date: March 11, 2023 Subjective Pt has no complaints, eating and moving bowels. Physical Exam Constitutional: WD/WN, vitals as above Neck: trachea midline, no thyromegaly Respiratory: normal respiratory effort, lungs clear to auscultation Gastrointestinal (Abdomen): Inspection/Auscultation: + abdomen abnormal to inspection (incision midline with kg in place, no erythema or drai nage,ostomy bag ) Percussion/Palpation: abdomen soft; abdomen nontender Musculoskeletal: Extremities: extremities normal to inspection; no cyanosis and no clubbing Skin: no rashes, warm and dry Neurologic: moves all extremities and awake; no focal motor deficits Motor/Sensory: + abnormal movement (Chorea left arm) Psychiatric: A+Ox3, euthymic affect Results & Data Results & Data Vital Signs (Past 12 Hours) Vital Signs Temp Pulse Pulse Resp BP Pulse Ox O2 Del Method 03/14/23 16:31 60 06/22/23 08:00 Room Air 03/14/23 15:17 36.5 C 55 L 20 127/65 97 Room Air 03/14/23 11:31 36.3 C L 74 20 116/68 95 Room Air 03/14/23 07:54 36.3 C L 74 18 159/79 H 96 Room Air Laboratory Results CBC, BMP reviewed PG Care Time/CCT Total # of Minutes Spent Total Time Spent with Patient: Total time spent is greater than 50% in coordination of care (as documented) at patient's floor/unit and/or counseling patient: Coding Level of Care Code 71529 SUB INP/OBS CARE 2/35MIN Diagnoses Sepsis A41.9 Diverticulitis of intestine with perforation and abscess K57.80 Atrial fibrillation I48.91 Hypertension I10 Hx of arterial ischemic stroke Z86.73 Elevated troponin R77.8 Congestive heart failure I50.9 CKD (chronic kidney disease) N18.9 Alcohol abuse F10.10 Anemia D64.9 Hypokalemia E87.6
[2023-03-15] MEDS: diazePAM 2 MG TABLET PO PRN ×2 (04:57→20:42)
[2023-03-15] MEDS: metroNIDAZOLE 500 MG/100 ML BAG IV SCH ×3 (05:05→20:42)
[2023-03-15] MEDS: ceFAZolin 2000MG 2,000 MG/15 ML SYR IV SCH ×3 (05:05→20:42)
[2023-03-15 08:14] LABS: Albumin Globulin Ratio 0.6 (0.9-2); Albumin Level 2.3 gm/dl (3.4-5.0); Bilirubin,Total 0.4 mg/dl (0.2-1.0); Calcium 7.8 mg/dl (8.6-10.3); Creatinine Clr Calc Pharmacy 70.3 ml/min; Est GFR (African American) 70.6 ml/min; Est GFR (Non-African American) 60.9 ml/min; Globulin 3.7 gm/dl (2.5-4.0); Potassium 3.4 mmol/L (3.5-5.1)
[2023-03-15] MEDS: APIXABAN 5 MG TABLET PO SCH ×2 (08:55→20:43)
[2023-03-15] MEDS: amLODIPine BESYLATE 5 MG TAB PO SCH (08:55)
[2023-03-15] MEDS: risperiDONE 0.5 MG TABLET PO SCH ×2 (08:55→20:43)
[2023-03-15] MEDS: DOCUSATE SODIUM 100 MG CAP PO SCH ×2 (08:56→20:43)
[2023-03-15] MEDS: THIAMINE HCL 100 MG TAB PO SCH (08:56)
[2023-03-15] MEDS: ATORVASTATIN 20 MG TAB PO SCH (08:56)
[2023-03-15] MEDS: METOPROLOL TARTRATE 50 MG TAB PO SCH ×2 (08:57→20:43)
[2023-03-15] MEDS ORDERED: POTASSIUM CHLORIDE CRTAB 20 MEQ TABCR PO STA (11:59)
[2023-03-15] MEDS ORDERED: COLCHICINE 0.6 MG TAB PO ONE (15:39)
--- NOTE | 2023-03-15 15:52 | Hospitalist Progress Note ---
Date of Service March 15, 2023 Assessment & Plan (1) Sepsis: Plan: 67 yo male with PMHx of recent acute CVA, recent diverticulitis with perforation (s/p exploratory laparotomy, descending colon resection, and creation of ostomy), CKD, alcohol abuse, nicotine dependence, HTN, afrib, and HFpEF presents with fever and tachycardia from [facility] (acute rehab). Sepsis secondary to intra abdominal infection, cultures growing pansensitive E. coli from abscess drainage. Blood cultures no growth to date Recent diverticulitis with perforation requiring surgical intervention Presented from acute rehab at [facility] due to abnormal vitals. Met 4/4 SIRS criteria. WBC 11.4. Lactate 1. Patient recently s/p exploratory laparotomy, descending colon resection, and creation of ostomy for diverticulitis with perforation and abscess. He follows with [facility] gen surg. Has midline incision with kg intact. Incision clean and intact without drainage or signs of superficial infection. CT A/P (03/09): Loculated fluid on the LEFT abdomen/pelvis, with small locules of air. When compared to CT abdomen pelvis March 01, 2023, this now contains more fluid and less air. Patient is now s/p IR drainage of abscess and insertion of drain Leukocytosis now resolved, afebrile, much improved -ID on veynrey-cwuvmnedre-mf-escalated antibiotics from Zosyn to cefazolin and metronidazole, then plan for p.o. Augmentin for at least 2 weeks or until resolution of abscess -Repeat CT abdomen/pelvis prior to discontinuation of antibiotics is recommended by ID (2) Diverticulitis of intestine with perforation and abscess: Plan: As above Follow-up with surgery for staple removal and to assess for removal of drain in 1 week (3) Atrial fibrillation: Plan: Newly diagnosed rate controlled with metoprolol continue Apixaban for AC (4) Gout: Plan: left podagra on 03/15 give colchicine 1.2mg po x 1 now and reassess tomorrow (5) Hypertension: Plan: -BP is under good control -cont. home amlodipine, metoprolol (6) Hx of arterial ischemic stroke: Plan: -Patient was Admitted to [facility] on 02/22/23 with right subthalamic infarction -Persistent left-sided chorea with no new deficits. Continue his prior regimen of risperidone and restart his home Valium PRN which she has not taken in many days here. -Avoiding high-intensity dosing as his LDL is low at 50, which could be 2/2 critical illness -continue home po diazepam prn arm chorea (7) Elevated troponin: Plan: Demand ischemia secondary to sepsis -ECG initially with atrial fibrillation and incomplete right bundle branch block ST and T wave abnormality in leads mostly unchanged from previous, repeat ECG similar -trop 50 on admission, trended and went down to 45 -suspect due to demand ischemia from likely infection (8) Congestive heart failure: Plan: Chronic HFpEF -CXR: cardiomegaly with pulmonary vascular congestion -Moitor I/O, daily weight -Hold off on Lasix for now, patient appears compensated (9) CKD (chronic kidney disease): Plan: CKD stage III Creatinine stable at 1.3 Follow BMP, avoid nephrotoxins (10) Alcohol abuse: Plan: cont home thiamine No evidence of withdrawal (11) Anemia: Plan: Hemoglobin 8.9 but stable from previous iron studies c/w chronic disease B12, folate normal TSH elevated at 6 but FT4 normal--> recommend repeating TSH when recovered in 4- 6 weeks (12) Hypokalemia: Plan: Due to poor p.o. intake previously Replace with p.o. potassium chloride Follow BMP and magnesium in the morning Plan DVT prophylaxis- Eliquis Disposition-continued stay on PCU,medically stable for discharge to [facility] acute rehab but no bed available today Updated brother at bedside Admission and Anticipated Discharge Date Admission Date: March 11, 2023 Subjective Pt having left great toe pain since yesterday and has had gout multiple times in the past similar to this. He denies abd pain, is eating, moving bowels in ostomy, voiding. Physical Exam Constitutional: WD/WN, vitals as above Neck: trachea midline, no thyromegaly Respiratory: normal respiratory effort, lungs clear to auscultation Gastrointestinal (Abdomen): Inspection/Auscultation: + abdomen abnormal to inspection (incision midline with kg in place, no erythema or drainage,ostomy bag ) Percussion/Palpation: abdomen soft; abdomen nontender Musculoskeletal: Extremities: + extremities abnormal to inspection (left great toe and 1st MTP joint erythema and edema,++TTP), no cyanosis and no clubbing Skin: no rashes, warm and dry Neurologic: moves all extremities and awake; no focal motor deficits Motor/Sensory: + abnormal movement (Chorea left arm) Psychiatric: A+Ox3, euthymic affect Results & Data Results & Data Vital Signs (Past 12 Hours) Vital Signs Temp Pulse Pulse Resp BP Pulse Ox O2 Del Method 03/15/23 10:00 71 03/15/23 11:42 36.5 C 59 L 18 121/70 94 Room Air 03/15/23 08:00 Room Air 03/15/23 08:05 36.2 C L 68 16 161/81 H 95 Room Air Laboratory Results BMP reviewed PG Care Time/CCT Total # of Minutes Spent Total Time Spent with Patient: Total time spent is greater than 50% in coordination of care (as documented) at patient's floor/unit and/or counseling patient: Coding Level of Care Code 08962 SUB INP/OBS CARE 2/35MIN Diagnoses Sepsis A41.9 Diverticulitis of intestine with perforation and abscess K57.80 Atrial fibrillation I48.91 Gout M10.9 Hypertension I10 Hx of arterial ischemic stroke Z86.73 Elevated troponin R77.8 Congestive heart failure I50.9 CKD (chronic kidney disease) N18.9 Alcohol abuse F10.10 Anemia D64.9 Hypokalemia E87.6
[2023-03-16] MEDS: metroNIDAZOLE 500 MG/100 ML BAG IV SCH ×3 (04:39→20:03)
[2023-03-16] MEDS: ceFAZolin 2000MG 2,000 MG/15 ML SYR IV SCH ×3 (04:39→20:03)
[2023-03-16] MEDS: diazePAM 2 MG TABLET PO PRN ×4 (04:39→20:03)
[2023-03-16 07:15] LABS: Basophils # (auto) 0.04 K/uL (0-0.2); Basophils % (auto) 0.7 %; Eosinophils # (auto) 0.16 K/uL (0-0.50); Eosinophils % (auto) 2.6 %; Hematocrit (blood only) 28.4 % (42.0-52.0); Hemoglobin 9.3 g/dl (14.0-18.0); Immature Granulocytes # (auto) 0.05 K/uL (0.01-0.20); Immature Granulocytes % (auto) 0.8 %; Lymphocytes # (auto) 1.23 K/uL (1.2-3.4); Lymphocytes % (auto) 20.3 %; Mean Corpuscular Hemoglobin 29.3 pg (25.0-34.0); Mean Corpuscular Hgb Conc 32.7 g/dL (32.0-36.0); Mean Corpuscular Volume 89.6 fL (80.0-100.0); Mean Platelet Volume 9.8 fL (9.4-12.4); Monocytes # (auto) 0.45 K/uL (0.11-0.59); Monocytes % (auto) 7.4 %; Neutrophils # (auto) 4.14 K/uL (1.40-6.50); Neutrophils % (auto) 68.2 %; Platelet Count 362 K/uL (130-400); RDW Coefficient of Variation 13.9 % (11.5-14.5); RDW Standard Deviation 45.5 fL (36.4-46.3); Red Blood Count 3.17 M/uL (4.70-6.10); White Blood Count 6.07 K/ul (4.8-10.8)
[2023-03-16 07:41] LABS: Albumin Globulin Ratio 0.6 (0.9-2); Albumin Level 2.4 gm/dl (3.4-5.0); BUN Creatinine Ratio 13.4 (10-20); Bilirubin,Total 0.5 mg/dl (0.2-1.0); Creatinine Clr Calc Pharmacy 66.8 ml/min; Est GFR (African American) 65.9 ml/min; Est GFR (Non-African American) 56.9 ml/min; Globulin 3.8 gm/dl (2.5-4.0); Magnesium 1.7 mg/dl (1.7-2.4); Potassium 3.7 mmol/L (3.5-5.1); Total Protein 6.2 gm/dl (6.0-8.3)
[2023-03-16] MEDS: METOPROLOL TARTRATE 50 MG TAB PO SCH ×2 (08:53→20:08)
[2023-03-16] MEDS: DOCUSATE SODIUM 100 MG CAP PO SCH ×2 (08:53→20:03)
[2023-03-16] MEDS: ATORVASTATIN 20 MG TAB PO SCH (08:53)
[2023-03-16] MEDS: risperiDONE 0.5 MG TABLET PO SCH ×2 (08:53→20:03)
[2023-03-16] MEDS: APIXABAN 5 MG TABLET PO SCH ×2 (08:53→20:03)
[2023-03-16] MEDS: THIAMINE HCL 100 MG TAB PO SCH (08:53)
[2023-03-16] MEDS: amLODIPine BESYLATE 5 MG TAB PO SCH (08:53)
--- NOTE | 2023-03-16 13:23 | Hospitalist Progress Note ---
Date of Service March 16, 2023 Assessment & Plan (1) Sepsis: Plan: 67 yo male with PMHx of recent acute CVA, recent diverticulitis with perforation (s/p exploratory laparotomy, descending colon resection, and creation of ostomy), CKD, alcohol abuse, nicotine dependence, HTN, afrib, and HFpEF presents with fever and tachycardia from [facility] (acute rehab). Sepsis secondary to intra abdominal infection, cultures growing pansensitive E. coli from abscess drainage. Blood cultures no growth to date Recent diverticulitis with perforation requiring surgical intervention Presented from acute rehab at [facility] due to abnormal vitals. Met 4/4 SIRS criteria. WBC 11.4. Lactate 1. Patient recently s/p exploratory laparotomy, descending colon resection, and creation of ostomy for diverticulitis with perforation and abscess. He follows with [facility] gen surg. Has midline incision with gk intact. Incision clean and intact without drainage or signs of superficial infection. CT A/P (03/09): Loculated fluid on the LEFT abdomen/pelvis, with small locules of air. When compared to CT abdomen pelvis March 01, 2023, this now contains more fluid and less air. Patient is now s/p IR drainage of abscess and insertion of drain Leukocytosis now resolved, afebrile, much improved, minimal output from drain -ID on tqurnok-opdlqitwuw-lp-escalated antibiotics from Zosyn to cefazolin and metronidazole, then plan for p.o. Augmentin for at least 2 weeks or until resolution of abscess-will wait until discharge to convert to po abx -Repeat CT abdomen/pelvis prior to discontinuation of antibiotics is recommended by ID (2) Diverticulitis of intestine with perforation and abscess: Plan: As above Follow-up with surgery for staple removal and to assess for removal of drain the week of 03/18 (3) Atrial fibrillation: Plan: Newly diagnosed, seems to be persistent rate controlled with metoprolol continue Apixaban for AC (4) Gout: Plan: left podagra on 03/15 gave colchicine 1.2mg po x 1 and with some improvement so far will give another dose of colchicine 0.6mg x 1 now and start allopurinol 100mg po daily now, then increase to 300mg in a few days (5) Hypertension: Plan: -BP is under good control -cont. home amlodipine, metoprolol (6) Hx of arterial ischemic stroke: Plan: -Patient was Admitted to [facility] on 02/22/23 with right subthalamic infarction -Persistent left-sided chorea with no new deficits. Continue his prior regimen of risperidone and restart his home Valium PRN which she has not taken in many days here. -Avoiding high-intensity dosing as his LDL is low at 50, which could be 2/2 critical illness -continue home po diazepam prn arm chorea (7) Elevated troponin: Plan: Demand ischemia secondary to sepsis -ECG initially with atrial fibrillation and incomplete right bundle branch block ST and T wave abnormality in leads mostly unchanged from previous, repeat ECG similar -trop 50 on admission, trended and went down to 45 -suspect due to demand ischemia from likely infection (8) Congestive heart failure: Plan: Chronic HFpEF -CXR: cardiomegaly with pulmonary vascular congestion -Moitor I/O, daily weight -Hold off on Lasix for now, patient appears compensated (9) CKD (chronic kidney disease): Plan: CKD stage III Creatinine stable at 1.27 Follow BMP, avoid nephrotoxins (10) Alcohol abuse: Plan: cont home thiamine No evidence of withdrawal (11) Anemia: Plan: Hemoglobin 9 and stable from previous iron studies c/w chronic disease B12, folate normal TSH elevated at 6 but FT4 normal--> recommend repeating TSH when recovered in 4- 6 weeks (12) Hypokalemia: Plan: now resolved with replacement Follow BMP and magnesium in the morning Plan DVT prophylaxis- Eliquis Disposition-continued stay but is medically stable for discharge to [facility] acute rehab but no bed available today. DOwngrade to med/surg Updated brother at bedside Admission and Anticipated Discharge Date Admission Date: March 11, 2023 Subjective Pt feels well, no complaints. Left toe gout feels better, he requests to start allopurinol. Has 3-4 gout attacks per year. Tele with Afib, rates 60-70s Physical Exam Constitutional: WD/WN, vitals as above Neck: trachea midline, no thyromegaly Respiratory: normal respiratory effort, lungs clear to auscultation Gastrointestinal (Abdomen): Inspection/Auscultation: + abdomen abnormal to inspection (incision midline with kg in place, no erythema or drainage,ostomy bag ) Percussion/Palpation: abdomen soft; abdomen nontender Musculoskeletal: Extremities: + extremities abnormal to inspection (left great toe and 1st MTP joint erythema and edema improved), no cyanosis and no clubbing Skin: no rashes, warm and dry Neurologic: moves all extremities and awake; no focal motor deficits Motor/Sensory: + abnormal movement (Chorea left arm) Psychiatric: A+Ox3, euthymic affect Results & Data Results & Data Vital Signs (Past 12 Hours) Vital Signs Temp Pulse Pulse Resp BP Pulse Ox O2 Del Method 03/16/23 11:29 36.7 C 66 18 151/81 H 97 Room Air 03/16/23 08:00 Room Air 03/16/23 08:00 68 03/16/23 07:48 36.6 C 62 18 160/73 H 99 Room Air 03/16/23 03:40 36.5 C 71 20 160/86 H 91 Room Air PG Care Time/CCT Total # of Minutes Spent Total Time Spent with Patient: Total time spent is greater than 50% in coordination of care (as documented) at patient's floor/unit and/or counseling patient: Coding Level of Care Code 72474 SUB INP/OBS CARE 2/35MIN Diagnoses Sepsis A41.9 Diverticulitis of intestine with perforation and abscess K57.80 Atrial fibrillation I48.91 Gout M10.9 Hypertension I10 Hx of arterial ischemic stroke Z86.73 Elevated troponin R77.8 Congestive heart failure I50.9 CKD (chronic kidney disease) N18.9 Alcohol abuse F10.10 Anemia D64.9 Hypokalemia E87.6
[2023-03-16] MEDS ORDERED: COLCHICINE 0.6 MG TAB PO ONE (14:44)
[2023-03-16 14:57] LABS: Uric Acid 5.9 mg/dl (2.6-7.2)
[2023-03-16] MEDS: allopurinoL 100 MG TAB PO SCH (15:41)
[2023-03-17] MEDS: metroNIDAZOLE 500 MG/100 ML BAG IV SCH (04:02)
[2023-03-17] MEDS: ceFAZolin 2000MG 2,000 MG/15 ML SYR IV SCH (04:47)
[2023-03-17 07:43] LABS: Calcium 7.9 mg/dl (8.6-10.3); Est GFR (African American) 70.6 ml/min; Est GFR (Non-African American) 60.9 ml/min; Magnesium 1.6 mg/dl (1.7-2.4); Potassium 3.6 mmol/L (3.5-5.1)
[2023-03-17 07:51] LABS: Basophils # (auto) 0.03 K/uL (0-0.2); Basophils % (auto) 0.5 %; Eosinophils # (auto) 0.28 K/uL (0-0.50); Eosinophils % (auto) 4.2 %; Hematocrit (blood only) 27.7 % (42.0-52.0); Hemoglobin 8.8 g/dl (14.0-18.0); Immature Granulocytes # (auto) 0.04 K/uL (0.01-0.20); Immature Granulocytes % (auto) 0.6 %; Lymphocytes # (auto) 1.43 K/uL (1.2-3.4); Lymphocytes % (auto) 21.7 %; Mean Corpuscular Hemoglobin 29.1 pg (25.0-34.0); Mean Corpuscular Hgb Conc 31.8 g/dL (32.0-36.0); Mean Corpuscular Volume 91.7 fL (80.0-100.0); Mean Platelet Volume 10.1 fL (9.4-12.4); Monocytes # (auto) 0.49 K/uL (0.11-0.59); Monocytes % (auto) 7.4 %; Neutrophils # (auto) 4.33 K/uL (1.40-6.50); Neutrophils % (auto) 65.6 %; Platelet Count 336 K/uL (130-400); RDW Coefficient of Variation 14.3 % (11.5-14.5); RDW Standard Deviation 47.6 fL (36.4-46.3); Red Blood Count 3.02 M/uL (4.70-6.10)
[2023-03-17] MEDS: DOCUSATE SODIUM 100 MG CAP PO SCH (09:08)
[2023-03-17] MEDS: THIAMINE HCL 100 MG TAB PO SCH (09:09)
[2023-03-17] MEDS: ATORVASTATIN 20 MG TAB PO SCH (09:09)
[2023-03-17] MEDS: allopurinoL 100 MG TAB PO SCH (09:09)
[2023-03-17] MEDS: risperiDONE 0.5 MG TABLET PO SCH (09:09)
[2023-03-17] MEDS: amLODIPine BESYLATE 5 MG TAB PO SCH (09:09)
[2023-03-17] MEDS: METOPROLOL TARTRATE 50 MG TAB PO SCH (09:09)
[2023-03-17] MEDS: APIXABAN 5 MG TABLET PO SCH (09:10)
[2023-03-17] MEDS ORDERED: POTASSIUM CHLORIDE CRTAB 20 MEQ TABCR PO STA (09:14)
[2023-03-17] MEDS: MAGNESIUM SULFATE / D5W 1 GM/100 ML BAG IV SCH ×2 (09:47→11:51)
[2023-03-17] MEDS: diazePAM 2 MG TABLET PO PRN (11:42)
--- NOTE | 2023-03-17 13:06 | Discharge Summary ---
Discharge Summary Date of Service March 17, 2023 Notes For Next Care Provider Continue Augmentin bid until abscess resolved Check once weekly CBC, CMP, Magnesium Repeat CT abd/pel in 10 days to assess for resolution of abscess Follow up with Surgery mid week for staple removal and to discuss removal of drain Medication Changes From Visit Added Augmentin 875mg po bid x 2 weeks Added allopurinol 300mg po daily for gout prevevntion Admission HPI Per Admitting Provider 67 yo male with PMHx of recent acute CVA, recent diverticulitis with perforation and abscess (s/p exploratory laparotomy, descending colon resection, and creation of ostomy), CKD, alcohol abuse, nicotine dependence, HTN, afrib, and HFpEF presents with fever and tachycardia from [facility] (acute rehab). Upon entering room patient was heavily asleep. He was arousable and alert but quickly went back to sleep without answering many questions HPI is limited. Per previous notes and ED intake patient was sent here from [facility] due to abnormal vitals including fever, tachycardia, and tachypnea. Otherwise ROS unobtainable at this time. Patient has had an unfortunate month beginning with an ischemic stroke. Following this he was sent to [facility] for acute rehab and days later was found to be hypoxic. It was found that he had diverticulitis with perforation and abscess which required surgical intervention on March 01. He was discharged a few days ago and did return 2 nights ago due to serosanguineous drainage from the midline abdominal incision. At that time CT imaging was performed GI was consulted. Incision was deemed intact and patient was sent back to rehab. Unfortunately patient returned today as mentioned above. Principal Dx & Hospital Course #1 = Principal Diagnosis (1) Sepsis: 67 yo male with PMHx of recent acute CVA, recent diverticulitis with perforation (s/p exploratory laparotomy, descending colon resection, and creation of ostomy), CKD, alcohol abuse, nicotine dependence, HTN, afrib, and HFpEF presents with fever and tachycardia from [facility] (acute rehab). Sepsis secondary to intra abdominal infection, cultures growing pansensitive E. coli from abscess drainage. Blood cultures no growth to date Recent diverticulitis with perforation requiring surgical intervention Presented from acute rehab at [facility] due to abnormal vitals. Met 4/4 SIRS criteria. WBC 11.4. Lactate 1. Patient recently s/p exploratory laparotomy, descending colon resection, and creation of ostomy for diverticulitis with perforation and abscess. He follows with [facility] gen surg. Has midline incision with kg intact. Incision clean and intact without drainage or signs of superficial infection. CT A/P (03/09): Loculated fluid on the LEFT abdomen/pelvis, with small locules of air. When compared to CT abdomen pelvis March 01, 2023, this now contains more fluid and less air. Patient is now s/p IR drainage of abscess and insertion of drain Leukocytosis now resolved, afebrile, much improved, minimal output from drain -ID on ekvzevj-wbfnhebbpg-xm-escalated antibiotics from Zosyn to cefazolin and metronidazole, then plan for p.o. Augmentin for at least 2 weeks or until resolution of abscess -Repeat CT abdomen/pelvis prior to discontinuation of antibiotics is recommended by ID (2) Diverticulitis of intestine with perforation and abscess: As above Follow-up with surgery for staple removal and to assess for removal of drain the week of 03/18 (3) Atrial fibrillation: Newly diagnosed, seems to be persistent rate controlled with metoprolol continue Apixaban for AC (4) Gout: left podagra on 03/15 gave colchicine 1.2mg po x 1 and then a second dose of 0.6mg po x 1 with improvement He has at least 4 episodes per year of gout- start allopurinol 100mg po daily x 2 days, then increase to 300mg for tomorrow (5) Hypertension: -BP is under good control -cont. home amlodipine, metoprolol (6) Hx of arterial ischemic stroke: -Patient was Admitted to [facility] on 02/22/23 with right subthalamic infarction -Persistent left-sided chorea with no new deficits. Continue his prior regimen of risperidone and Valium PRN -Avoiding high-intensity dosing as his LDL is low at 50, which could be 2/2 critical illness -continue home po diazepam prn arm chorea (7) Elevated troponin: Demand ischemia secondary to sepsis -ECG initially with atrial fibrillation and incomplete right bundle branch block ST and T wave abnormality in leads mostly unchanged from previous, repeat ECG similar -trop 50 on admission, trended and went down to 45 -suspect due to demand ischemia from likely infection (8) Congestive heart failure: Chronic HFpEF -CXR: cardiomegaly with pulmonary vascular congestion -Moitor I/O, daily weight -Hold off on Lasix for now, patient appears compensated (9) CKD (chronic kidney disease): CKD stage III Creatinine stable at 1.27 Follow BMP, avoid nephrotoxins (10) Alcohol abuse: cont home thiamine No evidence of withdrawal (11) Anemia: Hemoglobin 9 and stable from previous iron studies c/w chronic disease B12, folate normal TSH elevated at 6 but FT4 normal--> recommend repeating TSH when recovered in 4- 6 weeks (12) Hypokalemia: still mildly low Follow BMP and magnesium weekly at rehab Plan DVT prophylaxis- Eliquis Disposition- medically stable for discharge to [facility] acute rehab today Discharge Exam Constitutional WD/WN, vitals as above Neck trachea midline, no thyromegaly Respiratory normal respiratory effort, lungs clear to auscultation Gastrointestinal (Abdomen) Inspection/Auscultation: + abdomen abnormal to inspection (incision midline with kg in place, no erythema or drainage,ostomy bag ) Percussion/Palpation: abdomen soft; abdomen nontender Musculoskeletal Extremities: + extremities abnormal to inspection (left great toe and 1st MTP joint erythema and edema improved), no cyanosis and no clubbing Skin no rashes, warm and dry Neurologic moves all extremities and awake; no focal motor deficits Motor/Sensory: + abnormal movement (Chorea left arm) Psychiatric A+Ox3, euthymic affect Updated Medication List Medication Instructions Recorded Confirmed Type acetaminophen 325 mg tablet 650 mg PO Q4 PRN Pain 03/01/23 03/10/23 History (Tylenol) albuterol sulfate 90 mcg/actuation 1 inh inhalation Q4 PRN Wheezing 03/01/23 03/10/23 History aerosol inhaler amlodipine 10 mg tablet 10 mg PO DAILY 03/01/23 03/10/23 History apixaban 5 mg tablet 5 mg PO BID 03/01/23 03/10/23 History docusate sodium 100 mg capsule 100 mg PO BID 03/01/23 03/10/23 History melatonin 3 mg tablet 3 mg PO HS PRN Sleep 03/01/23 03/10/23 History metoprolol tartrate 50 mg tablet 50 mg PO Q12H 03/01/23 03/10/23 History thiamine HCl (vitamin B1) 100 mg 100 mg PO DAILY 03/01/23 03/10/23 History tablet atorvastatin 20 mg tablet 20 mg PO QAM 30 days #30 tabs 03/07/23 03/10/23 Rx risperidone 0.5 mg tablet 0.5 mg PO BID 30 days #60 tabs 03/07/23 03/10/23 Rx allopurinol 300 mg tablet 300 mg PO DAILY #30 tabs 03/17/23 Rx amoxicillin 875 mg-potassium 1 tab PO BID #28 tabs 03/17/23 03/10/23 Rx clavulanate 125 mg tablet diazepam 2 mg tablet 2 mg PO Q4H PRN for arm chorea #10 03/17/23 03/10/23 Rx tabs Hospital Stay Data Consultations 03/10/23 23:02 ED Decision to Admit Stat 03/11/23 00:59 Consult General Surgery Routine 03/12/23 07:38 Consult Infectious Diseases Routine Diagnostic Imagining Performed 03/11/23 08:50 IR AD softtisspercutan w/gdnce Urgent Pending Results Patient Have Any Pending Studies at Discharge: No Discharge Instructions Given to Patient (Per Discharging Provider) Please continue on Augmentin 875mg po bid for at least 2 weeks or until resolu tion of intra-abdominal abscess on imaging as recommended by Infectious Disease. Continue PT/OT for your recent history of stroke and multiple hospitalizations for diverticulitis with bowel resection and abscess. Please call to schedule follow up in clinic next week with Dr. Dennison for possible staple removal and to discuss timing of IR drain removal IR drain: Record output daily and bring log to the office at your follow up appointment Total Time Total Time Spent Total Time Spent (In Minutes): 40 min Coding Level of Care Code 36123 INP/OBS DISCH >30 MIN Diagnoses Sepsis A41.9 Diverticulitis of intestine with perforation and abscess K57.80 Atrial fibrillation I48.91 Gout M10.9 Hypertension I10 Hx of arterial ischemic stroke Z86.73 Elevated troponin R77.8 Congestive heart failure I50.9 CKD (chronic kidney disease) N18.9 Alcohol abuse F10.10 Anemia D64.9 Hypokalemia E87.6
== END 2023-03-17 13:13 | DRG 871 ==
LOC: ED 21:05 → SUATTDRO 03-11 00:59 → 2S 03-11 00:59 → 3N 03-16 15:57